=== PATIENT | female | born 1935 | race Caucasian/White ===

== ENCOUNTER 2022-10-05 16:24 | Emergency (ER) | payer MEDICARE, SELFPAY ==
[2022-10-05 16:29] VITALS: BP 162/84; O2SAT 95
[2022-10-05 16:31] VITALS: BP 162/84; PULSE 94; RESP 16; TEMP 36.7; O2SAT 100; BMI 18.9
--- NOTE | 2022-10-05 16:41 | XR_ITS ---
The [address] [address] Patient Name: SCOTTIE CHAVIRA MRN: [id number] date: 1935 Sex: F Assigned Patient Location: ER Current Patient Location: ED.MAIN Accession/Order Number: [id number] Exam Date: 10/05/2022 17:50 Report Date: 10/05/2022 18:55 At the request of: ELI WEINER Procedure: XR abdomen min 2V EXAM: XR abdomen min 2V HISTORY: constip COMPARISON: None. TECHNIQUE: Supine study on 2 films FINDINGS: There is prominent stool throughout the colon. No dilated small bowel loops are identified. GI kiah are noted in the right abdomen. IMPRESSION: Apparent constipation. Electronically authenticated by: James HAHN Date: 10/05/2022 18:55
[2022-10-05] MEDS: 0.9 % SODIUM CHLORIDE 1,000 ML 999 ML IV (16:55)
[2022-10-05 17:12] LABS: Basophils Absolute Auto 0.1 10^3/uL (0.0-0.1); Basophils Percent Auto 0.3 % (0.2-2.0); Hematocrit 36.6 % (36.0-48.0); Hemoglobin 12.4 g/dL (12.0-16.0); Immature Granulocytes Abs Auto 0.07 10^3/uL (0.00-0.03); Immature Granulocytes Pct Auto 0.5 % (0.0-0.5); Lymphocytes Absolute Auto 1.5 10^3/uL (1.2-3.8); Lymphocytes Percent Auto 9.6 % (20.5-60.0); Mean Corpuscular HGB Conc 33.9 g/dL (29.9-35.2); Mean Corpuscular Hemoglobin 30.5 pg (26.7-34.0); Mean Corpuscular Volume 90.1 fL (81.0-99.0); Mean Platelet Volume 9.4 fL (9.5-13.5); Monocytes Absolute Auto 1.1 10^3/uL (0.3-0.8); Monocytes Percent Auto 7.4 % (1.7-12.0); Neutrophils Absolute Auto 12.6 10^3/uL (1.4-6.5); Neutrophils Percent Auto 82.2 % (43.0-75.0); Platelet Count 229 10^3/uL (150-450); Red Blood Count 4.06 10^6/uL (4.20-5.40); Red Cell Distribution Width 12.7 % (11.0-15.0); White Blood Count 15.3 10^3/uL (4.0-11.0)
[2022-10-05 17:32] LABS: Bilirubin Urine NEGATIVE (NEGATIVE); Blood Urine MODERATE (NEGATIVE); Clarity Urine CLEAR (CLEAR); Color Urine LT. YELLOW (YELLOW); Glucose Urine UA NEGATIVE (NEGATIVE); Ketones Urine TRACE mg/dL (NEGATIVE); Leukocyte Esterase Urine NEGATIVE (NEGATIVE); Nitrite Urine NEGATIVE (NEGATIVE); Protein Urine NEGATIVE (NEG/TRACE); Urobilinogen Urine 0.2 EU/dL (0.2-1.0); pH Urine 6.5 (5.0-9.0)
[2022-10-05 17:33] LABS: Alanine Aminotransferase 17 U/L (14-59); Albumin Level 3.7 g/dL (3.4-5.0); Alkaline Phosphatase 39 U/L (46-116); Anion Gap 15.9; Aspartate Amino Transferase 17 U/L (15-37); BUN Creatinine Ratio 19.1; Bilirubin Total 0.6 mg/dL (0.2-1.0); Calcium 9.4 mg/dL (8.5-10.1); Carbon Dioxide 22.6 mmol/L (21.0-32.0); Chloride 102 mmol/L (98-107); Estimated GFR (African America >60 (>=60); Estimated GFR (Non-African Ame 60 (>=60); Globulin 3.8 g/dL; Glucose 129 mg/dL (74-106); Potassium 3.5 mmol/L (3.5-5.1); Sodium 137 mmol/L (136-145); Total Protein 7.5 g/dL (6.4-8.2)
[2022-10-05 17:41] LABS: Bacteria Urine NONE SEEN #/HPF (NONE SEEN); Cast Seen? NONE SEEN #/LPF (NONE SEEN); Crystals Seen? None Seen #/HPF (None Seen); Mucus Urine NONE SEEN (NONE SEEN); Squamous Epithelial Cell Urine FEW #/LPF (NONE/RARE); WBC Urine NONE SEEN #/HPF (NONE SEEN)
[2022-10-05 17:42] LABS: Urine Culture Indicated NO
[2022-10-05 17:58] VITALS: BP 150/81; O2SAT 98
[2022-10-05 18:00] VITALS: BP 145/73; O2SAT 98
--- NOTE | 2022-10-05 19:02 | ED.GENADUL1 ---
HPI - General Adult General Chief complaint: Weakness Stated complaint: CONSTIPATION Time Seen by Provider: 10/05/22 16:32 Source: patient Mode of arrival: walk-in Limitations: no limitations Limitations comment: [facility] History of Present Illness HPI narrative: patient is a 87-year-old female who is presenting to the Emergency Room with concern for constipation and rectal pain. Patient states that the rectal pain started this morning. Around 8 AM, patient went to the bathroom, urinated and had diarrhea. Patient's been having rectal pain and pressure any time she's been walking at home throughout the morning and afternoon. Patient was brought to the Emergency Room by her [id number] for concerns of rectal pain and constipation. Patient has no fever or chills. No chest pain or shortness of breath. Patient has no urinary frequency, urgency or burning. Patient does have a history of colon cancer, and rectal surgery many years ago. Patient never had a ostomy bag previously. Patient does not have her appendix. no other acute complaints. Related Data Home Medications Medication Instructions Recorded Confirmed alendronate 40 mg tablet 40 mg PO .weekly 10/05/22 10/05/22 cholecalciferol (vitamin D3) 50 50 mcg PO DAILY 10/05/22 10/05/22 mcg (2,000 unit) capsule (D3-2000) omega 7-bpz-hqq-fish oil 1,000 mg 1 cap PO DAILY 10/05/22 10/05/22 (120 mg-180 mg) capsule (Fish Oil) Previous Rx's Medication Instructions Recorded dicyclomine 10 mg capsule 10 mg PO TID PRN abdominal pain #7 10/05/22 caps ondansetron 4 mg disintegrating 4 mg PO Q8H 48 hours #6 tabs 10/05/22 tablet Allergies Allergy/AdvReac Type Severity Reaction Status Date / Time aspirin AdvReac Intermediate bleeding Verified 10/05/22 16:30 Review of Systems ROS Narrative All systems are negative except as noted/marked. All systems reviewed and otherwise negative. PFSH PFS Social History Smoking status: Never smoker Exam Narrative Exam Narrative: Nurses note and vital signs reviewed and patient is not hypoxic. General: The patient appears well and in no apparent distress. Patient is resting comfortably on cart. Patient is not toxic, lethargic, or listless Skin: Warm, dry, no pallor noted. There is no rash noted. No petechiae, purpura. Head: Normocephalic, atraumatic Eye: Normal conjunctiva, no drainage, EOMI. PERRL Ears, Nose, Mouth, and Throat: oral mucosa is moist. Nares patent. Mouth without vesicles. Cardiovascular: Regular Rate and Rhythm, no murmur, gallop, rub Respiratory: Patient is in no distress, no accessory muscle use, lungs are clear to auscultation, no wheezing, rales or rhonchi Back: non-tender, no CVA tenderness bilaterally to percussion. No CT LS midline pain GI: soft, no tenderness to palpation, no masses appreciated. No rebound, guarding, or rigidity noted. No flank pain bilateral, No distention rectal rectal exam: Carey RN was at bedside during the entire exam. Patient had no signs of perirectal or rectal abscess, no signs upon analysis. Patient had moderate firm stool in the rectal vault, small amount of stool was disimpacted by myself. Musculoskeletal: Patient has full range of motion of all of the extremities, no motor, sensory, or focal neurological deficits Neurological: A&O x3, normal speech Psychiatric: Cooperative Constitutional Vital Signs - 24 hr 10/05/22 16:31 10/05/22 16:29 10/05/22 17:58 Temperature 98.1 F Pulse Rate [Monitor] 94 H Respiratory Rate 16 Blood Pressure 162/84 H 150/81 H Blood Pressure [Right Arm] 162/84 H Pulse Oximetry 100 95 98 Oxygen Delivery Method Room Air 10/05/22 18:00 Temperature Pulse Rate [Monitor] Respiratory Rate Blood Pressure 145/73 H Blood Pressure [Right Arm] Pulse Oximetry 98 Oxygen Delivery Method Course Vital Signs Vital signs: Vital Signs Blood Pressure 162/84 H 10/05/22 16:29 Pulse Oximetry 95 10/05/22 16:29 Temperature 98.1 F 10/05/22 16:31 Pulse Rate 94 H 10/05/22 16:31 Respiratory Rate 16 10/05/22 16:31 Blood Pressure 145/73 H 10/05/22 18:00 Pulse Oximetry 98 10/05/22 18:00 Oxygen Delivery Method Room Air 10/05/22 16:31 Medical Decision Making MDM Narrative Medical decision making narrative: Patient x-ray shows large amount of stool in the rectal vault, no obstruction, air-fluid levels, please see the official x-ray report of her abdomen. Patient has slight elevation of white blood cells 15 with no obvious infectious source. Electrolytes are within normal limits. Patient was given 1 L of IV fluids for hydration. Patient will follow-up with PCP. . Patient had small disimpaction done by myself. Patient attempted to have a boweel movement at discharge and was not successful. Patient was given a soapsuds enema. Patient will follow-up with PCP. Patient will use MiraLAX and either mineral oil/mag citrate the next 2 days developed increasing fluids to help with bowel movements. Patient was sent home with prescription for Zofran and Bentyl to use as needed help her symptoms. Patient and [id number] at bedside understand instructions well, no questions at discharge. Lab Data Lab results reviewed: Yes I reviewed the patient's lab results Labs: Lab Results 10/05/22 Range/Units 16:50 WBC 15.3 H (4.0-11.0) 10^3/uL RBC 4.06 L (4.20-5.40) 10^6/uL Hgb 12.4 (12.0-16.0) g/dL Hct 36.6 (36.0-48.0) % MCV 90.1 (81.0-99.0) fL MCH 30.5 (26.7-34.0) pg MCHC 33.9 (29.9-35.2) g/dL RDW 12.7 (11.0-15.0) % Plt Count 229 (150-450) 10^3/uL MPV 9.4 L (9.5-13.5) fL Neut % (Auto) 82.2 H (43.0-75.0) % Lymph % (Auto) 9.6 L (20.5-60.0) % [place] % (Auto) 7.4 (1.7-12.0) % Eos % (Auto) 0.0 L (0.9-7.0) % Baso % (Auto) 0.3 (0.2-2.0) % Neut # (Auto) 12.6 H (1.4-6.5) 10^3/uL Lymph # (Auto) 1.5 (1.2-3.8) 10^3/uL [place] # (Auto) 1.1 H (0.3-0.8) 10^3/uL Eos # (Auto) 0.0 (0.0-0.7) 10^3/uL Baso # (Auto) 0.1 (0.0-0.1) 10^3/uL Abs Immat Gran (auto) 0.07 H (0.00-0.03) 10^3/uL Imm/Tot Granulo (auto) 0.5 (0.0-0.5) % Sodium 137 (136-145) mmol/L Potassium 3.5 (3.5-5.1) mmol/L Chloride 102 (98-107) mmol/L Carbon Dioxide 22.6 (21.0-32.0) mmol/L Anion Gap 15.9 BUN 17.0 (7.0-18.0) mg/dL Creatinine 0.89 (0.55-1.02) mg/dL Est GFR ( Amer) >60 (>=60) Est GFR (Non-Af Amer) 60 (>=60) BUN/Creatinine Ratio 19.1 Glucose 129 H (74-106) mg/dL Calcium 9.4 (8.5-10.1) mg/dL Total Bilirubin 0.6 (0.2-1.0) mg/dL AST 17 (15-37) U/L ALT 17 (14-59) U/L Alkaline Phosphatase 39 L (46-116) U/L Total Protein 7.5 (6.4-8.2) g/dL Albumin 3.7 (3.4-5.0) g/dL Globulin 3.8 g/dL Albumin/Globulin Ratio 1.0 Lipase 48.0 L (73.0-393.0) U/L Urine Color Lt. yellow (YELLOW) Urine Clarity Clear (CLEAR) Urine pH 6.5 (5.0-9.0) Ur Specific [place] 1.010 (1.005-1.025) Urine Protein Negative (NEG/TRACE) mg/dL Urine Glucose (UA) Negative (NEGATIVE) mg/dL Urine Ketones Trace A (NEGATIVE) mg/dL Urine Occult Blood Moderate A (NEGATIVE) Urine Nitrite Negative (NEGATIVE) Urine Bilirubin Negative (NEGATIVE) Urine Urobilinogen 0.2 (0.2-1.0) EU/dL Ur Leukocyte Esterase Negative (NEGATIVE) Urine RBC 5-10 A (0-2) #/HPF Urine WBC None seen (NONE SEEN) #/HPF Ur Squamous Epith Cells Few A (NONE/RARE) #/LPF Urine Crystals None seen (None Seen) #/HPF Urine Bacteria None seen (NONE SEEN) #/HPF Urine Casts None seen (NONE SEEN) #/LPF Urine Mucus None seen (NONE SEEN) Ur Culture Indicated? No Discharge Plan Discharge Chief Complaint: Weakness Clinical Impression: Dehydration, mild, Anal or rectal pain, Fecal impaction in rectum, Constipation Patient Disposition: Home, Self-Care Prescriptions / Home Meds: New dicyclomine 10 mg capsule 10 mg PO TID PRN (Reason: abdominal pain) Qty: 7 0RF ondansetron 4 mg tablet,disintegrating 4 mg PO Q8H 2 Days Qty: 6 0RF No Action alendronate 40 mg tablet 40 mg PO .weekly omega 7-ckj-sst-fish oil [Fish Oil] 1,000 mg (120 mg-180 mg) capsule 1 cap PO DAILY cholecalciferol (vitamin D3) [D3-2000] 50 mcg (2,000 unit) capsule 50 mcg PO DAILY Instructions: Constipation (ED), Rectal Pain (ED) Additional Instructions: Tomorrow, Saturday, use one heaping tablespoons of MiraLAX twice a day on Saturday and Saturday. Use one bottle of either magnesium citrate or mineral oil on Saturday and Saturday. Use fleets enemas if needed Saturday and Saturday. Increase fluids. Use nausea and belly cramping medicine if needed. Stand Alone Forms: Portal Instructions Referrals: JESSICA BERGMAN [Primary Care Provider] - 1 week
[2022-10-05] MEDS: ONDANSETRON PF 4 MG/2 ML VIAL IV (20:25)
== END 2022-10-05 20:26 | disposition home or self-care (01) ==
PROVIDERS: Emergency Provider Emergency Medicine; PCP Family Medicine
DX: K59.00 Constipation, unspecified (principal); E86.0 Dehydration; K62.89 Other specified diseases of anus and rectum; Z85.038 Personal history of other malignant neoplasm of large intestine; Z79.899 Other long term (current) drug therapy
CPT/HCPCS: 36415; 74019; 80053; 81001; 83690; 85025; 99285

== ENCOUNTER 2022-10-17 08:38 | Outpatient (OUT) | payer MEDICARE, SELFPAY ==
--- NOTE | 2022-10-17 08:49 | CT_ITS ---
[address] [address] Patient Name: SCOTTIE CHAVIRA MRN: [id number] date: 1935 Sex: F Assigned Patient Location: LAB Current Patient Location: LAB Accession/Order Number: [id number] Exam Date: 10/17/2022 10:21 Report Date: 10/17/2022 11:07 At the request of: ANGELA DURAN Procedure: CT abdomen pelvis wo/w con EXAMINATION: CT abdomen pelvis wo/w con HISTORY: History of colon cancer Z85.038, Lower abdominal pain R10.30 COMPARISON: CT abdomen pelvis 08/24/2016 TECHNIQUE: Axial, Coronal, and Sagittal images were obtained without and/or with IV contrast as indicated by examination type. Dose reduction techniques were achieved by using automated exposure control and/or adjustment of mA and/or kV according to patient size and/or use of iterative reconstruction technique. FINDINGS: LUNG BASES: No visible pulmonary or pleural disease. LIVER: No enlargement, atrophy, suspicious density, or significant focal lesion. BILIARY: No dilatation or calcification. PANCREAS: No lesion, fluid collection, or abnormal duct dilatation. SPLEEN: No enlargement or focal lesion. ADRENALS: No mass or enlargement. KIDNEYS: No mass, obstruction, or calcification. BOWEL/MESENTERY: Bowel sutures surrounding the cecum. No visible mass, obstruction, or bowel wall thickening. AORTA/VASCULAR: No aneurysm or dissection. RETROPERITONEUM: No mass or adenopathy. LYMPH NODES: No adenopathy. URINARY BLADDER: No visible focal wall thickening, lesion, or calculus. PELVIC ORGANS: No visible mass. Pelvic organs appropriate for patient age. ABDOMINAL WALL: No mass or hernia. BONES: No bony lesion or fracture. OTHER: Negative. IMPRESSION: 1.No evidence of recurrent or metastatic disease. Bowel sutures surrounding cecum. 2.No lymphadenopathy or suspicious findings. Electronically authenticated by: LISANDRO MCDOWELL Date: 10/17/2022 11:07
[2022-10-17 08:55] LABS: Estimated GFR (African America >60 (>=60); Estimated GFR (Non-African Ame 56 (>=60)
== END 2022-10-17 08:39 ==
LOC: LAB 08:38
PROVIDERS: PCP Family Medicine; Visit Provider Physician Assistant
DX: R10.30 Lower abdominal pain, unspecified (principal); Z85.038 Personal history of other malignant neoplasm of large intestine; Z90.49 Acquired absence of other specified parts of digestive tract; R19.5 Other fecal abnormalities
CPT/HCPCS: 36415; 74178; 82565; Q9967

== ENCOUNTER 2023-02-28 10:49 | Outpatient (OUT) | payer MEDICARE, SELFPAY ==
--- NOTE | 2023-02-28 10:53 | MM_ITS ---
Patient: SCOTTIE CHAVIRA Exam Date: 02/28/2023 : 1935 Gender:F Ordering : DR JESSICA BERGMAN M.D. Admission #: [id number] Family : Order #: [id number] CLICK HERE TO VIEW EXAM RADIOLOGY REPORT PROCEDURE: MM TOMOSYNTHESIS SCREENING BI COMPARISON: MG MAMM SCREEN 3D ALAYNA CAD, 02/23/2021. MG MAMM SCREEN 3D ALAYNA CAD, 02/26/2022. INDICATIONS: Screening Calculator Name NCI Breast Cancer Risk Assessment Tool 5 Year Breast Cancer Risk Not Applicable. Lifetime Breast Cancer Risk Not Applicable. Personal Breast Cancer No Personal Ovarian Cancer No Treatments Bowl resection Family Cancers Mother with breast cancer at age 87; Sister with breast cancer at age 80; Sister with breast cancer at age 78. LOCATION: The [facility] BREAST COMPOSITION: Heterogeneously dense,which may obscure small masses. FINDINGS: DIAGNOSTIC CATEGORY 2--BENIGN FINDING. NO CHANGE FROM COMPARISON. Scattered benign-appearing calcifications are present. Scattered benign-appearing lymph nodes are present. RIGHT BREAST: No significant suspicious finding. LEFT BREAST: No significant suspicious finding. RECOMMENDATIONS: ROUTINE MAMMOGRAM AND CLINICAL EVALUATION IN 12 MONTHS. PLEASE NOTE: A NORMAL MAMMOGRAM DOES NOT EXCLUDE THE POSSIBILITY OF BREAST CANCER. A CLINICALLY SUSPICIOUS PALPABLE LUMP SHOULD BE BIOPSIED. Dictated by: Braxton Valderrama MD on 03/01/2023 at 08:43 Approved by: Braxton Valderrama MD on 03/01/2023 at 08:46
== END 2023-02-28 10:50 | disposition home or self-care (01) ==
LOC: MAMMO 10:50
PROVIDERS: PCP Family Medicine; Visit Provider Family Medicine
DX: Z12.31 Encounter for screening mammogram for malignant neoplasm of breast (principal); Z80.3 Family history of malignant neoplasm of breast
CPT/HCPCS: 77063; 77067

== ENCOUNTER 2023-12-28 13:52 | Outpatient (OUT) | payer MEDICARE, SELFPAY ==
--- OUTSIDE RECORDS SUMMARY | 2023-12-27 11:27 | XMS_ITS | CCD ---
Author Organization [facility]iniSyhi Care Team Providers Care Teacher Preschool Name Role Phone Ashley Hopper Primary Care Physician UnavailMekhi Warren Unavailable Unavailable PACHECO, DR LOPEZ Admitting Unavailable PACHECO, DR LOPEZ Primary Care Unavailable PACHECO, DR LOPEZ Consulting Unavailable PACHECO, DR LOPEZ Attending Unavailable WEST, DR QUANG Desai Consulting Unavailable Pacheco BENSON, Buck Walker Primary Care Unavailab christiano Finch, Reina Altman Attending Unavai lable PACHECO, BUCK Raza Attending Unavailable PETITTIMARLENE Attending Unavailable PACHECO, BUCK M Attending Unavailable RUSHERLISANDRO Attending Unavailable PACHECO, RUGEN M Attending Unavailable BLACKSTONRICHARD Attending Unavailable PACHECO, RUGEN M Referring Unavailable KELBLERICHARD Bruno Attending Unavailable PACHECO, RUGEN M Referring Unavailable DOT GODOY Attending Unavailable PACHECO, RUGEN M Referring Unavailable PACHECO, RUGEN M Referring Unavailable KELBLEYRICHARD Attending Unavailable PACHECO, RUGEN M Referring Unavailable PACHECO, RUGEN M Referring Unavailable DOT GODOY Attending Unavailable Allergies Allergy Classification Reported Allergen(s) Allergy Type Date of Onset Reaction(s) Facility (2 sources) Aspirin; Translations: [aspirin] Drug Allergy [facility] (1 source) Aspirin Drug Allergy 04-15-2016 [facility] Medications Completed/Discontinued Medications Medication Drug Class(es) Dates Sig (Normalized) Sig (Original) alendronic acid 70 mg oral tablet (4 sources) Bisphosphonate Start: 10-11-2015 End: 10-06-2019 take 1 tablet by mouth every week in the morning Fosamax 70 mg oral tablet 10/11/2015 03/16/2016 take 1 tablet (70 mg) by oral route once weekly in the morning, at least 30 min before food, beverage, or medication. Take with 8 oz water. Remain upright at least 30 min after taking medication. Calcium & Vitamin D3 Liquid 500 mg-500IU (2 sources) Start: 04-26-2015 End: 09-30-2015 Calcium & Vitamin D3 Liquid 500 mg-500IU 04/26/2015 09/30/2015 take 1 tablespoon by mouth twice daily dosage change calcium carbonate 1500 mg / cholecalciferol 400 unt oral tablet (2 sources) Vitamin D take 1 tablet by mouth twice daily Calcium 600 + D(3) 600 mg(1,500mg) -400 unit oral tablet take 1 tablet by oral route 2 times a day cholecalciferol 1000 unt oral capsule (2 sources) Vitamin D Start: 09-30-2015 take 1 capsule by mouth twice daily Vitamin D3 1,000 unit oral capsule 09/30/2015 take 1 capsule by oral route 2 times a day I-Hortencia 1,000 unit-200 mg-60 unit-2 mg oral tablet (2 sources) End: 03-30-2015 take 1 tablet by mouth once daily I-Hortencia 1,000 unit-200 mg-60 unit-2 mg oral tablet 03/30/2015 take 1 tablet by oral route QD multivitamin Oral tablet (2 sources) take 1 tablet by mouth once daily multivitamin Oral tablet take 1 tablet by oral route daily simvastatin 40 mg oral tablet (2 sources) HMG-CoA Reductase Inhibitor Start: 03-16-2016 End: 01-12-2019 take 1 tablet by mouth once daily in the evening simvastatin 40 mg oral tablet 03/16/2016 01/12/2019 take 1 tablet (40 mg) by oral route once daily in the evening Problems Active Problems Problem Classification Problem Date Documented Da te Episodic/Chronic Anxiety disorders (2 sources) Anxiety state, unspecified Onset: 09-28-2014 Chronic Cancer of colon (8 sources) Adenocarcinoma of large intestine; Translations: [Malignant neoplasm of colon, unspecified site] Onset: 03-30-2015 Chronic Disorders of lipid metabolism (20 sources) Mixed hyperlipidemia; Translations: [Mixed hyperlipidemia] Onset: 03-31-2013 Chronic Menopausal disorders (1 source) Other primary ovarian failure; Translations: [OTHER PRIMARY OVARIAN FAILURE] Onset: 03-01-2022 Chronic Nutritional deficiencies (20 sources) Unspecified vitamin D deficiency; Translations: [Vitamin D deficiency] Onset: 03-31-2013 Chronic Osteoporosis (16 sources) Osteoporosis, unspecified; Translations: [Osteoporosis] Onset: 11-26-2013 Chronic Other and unspecified benign neoplasm (3 sources) Benign neoplasm of skin of lower limb, including hip Onset: 01-12-2019 Episodic Other bone disease and musculoskeletal deformities (4 sources) Disorder of bone and cartilage, unspecified Onset: 11-30-2015 Episodic Other bone disease and musculoskeletal deformities (1 source) Other specified disorders of bone density and structure, unspecified site; Translations: [OTH D/O BONE DEN STRUCT UNS SITE] Onset: 03-01-2022 Episodic Other nervous system disorders (3 sources) Disturbance of skin sensation Onset: 03-16-2016 Episodic Other screening for suspected conditions (not mental disorders or infectious disease) (4 sources) Encounter for screening mammogram for malignant neoplasm of breast; Translations: [ENC SCR MAMMO MALIG NEOPLASM BREAST] Onset: 02-26-2022 Episodic Other skin disorders (3 sources) Other seborrheic keratosis Onset: 01-12-2019 Episodic Other skin disorders (1 source) Sebaceous cyst Onset: 10-06-2019 Episodic Other skin disorders (1 source) Other specified diseases of sebaceous glands Onset: 10-06-2019 Episodic Residual codes; unclassified (1 source) Family history of malignant neoplasm of breast; Translations: [FAMILY HX MALIG NEOPLASM OF BREAST] Onset: 03-01-2022 Episodic Past or Other Problems Problem Classification Problem Date Documented Date Episodic/Chronic Cancer of colon (2 sources) Personal history of malignant neoplasm of large intestine Onset: 03-30-2014 Episodic Genitourinary symptoms and ill-defined conditions (6 sources) Hematuria, unspecified; Translations: [Blood in urine] Onset: 09-30-2015 Episodic Immunizations and screening for infectious disease (8 sources) Need for prophylactic vaccination and inoculation against influenza Onset: 02-12-2013 Episodic Other connective tissue disease (2 sources) Loss of height Onset: 11-30-2015 Episodic Other skin disorders (2 sources) Other dyschromia Onset: 01-12-2019 Episodic Other skin disorders (2 sources) Actinic keratosis Onset: 01-12-2019 Episodic Residual codes; unclassified (4 sources) Asymptomatic postmenopausal status (age-related) (natural) Onset: 11-26-2013 Episodic Spondylosis; intervertebral disc disorders; other back problems (2 sources) Backache, unspecified Onset: 11-26-2013 Episodic Results Test Name Value Interpretation Reference Range Facil ity CT HEAD WO IV CONTRASTon CT HEAD WO IV CONTRAST CT - CT HEAD WITHOUT CONTRAST Reason for exam: Generalized headaches Technical: Axial slices are obtained through the brain. Findings: There is no evidence of any intracranial mass, mass effect, edema, or midline shift. No hemorrhage is identified. There is a biconvex, CSF-density fluid collection along the left frontal convexity consistent with an arachnoid cyst measuring 4.0 x 4.3 x 1.7 cm. Visualized portions of the orbits and paranasal sinuses are unremarkable. No skull fractures or skull lesions are identified. Impression: Left frontal convexity arachnoid cyst, a finding of questionable significance. Otherwise normal exam. All CT scans at this institution are performed using dose optimization techniques as appropriate for the performed exam including the following: Automated exposure control Adjustment of the mA and/or kV according to patient size Use of iterative reconstruction technique Dictated on: 12/04/2023 4:35 PM This report has been electronically signed and approved by the interpreting Radiologist. Electronically Signed Kirill Álvarez M.D. 2023-12-04 16:38:43 Normal Not Available MG MAMM SCREEN 3D ALAYNA CADon 02-26-2022 MG MAMM SCREEN 3D ALAYNA CAD Patient: SCOTTIE CHAVIRA Exam Date: 02/26/2022 : 1935 Gender:F Ordering : DR BUCK BERGMAN M.D. Admission #: [id number] Family : Order #: [id number] CLICK HERE TO VIEW EXAM RADIOLOGY REPORT PROCEDURE: MAMMOGRAM SCREENING 3D BILATERAL CAD COMPARISON: MG MAMM SCREEN 3D ALAYNA CAD, 02/23/2021. MG MAMM SCREEN ALAYNA W CAD, 02/22/2020. INDICATIONS: Screening mammography Calculator Name NCI Breast Cancer Risk Assessment Tool 5 Year Breast Cancer Risk Not Applicable. Lifetime Breast Cancer Risk Not Applicable. Personal Breast Cancer No Personal Ovarian Cancer No Treatments Bowl resection Family Cancers Mother with breast cancer at age 87; Sister with breast cancer at age 80; Sister with breast cancer at age 78. LOCATION: [facility] BREAST COMPOSITION: Heterogeneously dense,which may obscure small masses. FINDINGS: DIAGNOSTIC CATEGORY 1--NEGATIVE. Scattered benign-appearing nodules are present. Scattered benign-appearing calcifications are present. RIGHT BREAST: No significant suspicious finding. LEFT BREAST: No significant suspicious finding. RECOMMENDATIONS: ROUTINE MAMMOGRAM AND CLINICAL EVALUATION IN 12 MONTHS. PLEASE NOTE: A NORMAL MAMMOGRAM DOES NOT EXCLUDE THE POSSIBILITY OF BREAST CANCER. A CLINICALLY SUSPICIOUS PALPABLE LUMP SHOULD BE BIOPSIED. Dictated by: Quang Judd MD on 02/26/2022 at 14:13 Approved by: Quang Judd MD on 02/26/2022 at 14:[address] [facility] XR DEXA BONE DENSITYon 02-26 XR DEXA BONE DENSITY EXAMINATION: XR DEXA BONE DENSITY, 02/26/2022 12:46 PM EDT HISTORY: Primary ovarian failure COMPARISON: 2017 TECHNIQUE: Dual-energy X-ray absorptiometry (DEXA) bone density study performed for the axial skeleton. FINDINGS: Bone mineral density lumbar spine L1-L4 measures 1.044 g/sq cm. T score -1.1. WHO classification: Osteopenia. Lowest bone mineral density left femoral neck measures 0.712 g/sq cm. T score -2.3. WHO classification: Osteopenia IMPRESSION: Osteopenia. Moderate fracture risk Electronically authenticated by: QUANG JUDD Date: 2022-02-26 13:[address] [facility] 03-16-2016 Cholesterol [Mass/Vol] 206.0 mg/dL 0-200 [facility] Cholesterol in HDL [Mass/Vol] 85.0 mg/dL 50-100 [facility] Cholesterol in LDL [Mass/Vol] 97.0 mg/dL 0-130 [place] [facility] Triglyceride [Mass/Vol] 121.0 mg/dL 30-150 [place] [facility] Hematologyon 03-16-2016 Hematocrit (Bld) [Volume fraction] 40.40 % 35.7-47.[address] Hemoglobin (Bld) [Mass/Vol] 13.40 g/dL 11.9-15.7 [place] [facility] MCH (RBC) [Entitic mass] 30.0 pg 23.2-33.3 [facility] MCV (RBC) [Entitic vol] 90.20 fL 82.0-98.4 [facility] [employer] [facility] Platelets (Bld) [#/Vol] 225.0 10*3/uL 150-400 [facility] [facility] RBC (Bld) [#/Vol] 4.480 10*6/uL 3.72-5.24 [facility] [employer] [facility] WBC (Bld) [#/Vol] 8.30 10*3/uL 3.9-10.3 [facility] [facility] Metabolic Panelon 03-16-2016 ALT [Catalytic activity/Vol] 11.0 U/L 0-50 [facility] [facility] Anion gap [Moles/Vol] 16 mmol/L 10-20 [facility] AST [Catalytic activity/Vol] 18.0 U/L 0-40 [facility] [facility] Calcium [Mass/Vol] 9.20 mg/dL 8.5-10.8 [facility] [facility] Chloride [Moles/Vol] 106 mmol/L 100-112 [facility] [facility] CO2 [Moles/Vol] 25 mmol/L 23-30 [facility] [facility] Creatinine [Mass/Vol] 0.90 mg/dL 0.5-1.5 [facility] GFR/1.73 sq M predicted among non-blacks MDRD (S/P/Bld) [Vol rate/Area] 60 mL/min/{1.73_m2} [facility] Glucose [Mass/Vol] 104.0 mg/dL 80-117 [facility] [facility] Potassium [Moles/Vol] 3.6 mmol/L 3.5-5.3 [place] [facility] Sodium [Moles/Vol] 143 mmol/L 135-148 [facility] Urea nitrogen [Mass/Vol] 12.0 mg/dL 7-25 [place] [facility] Urea nitrogen/Creatinin e [Mass ratio] 13 mg/mg 6-20 [place] [facility] Otheron 03-16-2016 Cholesterol in VLDL [Mass/Vol] 24.0 mg/dL 0-39 [place] [facility] Cholesterol.total/ Cholesterol in HDL [Mass ratio] 2 {ratio} [place] [facility] Erythrocyte distribution width (RBC) [Ratio] 12.50 % 11.5-15.5 [place] [facility] MCHC (RBC) [Mass/Vol] 33.20 g/dL 32.0-36.0 [place] [facility] Platelet mean volume (Bld) [Entitic vol] 7.70 fL 7.4-10.4 [place] [facility] Otheron 11-30-2015 8-3-16 osteopenia [facility] Cardiacon 09-29-2015 Cholesterol [Mass/Vol] 183.0 mg/dL 0-200 [place] [facility] Cholesterol in HDL [Mass/Vol] 74.0 mg/dL 50-100 [place] [facility] Cholesterol in LDL [Mass/Vol] 84.0 mg/dL 0-130 [place] [facility] Triglyceride [Mass/Vol] 126.0 mg/dL 30-150 [place] [facility] Metabolic Panelon 09-29-2015 ALT [Catalytic activity/Vol] 16.0 U/L 0-50 [place] [facility] Anion gap [Moles/Vol] 17 mmol/L 10-20 [place] [facility] AST [Catalytic activity/Vol] 21.0 U/L 0-40 [place] [facility] Calcium [Mass/Vol] 9.60 mg/dL 8.5-10.8 [facility] [employer] [facility] Chloride [Moles/Vol] 105 mmol/L 100-112 [place] [facility] CO2 [Moles/Vol] 27 mmol/L 23-30 [place] [employer] [facility] Creatinine [Mass/Vol] 0.90 mg/dL 0.5-1.5 [place] [employer] [facility] GFR/1.73 sq M predicted among non-blacks MDRD (S/P/Bld) [Vol rate/Area] 60 mL/min/{1.73_m2} [facility] [employer] [facility] Glucose [Mass/Vol] 100.0 mg/dL 80-[address] [facility] [employer] [facility] Potassium [Moles/Vol] 4.1 mmol/L 3.5-5.3 [place] [facility] Sodium [Moles/Vol] 145 mmol/L 135-148 [facility] [employer] [facility] Urea nitrogen [Mass/Vol] 13.0 mg/dL 7-25 [facility] Urea nitrogen/Creatinin e [Mass ratio] 14 mg/mg 6-20 [facility] Otheron 09-29-2015 Calcidiol [Mass/Vol] 54.0 ng/mL 30.0-100.0 [facility] Cholesterol in VLDL [Mass/Vol] 25.0 mg/dL 0-39 [facility] Cholesterol.total/ Cholesterol in HDL [Mass ratio] 2 {ratio} [facility] 03-28-2015 Cholesterol [Mass/Vol] 212.0 mg/dL 0-200 [facility] Cholesterol in HDL [Mass/Vol] 78.0 mg/dL 50-100 [facility] Cholesterol in LDL [Mass/Vol] 112.0 mg/dL 0-130 [facility] Triglyceride [Mass/Vol] 110.0 mg/dL 30-150 [facility] Metabolic Panelon 03-28-2015 Albumin [Mass/Vol] 4.40 g/dL 3.7-4.5 [facility] ALP [Catalytic activity/Vol] 44.0 U/L 31-155 [facility] ALT [Catalytic activity/Vol] 18.0 U/L 0-50 [facility] Anion gap [Moles/Vol] 15 mmol/L 10-20 [facility] AST [Catalytic activity/Vol] 22.0 U/L 0-40 [facility] Bilirubin [Mass/Vol] 0.50 mg/dL 0.0-1.0 [facility] Calcium [Mass/Vol] 9.70 mg/dL 8.5-10.8 [facility] Chloride [Moles/Vol] 107 mmol/L 100-112 [facility] CO2 [Moles/Vol] 30 mmol/L 23-30 [facility] [employer] [facility] Creatinine [Mass/Vol] 0.80 mg/dL 0.5-1.5 [facility] [employer] [facility] GFR/1.73 sq M predicted among non-blacks MDRD (S/P/Bld) [Vol rate/Area] 69 mL/min/{1.73_m2} [facility] [employer] [facility] Glucose [Mass/Vol] 86.0 mg/dL 80-117 [facility] [employer] [facility] Potassium [Moles/Vol] 4.2 mmol/L 3.5-5.3 [facility] [employer] Protein [Mass/Vol] 7.40 g/dL 6.3-7.9 [facility] [employer] [facility] Sodium [Moles/Vol] 148 mmol/L 135-148 [facility] [facility] Urea nitrogen [Mass/Vol] 19.0 mg/dL 7-25 [facility] Urea nitrogen/Creatinin e [Mass ratio] 24 mg/mg 6-20 [facility] Otheron 03-28-2015 Albumin/Globulin [Mass ratio] 1.5 {ratio} 1.0-2.4 [facility] Calcidiol [Mass/Vol] 50.9 ng/mL 30.0-100.0 [facility] Cholesterol in VLDL [Mass/Vol] 22.0 mg/dL 0-39 [facility] Cholesterol.total/ Cholesterol in HDL [Mass ratio] 3 {ratio} [facility] 09-28-2014 Cholesterol [Mass/Vol] 172.0 mg/dL 0-200 [facility] [employer] [facility] Cholesterol in HDL [Mass/Vol] 73.0 mg/dL 50-100 [facility] [employer] [facility] Cholesterol in LDL [Mass/Vol] 73.0 mg/dL 0-130 [facility] Triglyceride [Mass/Vol] 132.0 mg/dL 30-150 [facility] Metabolic Panelon 09-28-2014 ALT [Catalytic activity/Vol] 14.0 U/L 0-50 [facility] [employer] [facility] Anion gap [Moles/Vol] 14 mmol/L 10-20 [facility] AST [Catalytic activity/Vol] 17.0 U/L 0-40 [facility] [employer] [facility] Calcium [Mass/Vol] 9.40 mg/dL 8.5-10.8 [facility] Chloride [Moles/Vol] 103 mmol/L 100-112 [facility] [employer] [facility] CO2 [Moles/Vol] 29 mmol/L 23-30 [facility] [employer] [facility] Creatinine [Mass/Vol] 0.80 mg/dL 0.5-1.5 [facility] [employer] [facility] GFR/1.73 sq M predicted among non-blacks MDRD (S/P/Bld) [Vol rate/Area] 69 mL/min/{1.73_m2} [facility] Glucose [Mass/Vol] 101.0 mg/dL 80-117 [facility] [employer] [facility] Potassium [Moles/Vol] 3.9 mmol/L 3.5-5.3 [facility] [facility] Sodium [Moles/Vol] 142 mmol/L 135-148 [place] [facility] Urea nitrogen [Mass/Vol] 16.0 mg/dL 7-25 [facility] Urea nitrogen/Creatinin e [Mass ratio] 20 mg/mg 6-20 [facility] Otheron 09-28-2014 Calcidiol [Mass/Vol] 51.0 ng/mL 30.0-100.0 [facility] Cholesterol in VLDL [Mass/Vol] 26.0 mg/dL 0-39 [facility] Cholesterol.total/ Cholesterol in HDL [Mass ratio] 2 {ratio} [facility] Cardi[facility] 03-30-2014 Cholesterol [Mass/Vol] 203.0 mg/dL 0-200 [facility] Cholesterol in HDL [Mass/Vol] 78.0 mg/dL 50-100 [facility] Cholesterol in LDL [Mass/Vol] 98.0 mg/dL 0-130 [facility] Triglyceride [Mass/Vol] 136.0 mg/dL 30-150 [facility] Metabolic Panelon 03-30-2014 ALT [Catalytic activity/Vol] 20.0 U/L 0-50 [facility] Anion gap [Moles/Vol] 18 mmol/L 10-20 [facility] AST [Catalytic activity/Vol] 25.0 U/L 0-40 [facility] Calcium [Mass/Vol] 9.90 mg/dL 8.5-10.8 [facility] Chloride [Moles/Vol] 101 mmol/L 100-112 [facility] CO2 [Moles/Vol] 28 mmol/L 23-30 [place] [facility] Creatinine [Mass/Vol] 0.90 mg/dL 0.5-1.5 [place] [facility] GFR/1.73 sq M predicted among non-blacks MDRD (S/P/Bld) [Vol rate/Area] 60 mL/min/{1.73_m2} [facility] [employer] [facility] Glucose [Mass/Vol] 97.0 mg/dL 80-117 [facility] Potassium [Moles/Vol] 3.7 mmol/L 3.5-5.3 [place] [facility] Sodium [Moles/Vol] 143 mmol/L 135-148 [facility] Urea nitrogen [Mass/Vol] 18.0 mg/dL 7-25 [facility] Urea nitrogen/Creatinin e [Mass ratio] 20 mg/mg 6-20 [facility] Otheron 03-30-2014 Cholesterol in VLDL [Mass/Vol] 27.0 mg/dL 0-39 [facility] Cholesterol.total/ Cholesterol in HDL [Mass ratio] 3 {ratio} [facility] 09-29-2013 Cholesterol [Mass/Vol] 182.0 mg/dL 0-200 [facility] Cholesterol in HDL [Mass/Vol] 77.0 mg/dL 50-100 [facility] Cholesterol in LDL [Mass/Vol] 85.0 mg/dL 0-130 [facility] Triglyceride [Mass/Vol] 101.0 mg/dL 30-150 [facility] Metabolic Panelon 09-29-2013 ALT [Catalytic activity/Vol] 13.0 U/L 0-50 [facility] Anion gap [Moles/Vol] 18 mmol/L 10-20 [facility] AST [Catalytic activity/Vol] 18.0 U/L 0-40 [facility] Calcium [Mass/Vol] 9.70 mg/dL 8.5-10.8 [facility] [employer] [facility] Chloride [Moles/Vol] 105 mmol/L 100-112 [facility] CO2 [Moles/Vol] 23 mmol/L 23-30 [facility] Creatinine [Mass/Vol] 0.80 mg/dL 0.5-1.5 [facility] GFR/1.73 sq M predicted among non-blacks MDRD (S/P/Bld) [Vol rate/Area] 69 mL/min/{1.73_m2} [facility] [employer] [facility] Glucose [Mass/Vol] 89.0 mg/dL 80-117 [facility] [employer] [facility] Potassium [Moles/Vol] 3.7 mmol/L 3.5-5.3 [facility] Sodium [Moles/Vol] 142 mmol/L 135-148 [place] [facility] Urea nitrogen [Mass/Vol] 15.0 mg/dL 7-25 [facility] Urea nitrogen/Creatinin e [Mass ratio] 19 mg/mg 6-20 [facility] Otheron 09-29-2013 Calcidiol [Mass/Vol] 46.7 ng/mL 30.0-100.0 [facility] Cholesterol in VLDL [Mass/Vol] 20.0 mg/dL 0-39 [place] [facility] Cholesterol.total/ Cholesterol in HDL [Mass ratio] 2 {ratio} [place] [facility] 03-31-2013 Cholesterol [Mass/Vol] 210.0 mg/dL 0-200 [facility] Cholesterol in HDL [Mass/Vol] 74.0 mg/dL 50-100 [facility] Cholesterol in LDL [Mass/Vol] 102.0 mg/dL 0-130 [facility] Triglyceride [Mass/Vol] 170.0 mg/dL 30-150 [facility] Metabolic Panelon 03-31-2013 ALT [Catalytic activity/Vol] 23.0 U/L 0-50 [facility] Anion gap [Moles/Vol] 15 mmol/L 10-20 [place] [facility] AST [Catalytic activity/Vol] 25.0 U/L 0-40 [facility] Calcium [Mass/Vol] 9.60 mg/dL 8.5-10.8 [facility] [employer] [facility] Chloride [Moles/Vol] 99 mmol/L 100-112 [place] [facility] CO2 [Moles/Vol] 28 mmol/L 23-30 [place] [facility] Creatinine [Mass/Vol] 0.80 mg/dL 0.5-1.5 [place] [facility] GFR/1.73 sq M predicted among non-blacks MDRD (S/P/Bld) [Vol rate/Area] 69 mL/min/{1.73_m2} [facility] Glucose [Mass/Vol] 88.0 mg/dL 80-117 [facility] Potassium [Moles/Vol] 4.3 mmol/L 3.5-5.3 [facility] Sodium [Moles/Vol] 138 mmol/L 135-148 [facility] Urea nitrogen [Mass/Vol] 14.0 mg/dL 7-25 [facility] Urea nitrogen/Creatinin e [Mass ratio] 18 mg/mg 6-20 [facility] Otheron 03-31-2013 Calcidiol [Mass/Vol] 47.4 ng/mL 30.0-100.0 [facility] Cholesterol in VLDL [Mass/Vol] 34.0 mg/dL 0-39 [facility] Cholesterol.total/ Cholesterol in HDL [Mass ratio] 3 {ratio} [facility] Vital Signs Date Time Vital Sign Value Performing Clinician Jeronimo maloney 03-16-2016 13:36-0500 BMI (Body Mass Index) 21.97 kg/m2 Ashley [facility] 03-16-2016 13:36-0500 Body weight 57.15 kg Ashley [facility] 03-16-2016 13:36-0500 BP Diastolic 60 mm[Hg] Ashley [facility] 03-16-2016 13:36-0500 BP Systolic 114 mm[Hg] Ashley [facility] 03-16-2016 13:36-0500 BSA (Body Surface Area) 1.6 m2 [employer] 03-16-2016 13:36-0500 Height 161.29 cm [employer] [employer] 03-16-2016 13:36-0500 Pulse (Heart Rate) 68 /min [facility] 09-30-2015 10:59-0400 BMI (Body Mass Index) 22.67 kg/m2 [facility] 09-30-2015 10:59-0400 Body weight 58.97 kg [facility] 09-30-2015 10:59-0400 BP Diastolic 50 mm[Hg] [employer] 09-30-2015 10:59-0400 BP Systolic 120 mm[Hg] [facility] 09-30-2015 10:59-0400 BSA (Body Surface Area) 1.63 m2 [employer] 09-30-2015 10:59-0400 Height 161.29 cm [employer] 09-30-2015 10:59-0400 Pulse (Heart Rate) 76 /min [facility] 04-26-2015 12:09-0500 BMI (Body Mass Index) 22.06 kg/m2 [employer] 04-26-2015 12:09-0500 Body weight 57.38 kg [facility] 04-26-2015 12:09-0500 BP Diastolic 68 mm[Hg] [place] [facility] 04-26-2015 12:09-0500 BP Diastolic 64 mm[Hg] [facility] 04-26-2015 12:09-0500 BP Systolic 106 mm[Hg] [facility]-26[facility]2015 12:09-0500 BP Systolic 110 mm[Hg] [facility] 04-26-2015 12:09-0500 BSA (Body Surface Area) 1.6 m2 [facility] 04-26-2015 12:09-0500 Height 161.29 cm [facility] 04-26-2015 12:09-0500 Pulse (Heart Rate) 78 /min Ashley [facility] 03-30-2015 12:04-0500 BMI (Body Mass Index) 21.45 kg/m2 [facility] 03-30-2015 12:04-0500 Body weight 55.79 kg [facility] 03-30-2015 12:04-0500 BP Diastolic 64 mm[Hg] [facility] 03-30-2015 12:04-0500 BP Systolic 122 mm[Hg] [facility] 03-30-2015 12:04-0500 BSA (Body Surface Area) 1.58 m2 [facility] 03-30-2015 12:04-0500 Height 161.29 cm Ashley [employer] 03-30-2015 12:04-0500 Pulse (Heart Rate) 72 /min Ashley Troy [employer] 09-28-2014 12:05-0400 BMI (Body Mass Index) 20.92 kg/m2 Ashley [facility] 09-28-2014 12:05-0400 Body weight 54.43 kg Ashley Hopper [facility] 09-28-2014 12:05-0400 BP Diastolic 60 mm[Hg] Ashley Hopper [facility] 09-28-2014 12:05-0400 BP Systolic 118 mm[Hg] Ashley Hopper [employer] 09-28-2014 12:05-0400 BSA (Body Surface Area) 1.56 m2 Ashley Hopper [facility] 09-28-2014 12:050400 Height 161.29 cm Ashley Hopper [facility] 09-28-2014 12:05-0400 Pulse (Heart Rate) 76 /min Ashley Troy [employer] 03-30-2014 11:33-0500 BMI (Body Mass Index) 22.58 kg/m2 Ashley Hopper [facility] 03-30-2014 11:33-0500 Body weight 58.74 kg Ashley [facility] [facility] 03-30-2014 11:33-0500 BP Diastolic 64 mm[Hg] Ashley [employer] [facility] 03-30-2014 11:33-0500 BP Systolic 128 mm[Hg] [facility] 03-[facility]-2014 11:33-0500 BSA (Body Surface Area) 1.62 m2 Ashley [employer] 03-30-2014 11:33-0500 Height 161.29 cm Ashley [employer] 03-30-2014 11:33-0500 Pulse (Heart Rate) 72 /min Ashley [facility] MadisonMcclendonNe[facility] 09-29-2013 12:16-0400 BMI (Body Mass Index) 21.97 kg/m2 Ashley Ramamianc[employer] 09-29-2013 12:16-0400 Body weight 57.15 kg Ashely RamamiancData[employer] 09-29-2013 12:16-0400 BP Diastolic 74 mm[Hg] Ashley [employer] 09-29-2013 12:16-0400 BP Systolic 128 mm[Hg] Ashley [facility] [facility] 09-29-2013 12:16-0400 BSA (Body Surface Area) 1.6 m2 Ashlye RamamiancData[employer] 09-29-2013 12:16-0400 Height 161.29 cm [employer] 09-29-2013 12:16-0400 Pulse (Heart Rate) 60 /min Ashley Kimbiapk [facility] 03-31-2013 11:40-0500 BMI (Body Mass Index) 21.8 kg/m2 [employer] 03-31-2013 11:40-0500 Body weight 57.61 kg Ashley [employer] 03-31-2013 11:40-0500 BP Diastolic 78 mm[Hg] Ashley [employer] 03-31-2013 11:40-0500 BP Systolic 130 mm[Hg] [employer] 03-31-2013 11:40-0500 BSA (Body Surface Area) 1.61 m2 [employer] 03-31-2013 11:40-0500 Height 162.56 cm [employer] 03-31-2013 11:40-0500 Pulse (Heart Rate) 72 /min [employer] 09-30-2012 11:40-0400 BMI (Body Mass Index) 21.8 kg/m2 [employer] 09-30-2012 11:40-0400 Body weight 57.61 kg Ashley [employer] 09-30-2012 11:40-0400 BP Diastolic 60 mm[Hg] [employer] 09-30-2012 11:40-0400 BP Systolic 122 mm[Hg] [employer] 09-30-2012 11:40-0400 BSA (Body Surface Area) 1.61 m2 [employer] 09-30-2012 11:40-0400 Height 162.56 cm [employer] 09-30-2012 11:40-0400 Pulse (Heart Rate) 68 /min [employer] Encounters Encounter Date Encounter Type Care Provider Facility Start: 12-10-2023 End: 12-10-2023 ambulatory BUCK Raza PACHECO Not Available Start: 12-05-2023 End: 12-05-2023 ambulatory RICHARD CAREY Not Available Start: 12-04-2023 End: 12-04-2023 ambulatory RUGEN M PACHECO Not Available Start: 11-29-2023 End: 11-29-2023 ambulatory DOT GODOY Not Available Start: 11-27-2023 End: 11-27-2023 ambulatory RICHARD CAREY Not Available Start: 11-20-2023 End: 11-20-2023 ambulatory RICHARD BUTTERFIELD Not Available Start: 11-19-2023 End: 11-19-2023 ambulatory RUGEN M PACHECO Not Available Start: 11-18-2023 End: 11-18-2023 ambulatory LISANDRO Giraldo FRANCOIS Not Available Start: 11-04-2023 End: 11-04-2023 ambulatory RUGEN M PACHECO Not Available Start: 09-30-2023 End: 09-30-2023 ambulatory MARLENE VICENTE Not Available Start: 07-15-2023 End: 07-15-2023 ambulatory RUGEN M PACHECO Not Available Start: 05-24-2023 End: 05-25-2023 ambulatory Buck Bergman MD Facility[facility] Start: 02-26-2022 End: 02-27-[address] BUCK BERGMAN Facility:[facility] Start: 10-06-2019 Office outpatient vi sit 15 minutes Ashley Hopper Other [facility] Start: 01-12-2019 Office outpatient ne w 20 minutes Ashley Hopper Other [facility] Start: 03-16-2016 Medicare Lab Mekhi Champion Other [facility] Start: 03-16-2016 Office outpatient vi sit 25 minutes Mekhi Champion Other [facility] Start: 01-27-2016 Walk-In Mekhi Champion Other [facility] Start: 11-30-2015 Split Srvc Alicia Mejias Other [facility] Start: 09-30-2015 Office outpatient vi sit 25 minutes Mekhi Champion Other [facility] Start: 09-29-2015 Medicare Lab Mekhi Champion Other [facility] Start: 04-26-2015 Routine general medi abigail examination at a [facility] facility Ashley [facility] Start: 04-26-2015 Office Services Karley Solitario ams Other [facility] Start: 03-30-2015 Office outpatient vi sit 25 minutes Mekhi Champion Other [facility] Start: 03-28-2015 Medicare Lab Mekhi Champion Other [facility] Start: 02-15-2015 Walk-In Mekhi Champion Other [facility] Start: 09-28-2014 Medicare Lab Mekhi Champion Other [facility] Start: 09-28-2014 Office outpatient vi sit 25 minutes Mekhi Champion Other [facility] Start: 03-30-2014 Medicare Lab Mekhi Champion Other [facility] Start: 03-30-2014 Office Services Mekhi Champion Other [facility] Start: 02-23-2014 Walk-In Mekhi Champion Other [facility] Start: 11-26-2013 Split vc Julia Verde Other [facility] Start: 09-29-2013 Medicare Lab Mekhi Champion Other [facility] Start: 09-29-2013 Office Services Mekhi Champion Other [facility] Start: 03-31-2013 Medicare Lab Mekhi Champion Other [facility] Start: 03-31-2013 Office Services Mekhi Champion Other [facility] Start: 02-12-2013 Walk-In Mekhi Champion Other [facility] Start: 09-30-2012 Medicare Lab Mekhi Champion Other [facility] Start: 09-30-2012 Office Services Mekhi Champion Other [facility] Procedures Date Procedure Procedure Detail Performing Clinician Start: 10-06-2019 Doc meds verified w/pt or re Ashley Hopper Start: 01-12-2019 Doc meds verified w/pt or re Ashley Hopper Start: 03-31-2016 Basic metabolic pane l calcium total Ashley Hopper Start: 03-31-2016 Blood count complete automated Ashley Hopper Start: 03-31-2016 Lipid panel Ashley olguin Start: 03-31-2016 Transferase alanine amino alt sgpt Ashley Hopper Start: 03-31-2016 Transferase aspartat e amino ast sgot Ashley Hopper Start: 03-16-2016 Ndl emg 1 xtr w/wo r elated paraspinal areas Ashley Hopper Start: 03-16-2016 Basic metabolic pane l calcium ionized Ashley Hopper Start: 03-16-2016 Basic metabolic pane l calcium total Ashley Natividadzaid Start: 01-27-2016 Fluvirin vacc, 3 yrs & >, im Ashley Hopper Start: 11-30-2015 Dxa bone density rogelio dy 1/> sites axial skel Ashley Hopper Start: 11-30-2015 Dxa bone density rogelio dy 1/>sites appendiclr [facility] Ashley Hopper Start: 09-29-2015 25 hydroxy includes fractions if performed Ashley Hopper Start: 09-29-2015 Basic metabolic pane l calcium total Ashley Hopper Start: 09-29-2015 Lipid panel Ashley olguin Start: 09-29-2015 Transferase alanine amino alt sgpt Ashley Hopper Start: 09-29-2015 Transferase aspartat e amino ast sgot Ashley Hopper Start: 04-26-2015 Admin pneumococcal vaccine Ashley Hopper Start: 03-28-2015 25 hydroxy includes fractions if performed Ashley Hopper Start: 03-28-2015 Comprehensive metabolic panel Ashley Hopper Start: 03-28-2015 Lipid panel Ashley olguin Start: 02-15-2015 Fluvirin vacc, 3 yrs & >, im Ashley Hopper Start: 09-28-2014 25 hydroxy includes fractions if performed Ashley Rustpk Start: 09-28-2014 Basic metabolic pane l calcium total Ashley Rustpk Start: 09-28-2014 Doc meds verified w/pt or re Ashley Natividadtarahpk Start: 09-28-2014 Lipid panel Ashley olguin Start: 09-28-2014 TOBACCO NON-USER Ashley Rustpk Start: 09-28-2014 Transferase alanine amino alt sgpt Ashleyalisia Rustpk Start: 09-28-2014 Transferase aspartat e amino ast sgot Ashleyalisia Rustpk Start: 03-30-2014 Admin pneumococcal vaccine Ashley Natividadtarahpk Start: 03-30-2014 Basic metabolic pane l calcium total Ashley Rustpk Start: 03-30-2014 Doc meds verified w/pt or re Ashley Hopper Start: 03-30-2014 INFLUENZA IMMUNIZATI ON ADMINISTERED OR PREVIOUSLY RECEIVED Ashley Ruchi Start: 03-30-2014 Lipid panel Ashley olguin Start: 03-30-2014 TOBACCO NON-USER Ashley Rustpk Start: 03-30-2014 Transferase alanine amino alt sgpt Ashley Rustpk Start: 03-30-2014 Transferase aspartat e amino ast sgot Ashleyalisia Rustpk Start: 02-23-2014 Fluvirin vacc, 3 yrs & >, im Ashley Natividadtarahpk Start: 11-26-2013 Dual energy X-ray ph oton absorptiometry Ashley Rustpk Start: 11-26-2013 Dxa bone density rogelio dy 1/> sites axial skel Ashley Natividadtarahpk Start: 09-29-2013 25 hydroxy includes fractions if performed Ashley Natividadtarahpk Start: 09-29-2013 Basic metabolic pane l calcium total Ashley Hopper Start: 09-29-2013 Doc meds verified w/pt or re Ashley Hopper Start: 09-29-2013 Lipid panel Ashley olguin Start: 09-29-2013 TOBACCO NON-USER Ashleyalisia Rustpk Start: 09-29-2013 Transferase alanine amino alt sgpt Ashleyalisia Rustpk Start: 09-29-2013 Transferase aspartat e amino ast sgot Ashley Natividadtarahpk Start: 03-31-2013 25 hydroxy includes fractions if performed Ashley Hensontarahpk Start: 03-31-2013 Basic metabolic pane l calcium total Ashley Hopper Start: 03-31-2013 Lipid panel Ashley olguin Start: 03-31-2013 Transferase alanine amino alt sgpt Ashley Hopper Start: 03-31-2013 Transferase aspartat e amino ast sgot Ashley Hopper Start: 02-12-2013 Fluvirin vacc, 3 yrs & >, im Ashley Hopper Immunizations Immunization Date Immunization Notes Care Provider Fa cility 01-27-2016 influenza, seasonal, injectable Ashley [facility] 01-27-2016 Medicare Flu Admin f ee; Translations: [Administration of influenza virus vaccine] [employer] 04-26-2015 pneumococcal polysaccharide vaccine, 23 valent; Translations: [PNEUMOCOCCAL VACC 23 DEON IM] [employer] 02-15-2015 influenza, seasonal, injectable [employer] 02-15-2015 Medicare Flu Admin f ee; Translations: [Administration of influenza virus vaccine] [employer] 03-30-2014 pneumococcal conjuga te vaccine, 13 valent; Translations: [PNEUMOCOCCAL VACC 13 DEON IM] [employer] 02-23-2014 influenza virus vacc ine, unspecified formulation; Translations: [Influenza Administration Fee (Medicare)] [employer] 02-12-2013 influenza virus vacc ine, unspecified formulation; Translations: [Administration of influenza virus vaccine] [employer] 02-12-2013 influenza, seasonal, injectable [employer] Payers Date Payer Category Payer Medicare [id number] 2.1 [id number] 1959 Private Health Insurance [facility] [id number] 1935 Unknown [id number] 2.16.84 [id number] 1935 Unknown [id number] 2.16. [id number] 1935 Unknown [id number] 2.16.84 [id number] 1935 Unknown [id number] 2.16.84 0.1.675405.3.579.2.9 1935 Unknown [id number] 2.16.84 0.1.136263.3.579.2.9 1935 Unknown [id number] 2.16.84 0.1.603894.3.579.2.9 1935 Unknown [id number] 2.16.84 0.1.714476.3.579.2.1259 1935 Unknown [id number] 2.16.84 0.1.893253.3.579.2.9 1935 Unknown [id number] 2.16.84 0.1.766565.3.579.2.9 1935 Unknown [id number] 2.16.84 0.1.843000.3.579.2.9 1935 Unknown [id number] 2.16.84 0.1.967330.3.579.2.1259 1935 Unknown [id number] 2.16.84 0.1.072514.3.579.2.1258 1935 Unknown [id number] 2.16.84 [id number] Self-pay Social History Date Type Detail Facility Start: Never smoker [facility] Start: Alcohol [facility] Start: Caffeine [facility] Summary Purpose Family History No Family History Records FoundNo Family History Records FoundNo Family History Records Found Advance Directives No Advanced Directives Records FoundNo Advanced Directives Records FoundNo Advanced Directives Records Found Additional Source Comments INFORMATION SOURCE (unrecogn ized section and content) DATE CREATED AUTHOR 03/02/2022 [facility] DATE CREATED AUTHOR AUTHOR'S ORGANIZ ATION 05/25/2023 [facility] DATE CREATED AUTHOR AUTHOR'S ORGANIZ ATION 12/12/2023 [facility] FOR RECORDS PERTAINING TO PATIENTS WHO ARE OR HAVE BEEN ENROLLED IN A CHEMICAL DEPENDENCY/SUBSTANCEABUSE PROGRAM, SOME INFORMATION MAY BE OMITTED. This clinical summary was aggregated from multiple sources. Caution should be exercised in using it in the provision of clinical care. This summary normalizes information from multiple sources, and as a consequence, information in this document may materially change the coding, format and clinical context of patient data. In addition, data may be omitted in some cases. CLINICAL DECISIONS SHOULD BE BASED ON THE PRIMARY CLINICAL RECORDS. [facility] [employer] provides no warranty or guarantee of the accuracy or completeness of information in this document.
--- OUTSIDE RECORDS SUMMARY | 2023-12-28 13:56 | XMS_ITS | CCD ---
Author Organization [facility] Care Team Providers Care Tag Marker Name Role Phone Ashley Hopper Primary Care [...] (2 sources) Aspirin; Translations: [aspirin] Drug Allergy [facility] (1 source) Aspirin Drug Allergy 04-15-2016 [facility] Repository Medications Completed/Discontinued Medications Medication Drug Class(es) [...] : DR BUCK BERGMAN M.D. Admission #: [id number] Family : Order #: [id number] CLICK HERE TO VIEW EXAM RADIOLOGY REPORT [...] breast cancer at age 78. LOCATION: [facility] BREAST COMPOSITION: Heterogeneously dense,which may obscure small [...] Judd MD on 02/26/2022 at 14:15 Normal [facility] XR DEXA BONE DENSITYon 02-26 [...] by: QUANG JUDD Date: 2022-02-26 13:28 Normal [facility]acon 03-16-2016 Cholesterol [Mass/Vol] 206.0 mg/dL 0-200 [facility] Cholesterol in HDL [Mass/Vol] 85.0 mg/dL 50-100 [facility] Cholesterol in LDL [Mass/Vol] 97.0 mg/dL 0-130 [employer] Triglyceride [Mass/Vol] 121.0 mg/dL 30-150 [employer] Hematologyon 03-16-2016 Hematocrit (Bld) [Volume fraction] 40.40 % 35.7-47.1 [facility] [employer]HSENSORS Hemoglobin (Bld) [Mass/Vol] 13.40 g/dL 11.9-15.7 [employer] MCH (RBC) [Entitic mass] 30.0 pg 23.2-33.3 [facility] MCV (RBC) [Entitic vol] 90.20 fL 82.0-98.4 [facility] Platelets (Bld) [#/Vol] 225.0 10*3/uL 150-400 [facility] RBC (Bld) [#/Vol] 4.480 10*6/uL 3.72-5.24 [facility] WBC (Bld) [#/Vol] 8.30 10*3/uL 3.9-10.3 [facility] Metabolic Panelon 03-16-2016 ALT [Catalytic activity/Vol] 11.0 U/L 0-50 [facility] Anion gap [Moles/Vol] 16 mmol/L 10-20 [facility] AST [Catalytic activity/Vol] 18.0 U/L 0-40 [facility] Calcium [Mass/Vol] 9.20 mg/dL 8.5-10.8 [facility] Chloride [Moles/Vol] 106 mmol/L 100-112 [facility] CO2 [Moles/Vol] 25 mmol/L 23-30 [facility] Creatinine [Mass/Vol] 0.90 mg/dL 0.5-1.5 [facility] GFR/1.73 sq M predicted among non-blacks MDRD (S/P/Bld) [Vol rate/Area] 60 mL/min/{1.73_m2} [facility] [employer]HSENS[facility] Glucose [Mass/Vol] 104.0 mg/dL 80-117 [facility] Potassium [Moles/Vol] 3.6 mmol/L 3.5-5.3 [employer] Sodium [Moles/Vol] 143 mmol/L 135-148 [facility] [employer] Urea nitrogen [Mass/Vol] 12.0 mg/dL 7-25 [employer] Urea nitrogen/Creatinin e [Mass ratio] 13 mg/mg 6-20 [employer] Otheron 03-16-2016 Cholesterol in VLDL [Mass/Vol] 24.0 mg/dL 0-39 [employer] Cholesterol.total/ Cholesterol in HDL [Mass ratio] 2 {ratio} [employer] Erythrocyte distribution width (RBC) [Ratio] 12.50 % 11.5-15.5 [employer] MCHC (RBC) [Mass/Vol] 33.20 g/dL 32.0-36.0 [employer] Platelet mean volume (Bld) [Entitic vol] 7.70 fL 7.4-10.4 [employer] Otheron 11-30-2015 8-3-16 osteopenia [facility] [employer] Cardiacon 09-29-2015 Cholesterol [Mass/Vol] 183.0 mg/dL 0-200 [employer] Cholesterol in HDL [Mass/Vol] 74.0 mg/dL 50-100 [employer] Cholesterol in LDL [Mass/Vol] 84.0 mg/dL 0-130 [employer] Triglyceride [Mass/Vol] 126.0 mg/dL 30-150 [employer] Metabolic Panelon 09-29-2015 ALT [Catalytic activity/Vol] 16.0 U/L 0-50 [employer] Anion gap [Moles/Vol] 17 mmol/L 10-20 [employer] AST [Catalytic activity/Vol] 21.0 U/L 0-40 [employer] Calcium [Mass/Vol] 9.60 mg/dL 8.5-10.8 [facility] [employer] [facility] Chloride [Moles/Vol] 105 mmol/L 100-112 [employer] CO2 [Moles/Vol] 27 mmol/L 23-30 Jean LFS ([employer] [facility] Creatinine [Mass/Vol] 0.90 mg/dL 0.5-1.5 Jean [employer]FS ([employer] [facility] GFR/1.73 sq M predicted among non-blacks MDRD (S/P/Bld) [Vol rate/Area] 60 mL/min/{1.73_m2} [facility] Glucose [Mass/Vol] 100.0 mg/dL 80-117 [facility] [employer]FS ([employer] [facility] Potassium [Moles/Vol] 4.1 mmol/L 3.5-5.3 [employer] Sodium [Moles/Vol] 145 mmol/L 135-148 [facility] [employer] [facility] Urea nitrogen [Mass/Vol] 13.0 mg/dL 7-25 [facility] Urea nitrogen/Creatinin e [Mass ratio] 14 mg/mg 6-20 [facility] Otheron 09-29-2015 Calcidiol [Mass/Vol] 54.0 ng/mL 30.0-100.0 [facility] Cholesterol in VLDL [Mass/Vol] 25.0 mg/dL 0-39 [facility] Cholesterol.total/ Cholesterol in HDL [Mass ratio] 2 {ratio} [facility] 03-28-2015 Cholesterol [Mass/Vol] 212.0 mg/dL 0-200 [facility] Cholesterol in HDL [Mass/Vol] 78.0 mg/dL 50-100 [facility] Cholesterol in LDL [Mass/Vol] 112.0 mg/dL 0-130 [facility] Triglyceride [Mass/Vol] 110.0 mg/dL 30-150 [facility] Metabolic Panelon 03-28-2015 Albumin [Mass/Vol] 4.40 g/dL 3.7-4.5 [facility] [employer] ALP [Catalytic activity/Vol] 44.0 U/L 31-155 [facility] ALT [Catalytic activity/Vol] 18.0 U/L 0-50 [facility] Anion gap [Moles/Vol] 15 mmol/L 10-20 [facility] AST [Catalytic activity/Vol] 22.0 U/L 0-40 [facility] Bilirubin [Mass/Vol] 0.50 mg/dL 0.0-1.0 [facility] Calcium [Mass/Vol] 9.70 mg/dL 8.5-10.8 [facility] [employer] Chloride [Moles/Vol] 107 mmol/L 100-112 [facility] CO2 [Moles/Vol] 30 mmol/L 23-30 [facility] Creatinine [Mass/Vol] 0.80 mg/dL 0.5-1.5 [facility] GFR/1.73 sq M predicted among non-blacks MDRD (S/P/Bld) [Vol rate/Area] 69 mL/min/{1.73_m2} [facility] Glucose [Mass/Vol] 86.0 mg/dL 80-117 [facility] Potassium [Moles/Vol] 4.2 mmol/L 3.5-5.3 [facility] [employer] Protein [Mass/Vol] 7.40 g/dL 6.3-7.9 [facility] [employer] [facility] Sodium [Moles/Vol] 148 mmol/L 135-148 [facility] Urea nitrogen [Mass/Vol] 19.0 mg/dL 7-25 [facility] Urea nitrogen/Creatinin e [Mass ratio] 24 mg/mg 6-20 [facility] Otheron 03-28-2015 Albumin/Globulin [Mass ratio] 1.5 {ratio} 1.0-2.4 [facility] Calcidiol [Mass/Vol] 50.9 ng/mL 30.0-100.0 [facility] Cholesterol in VLDL [Mass/Vol] 22.0 mg/dL 0-39 [facility] Cholesterol.total/ Cholesterol in HDL [Mass ratio] 3 {ratio} [facility] 09-28-2014 Cholesterol [Mass/Vol] 172.0 mg/dL 0-200 [facility] Cholesterol in HDL [Mass/Vol] 73.0 mg/dL 50-100 [facility] [employer] [facility] Cholesterol in LDL [Mass/Vol] 73.0 mg/dL 0-130 [facility] Triglyceride [Mass/Vol] 132.0 mg/dL 30-150 [facility] Metabolic Panelon 09-28-2014 ALT [Catalytic activity/Vol] 14.0 U/L 0-50 [facility] Anion gap [Moles/Vol] 14 mmol/L 10-20 [facility] AST [Catalytic activity/Vol] 17.0 U/L 0-40 [facility] [employer] [facility] Calcium [Mass/Vol] 9.40 mg/dL 8.5-10.8 [facility] Chloride [Moles/Vol] 103 mmol/L 100-112 [facility] [employer] [facility] CO2 [Moles/Vol] 29 mmol/L 23-30 [facility] [employer] [facility] Creatinine [Mass/Vol] 0.80 mg/dL 0.5-1.5 [facility] [facility] GFR/1.73 sq M predicted among non-blacks MDRD (S/P/Bld) [Vol rate/Area] 69 mL/min/{1.73_m2} [facility] Glucose [Mass/Vol] 101.0 mg/dL 80-117 [facility] [employer] [facility] Potassium [Moles/Vol] 3.9 mmol/L 3.5-5.3 [facility] Sodium [Moles/Vol] 142 mmol/L 135-148 [place] [employer] Urea nitrogen [Mass/Vol] 16.0 mg/dL 7-25 [facility] Urea nitrogen/Creatinin e [Mass ratio] 20 mg/mg 6-20 [facility] Otheron 09-28-2014 Calcidiol [Mass/Vol] 51.0 ng/mL 30.0-100.0 [facility] Cholesterol in VLDL [Mass/Vol] 26.0 mg/dL 0-39 [facility] Cholesterol.total/ Cholesterol in HDL [Mass ratio] 2 {ratio} [facility] 03-30-2014 Cholesterol [Mass/Vol] 203.0 mg/dL 0-200 [facility] Cholesterol in HDL [Mass/Vol] 78.0 mg/dL 50-100 [facility] Cholesterol in LDL [Mass/Vol] 98.0 mg/dL 0-130 [facility] Triglyceride [Mass/Vol] 136.0 mg/dL 30-150 [facility] Metabolic Panelon 03-30-2014 ALT [Catalytic activity/Vol] 20.0 U/L 0-50 [facility] Anion gap [Moles/Vol] 18 mmol/L 10-20 [facility] AST [Catalytic activity/Vol] 25.0 U/L 0-40 [facility] Calcium [Mass/Vol] 9.90 mg/dL 8.5-10.8 [facility] [employer] Chloride [Moles/Vol] 101 mmol/L 100-112 [facility] CO2 [Moles/Vol] 28 mmol/L 23-30 [employer] Creatinine [Mass/Vol] 0.90 mg/dL 0.5-1.5 [employer] GFR/1.73 sq M predicted among non-blacks MDRD (S/P/Bld) [Vol rate/Area] 60 mL/min/{1.73_m2} [facility] Glucose [Mass/Vol] 97.0 mg/dL 80-117 [facility] [employer] Potassium [Moles/Vol] 3.7 mmol/L 3.5-5.3 [employer] Sodium [Moles/Vol] 143 mmol/L 135-148 [facility] [employer] Urea nitrogen [Mass/Vol] 18.0 mg/dL 7-25 [facility] Urea nitrogen/Creatinin e [Mass ratio] 20 mg/mg 6-20 [facility] Otheron 03-30-2014 Cholesterol in VLDL [Mass/Vol] 27.0 mg/dL 0-39 [facility] Cholesterol.total/ Cholesterol in HDL [Mass ratio] 3 {ratio} [facility] 09-29-2013 Cholesterol [Mass/Vol] 182.0 mg/dL 0-200 [facility] Cholesterol in HDL [Mass/Vol] 77.0 mg/dL 50-100 [facility] Cholesterol in LDL [Mass/Vol] 85.0 mg/dL 0-130 [facility] Triglyceride [Mass/Vol] 101.0 mg/dL 30-150 [facility] Metabolic Panelon 09-29-2013 ALT [Catalytic activity/Vol] 13.0 U/L 0-50 [facility] Anion gap [Moles/Vol] 18 mmol/L 10-20 [facility] AST [Catalytic activity/Vol] 18.0 U/L 0-40 [facility] Calcium [Mass/Vol] 9.70 mg/dL 8.5-10.8 [facility] [employer] [facility] Chloride [Moles/Vol] 105 mmol/L 100-112 [facility] CO2 [Moles/Vol] 23 mmol/L 23-30 [facility] Creatinine [Mass/Vol] 0.80 mg/dL 0.5-1.5 [facility] GFR/1.73 sq M predicted among non-blacks MDRD (S/P/Bld) [Vol rate/Area] 69 mL/min/{1.73_m2} [facility] Glucose [Mass/Vol] 89.0 mg/dL 80-117 [facility] [employer] [facility] Potassium [Moles/Vol] 3.7 mmol/L 3.5-5.3 [facility] Sodium [Moles/Vol] 142 mmol/L 135-148 [place] [facility] [employer] Urea nitrogen [Mass/Vol] 15.0 mg/dL 7-25 [facility] Urea nitrogen/Creatinin e [Mass ratio] 19 mg/mg 6-20 [facility] Otheron 09-29-2013 Calcidiol [Mass/Vol] 46.7 ng/mL 30.0-100.0 [facility] Cholesterol in VLDL [Mass/Vol] 20.0 mg/dL 0-39 [employer] Cholesterol.total/ Cholesterol in HDL [Mass ratio] 2 {ratio} [employer] Cardiacon 03-31-2013 Cholesterol [Mass/Vol] 210.0 mg/dL 0-200 [facility] Cholesterol in HDL [Mass/Vol] 74.0 mg/dL 50-100 [facility] Cholesterol in LDL [Mass/Vol] 102.0 mg/dL 0-130 [facility] Triglyceride [Mass/Vol] 170.0 mg/dL 30-150 [facility] Metabolic Panelon 03-31-2013 ALT [Catalytic activity/Vol] 23.0 U/L 0-50 [facility] Anion gap [Moles/Vol] 15 mmol/L 10-20 [employer] AST [Catalytic activity/Vol] 25.0 U/L 0-40 [facility] Calcium [Mass/Vol] 9.60 mg/dL 8.5-10.8 [facility] [employer] ([employer] [facility] Chloride [Moles/Vol] 99 mmol/L 100-112 [employer] CO2 [Moles/Vol] 28 mmol/L 23-30 [employer] Creatinine [Mass/Vol] 0.80 mg/dL 0.5-1.5 [employer] GFR/1.73 sq M predicted among non-blacks MDRD (S/P/Bld) [Vol rate/Area] 69 mL/min/{1.73_m2} [facility] [employer] Glucose [Mass/Vol] 88.0 mg/dL 80-117 [facility] [employer] Potassium [Moles/Vol] 4.3 mmol/L 3.5-5.3 [facility] Sodium [Moles/Vol] 138 mmol/L 135-148 [facility] [employer] Urea nitrogen [Mass/Vol] 14.0 mg/dL 7-25 [facility] Urea nitrogen/Creatinin e [Mass ratio] 18 mg/mg 6-20 [facility] Otheron 03-31-2013 Calcidiol [Mass/Vol] 47.4 ng/mL 30.0-100.0 [facility] Cholesterol in VLDL [Mass/Vol] 34.0 mg/dL 0-39 [facility] Cholesterol.total/ Cholesterol in HDL [Mass ratio] 3 {ratio} [facility] Vital Signs Date Time Vital Sign Value Performing Clinician Jeronimo maloney 03-16-2016 13:36-0500 BMI (Body Mass Index) 21.97 kg/m2 Ashley [employer] [facility] 03-16-2016 13:36-0500 Body weight 57.15 kg Ashley [employer] [facility] 03-16-2016 13:36-0500 BP Diastolic 60 mm[Hg] Ashley [employer] [facility] 03-16-2016 13:36-0500 BP Systolic 114 mm[Hg] Ashley [employer] [facility] 03-16-2016 13:36-0500 BSA (Body Surface Area) 1.6 m2 [facility] 03-16-2016 13:36-0500 Height 161.29 cm [employer] [employer] 03-16-2016 13:36-0500 Pulse (Heart Rate) 68 /min [facility] 09-30-2015 10:59-0400 BMI (Body Mass Index) 22.67 kg/m2 [facility] 09-30-2015 10:59-0400 Body weight 58.97 kg [facility] 09-30-2015 10:59-0400 BP Diastolic 50 mm[Hg] [facility] 09-30-2015 10:59-0400 BP Systolic 120 mm[Hg] [facility] 09-30-2015 10:59-0400 BSA (Body Surface Area) 1.63 m2 [employer] 09-30-2015 10:59-0400 Height 161.29 cm [facility] 09-30-2015 10:59-0400 Pulse (Heart Rate) 76 /min [employer] 04-26-2015 12:09-0500 BMI (Body Mass Index) 22.06 kg/m2 [facility] 04-26-2015 12:09-0500 Body weight 57.38 kg [facility] 04-26-2015 12:09-0500 BP Diastolic 68 mm[Hg] [facility] [employer] 04-26-2015 12:09-0500 BP Diastolic 64 mm[Hg] [facility] [place] [facility] 04-26-2015 12:09-0500 BP Systolic 106 mm[Hg] [facility] [employer] 04-26-2015 12:09-0500 BP Systolic 110 mm[Hg] [facility] [employer] 04-26-2015 12:09-0500 BSA (Body Surface Area) 1.6 m2 [facility] [employer] 04-26-2015 12:09-0500 Height 161.29 cm [facility] [place] [facility] 04-26-2015 12:09-0500 Pulse (Heart Rate) 78 /min Ashley [facility] 03-30-2015 12:04-0500 BMI (Body Mass Index) 21.45 kg/m2 [facility] [place] [facility] 03-30-2015 12:04-0500 Body weight 55.79 kg Ashley [facility] [place] [facility] 03-30-2015 12:04-0500 BP Diastolic 64 mm[Hg] [facility] [employer] 03-30-2015 12:04-0500 BP Systolic 122 mm[Hg] [facility] [place] [facility] 03-30-2015 12:04-0500 BSA (Body Surface Area) 1.58 m2 [facility] [employer] 03-30-2015 12:04-0500 Height 161.29 cm Ashley [facility] 03-30-2015 12:04-0500 Pulse (Heart Rate) 72 /min Ashley [employer] 09-28-2014 12:05-0400 BMI (Body Mass Index) 20.92 kg/m2 Ashley [facility] 09-28-2014 12:05-0400 Body weight 54.43 kg Ashley Hopper [facility] 09-28-2014 12:05-0400 BP Diastolic 60 mm[Hg] Ashley Hopper [facility] 09-28-2014 12:05-0400 BP Systolic 118 mm[Hg] Ashley Hopper [facility] 09-28-2014 12:05-0400 BSA (Body Surface Area) 1.56 m2 Ashley Hopper [facility] 09-28-2014 12:050400 Height 161.29 cm Ashley Hopper [facility] 09-28-2014 12:05-0400 Pulse (Heart Rate) 76 /min Ashley [employer] 03-30-2014 11:33-0500 BMI (Body Mass Index) 22.58 kg/m2 Ashley Hopper [facility] 03-30-2014 11:33-0500 Body weight 58.74 kg Ashley [facility] 03-30-2014 11:33-0500 BP Diastolic 64 mm[Hg] Ashley [facility] 03-30-2014 11:33-0500 BP Systolic 128 mm[Hg] Ashley [facility] 03-30-2014 11:33-0500 BSA (Body Surface Area) 1.62 m2 Ashley [employer] 03-30-2014 11:33-0500 Height 161.29 cm Ashley [employer] 03-30-2014 11:33-0500 Pulse (Heart Rate) 72 /min Ashley [facility] 09-29-2013 12:16-0400 BMI (Body Mass Index) 21.97 kg/m2 Ashley [employer] 09-29-2013 12:16-0400 Body weight 57.15 kg Ashley [facility] 09-29-2013 12:16-0400 BP Diastolic 74 mm[Hg] Ashley [employer] 09-29-2013 12:16-0400 BP Systolic 128 mm[Hg] Ashley [facility] 09-29-2013 12:16-0400 BSA (Body Surface Area) 1.6 m2 Ashley [facility] 09-29-2013 12:16-0400 Height 161.29 cm [employer] 09-29-2013 12:16-0400 Pulse (Heart Rate) 60 /min Ashley [employer] [facility] 03-31-2013 11:40-0500 BMI (Body Mass Index) 21.8 kg/m2 [facility] 03-31-2013 11:40-0500 Body weight 57.61 kg Ashley [employer] 03-31-2013 11:40-0500 BP Diastolic 78 mm[Hg] Ashley [employer] 03-31-2013 11:40-0500 BP Systolic 130 mm[Hg] [employer] 03-31-2013 11:40-0500 BSA (Body Surface Area) 1.61 m2 [facility] 03-31-2013 11:40-0500 Height 162.56 cm [facility] 03-31-2013 11:40-0500 Pulse (Heart Rate) 72 /min [employer] 09-30-2012 11:40-0400 BMI (Body Mass Index) 21.8 kg/m2 [facility] 09-30-2012 11:40-0400 Body weight 57.61 kg Ashley [employer] 09-30-2012 11:40-0400 BP Diastolic 60 mm[Hg] [facility] 09-30-2012 11:40-0400 BP Systolic 122 mm[Hg] [facility] 09-30-2012 11:40-0400 BSA (Body Surface Area) 1.61 m2 [facility] 09-30-2012 11:40-0400 Height 162.56 cm [facility] 09-30-2012 11:40-0400 Pulse (Heart Rate) 68 /min [employer] Encounters Encounter Date Encounter Type Care Provider [...] vi sit 15 minutes Ashley Hopper Other [facility] Start: 01-12-2019 Office outpatient ne w 20 minutes Ashley Hopper Other [facility] Start: 03-16-2016 Medicare Lab Mekhi Champion Other [facility] Start: 03-16-2016 Office outpatient vi sit 25 minutes Mekhi Champion Other [facility] Start: 01-27-2016 Walk-In Mekhi Champion Other [facility] Start: 11-30-2015 Split Srvc Alicia Mejias Other [facility] Start: 09-30-2015 Office outpatient vi sit 25 minutes Mekhi Champion Other [facility] Start: 09-29-2015 Medicare Lab Mekhi Champion Other [facility] Start: 04-26-2015 Routine general medi abigail examination at a [facility] facility Ashley [facility] Start: 04-26-2015 Office Services Karley Solitario ams [...] Start: 09-30-2012 Office Services Mekhi Champion Other [facility] Procedures Date Procedure Procedure Detail Performing [...] Dxa bone density rogelio dy 1/>sites appendiclr [facility] Ashley Hopper Start: 09-29-2015 25 hydroxy includes [...] Ashley [facility] Start: 09-28-2014 Lipid panel Ashley loguin Start: 09-28-2014 TOBACCO NON-USER Ashley [facility] Start: [...] vacc, 3 yrs & >, im Ashley Natividadtarahkp Start: 11-26-2013 Dual energy X-ray ph oton [...] Ashley Hopper Start: 03-31-2013 Lipid panel Ashley olugin Start: 03-31-2013 Transferase alanine amino alt sgpt Ashley Hopper Start: 03-31-2013 Transferase aspartat e amino ast sgot Ashley Hopper Start: 02-12-2013 Fluvirin vacc, 3 yrs & >, im Ashley Hopper Immunizations Immunization Date Immunization Notes Care Provider Fa cility 01-27-2016 influenza, seasonal, injectable Ashley [employer] 01-27-2016 Medicare Flu Admin f ee; Translations: [Administration of influenza virus vaccine] [employer] 04-26-2015 pneumococcal polysaccharide vaccine, 23 valent; Translations: [PNEUMOCOCCAL VACC 23 DEON IM] [facility] 02-15-2015 influenza, seasonal, injectable [facility] 02-15-2015 Medicare Flu Admin f ee; Translations: [Administration of influenza virus vaccine] [employer] 03-30-2014 pneumococcal conjuga te vaccine, 13 valent; Translations: [PNEUMOCOCCAL VACC 13 DEON IM] [facility] 02-23-2014 influenza virus vacc ine, unspecified formulation; Translations: [Influenza Administration Fee (Medicare)] [facility] 02-12-2013 influenza virus vacc ine, unspecified formulation; Translations: [Administration of influenza virus vaccine] [employer] 02-12-2013 influenza, seasonal, injectable [facility] Payers Date Payer Category Payer Medicare [id number] 2.1 [id number] 1959 Private Health Insurance [facility] [id number] 1935 Unknown [id number] 2.16.84 [id number] 1935 Unknown [id number] 2.16. [id number] 1935 Unknown [id number] 2.16.84 [id number] 1935 Unknown [id number] 2.16.84 [id number] 1935 Unknown [id number] 2.16.84 [id number] 1935 Unknown [id number] 2.16.84 0.1.172301.3.579.2.9 1935 Unknown [id number] 2.16.84 [id number] 1935 Unknown [id number] 2.16.84 0.1.438266.3.579.2.9 1935 Unknown [id number] 2.16.84 0.1.088286.3.579.2.9 1935 Unknown [id number] 2.16.84 0.1.865903.3.579.2.9 1935 Unknown [id number] 2.16.84 [id number] 1935 Unknown [id number] 2.16.84 [id number] 1935 Unknown [id number] 2.16.84 [id number] Self-pay Social History Date Type Detail Facility Start: Never smoker [facility] Start: Alcohol [facility] Start: Caffeine [facility] Summary Purpose Family History No Family History Records FoundNo Family History Records FoundNo Family History Records Found Advance Directives No Advanced Directives Records FoundNo Advanced Directives Records FoundNo Advanced Directives Records Found Additional Source Comments INFORMATION SOURCE (unrecogn ized section and content) DATE CREATED AUTHOR 03/02/2022 [facility] DATE CREATED AUTHOR AUTHOR'S ORGANIZ ATION 05/25/2023 [facility] DATE CREATED AUTHOR AUTHOR'S ORGANIZ ATION 12/12/2023 [facility] FOR RECORDS PERTAINING TO PATIENTS WHO ARE [...] BE BASED ON THE PRIMARY CLINICAL RECORDS. [employer] provides no warranty or guarantee of the accuracy or completeness of information in this document.
[2023-12-28 18:25] LABS: C. Difficile PCR NEGATIVE (NEGATIVE)
== END 2023-12-28 13:53 | disposition home or self-care (01) ==
PROVIDERS: PCP Family Medicine; Visit Provider Physician Assistant
DX: R19.7 Diarrhea, unspecified (principal)
CPT/HCPCS: 87493

== ENCOUNTER 2024-02-07 13:14 | Outpatient (OUT) | payer MEDICARE, SELFPAY ==
--- OUTSIDE RECORDS SUMMARY | 2024-02-04 12:46 | XMS_ITS | CCD ---
Author Organization [facility] Care Team Providers Care Emergency Room Physician Name Role Phone Ashley Hopper Primary Care Physician UnavailMekhi Warren Unavailable Unavailable PACHECO, DR LOPEZ Admitting Unavailable PACHECO, DR LOPEZ Primary Care Unavailable PACHECO, DR LOPEZ Consulting Unavailable PACHECO, DR LOPEZ Attending Unavailable DUTCH, DR QUANG Desai Consulting Unavailable Pacheco BENSON, Buck Walker Primary Care Unavailab Reina Collazo Attending Radha martelle BUCK BERGMAN Attending Unavailable MARLENE VICENTE Attending Unavailable PACHECOBUCK Attending Unavailable LISANDRO PARRISH Attending Unavailable PACHECOBUCK M Attending Unavailable RICHARD BUTTERFIELD Attending Unavailable PACHECO, RUGEN M Referring Unavailable VIVIBLERICHARD Bruno Attending Unavailable PACHECO, RUGEN M Referring Unavailable DOT GODOY Attending Unavailable PACHECO, RUGEN M Referring Unavailable PACHECO, RUGEN M Referring Unavailable KELBLEYRICHARD Attending Unavailable PACHECO, RUGEN M Referring Unavailable PACHECO, RUGEN M Referring Unavailable DOT GODOY Attending Unavailable JOSHUA MUSA Attending Unavailable ANGELA DURAN Attending Unavailable ALISHA LEONARDO Attending Unavailable JOSHUA MUSA Referring Unavailable PACHECO, RUGCHANTEL M Attending Unavailable Nomi Vazquez Attending Unavailable ANGELA DURAN Primary Care Unavailable Allergies Allergy Classification Reported Allergen(s) Allergy Type Date of Onset Reaction(s) Facility (3 sources) Aspirin; Translations: [aspirin] Drug Allergy [facility] Repository (1 source) Aspirin Drug Allergy 04-15-2016 [facility] Repository Medications Completed/Discontinued Medications Medication Drug Class(es) [...] Test Name Value Interpretation Reference Range Facil herlinda Provider Letteron 01-14-2024 Provider Letter Provider Letter January 14, 2024 SCOTTIE FAN [address] [place] [address] : 1935 Dear Scottie, We have been trying to reach you with no success. It is important that you return our call regarding your referral to Jolie Duran to see [facility]. Please call the office to schedule a consultation appointment upon receiving this letter. Also, at the time of your call, please provide us with your current information. Thank you for your prompt attention to this matter. Sincerely, [facility] [phone] Normal [facility] CT HEAD WO IV CONTRASTon CT HEAD [...] : DR BUCK BERGMAN M.D. Admission #: [id number] Family : Order #: [id number] CLICK HERE TO VIEW EXAM RADIOLOGY REPORT [...] breast cancer at age 78. LOCATION: [facility] BREAST COMPOSITION: Heterogeneously dense,which may obscure small [...] Judd MD on 02/26/2022 at 14:15 Normal [facility] XR DEXA BONE DENSITYon 02-26 XR DEXA [...] by: QUANG JUDD Date: 2022-02-26 13:28 Normal [facility]acon 03-16-2016 Cholesterol [Mass/Vol] 206.0 mg/dL 0-200 [facility] Cholesterol in HDL [Mass/Vol] 85.0 mg/dL 50-100 [facility] Cholesterol in LDL [Mass/Vol] 97.0 mg/dL 0-130 [facility] Triglyceride [Mass/Vol] 121.0 mg/dL 30-150 [facility] Hematologyon 03-16-2016 Hematocrit (Bld) [Volume fraction] 40.40 % 35.7-47.1 [facility] Hemoglobin (Bld) [Mass/Vol] 13.40 g/dL 11.9-15.7 [facility] MCH (RBC) [Entitic mass] 30.0 pg 23.2-33.3 [facility] MCV (RBC) [Entitic vol] 90.20 fL 82.0-98.4 [facility] Platelets (Bld) [#/Vol] 225.0 10*3/uL 150-400 [facility] RBC (Bld) [#/Vol] 4.480 10*6/uL 3.72-5.24 [facility] WBC (Bld) [#/Vol] 8.30 10*3/uL 3.9-10.3 [facility] Metabolic Panelon 03-16-2016 ALT [Catalytic activity/Vol] 11.0 U/L 0-50 [facility] Anion gap [Moles/Vol] 16 mmol/L 10-20 [facility] AST [Catalytic activity/Vol] 18.0 U/L 0-40 [facility] Calcium [Mass/Vol] 9.20 mg/dL 8.5-10.8 [facility] Chloride [Moles/Vol] 106 mmol/L 100-112 [facility] CO2 [Moles/Vol] 25 mmol/L 23-30 [facility] Creatinine [Mass/Vol] 0.90 mg/dL 0.5-1.5 [facility] GFR/1.73 sq M predicted among non-blacks MDRD (S/P/Bld) [Vol rate/Area] 60 mL/min/{1.73_m2} [facility] Glucose [Mass/Vol] 104.0 mg/dL 80-117 [facility] Potassium [Moles/Vol] 3.6 mmol/L 3.5-5.3 [facility] Sodium [Moles/Vol] 143 mmol/L 135-148 [facility] Urea nitrogen [Mass/Vol] 12.0 mg/dL 7-25 [facility] Urea nitrogen/Creatinin e [Mass ratio] 13 mg/mg 6-20 [facility] Otheron 03-16-2016 Cholesterol in VLDL [Mass/Vol] 24.0 mg/dL 0-39 [facility] Cholesterol.total/ Cholesterol in HDL [Mass ratio] 2 {ratio} [facility] Erythrocyte distribution width (RBC) [Ratio] 12.50 % 11.5-15.5 [facility] MCHC (RBC) [Mass/Vol] 33.20 g/dL 32.0-36.0 [facility] Platelet mean volume (Bld) [Entitic vol] 7.70 fL 7.4-10.4 [facility] Otheron 11-30-2015 8-3-16 [facility] [place] [facility] 09-29-2015 Cholesterol [Mass/Vol] 183.0 mg/dL 0-200 [facility] Cholesterol in HDL [Mass/Vol] 74.0 mg/dL 50-100 [facility] Cholesterol in LDL [Mass/Vol] 84.0 mg/dL 0-130 [facility] Triglyceride [Mass/Vol] 126.0 mg/dL 30-150 [facility] Metabolic Panelon 09-29-2015 ALT [Catalytic activity/Vol] 16.0 U/L 0-50 [facility] Anion gap [Moles/Vol] 17 mmol/L 10-20 [facility] AST [Catalytic activity/Vol] 21.0 U/L 0-40 [facility] Calcium [Mass/Vol] 9.60 mg/dL 8.5-10.8 [facility] Chloride [Moles/Vol] 105 mmol/L 100-112 [facility] CO2 [Moles/Vol] 27 mmol/L 23-30 [facility] Creatinine [Mass/Vol] 0.90 mg/dL 0.5-1.5 [facility] GFR/1.73 sq M predicted among non-blacks MDRD (S/P/Bld) [Vol rate/Area] 60 mL/min/{1.73_m2} [facility] Glucose [Mass/Vol] 100.0 mg/dL 80-117 [facility] Potassium [Moles/Vol] 4.1 mmol/L 3.5-5.3 [facility] Sodium [Moles/Vol] 145 mmol/L 135-148 [facility] Urea nitrogen [Mass/Vol] 13.0 mg/dL 7-25 [facility] Urea nitrogen/Creatinin e [Mass ratio] 14 mg/mg 6-20 [facility] Other[facility] 09-29-2015 Calcidiol [Mass/Vol] 54.0 ng/mL 30.0-100.0 [facility] Cholesterol in VLDL [Mass/Vol] 25.0 mg/dL 0-39 [facility] Cholesterol.total/ Cholesterol in HDL [Mass ratio] 2 {ratio} [facility] 03-28-2015 Cholesterol [Mass/Vol] 212.0 mg/dL 0-200 [facility] Cholesterol in HDL [Mass/Vol] 78.0 mg/dL 50-100 [facility] Cholesterol in LDL [Mass/Vol] 112.0 mg/dL 0-130 [facility] Triglyceride [Mass/Vol] 110.0 mg/dL 30-150 [facility] Metabolic Panelon 03-28-2015 Albumin [Mass/Vol] 4.40 g/dL 3.7-4.5 [facility] ALP [Catalytic activity/Vol] 44.0 U/L 31-155 [facility] ALT [Catalytic activity/Vol] 18.0 U/L 0-50 [facility] Anion gap [Moles/Vol] 15 mmol/L 10-20 [facility] AST [Catalytic activity/Vol] 22.0 U/L 0-40 [facility] Bilirubin [Mass/Vol] 0.50 mg/dL 0.0-1.0 [facility] Calcium [Mass/Vol] 9.70 mg/dL 8.5-10.8 [facility] Chloride [Moles/Vol] 107 mmol/L 100-112 [facility] CO2 [Moles/Vol] 30 mmol/L 23-30 [facility] Creatinine [Mass/Vol] 0.80 mg/dL 0.5-1.5 [facility] GFR/1.73 sq M predicted among non-blacks MDRD (S/P/Bld) [Vol rate/Area] 69 mL/min/{1.73_m2} [facility] Glucose [Mass/Vol] 86.0 mg/dL 80-117 [facility] Potassium [Moles/Vol] 4.2 mmol/L 3.5-5.3 [facility] Protein [Mass/Vol] 7.40 g/dL 6.3-7.9 [facility] Sodium [Moles/Vol] 148 mmol/L 135-148 [facility] Urea nitrogen [Mass/Vol] 19.0 mg/dL 7-25 [facility] Urea nitrogen/Creatinin e [Mass ratio] 24 mg/mg 6-20 [facility] Otheron 03-28-2015 Albumin/Globulin [Mass ratio] 1.5 {ratio} 1.0-2.4 [facility] Calcidiol [Mass/Vol] 50.9 ng/mL 30.0-100.0 [facility] Cholesterol in VLDL [Mass/Vol] 22.0 mg/dL 0-39 [facility] Cholesterol.total/ Cholesterol in HDL [Mass ratio] 3 {ratio} [facility] 09-28-2014 Cholesterol [Mass/Vol] 172.0 mg/dL 0-200 [facility] Cholesterol in HDL [Mass/Vol] 73.0 mg/dL 50-100 [facility] Cholesterol in LDL [Mass/Vol] 73.0 mg/dL 0-130 [facility] Triglyceride [Mass/Vol] 132.0 mg/dL 30-150 [facility] Metabolic Panelon 09-28-2014 ALT [Catalytic activity/Vol] 14.0 U/L 0-50 [facility] Anion gap [Moles/Vol] 14 mmol/L 10-20 [facility] AST [Catalytic activity/Vol] 17.0 U/L 0-40 [facility] Calcium [Mass/Vol] 9.40 mg/dL 8.5-10.8 [facility] Chloride [Moles/Vol] 103 mmol/L 100-112 [facility] CO2 [Moles/Vol] 29 mmol/L 23-30 [facility] Creatinine [Mass/Vol] 0.80 mg/dL 0.5-1.5 [facility] GFR/1.73 sq M predicted among non-blacks MDRD (S/P/Bld) [Vol rate/Area] 69 mL/min/{1.73_m2} [facility] Glucose [Mass/Vol] 101.0 mg/dL 80-117 [facility] Potassium [Moles/Vol] 3.9 mmol/L 3.5-5.3 [facility] Sodium [Moles/Vol] 142 mmol/L 135-148 [facility] Urea nitrogen [Mass/Vol] 16.0 mg/dL 7-25 [facility] Urea nitrogen/Creatinin e [Mass ratio] 20 mg/mg 6-20 [facility] Otheron 09-28-2014 Calcidiol [Mass/Vol] 51.0 ng/mL 30.0-100.0 [facility] Cholesterol in VLDL [Mass/Vol] 26.0 mg/dL 0-39 [facility] Cholesterol.total/ Cholesterol in HDL [Mass ratio] 2 {ratio} [facility] 03-30-2014 Cholesterol [Mass/Vol] 203.0 mg/dL 0-200 [facility] Cholesterol in HDL [Mass/Vol] 78.0 mg/dL 50-100 [facility] Cholesterol in LDL [Mass/Vol] 98.0 mg/dL 0-130 [facility] Triglyceride [Mass/Vol] 136.0 mg/dL 30-150 [facility] Metabolic Panelon 03-30-2014 ALT [Catalytic activity/Vol] 20.0 U/L 0-50 [facility] Anion gap [Moles/Vol] 18 mmol/L 10-20 [facility] AST [Catalytic activity/Vol] 25.0 U/L 0-40 [facility] Calcium [Mass/Vol] 9.90 mg/dL 8.5-10.8 [facility] Chloride [Moles/Vol] 101 mmol/L 100-112 [facility] CO2 [Moles/Vol] 28 mmol/L 23-30 [facility] Creatinine [Mass/Vol] 0.90 mg/dL 0.5-1.5 [facility] GFR/1.73 sq M predicted among non-blacks MDRD (S/P/Bld) [Vol rate/Area] 60 mL/min/{1.73_m2} [facility] Glucose [Mass/Vol] 97.0 mg/dL 80-117 [facility] Potassium [Moles/Vol] 3.7 mmol/L 3.5-5.3 [facility] Sodium [Moles/Vol] 143 mmol/L 135-148 [facility] Urea nitrogen [Mass/Vol] 18.0 mg/dL 7-25 [facility] Urea nitrogen/Creatinin e [Mass ratio] 20 mg/mg 6-20 [facility] Otheron 03-30-2014 Cholesterol in VLDL [Mass/Vol] 27.0 mg/dL 0-39 [facility] Cholesterol.total/ Cholesterol in HDL [Mass ratio] 3 {ratio} [facility] 09-29-2013 Cholesterol [Mass/Vol] 182.0 mg/dL 0-200 [facility] Cholesterol in HDL [Mass/Vol] 77.0 mg/dL 50-100 [facility] Cholesterol in LDL [Mass/Vol] 85.0 mg/dL 0-130 [facility] Triglyceride [Mass/Vol] 101.0 mg/dL 30-150 [facility] Metabolic Panelon 09-29-2013 ALT [Catalytic activity/Vol] 13.0 U/L 0-50 [facility] Anion gap [Moles/Vol] 18 mmol/L 10-20 [facility] AST [Catalytic activity/Vol] 18.0 U/L 0-40 [facility] Calcium [Mass/Vol] 9.70 mg/dL 8.5-10.8 [facility] Chloride [Moles/Vol] 105 mmol/L 100-112 [facility] CO2 [Moles/Vol] 23 mmol/L 23-30 [facility] Creatinine [Mass/Vol] 0.80 mg/dL 0.5-1.5 [facility] GFR/1.73 sq M predicted among non-blacks MDRD (S/P/Bld) [Vol rate/Area] 69 mL/min/{1.73_m2} [facility] Glucose [Mass/Vol] 89.0 mg/dL 80-117 [facility] Potassium [Moles/Vol] 3.7 mmol/L 3.5-5.3 [facility] Sodium [Moles/Vol] 142 mmol/L 135-148 [facility] Urea nitrogen [Mass/Vol] 15.0 mg/dL 7-25 [facility] Urea nitrogen/Creatinin e [Mass ratio] 19 mg/mg 6-20 [facility] Otheron 09-29-2013 Calcidiol [Mass/Vol] 46.7 ng/mL 30.0-100.0 [facility] Cholesterol in VLDL [Mass/Vol] 20.0 mg/dL 0-39 [facility] Cholesterol.total/ Cholesterol in HDL [Mass ratio] 2 {ratio} [facility] 03-31-2013 Cholesterol [Mass/Vol] 210.0 mg/dL 0-200 [facility] Cholesterol in HDL [Mass/Vol] 74.0 mg/dL 50-100 [facility] Cholesterol in LDL [Mass/Vol] 102.0 mg/dL 0-130 [facility] Triglyceride [Mass/Vol] 170.0 mg/dL 30-150 [facility] Metabolic Panelon 03-31-2013 ALT [Catalytic activity/Vol] 23.0 U/L 0-50 [facility] Anion gap [Moles/Vol] 15 mmol/L 10-20 [facility] AST [Catalytic activity/Vol] 25.0 U/L 0-40 [facility] Calcium [Mass/Vol] 9.60 mg/dL 8.5-10.8 [facility] Chloride [Moles/Vol] 99 mmol/L 100-112 [facility] CO2 [Moles/Vol] 28 mmol/L 23-30 [facility] Creatinine [Mass/Vol] 0.80 mg/dL 0.5-1.5 [facility] GFR/1.73 sq M predicted among non-blacks MDRD (S/P/Bld) [Vol rate/Area] 69 mL/min/{1.73_m2} [facility] Glucose [Mass/Vol] 88.0 mg/dL 80-117 [facility] Potassium [Moles/Vol] 4.3 mmol/L 3.5-5.3 [facility] Sodium [Moles/Vol] 138 mmol/L 135-148 [facility] Urea nitrogen [Mass/Vol] 14.0 mg/dL 7-25 [facility] Urea nitrogen/Creatinin e [Mass ratio] 18 mg/mg 6-20 [facility] Otheron 03-31-2013 Calcidiol [Mass/Vol] 47.4 ng/mL 30.0-100.0 [facility] Cholesterol in VLDL [Mass/Vol] 34.0 mg/dL 0-39 [facility] Cholesterol.total/ Cholesterol in HDL [Mass ratio] 3 {ratio} [facility] Vital Signs Date Time Vital Sign Value Performing Clinician Jeronimo maloney 03-16-2016 13:36-0500 BMI (Body Mass Index) 21.97 kg/m2 Ashley Orbeus 03-16-2016 13:36-0500 Body weight 57.15 kg Ashley Orbeus 03-16-2016 13:36-0500 BP Diastolic 60 mm[Hg] Ashley Orbeus 03-16-2016 13:36-0500 BP Systolic 114 mm[Hg] Ashley Orbeus 03-16-2016 13:36-0500 BSA (Body Surface Area) 1.6 m2 Ashley Orbeus 03-16-2016 13:36-0500 Height 161.29 cm Ashley Orbeus 03-16-2016 13:36-0500 Pulse (Heart Rate) 68 /min Ashley [facility] 09-30-2015 10:59-0400 BMI (Body Mass Index) 22.67 kg/m2 Ashley Orbeus 09-30-2015 10:59-0400 Body weight 58.97 kg Ashley Orbeus 09-30-2015 10:59-0400 BP Diastolic 50 mm[Hg] Ashley Orbeus 09-30-2015 10:59-0400 BP Systolic 120 mm[Hg] Ashley Orbeus 09-30-2015 10:59-0400 BSA (Body Surface Area) 1.63 m2 Ashley Orbeus 09-30-2015 10:59-0400 Height 161.29 cm Ashley Orbeus 09-30-2015 10:59-0400 Pulse (Heart Rate) 76 /min Ashley [facility] [facility] 04-26-2015 12:09-0500 BMI (Body Mass Index) 22.06 kg/m2 Ashley Orbeus 04-26-2015 12:09-0500 Body weight 57.38 kg Ashley Orbeus 04-26-2015 12:09-0500 BP Diastolic 68 mm[Hg] Ashley Orbeus 04-26-2015 12:09-0500 BP Diastolic 64 mm[Hg] Ashley Orbeus 04-26-2015 12:09-0500 BP Systolic 106 mm[Hg] Ashley Orbeus 04-26-2015 12:09-0500 BP Systolic 110 mm[Hg] Ashley Orbeus 04-26-2015 12:09-0500 BSA (Body Surface Area) 1.6 m2 [facility] 04-26-2015 12:09-0500 Height 161.29 cm [facility]SocialSh[facility] 04-26-2015 12:09-0500 Pulse (Heart Rate) 78 /min Ashley [employer] 03-30-2015 12:04-0500 BMI (Body Mass Index) 21.45 kg/m2 [facility] 03-30-2015 12:04-0500 Body [facility] 55.79 [facility] 03-30-2015 12:04-0500 BP Diastolic 64 mm[Hg] [facility] 03-30-2015 12:04-0500 BP Systolic 122 mm[Hg] [facility] 03-30-2015 12:04-0500 BSA (Body Surface Area) 1.58 m2 Ashley [facility] 03-30-2015 12:040500 Height 161.29 cm Ashley [facility] 03-30-2015 12:04-0500 Pulse (Heart Rate) 72 /min [facility] 09-28-2014 12:05-0400 BMI (Body Mass Index) 20.92 kg/m2 [facility] 09-28-2014 12:05-0400 Body weight 54.43 kg [address] [facility] 09-28-2014 12:05-0400 BP Diastolic 60 mm[Hg] [facility] 09-28-2014 12:05-0400 BP Systolic 118 mm[Hg] Ashley [facility] 09-28-2014 12:05-0400 BSA (Body Surface Area) 1.56 m2 [address] [facility] 09-28-2014 12:05-0400 Height 161.29 cm Ashley Orbeus 09-28-2014 12:05-0400 Pulse (Heart Rate) 76 /min Ashley [facility] [employer] 03-30-2014 11:33-0500 BMI (Body Mass Index) 22.58 kg/m2 Ashley Orbeus 03-30-2014 11:33-0500 Body weight 58.74 kg Ashley [employer] 03-30-2014 11:33-0500 BP Diastolic 64 mm[Hg] Ashley Orbeus 03-30-2014 11:33-0500 BP Systolic 128 mm[Hg] Ashley Orbeus 03-30-2014 11:33-0500 BSA (Body Surface Area) 1.62 m2 Ashley Orbeus 03-30-2014 11:33-0500 Height 161.29 cm Ashley Orbeus 03-30-2014 11:33-0500 Pulse (Heart Rate) 72 /min Ashley [facility] 09-29-2013 12:16-0400 BMI (Body Mass Index) 21.97 kg/m2 Ashley Orbeus 09-29-2013 12:16-0400 Body weight 57.15 kg Ashley Orbeus 09-29-2013 12:16-0400 BP Diastolic 74 mm[Hg] [facility] 09-29-2013 12:16-0400 BP Systolic 128 mm[Hg] Ashley Orbeus 09-29-2013 12:16-0400 BSA (Body Surface Area) 1.6 m2 [facility] 09-29-2013 12:16-0400 Height 161.29 cm [employer] 09-29-2013 12:16-0400 Pulse (Heart Rate) 60 /min Ashley [employer] 03-31-2013 11:40-0500 BMI (Body Mass Index) 21.8 kg/m2 [employer] 03-31-2013 11:40-0500 Body weight 57.61 kg [employer] 03-31-2013 11:40-0500 BP Diastolic 78 mm[Hg] [employer] 03-31-2013 11:40-0500 BP Systolic 130 mm[Hg] [facility] 03-31-2013 11:40-0500 BSA (Body Surface Area) 1.61 m2 [employer] 03-31-2013 11:40-0500 Height 162.56 cm [employer] 03-31-2013 11:40-0500 Pulse (Heart Rate) 72 /min AshleyJoota 09-30-2012 11:40-0400 BMI (Body Mass Index) 21.8 kg/m2 [employer] 09-30-2012 11:40-0400 Body weight 57.61 kg [employer] 09-30-2012 11:40-0400 BP Diastolic 60 mm[Hg] Ashley Orbeus 09-30-2012 11:40-0400 BP Systolic 122 mm[Hg] Ashley Orbeus 09-30-2012 11:40-0400 BSA (Body Surface Area) 1.61 m2 [facility] 09-30-2012 11:40-0400 Height 162.56 cm [facility]Sh[employer] 09-30-2012 11:40-0400 Pulse (Heart Rate) 68 /min Ashley [facility] Encounters Encounter Date Encounter Type Care Provider Facility Start: 02-12-2024 ambulatory Nomi Decker lity:[facility] Start: 01-27-2024 End: 01-27-2024 ambulatory RUGEN M PACHECO Not Available Start: 01-22-2024 End: 01-22-2024 ambulatory RUGEN PACHECO Not Available Start: 01-20-2024 End: 01-20-2024 ambulatory JOSHUA DIMPLE Not Available Start: 01-13-2024 End: 01-13-2024 ambulatory ALISHA LEONARDO Not Available Start: 01-09-2024 ambulatory Nomi Vazquez Facilit y:[facility] Start: 01-09-2024 End: 01-09-2024 ambulatory ANGELA M HEMMER Not Available Start: 12-26-2023 End: 12-26-2023 ambulatory JOSHUA DIMPLE Not Available Start: 12-10-2023 End: 12-10-2023 ambulatory RUGEN M PACHECO Not Available Start: 12-05-2023 End: 12-05-2023 [...] Available Start: 11-18-2023 End: 11-18-2023 ambulatory LISANDRO PARRISH Not Available Start: 11-04-2023 End: 11-04-2023 ambulatory RUGEN M PACHECO Not Available Start: 09-30-2023 End: 09-30-2023 ambulatory MARLENE VICENTE Not Available Start: 07-15-2023 End: 07-15-2023 ambulatory RUGEN M PACHECO Not Available Start: 05-24-2023 End: 05-25-2023 ambulatory Buck Bergman MD Facility:[facility] Start: 02-26-2022 End: 02-27-[address] BUCK BERGMAN Facility:[facility] Start: 10-06-2019 Office outpatient vi sit 15 minutes Ashley Hopper Other [facility] Office Start: 01-12-2019 Office outpatient ne w 20 minutes Ashley Hopper Other [facility] Office Start: 03-16-2016 Medicare Lab Mekhi Champion Other [facility] Start: 03-16-2016 Office outpatient vi sit 25 minutes Mekhi Champion Other [facility] Office Start: 01-27-2016 Walk-In Mekhi Champion Other [facility] Office Start: 11-30-2015 Split Srvc Alicia Mejias Other [facility] Office Start: 09-30-2015 Office outpatient vi sit 25 minutes Mekhi Champion Other [facility] Office Start: 09-29-2015 Medicare Lab Mekhi Champion Other [facility] Start: 04-26-2015 Routine general medi abigail examination at a [facility] care [facility] Ashley Hopper [facility] Start: 04-26-2015 Office Services Karley Solitario [...] Champion Other [facility] Office Start: 11-26-2013 Split Srvc Julia Verde Other [facility] Office Start: 09-29-2013 Medicare Lab Mekhi Champion Other [facility] Start: 09-29-2013 Office Services Mekhi Champion Other [facility] Office Start: 03-31-2013 Medicare Lab Mekhi Champion Other [facility] Start: 03-31-2013 Office Services Mekhi Rogers Champion Other [facility] Office Start: 02-12-2013 Walk-In Mekhi Champion Other [facility] Office Start: 09-30-2012 Medicare Lab Mekhi Champion Other [facility] Start: 09-30-2012 Office Services Mekhi Sue Champion Other [facility] Office Procedures Date Procedure Procedure Detail Performing Clinician Start: 10-06-2019 Doc meds verified w/pt or re Ashley Hopper Start: 01-12-2019 Doc meds verified w/pt or re Ashley Hopper Start: 03-31-2016 Basic metabolic pane l calcium total Ashley Hopper Start: 03-31-2016 Blood count complete automated Ashley Rustpk Start: 03-31-2016 Lipid panel Ashley olguin Start: 03-31-2016 Transferase alanine amino alt sgpt Ashley Rustpk Start: 03-31-2016 Transferase aspartat e amino ast sgot Ashley Rustpk Start: 03-16-2016 Ndl emg 1 xtr w/wo r elated paraspinal areas Ashley Rustpk Start: 03-16-2016 Basic metabolic pane l calcium ionized Ashley Hopper Start: 03-16-2016 Basic metabolic pane l calcium total Ashley [facility] Start: 01-27-2016 Fluvirin vacc, 3 yrs & >, im Ashley Natividadtarahpk Start: 11-30-2015 Dxa bone density rogelio dy 1/> sites axial skel Ashley Natividadtarahpk Start: 11-30-2015 Dxa bone density rogelio dy 1/>sites appendiclr skel Ashley Natividadtarahpk Start: 09-29-2015 25 hydroxy includes fractions if performed Ashley Natividadtarahpk Start: 09-29-2015 Basic metabolic pane l calcium total Ashley Rustpk Start: 09-29-2015 Lipid panel Ashley olguin Start: 09-29-2015 Transferase alanine amino alt sgpt Ashley Rustpk Start: 09-29-2015 Transferase aspartat e amino ast sgot Ashley Rustpk Start: 04-26-2015 Admin pneumococcal vaccine Ashley Natividadtarahpk Start: 03-28-2015 25 hydroxy includes fractions if performed Ashley Hopper Start: 03-28-2015 Comprehensive metabolic panel Ashley Hopper Start: 03-28-2015 Lipid panel Ashley olguin Start: 02-15-2015 Fluvirin vacc, 3 yrs & >, im Ashley Hensontarahpk Start: 09-28-2014 25 hydroxy includes fractions if performed Ashley Hopper Start: 09-28-2014 Basic metabolic pane l calcium total Ashley Natividadtarahpk Start: 09-28-2014 Doc meds verified w/pt or re Ashley Hopper Start: 09-28-2014 Lipid panel Ashley olguin Start: 09-28-2014 TOBACCO NON-USER Ashley Hensontarahpk Start: 09-28-2014 Transferase alanine amino alt sgpt Ashley Rustpk Start: 09-28-2014 Transferase aspartat e amino ast sgot Ashley Rustpk Start: 03-30-2014 Admin pneumococcal vaccine Ashley Natividadtarahpk Start: 03-30-2014 Basic metabolic pane l calcium total Ashley Hopper Start: 03-30-2014 Doc meds verified w/pt or re Ashley Hopper Start: 03-30-2014 INFLUENZA IMMUNIZATI ON ADMINISTERED OR PREVIOUSLY RECEIVED Ashley Hopper Start: 03-30-2014 Lipid panel Ashley olguin Start: 03-30-2014 TOBACCO NON-USER Ashley Rustpk Start: 03-30-2014 Transferase alanine amino alt sgpt Ahsleyalisia Rustpk Start: 03-30-2014 Transferase aspartat e amino ast sgot Ashley Natividadtarahpk Start: 02-23-2014 Fluvirin vacc, 3 yrs & >, im Ashley Hopper Start: 11-26-2013 Dual energy X-ray ph oton absorptiometry Ashley Ruchi Start: 11-26-2013 Dxa bone density rogelio dy 1/> sites axial skel Ashley Natividadtarahpk Start: 09-29-2013 25 hydroxy includes fractions if performed Ashley Hopper Start: 09-29-2013 Basic metabolic pane l calcium total Ashleyalisia Rustpk Start: 09-29-2013 Doc meds verified w/pt or re Ashley Hopper Start: 09-29-2013 Lipid panel Ashley olguin Start: 09-29-2013 TOBACCO NON-USER Ashley Rustpk Start: 09-29-2013 Transferase alanine amino alt sgpt Ashleyalisia Rustpk Start: 09-29-2013 Transferase aspartat e amino ast sgot Ashleyalisia Rustpk Start: 03-31-2013 25 hydroxy includes fractions if performed Ashley Hopper Start: 03-31-2013 Basic metabolic pane l calcium total Ashley Natividadtarahpk Start: 03-31-2013 Lipid panel Ashley olguin Start: 03-31-2013 Transferase alanine amino alt sgpt Ashleyalisia Rustpk Start: 03-31-2013 Transferase aspartat e amino ast sgot Ashley Nativdiadtarahpk Start: 02-12-2013 Fluvirin vacc, 3 yrs & >, im Ashley Hopper Immunizations Immunization Date Immunization Notes Care Provider Fa ciliporfirio 01-27-2016 influenza, seasonal, injectable Ashley Orbeus 01-27-2016 Medicare Flu Admin f ee; Translations: [Administration of influenza virus vaccine] [employer] 04-26-2015 pneumococcal polysaccharide vaccine, 23 valent; Translations: [PNEUMOCOCCAL VACC 23 DEON IM] [employer] 02-15-2015 influenza, seasonal, injectable [employer] 02-15-2015 Medicare Flu Admin f ee; Translations: [Administration of influenza virus vaccine] [facility] 03-30-2014 pneumococcal conjuga te vaccine, 13 valent; Translations: [PNEUMOCOCCAL VACC 13 DEON IM] [employer] 02-23-2014 influenza virus vacc ine, unspecified formulation; Translations: [Influenza Administration Fee (Medicare)] [employer] 02-12-2013 influenza virus vacc ine, unspecified formulation; Translations: [Administration of influenza virus vaccine] [facility] 02-12-2013 influenza, seasonal, injectable [employer] Payers Date Payer Category Payer Medicare [id number] 2.1 [id number] 1959 Private Health Insurance [facility] [id number] 1935 Unknown [id number] 2.16.84 0.1.119272.3.579.2.593 1935 Unknown [id number] 2.16. 840.1.990780.3.579.2.196 1935 Unknown [id number] 2.16.84 0.1.222450.3.579.2.1258 1935 Unknown [id number] 2.16.84 0.1.667491.3.579.2.1258 1935 Unknown [id number] 2.16.84 0.1.588039.3.579.2.1258 1935 Unknown [id number] 2.16.84 0.1.530800.3.579.2.1258 1935 Unknown [id number] 2.16.84 0.1.894097.3.579.2.1258 1935 Unknown [id number] 2.16.84 0.1.892359.3.579.2.1258 1935 Unknown [id number] 2.16.84 0.1.252370.3.579.2.1258 1935 Unknown [id number] 2.16.84 0.1.786944.3.579.2.1258 1935 Unknown [id number] 2.16.84 0.1.051992.3.579.2.1258 1935 Unknown [id number] 2.16.84 0.1.310102.3.579.2.1258 1935 Unknown [id number] 2.16.84 0.1.957091.3.579.2.1258 1935 Unknown [id number] 2.16.84 0.1.616534.3.579.2.1258 1935 Unknown [id number] 2.16.84 0.1.446275.3.579.2.1258 1935 Unknown [id number] 2.16.84 0.1.211647.3.579.2.1258 1935 Unknown [id number] 2.16.84 0.1.782677.3.579.2.1258 1935 Unknown [id number] 2.16.84 0.1.171213.3.579.2.1259 1935 Unknown [id number] 2.16.84 0.1.187319.3.579.2.1259 1935 Unknown [id number] 2.16.8 40.1.661001.3.579.2.727 Self-pay Social History Date Type Detail Facility Start: Never smoker [facility] Start: Alcohol [facility] [employer] Start: Caffeine [facility] Summary Purpose Family History No Family History Records FoundNo Family History Records FoundNo Family History Records FoundNo Family History Records Found Advance Directives No Advanced Directives Records FoundNo Advanced Directives Records FoundNo Advanced Directives Records FoundNo Advanced Directives Records Found Additional Source Comments INFORMATION SOURCE (unrecogn ized section and content) DATE CREATED AUTHOR 03/02/2022 [facility] DATE CREATED AUTHOR AUTHOR'S ORGANIZ ATION 05/25/2023 [facility] DATE CREATED AUTHOR AUTHOR'S ORGANIZ ATION 01/28/2024 [facility] DATE CREATED AUTHOR AUTHOR'S ORGANIZ ATION 01/29/2024 [facility] FOR RECORDS PERTAINING TO PATIENTS WHO ARE [...] BE BASED ON THE PRIMARY CLINICAL RECORDS. [employer] provides no warranty or guarantee of the accuracy or completeness of information in this document.
--- OUTSIDE RECORDS SUMMARY | 2024-02-04 15:11 | XMS_ITS | CCD ---
Author Organization [facility] Care Team Providers Care Outbound Sales Specialist Name Role Phone Ashley Hopper Primary Care [...] (3 sources) Aspirin; Translations: [aspirin] Drug Allergy [facility] Repository (1 source) Aspirin Drug Allergy 04-15-2016 [facility] Medications Completed/Discontinued Medications Medication Drug Class(es) [...] January 14, 2024 SCOTTIE FAN [address] [place] [address] : 1935 Dear Scottie, We have been [...] your prompt attention to this matter. Sincerely, [facility] [phone] Normal [facility] CT HEAD WO IV CONTRASTon CT [...] : DR BUCK BERGMAN M.D. Admission #: [id number] Family : Order #: [id number] CLICK HERE TO VIEW EXAM RADIOLOGY REPORT [...] breast cancer at age 78. LOCATION: [facility] BREAST COMPOSITION: Heterogeneously dense,which may obscure small [...] Judd MD on 02/26/2022 at 14:15 Normal [facility] XR DEXA BONE DENSITYon 02-26 XR DEXA [...] by: QUANG JUDD Date: 2022-02-26 13:28 Normal [facility] 03-16-2016 Cholesterol [Mass/Vol] 206.0 mg/dL 0-200 [email or web address] Cholesterol in HDL [Mass/Vol] 85.0 mg/dL 50-100 [facility] [employer] [facility] Cholesterol in LDL [Mass/Vol] 97.0 mg/dL 0-130 [facility] Triglyceride [Mass/Vol] 121.0 mg/dL 30-150 [facility] Hematologyon 03-16-2016 Hematocrit (Bld) [Volume fraction] 40.40 % 35.7-47.1 [facility] Hemoglobin (Bld) [Mass/Vol] 13.40 g/dL 11.9-15.7 [facility] MCH (RBC) [Entitic mass] 30.0 pg 23.2-33.3 [facility] MCV (RBC) [Entitic vol] 90.20 fL 82.0-98.4 [facility] Platelets (Bld) [#/Vol] 225.0 10*3/uL 150-400 [facility] [employer] [facility] RBC (Bld) [#/Vol] 4.480 10*6/uL 3.72-5.24 [facility] [employer] [facility] WBC (Bld) [#/Vol] 8.30 10*3/uL 3.9-10.3 [facility] [employer] [facility] Metabolic Panelon 03-16-2016 ALT [Catalytic activity/Vol] 11.0 U/L 0-50 [facility] [employer] [facility] Anion gap [Moles/Vol] 16 mmol/L 10-20 [facility] [employer] [facility] AST [Catalytic activity/Vol] 18.0 U/L 0-40 [facility] [employer] [facility] Calcium [Mass/Vol] 9.20 mg/dL 8.5-10.8 [facility] [employer] [facility] Chloride [Moles/Vol] 106 mmol/L 100-112 [facility] [employer] [facility] CO2 [Moles/Vol] 25 mmol/L 23-30 [facility] [employer] [facility] Creatinine [Mass/Vol] 0.90 mg/dL 0.5-1.5 [facility] [employer] [facility] GFR/1.73 sq M predicted among non-blacks MDRD (S/P/Bld) [Vol rate/Area] 60 mL/min/{1.73_m2} [facility] [employer] [facility] Glucose [Mass/Vol] 104.0 mg/dL 80-117 [facility] [employer] [facility] Potassium [Moles/Vol] 3.6 mmol/L 3.5-5.3 [facility] [employer] [facility] Sodium [Moles/Vol] 143 mmol/L 135-148 [facility] [employer] [facility] Urea nitrogen [Mass/Vol] 12.0 mg/dL 7-25 [facility] [employer] [facility] Urea nitrogen/Creatinin e [Mass ratio] 13 mg/mg 6-20 [facility] [employer] [facility] Otheron 03-16-2016 Cholesterol in VLDL [Mass/Vol] 24.0 mg/dL 0-39 [facility] [employer] [facility] Cholesterol.total/ Cholesterol in HDL [Mass ratio] 2 {ratio} [facility] [employer] [facility] Erythrocyte distribution width (RBC) [Ratio] 12.50 % 11.5-15.5 [employer] [facility] MCHC (RBC) [Mass/Vol] 33.20 g/dL 32.0-36.0 [employer] [employer] [facility] Platelet mean volume (Bld) [Entitic vol] 7.70 fL 7.4-10.4 [facility] Otheron 11-30-2015 8-3-16 [facility] [place] [employer] Cardiacon 09-29-2015 Cholesterol [Mass/Vol] 183.0 mg/dL 0-200 [facility] [employer] Cholesterol in HDL [Mass/Vol] 74.0 mg/dL 50-100 [facility] Cholesterol in LDL [Mass/Vol] 84.0 mg/dL 0-130 [facility] [employer] Triglyceride [Mass/Vol] 126.0 mg/dL 30-150 [facility] [employer] Metabolic Panelon 09-29-2015 ALT [Catalytic activity/Vol] 16.0 U/L 0-50 [facility] [employer] Anion gap [Moles/Vol] 17 mmol/L 10-20 [facility] AST [Catalytic activity/Vol] 21.0 U/L 0-40 [facility] [employer] Calcium [Mass/Vol] 9.60 mg/dL 8.5-10.8 [facility] [employer] Chloride [Moles/Vol] 105 mmol/L 100-112 [facility] CO2 [Moles/Vol] 27 mmol/L 23-30 [facility] Creatinine [Mass/Vol] 0.90 mg/dL 0.5-1.5 [facility] GFR/1.73 sq M predicted among non-blacks MDRD (S/P/Bld) [Vol rate/Area] 60 mL/min/{1.73_m2} [facility] [employer] Glucose [Mass/Vol] 100.0 mg/dL 80-117 [facility] [employer] Potassium [Moles/Vol] 4.1 mmol/L 3.5-5.3 [facility] Sodium [Moles/Vol] 145 mmol/L 135-148 [facility] [employer] Urea nitrogen [Mass/Vol] 13.0 mg/dL 7-25 [employer] Urea nitrogen/Creatinin e [Mass ratio] 14 mg/mg 6-20 [facility] Otheron 09-29-2015 Calcidiol [Mass/Vol] 54.0 ng/mL 30.0-100.0 [employer] Cholesterol in VLDL [Mass/Vol] 25.0 mg/dL 0-39 [employer] Cholesterol.total/ Cholesterol in HDL [Mass ratio] 2 {ratio} [employer] 03-28-2015 Cholesterol [Mass/Vol] 212.0 mg/dL 0-200 [employer] Cholesterol in HDL [Mass/Vol] 78.0 mg/dL 50-100 [facility] Cholesterol in LDL [Mass/Vol] 112.0 mg/dL 0-130 [facility] Triglyceride [Mass/Vol] 110.0 mg/dL 30-150 [facility] Metabolic Panelon 03-28-2015 Albumin [Mass/Vol] 4.40 g/dL 3.7-4.5 [facility] ALP [Catalytic activity/Vol] 44.0 U/L 31-155 [facility] ALT [Catalytic activity/Vol] 18.0 U/L 0-50 [facility] [employer] [facility] Anion gap [Moles/Vol] 15 mmol/L 10-20 [facility] [employer] [facility] AST [Catalytic activity/Vol] 22.0 U/L 0-40 [facility] [employer] [facility] Bilirubin [Mass/Vol] 0.50 mg/dL 0.0-1.0 [facility] [employer] [facility] Calcium [Mass/Vol] 9.70 mg/dL 8.5-10.8 [facility] [employer] [facility] Chloride [Moles/Vol] 107 mmol/L 100-112 [facility] [employer] [facility] CO2 [Moles/Vol] 30 mmol/L 23-30 [facility] [employer] [facility] Creatinine [Mass/Vol] 0.80 mg/dL 0.5-1.5 [facility] [employer] [facility] GFR/1.73 sq M predicted among non-blacks MDRD (S/P/Bld) [Vol rate/Area] 69 mL/min/{1.73_m2} [facility] Glucose [Mass/Vol] 86.0 mg/dL 80-117 [facility] [employer] [facility] Potassium [Moles/Vol] 4.2 mmol/L 3.5-5.3 [facility] [employer] [facility] Protein [Mass/Vol] 7.40 g/dL 6.3-7.9 [facility] [employer] [facility] Sodium [Moles/Vol] 148 mmol/L 135-148 [facility] [employer] [facility] Urea nitrogen [Mass/Vol] 19.0 mg/dL 7-25 [facility] [employer] [facility] Urea nitrogen/Creatinin e [Mass ratio] 24 mg/mg 6-20 [facility] Otheron 03-28-2015 Albumin/Globulin [Mass ratio] 1.5 {ratio} 1.0-2.4 [facility] Calcidiol [Mass/Vol] 50.9 ng/mL 30.0-100.0 [facility] Cholesterol in VLDL [Mass/Vol] 22.0 mg/dL 0-39 [facility] Cholesterol.total/ Cholesterol in HDL [Mass ratio] 3 {ratio} [facility] Cardiacon 09-28-2014 Cholesterol [Mass/Vol] 172.0 mg/dL 0-200 [facility] Cholesterol in HDL [Mass/Vol] 73.0 mg/dL 50-100 [facility] Cholesterol in LDL [Mass/Vol] 73.0 mg/dL 0-130 [facility] Triglyceride [Mass/Vol] 132.0 mg/dL 30-150 [facility] Metabolic Panelon 09-28-2014 ALT [Catalytic activity/Vol] 14.0 U/L 0-50 [facility] Anion gap [Moles/Vol] 14 mmol/L 10-20 [facility] AST [Catalytic activity/Vol] 17.0 U/L 0-40 [facility] Calcium [Mass/Vol] 9.40 mg/dL 8.5-10.8 [facility] Chloride [Moles/Vol] 103 mmol/L 100-112 [facility] CO2 [Moles/Vol] 29 mmol/L 23-30 [facility] Creatinine [Mass/Vol] 0.80 mg/dL 0.5-1.5 [facility] [employer] GFR/1.73 sq M predicted among non-blacks MDRD (S/P/Bld) [Vol rate/Area] 69 mL/min/{1.73_m2} [facility] [employer] [facility] Glucose [Mass/Vol] 101.0 mg/dL 80-117 [facility] [employer] Potassium [Moles/Vol] 3.9 mmol/L 3.5-5.3 [facility] [employer] Sodium [Moles/Vol] 142 mmol/L 135-148 [facility] [employer] Urea nitrogen [Mass/Vol] 16.0 mg/dL 7-25 [facility] Urea nitrogen/Creatinin e [Mass ratio] 20 mg/mg 6-20 [facility] Otheron 09-28-2014 Calcidiol [Mass/Vol] 51.0 ng/mL 30.0-100.0 [facility] Cholesterol in VLDL [Mass/Vol] 26.0 mg/dL 0-39 [facility] Cholesterol.total/ Cholesterol in HDL [Mass ratio] 2 {ratio} [facility] [employer] [facility] 03-30-2014 Cholesterol [Mass/Vol] 203.0 mg/dL 0-200 [facility] Cholesterol in HDL [Mass/Vol] 78.0 mg/dL 50-100 [facility] Cholesterol in LDL [Mass/Vol] 98.0 mg/dL 0-130 [facility] Triglyceride [Mass/Vol] 136.0 mg/dL 30-150 [facility] Metabolic Panelon 03-30-2014 ALT [Catalytic activity/Vol] 20.0 U/L 0-50 [facility] Anion gap [Moles/Vol] 18 mmol/L 10-20 [facility] AST [Catalytic activity/Vol] 25.0 U/L 0-40 [facility] Calcium [Mass/Vol] 9.90 mg/dL 8.5-10.8 [facility] Chloride [Moles/Vol] 101 mmol/L 100-112 [facility] CO2 [Moles/Vol] 28 mmol/L 23-30 [facility] Creatinine [Mass/Vol] 0.90 mg/dL 0.5-1.5 [facility] GFR/1.73 sq M predicted among non-blacks MDRD (S/P/Bld) [Vol rate/Area] 60 mL/min/{1.73_m2} [facility] [employer] [facility] Glucose [Mass/Vol] 97.0 mg/dL 80-117 [facility] Potassium [Moles/Vol] 3.7 mmol/L 3.5-5.3 [facility] Sodium [Moles/Vol] 143 mmol/L 135-148 [facility] Urea nitrogen [Mass/Vol] 18.0 mg/dL 7-25 [facility] Urea nitrogen/Creatinin e [Mass ratio] 20 mg/mg 6-20 [facility] Otheron 03-30-2014 Cholesterol in VLDL [Mass/Vol] 27.0 mg/dL 0-39 [facility] Cholesterol.total/ Cholesterol in HDL [Mass ratio] 3 {ratio} [facility] 09-29-2013 Cholesterol [Mass/Vol] 182.0 mg/dL 0-200 [facility] Cholesterol in HDL [Mass/Vol] 77.0 mg/dL 50-100 [facility] Cholesterol in LDL [Mass/Vol] 85.0 mg/dL 0-130 [facility] Triglyceride [Mass/Vol] 101.0 mg/dL 30-150 [facility] Metabolic Panelon 09-29-2013 ALT [Catalytic activity/Vol] 13.0 U/L 0-50 [facility] Anion gap [Moles/Vol] 18 mmol/L 10-20 [facility] AST [Catalytic activity/Vol] 18.0 U/L 0-40 [facility] Calcium [Mass/Vol] 9.70 mg/dL 8.5-10.8 [facility] Chloride [Moles/Vol] 105 mmol/L 100-112 [facility] CO2 [Moles/Vol] 23 mmol/L 23-30 [facility] Creatinine [Mass/Vol] 0.80 mg/dL 0.5-1.5 [facility] GFR/1.73 sq M predicted among non-blacks MDRD (S/P/Bld) [Vol rate/Area] 69 mL/min/{1.73_m2} [facility] [employer] [facility] Glucose [Mass/Vol] 89.0 mg/dL 80-117 [facility] [employer] [facility] Potassium [Moles/Vol] 3.7 mmol/L 3.5-5.3 [facility] [employer] Sodium [Moles/Vol] 142 mmol/L 135-148 [facility] [employer] Urea nitrogen [Mass/Vol] 15.0 mg/dL 7-25 [facility] Urea nitrogen/Creatinin e [Mass ratio] 19 mg/mg 6-20 [facility] Otheron 09-29-2013 Calcidiol [Mass/Vol] 46.7 ng/mL 30.0-100.0 [facility] Cholesterol in VLDL [Mass/Vol] 20.0 mg/dL 0-39 [facility] Cholesterol.total/ Cholesterol in HDL [Mass ratio] 2 {ratio} [facility] 03-31-2013 Cholesterol [Mass/Vol] 210.0 mg/dL 0-200 [facility] Cholesterol in HDL [Mass/Vol] 74.0 mg/dL 50-100 [facility] Cholesterol in LDL [Mass/Vol] 102.0 mg/dL 0-130 [facility] Triglyceride [Mass/Vol] 170.0 mg/dL 30-150 [facility] Metabolic Panelon 03-31-2013 ALT [Catalytic activity/Vol] 23.0 U/L 0-50 [facility] Anion gap [Moles/Vol] 15 mmol/L 10-20 [facility] [employer] [facility] AST [Catalytic activity/Vol] 25.0 U/L 0-40 [facility] [employer] Calcium [Mass/Vol] 9.60 mg/dL 8.5-10.8 [facility] [employer] [facility] Chloride [Moles/Vol] 99 mmol/L 100-112 [facility] [employer] [facility] CO2 [Moles/Vol] 28 mmol/L 23-30 [facility] [employer] Creatinine [Mass/Vol] 0.80 mg/dL 0.5-1.5 [facility] [employer] [facility] GFR/1.73 sq M predicted among non-blacks MDRD (S/P/Bld) [Vol rate/Area] 69 mL/min/{1.73_m2} [facility] [employer] [facility] Glucose [Mass/Vol] 88.0 mg/dL 80-117 [facility] [employer] Potassium [Moles/Vol] 4.3 mmol/L 3.5-5.3 [facility] [employer] [facility] Sodium [Moles/Vol] 138 mmol/L 135-148 [facility] [employer] [facility] Urea nitrogen [Mass/Vol] 14.0 mg/dL 7-25 [facility] [employer] [facility] Urea nitrogen/Creatinin e [Mass ratio] 18 mg/mg 6-20 [facility] Otheron 03-31-2013 Calcidiol [Mass/Vol] 47.4 ng/mL 30.0-100.0 [facility] [employer] [facility] Cholesterol in VLDL [Mass/Vol] 34.0 mg/dL 0-39 [facility] Cholesterol.total/ Cholesterol in HDL [Mass ratio] 3 {ratio} [facility] Vital Signs Date Time Vital Sign Value Performing Clinician Jeronimo maloney 03-16-2016 13:36-0500 BMI (Body Mass Index) 21.97 kg/m2 Ashley PISTIS Consult 03-16-2016 13:36-0500 Body weight 57.15 kg Ashley PISTIS Consult 03-16-2016 13:36-0500 BP Diastolic 60 mm[Hg] Ashley PISTIS Consult 03-16-2016 13:36-0500 BP Systolic 114 mm[Hg] Ashley PISTIS Consult 03-16-2016 13:36-0500 BSA (Body Surface Area) 1.6 m2 Ashley PISTIS Consult 03-16-2016 13:36-0500 Height 161.29 cm Ashley PISTIS Consult 03-16-2016 13:36-0500 Pulse (Heart Rate) 68 /min Ashley [facility] [employer] 09-30-2015 10:59-0400 BMI (Body Mass Index) 22.67 kg/m2 Ashley PISTIS Consult 09-30-2015 10:59-0400 Body weight 58.97 kg Ashley PISTIS Consult 09-30-2015 10:59-0400 BP Diastolic 50 mm[Hg] Ashley PISTIS Consult 09-30-2015 10:59-0400 BP Systolic 120 mm[Hg] Ashley PISTIS Consult 09-30-2015 10:59-0400 BSA (Body Surface Area) 1.63 m2 Ashley PISTIS Consult 09-30-2015 10:59-0400 Height 161.29 cm Ashley PISTIS Consult 09-30-2015 10:59-0400 Pulse (Heart Rate) 76 /min Ashley [employer] 04-26-2015 12:09-0500 BMI (Body Mass Index) 22.06 kg/m2 Ashley PISTIS Consult 04-26-2015 12:09-0500 Body weight 57.38 kg Ashley PISTIS Consult 04-26-2015 12:09-0500 BP Diastolic 68 mm[Hg] Ashley PISTIS Consult 04-26-2015 12:09-0500 BP Diastolic 64 mm[Hg] Ashley PISTIS Consult 04-26-2015 12:09-0500 BP Systolic 106 mm[Hg] Ashley PISTIS Consult 04-26-2015 12:09-0500 BP Systolic 110 mm[Hg] Ashley PISTIS Consult 04-26-2015 12:09-0500 BSA (Body Surface Area) 1.6 m2 [facility] 04-26-2015 12:09-0500 Height 161.29 cm [facility]Reth[employer] 04-26-2015 12:09-0500 Pulse (Heart Rate) 78 /min Ashley [employer] 03-30-2015 12:04-0500 BMI (Body Mass Index) 21.45 kg/m2 [facility] 03-30-2015 12:04-0500 Body weight 55.79 kg [facility] [employer] 03-30-2015 12:04-0500 BP Diastolic 64 mm[Hg] [facility] [employer] 03-30-2015 12:04-0500 BP Systolic 122 mm[Hg] [facility] 03-30-2015 12:04-0500 BSA (Body Surface Area) 1.58 m2 [facility] [employer] 03-30-2015 12:040500 Height 161.29 cm Ashley [facility] [employer] 03-30-2015 12:04-0500 Pulse (Heart Rate) 72 /min [facility] [employer] 09-28-2014 12:05-0400 BMI (Body Mass Index) 20.92 kg/m2 [facility] [employer] 09-28-2014 12:05-0400 Body weight 54.43 kg [facility] [employer] 09-28-2014 12:05-0400 BP Diastolic 60 mm[Hg] [facility] 09-28-2014 12:05-0400 BP Systolic 118 mm[Hg] Ashley [facility] [employer] 09-28-2014 12:05-0400 BSA (Body Surface Area) 1.56 m2 [facility] [employer] 09-28-2014 12:05-0400 Height 161.29 cm Ashley PISTIS Consult 09-28-2014 12:05-0400 Pulse (Heart Rate) 76 /min Ashley [employer] 03-30-2014 11:33-0500 BMI (Body Mass Index) 22.58 kg/m2 Ashley PISTIS Consult 03-30-2014 11:33-0500 Body weight 58.74 kg Ashley HensonGeneral [employer] 03-30-2014 11:33-0500 BP Diastolic 64 mm[Hg] Ashley PISTIS Consult 03-30-2014 11:33-0500 BP Systolic 128 mm[Hg] Ashley PISTIS Consult 03-30-2014 11:33-0500 BSA (Body Surface Area) 1.62 m2 Ashley PISTIS Consult 03-30-2014 11:33-0500 Height 161.29 cm Ashley PISTIS Consult 03-30-2014 11:33-0500 Pulse (Heart Rate) 72 /min Ashley [employer] 09-29-2013 12:16-0400 BMI (Body Mass Index) 21.97 kg/m2 Ashley PISTIS Consult 09-29-2013 12:16-0400 Body weight 57.15 kg Ashley PISTIS Consult 09-29-2013 12:16-0400 BP Diastolic 74 mm[Hg] [facility]RethinkDB 09-29-2013 12:16-0400 BP Systolic 128 mm[Hg] Ashley PISTIS Consult 09-29-2013 12:16-0400 BSA (Body Surface Area) 1.6 m2 [facility]R[employer] 09-29-2013 12:16-0400 Height 161.29 cm [employer] 09-29-2013 12:16-0400 Pulse (Heart Rate) 60 /min Ashley [employer] 03-31-2013 11:40-0500 BMI (Body Mass Index) 21.8 kg/m2 [employer] 03-31-2013 11:40-0500 Body weight 57.61 kg [employer] 03-31-2013 11:40-0500 BP Diastolic 78 mm[Hg] [employer] 03-31-2013 11:40-0500 BP Systolic 130 mm[Hg] [facility] 03-31-2013 11:40-0500 BSA (Body Surface Area) 1.61 m2 [employer] 03-31-2013 11:40-0500 Height 162.56 cm [employer] 03-31-2013 11:40-0500 Pulse (Heart Rate) 72 /min [facility] [employer] 09-30-2012 11:40-0400 BMI (Body Mass Index) 21.8 kg/m2 [employer] 09-30-2012 11:40-0400 Body weight 57.61 kg [employer] 09-30-2012 11:40-0400 BP Diastolic 60 mm[Hg] Ashley PISTIS Consult 09-30-2012 11:40-0400 BP Systolic 122 mm[Hg] Ashley PISTIS Consult 09-30-2012 11:40-0400 BSA (Body Surface Area) 1.61 m2 [employer] 09-30-2012 11:40-0400 Height 162.56 cm [facility] 09-30-2012 11:40-0400 Pulse (Heart Rate) 68 /min Ashley [facility] [employer] Encounters Encounter Date Encounter Type Care [...] vi sit 15 minutes Ashley Hopper Other [facility] Office Start: 01-12-2019 Office outpatient ne w 20 minutes Ashley Hopper Other [facility] Office Start: 03-16-2016 Medicare Lab Mekhi Champion Other [facility] Start: 03-16-2016 Office outpatient vi sit 25 minutes Mekhi Champion Other [facility] Office Start: 01-27-2016 Walk-In Mekhi Champion Other [facility] Office Start: 11-30-2015 Split Srvc Alicia Mejias Other [facility] Office Start: 09-30-2015 Office outpatient vi sit 25 minutes Mekhi Champion Other [facility] Office Start: 09-29-2015 Medicare Lab Mekhi Champion Other [facility] Start: 04-26-2015 Routine general medi abigail examination at a [facility] care [facility] Ashley Hopper [facility] Start: 04-26-2015 Office Services Karley Solitario ams [...] Start: 03-30-2014 Transferase alanine amino alt sgpt Ashleyalisia Rustpk Start: 03-30-2014 Transferase aspartat e amino [...] e amino ast sgot Ashley Natividadtarahpk Start: 02-12-2013 Fluvirin vacc, 3 yrs & >, im Ashley Hopper Immunizations Immunization Date Immunization Notes Care Provider Fa ciliporfirio 01-27-2016 influenza, seasonal, injectable Ashley PISTIS Consult 01-27-2016 Medicare Flu Admin f ee; Translations: [Administration of influenza virus vaccine] [employer] 04-26-2015 pneumococcal polysaccharide vaccine, 23 valent; Translations: [PNEUMOCOCCAL VACC 23 DEON IM] [facility]RethinkDB 02-15-2015 influenza, seasonal, injectable [facility]RethinkDB 02-15-2015 Medicare Flu Admin f ee; Translations: [Administration of influenza virus vaccine] [employer] 03-30-2014 pneumococcal conjuga te vaccine, 13 valent; Translations: [PNEUMOCOCCAL VACC 13 DEON IM] [employer] 02-23-2014 influenza virus vacc ine, unspecified formulation; Translations: [Influenza Administration Fee (Medicare)] [employer] 02-12-2013 influenza virus vacc ine, unspecified formulation; Translations: [Administration of influenza virus vaccine] [employer] 02-12-2013 influenza, seasonal, injectable [employer] Payers Date Payer Category Payer Medicare [id number] 2.1 [id number] 1959 Private Health Insurance [facility] [id number] 1935 Unknown [id number] 2.16.84 0.1.532562.3.579.2.593 1935 Unknown [id number] 2.16. [id number] 1935 Unknown [id number] 2.16.84 0.1.628998.3.579.2.1258 1935 Unknown [id number] 2.16.84 0.1.176137.3.579.2.1258 1935 Unknown [id number] 2.16.84 0.1.322329.3.579.2.1258 1935 Unknown [id number] 2.16.84 0.1.996772.3.579.2.1258 1935 Unknown [id number] 2.16.84 0.1.698407.3.579.2.1258 1935 Unknown [id number] 2.16.84 0.1.905175.3.579.2.1258 1935 Unknown [id number] 2.16.84 0.1.282749.3.579.2.1258 1935 Unknown [id number] 2.16.84 0.1.662267.3.579.2.1258 1935 Unknown [id number] 2.16.84 0.1.869875.3.579.2.1258 1935 Unknown [id number] 2.16.84 0.1.499789.3.579.2.1258 1935 Unknown [id number] 2.16.84 0.1.742456.3.579.2.1258 1935 Unknown [id number] 2.16.84 0.1.367902.3.579.2.1258 1935 Unknown [id number] 2.16.84 0.1.092868.3.579.2.1258 1935 Unknown [id number] 2.16.84 0.1.792890.3.579.2.1258 1935 Unknown [id number] 2.16.84 0.1.320711.3.579.2.1258 1935 Unknown [id number] 2.16.84 0.1.399201.3.579.2.1259 1935 Unknown [id number] 2.16.84 0.1.005641.3.579.2.1259 1935 Unknown [id number] 2.16.8 40.1.564348.3.579.2.727 Self-pay Social History Date Type Detail Facility Start: Never smoker [facility] [employer] [facility] Start: Alcohol [facility] [employer] [facility] [employer] Start: Caffeine [facility] Summary Purpose Family History No Family History Records FoundNo Family History Records FoundNo Family History Records FoundNo Family History Records Found Advance Directives No Advanced Directives Records FoundNo Advanced Directives Records FoundNo Advanced Directives Records FoundNo Advanced Directives Records Found Additional Source Comments INFORMATION SOURCE (unrecogn ized section and content) DATE CREATED AUTHOR 03/02/[address] [facility] DATE CREATED AUTHOR AUTHOR'S ORGANIZ ATION 05/25/2023 [facility] DATE CREATED AUTHOR AUTHOR'S ORGANIZ ATION 01/28/2024 [facility] DATE CREATED AUTHOR AUTHOR'S ORGANIZ ATION 01/29/[address] [facility] FOR RECORDS PERTAINING TO PATIENTS WHO ARE [...] BE BASED ON THE PRIMARY CLINICAL RECORDS. [employer] provides no warranty or guarantee of the accuracy or completeness of information in this document.
--- NOTE | 2024-02-07 13:16 | XR_ITS ---
[address] [address] Patient Name: SCOTTIE CHAVIRA MRN: [id number] date: 1935 Sex: F Assigned Patient Location: [facility] Current Patient Location: Accession/Order Number: [id number] Exam Date: 02/07/2024 13:28 Report Date: 02/09/2024 05:52 At the request of: JESSICA BERGMAN Procedure: XR DEXA axial skeleton EXAMINATION: XR DEXA axial skeleton HISTORY: Estrogen Density COMPARISON: DEXA bone densitometry 02/26/2022 TECHNIQUE: Dual-energy X-ray absorptiometry (DXA) was performed. FINDINGS: SPINE ANALYSIS: Average bone mineral density is 0.995 g/cm2. T-score (standard deviation relative to young adult mean): -1.5 . -4.7% change since prior study. HIP ANALYSIS: Lowest bone mineral density is within the left femoral neck, 0.702 g/cm2. T-score (standard deviation relative to young adult mean): -2.4 +0.6% change since prior study. . XR/XR DEXA axial skeleton IMPRESSION: World Health Organization Classification: Osteopenia - Moderate Fracture Risk FRAX: Cannot calculate. Pharmacologic treatment recommendations * No uniform recommendation applies to all patients. Management plans must be individualized. * Consider initiating pharmacologic treatment in postmenopausal women and men >= 50 years of age who have the following: Primary fracture prevention: * T-score <= - 2.5 at the femoral neck, total hip, lumbar spine, 33% radius (some uncertainty with existing data) by DXA. * Low bone mass (osteopenia: T-score between - 1.0 and - 2.5) at the femoral neck or total hip by DXA with a 10-year hip fracture risk >= 3% or a 10-year major osteoporosis-related fracture risk >= 20% (i.e., clinical vertebral, hip, forearm, or proximal humerus) based on the [place]-adapted FRAXregistered model. Secondary fracture prevention: * Fracture of the hip or vertebra regardless of BMD [4, 5]. * Fracture of proximal humerus, pelvis, or distal forearm in persons with low bone mass (osteopenia: T-score between - 1.0 and - 2.5). The decision to treat should be individualized in persons with a fracture of the proximal humerus, pelvis, or distal forearm who do not have osteopenia or low BMD [12, 13]. Thalia MS, Heather SL, Olga KL, Alcira EM, Alondra KG, AJ, Jenna ES. The clinician's guide to prevention and treatment of osteoporosis. Osteoporos Int. 2021;33(10):2439-4533. doi: 10.1007/w06721-210-87899-d. Epub 2021Aug 24. Erratum in: Osteoporos Int. 2021Nov 23;: PMID: [id number]; PMCID: [id number]. Electronically authenticated by: LISANDRO MCDOWELL Date: 02/09/2024 05:52
--- OUTSIDE RECORDS SUMMARY | 2024-02-07 13:17 | XMS_ITS | CCD ---
Author Organization [facility] Care Team Providers Care Senior It Auditor Name Role Phone Ashley Hopper Primary Care Physician UnavailMekhi Warren Unavailable Unavailable PACHECO, DR LOPEZ Admitting Unavailable PACHECO, DR LOPEZ Primary Care Unavailable PACHECO, DR LOPEZ Consulting Unavailable PACHECO, DR LOPEZ Attending Unavailable DUTCH, DR UQANG Desai Consulting Unavailable Pacheco BENSON, Buck Walker Primary Care UnavailReina Doe Attending Radha martelle BUCK BERGMAN Attending Unavailable [...] Attending Unavailable ALISHA LEONARDO Attending Unavailable JOSHUA MUAS Referring Unavailable PACHECO, RUGCHANTEL M Attending Unavailable Nomi Vazquez Attending Unavailable ANGELA DURAN Primary Care Unavailable Allergies Allergy Classification Reported Allergen(s) Allergy Type Date of Onset Reaction(s) Facility (3 sources) Aspirin; Translations: [aspirin] Drug Allergy [facility] Repository (1 source) Aspirin Drug Allergy 04-15-2016 [facility] Repository Medications Completed/Discontinued Medications Medication Drug Class(es) [...] January 14, 2024 SCOTTIE FAN [address] [place] [address] : 1935 Dear Scottie, We have been [...] your prompt attention to this matter. Sincerely, [facility] [phone] [facility] [address] HEAD WO IV CONTRASTon CT HEAD [...] : DR BUCK BERGMAN M.D. Admission #: [id number] Family : Order #: [id number] CLICK HERE TO VIEW EXAM RADIOLOGY REPORT [...] breast cancer at age 78. LOCATION: [facility] BREAST COMPOSITION: Heterogeneously dense,which may obscure small [...] Judd MD on 02/26/2022 at 14:15 Normal [facility] XR DEXA BONE DENSITYon 02-26 XR DEXA [...] by: QUANG JUDD Date: 2022-02-26 13:28 Normal [facility] 03-16-2016 Cholesterol [Mass/Vol] 206.0 mg/dL 0-200 [facility] Cholesterol in HDL [Mass/Vol] 85.0 mg/dL 50-100 [facility] [employer] [facility] Cholesterol in LDL [Mass/Vol] 97.0 mg/dL 0-130 [facility] Triglyceride [Mass/Vol] 121.0 mg/dL 30-150 [facility] Hematologyon 03-16-2016 Hematocrit (Bld) [Volume fraction] 40.40 % 35.7-47.1 [facility] Hemoglobin (Bld) [Mass/Vol] 13.40 g/dL 11.9-15.7 [facility] MCH (RBC) [Entitic mass] 30.0 pg 23.2-33.3 [facility] MCV (RBC) [Entitic vol] 90.20 fL 82.0-98.4 [facility] Platelets (Bld) [#/Vol] 225.0 10*3/uL 150-400 [facility] [employer] [facility] RBC (Bld) [#/Vol] 4.480 10*6/uL 3.72-5.24 [facility] [employer] [facility] WBC (Bld) [#/Vol] 8.30 10*3/uL 3.9-10.3 [facility] [employer] [facility] Metabolic Panelon 03-16-2016 ALT [Catalytic activity/Vol] 11.0 U/L 0-50 [facility] [employer] [facility] Anion gap [Moles/Vol] 16 mmol/L 10-20 [facility] [employer] [facility] AST [Catalytic activity/Vol] 18.0 U/L 0-40 [facility] [employer] [facility] Calcium [Mass/Vol] 9.20 mg/dL 8.5-10.8 [facility] [employer] [facility] Chloride [Moles/Vol] 106 mmol/L 100-112 [facility] [employer] [facility] CO2 [Moles/Vol] 25 mmol/L 23-30 [facility] [employer] [facility] Creatinine [Mass/Vol] 0.90 mg/dL 0.5-1.5 [facility] [employer] [facility] GFR/1.73 sq M predicted among non-blacks MDRD (S/P/Bld) [Vol rate/Area] 60 mL/min/{1.73_m2} [facility] [employer] [facility] Glucose [Mass/Vol] 104.0 mg/dL 80-117 [facility] [employer] [facility] Potassium [Moles/Vol] 3.6 mmol/L 3.5-5.3 [facility] [employer] [facility] Sodium [Moles/Vol] 143 mmol/L 135-148 [facility] [employer] [facility] Urea nitrogen [Mass/Vol] 12.0 mg/dL 7-25 [facility] [employer] [facility] Urea nitrogen/Creatinin e [Mass ratio] 13 mg/mg 6-20 [facility] [employer] [facility] Otheron 03-16-2016 Cholesterol in VLDL [Mass/Vol] 24.0 mg/dL 0-39 [facility] [employer] [facility] Cholesterol.total/ Cholesterol in HDL [Mass ratio] 2 {ratio} [place] [employer] [facility] Erythrocyte distribution width (RBC) [Ratio] 12.50 % 11.5-15.5 [place] [employer] [facility] MCHC (RBC) [Mass/Vol] 33.20 g/dL 32.0-36.0 [place] [employer] [facility] Platelet mean volume (Bld) [Entitic vol] 7.70 fL 7.4-10.4 [place] [employer] Otheron 11-30-2015 8-3-[address] [facility] [address] [place] [facility] 09-29-2015 Cholesterol [Mass/Vol] 183.0 mg/dL 0-200 [facility] [employer] Cholesterol in HDL [Mass/Vol] 74.0 mg/dL 50-100 [place] [employer] Cholesterol in LDL [Mass/Vol] 84.0 mg/dL 0-130 [facility] [employer] Triglyceride [Mass/Vol] 126.0 mg/dL 30-150 [facility] [employer] Metabolic Panelon 09-29-2015 ALT [Catalytic activity/Vol] 16.0 U/L 0-50 [facility] [employer] Anion gap [Moles/Vol] 17 mmol/L 10-20 [place] [employer] AST [Catalytic activity/Vol] 21.0 U/L 0-40 [facility] [employer] Calcium [Mass/Vol] 9.60 mg/dL 8.5-10.8 [facility] [employer] Chloride [Moles/Vol] 105 mmol/L 100-112 [place] [employer] CO2 [Moles/Vol] 27 mmol/L 23-30 [place] [employer] Creatinine [Mass/Vol] 0.90 mg/dL 0.5-1.5 [place] [employer] GFR/1.73 sq M predicted among non-blacks MDRD (S/P/Bld) [Vol rate/Area] 60 mL/min/{1.73_m2} [facility] [employer] Glucose [Mass/Vol] 100.0 mg/dL 80-117 [facility] [employer] Potassium [Moles/Vol] 4.1 mmol/L 3.5-5.3 [facility] Sodium [Moles/Vol] 145 mmol/L 135-148 [facility] [employer] Urea nitrogen [Mass/Vol] 13.0 mg/dL 7-25 [employer] Urea nitrogen/Creatinin e [Mass ratio] 14 mg/mg 6-20 [facility] Other[facility] 09-29-2015 Calcidiol [Mass/Vol] 54.0 ng/mL 30.0-100.0 [employer] Cholesterol in VLDL [Mass/Vol] 25.0 mg/dL 0-39 [employer] Cholesterol.total/ Cholesterol in HDL [Mass ratio] 2 {ratio} [facility] 03-28-2015 Cholesterol [Mass/Vol] 212.0 mg/dL 0-200 [facility] Cholesterol in HDL [Mass/Vol] 78.0 mg/dL 50-100 [facility] Cholesterol in LDL [Mass/Vol] 112.0 mg/dL 0-130 [facility] Triglyceride [Mass/Vol] 110.0 mg/dL 30-150 [facility] Metabolic Panelon 03-28-2015 Albumin [Mass/Vol] 4.40 g/dL 3.7-4.5 [facility] [employer] ALP [Catalytic activity/Vol] 44.0 U/L 31-155 [facility] ALT [Catalytic activity/Vol] 18.0 U/L 0-50 [facility] [employer] [facility] Anion gap [Moles/Vol] 15 mmol/L 10-20 [facility] [employer] [facility] AST [Catalytic activity/Vol] 22.0 U/L 0-40 [facility] [employer] [facility] Bilirubin [Mass/Vol] 0.50 mg/dL 0.0-1.0 [facility] [employer] [facility] Calcium [Mass/Vol] 9.70 mg/dL 8.5-10.8 [facility] [employer] [facility] Chloride [Moles/Vol] 107 mmol/L 100-112 [facility] [employer] [facility] CO2 [Moles/Vol] 30 mmol/L 23-30 [facility] [employer] [facility] Creatinine [Mass/Vol] 0.80 mg/dL 0.5-1.5 [facility] [employer] [facility] GFR/1.73 sq M predicted among non-blacks MDRD (S/P/Bld) [Vol rate/Area] 69 mL/min/{1.73_m2} [facility] Glucose [Mass/Vol] 86.0 mg/dL 80-117 [facility] [employer] [facility] Potassium [Moles/Vol] 4.2 mmol/L 3.5-5.3 [facility] [employer] [facility] Protein [Mass/Vol] 7.40 g/dL 6.3-7.9 [facility] [employer] [facility] Sodium [Moles/Vol] 148 mmol/L 135-148 [facility] [employer] [facility] Urea nitrogen [Mass/Vol] 19.0 mg/dL 7-25 [facility] [employer] [facility] Urea nitrogen/Creatinin e [Mass ratio] 24 mg/mg 6-20 [facility] Otheron 03-28-2015 Albumin/Globulin [Mass ratio] 1.5 {ratio} 1.0-2.4 [facility] Calcidiol [Mass/Vol] 50.9 ng/mL 30.0-100.0 [facility] Cholesterol in VLDL [Mass/Vol] 22.0 mg/dL 0-39 [facility] Cholesterol.total/ Cholesterol in HDL [Mass ratio] 3 {ratio} [facility] 09-28-2014 Cholesterol [Mass/Vol] 172.0 mg/dL 0-200 [facility] Cholesterol in HDL [Mass/Vol] 73.0 mg/dL 50-100 [facility] Cholesterol in LDL [Mass/Vol] 73.0 mg/dL 0-130 [facility] Triglyceride [Mass/Vol] 132.0 mg/dL 30-150 [facility] Metabolic Panelon 09-28-2014 ALT [Catalytic activity/Vol] 14.0 U/L 0-50 [facility] Anion gap [Moles/Vol] 14 mmol/L 10-20 [facility] AST [Catalytic activity/Vol] 17.0 U/L 0-40 [facility] Calcium [Mass/Vol] 9.40 mg/dL 8.5-10.8 [facility] [employer] Chloride [Moles/Vol] 103 mmol/L 100-112 [employer] CO2 [Moles/Vol] 29 mmol/L 23-30 [place] [employer] Creatinine [Mass/Vol] 0.80 mg/dL 0.5-1.5 [facility] [employer] GFR/1.73 sq M predicted among non-blacks MDRD (S/P/Bld) [Vol rate/Area] 69 mL/min/{1.73_m2} [facility] [employer] [facility] Glucose [Mass/Vol] 101.0 mg/dL 80-117 [facility] [employer] Potassium [Moles/Vol] 3.9 mmol/L 3.5-5.3 [facility] [employer] Sodium [Moles/Vol] 142 mmol/L 135-148 [facility] [employer] [facility] Urea nitrogen [Mass/Vol] 16.0 mg/dL 7-25 [place] [employer] Urea nitrogen/Creatinin e [Mass ratio] 20 mg/mg 6-20 [place] [employer] Otheron 09-28-2014 Calcidiol [Mass/Vol] 51.0 ng/mL 30.0-100.0 [place] [employer] Cholesterol in VLDL [Mass/Vol] 26.0 mg/dL 0-39 [place] [employer] Cholesterol.total/ Cholesterol in HDL [Mass ratio] 2 {ratio} [place] [employer] [facility] 03-30-2014 Cholesterol [Mass/Vol] 203.0 mg/dL 0-200 [facility] Cholesterol in HDL [Mass/Vol] 78.0 mg/dL 50-100 [facility] Cholesterol in LDL [Mass/Vol] 98.0 mg/dL 0-130 [facility] Triglyceride [Mass/Vol] 136.0 mg/dL 30-150 [facility] Metabolic Panelon 03-30-2014 ALT [Catalytic activity/Vol] 20.0 U/L 0-50 [place] [employer] Anion gap [Moles/Vol] 18 mmol/L 10-20 [facility] AST [Catalytic activity/Vol] 25.0 U/L 0-40 [facility] Calcium [Mass/Vol] 9.90 mg/dL 8.5-10.8 [facility] [employer] [facility] Chloride [Moles/Vol] 101 mmol/L 100-112 [facility] CO2 [Moles/Vol] 28 mmol/L 23-30 [facility] Creatinine [Mass/Vol] 0.90 mg/dL 0.5-1.5 [employer] [facility] GFR/1.73 sq M predicted among non-blacks MDRD (S/P/Bld) [Vol rate/Area] 60 mL/min/{1.73_m2} [facility] [employer] [facility] Glucose [Mass/Vol] 97.0 mg/dL 80-117 [facility] [employer] [facility] Potassium [Moles/Vol] 3.7 mmol/L 3.5-5.3 [facility] Sodium [Moles/Vol] 143 mmol/L 135-148 [facility] [employer] [facility] Urea nitrogen [Mass/Vol] 18.0 mg/dL 7-25 [facility] Urea nitrogen/Creatinin e [Mass ratio] 20 mg/mg 6-20 [facility] Otheron 03-30-2014 Cholesterol in VLDL [Mass/Vol] 27.0 mg/dL 0-39 [facility] Cholesterol.total/ Cholesterol in HDL [Mass ratio] 3 {ratio} [facility] 09-29-2013 Cholesterol [Mass/Vol] 182.0 mg/dL 0-200 [facility] Cholesterol in HDL [Mass/Vol] 77.0 mg/dL 50-100 [facility] Cholesterol in LDL [Mass/Vol] 85.0 mg/dL 0-130 [facility] Triglyceride [Mass/Vol] 101.0 mg/dL 30-150 [facility] Metabolic Panelon 09-29-2013 ALT [Catalytic activity/Vol] 13.0 U/L 0-50 [facility] Anion gap [Moles/Vol] 18 mmol/L 10-20 [employer] AST [Catalytic activity/Vol] 18.0 U/L 0-40 [facility] Calcium [Mass/Vol] 9.70 mg/dL 8.5-10.8 [facility] [employer] Chloride [Moles/Vol] 105 mmol/L 100-112 [facility] CO2 [Moles/Vol] 23 mmol/L 23-30 [facility] Creatinine [Mass/Vol] 0.80 mg/dL 0.5-1.5 [facility] GFR/1.73 sq M predicted among non-blacks MDRD (S/P/Bld) [Vol rate/Area] 69 mL/min/{1.73_m2} [facility] [employer] [facility] Glucose [Mass/Vol] 89.0 mg/dL 80-117 [facility] [employer] [facility] Potassium [Moles/Vol] 3.7 mmol/L 3.5-5.3 [facility] [employer] Sodium [Moles/Vol] 142 mmol/L 135-148 [facility] [employer] [facility] Urea nitrogen [Mass/Vol] 15.0 mg/dL 7-25 [place] [employer] Urea nitrogen/Creatinin e [Mass ratio] 19 mg/mg 6-20 [place] [employer] Otheron 09-29-2013 Calcidiol [Mass/Vol] 46.7 ng/mL 30.0-100.0 [employer] Cholesterol in VLDL [Mass/Vol] 20.0 mg/dL 0-39 [facility] Cholesterol.total/ Cholesterol in HDL [Mass ratio] 2 {ratio} [facility] 03-31-2013 Cholesterol [Mass/Vol] 210.0 mg/dL 0-200 [employer] Cholesterol in HDL [Mass/Vol] 74.0 mg/dL 50-100 [facility] Cholesterol in LDL [Mass/Vol] 102.0 mg/dL 0-130 [facility] Triglyceride [Mass/Vol] 170.0 mg/dL 30-150 [facility] Metabolic Panelon 03-31-2013 ALT [Catalytic activity/Vol] 23.0 U/L 0-50 [facility] Anion gap [Moles/Vol] 15 mmol/L 10-20 [facility] [employer] [facility] AST [Catalytic activity/Vol] 25.0 U/L 0-40 [facility] [employer] [facility] Calcium [Mass/Vol] 9.60 mg/dL 8.5-10.8 [facility] [employer] [facility] Chloride [Moles/Vol] 99 mmol/L 100-112 [facility] [employer] [facility] CO2 [Moles/Vol] 28 mmol/L 23-30 [facility] [employer] [facility] Creatinine [Mass/Vol] 0.80 mg/dL 0.5-1.5 [facility] [employer] [facility] GFR/1.73 sq M predicted among non-blacks MDRD (S/P/Bld) [Vol rate/Area] 69 mL/min/{1.73_m2} [facility] [employer] [facility] Glucose [Mass/Vol] 88.0 mg/dL 80-117 [facility] [employer] [facility] Potassium [Moles/Vol] 4.3 mmol/L 3.5-5.3 [facility] [employer] [facility] Sodium [Moles/Vol] 138 mmol/L 135-148 [facility] [employer] [facility] Urea nitrogen [Mass/Vol] 14.0 mg/dL 7-25 [place] [employer] [facility] Urea nitrogen/Creatinin e [Mass ratio] 18 mg/mg 6-20 [employer] [facility] Otheron 03-31-2013 Calcidiol [Mass/Vol] 47.4 ng/mL 30.0-100.0 [place] [employer] [facility] Cholesterol in VLDL [Mass/Vol] 34.0 mg/dL 0-39 [employer] [facility] Cholesterol.total/ Cholesterol in HDL [Mass ratio] 3 {ratio} [facility] Vital Signs Date Time Vital Sign Value Performing Clinician Jeronimo maloney 03-16-2016 13:36-0500 BMI (Body Mass Index) 21.97 kg/m2 Ashley [facility] 03-16-2016 13:36-0500 Body weight 57.15 kg Ashley [facility] 03-16-2016 13:36-0500 BP Diastolic 60 mm[Hg] Ashley [facility] 03-16-2016 13:36-0500 BP Systolic 114 mm[Hg] Ashley [facility] 03-16-2016 13:36-0500 BSA (Body Surface Area) 1.6 m2 Ashley [facility] 03-16-2016 13:36-0500 Height 161.29 cm Ashley [facility] 03-16-2016 13:36-0500 Pulse (Heart Rate) 68 /min Ashley [facility] [facility] [employer] 09-30-2015 10:59-0400 BMI (Body Mass Index) 22.67 kg/m2 Ashley [facility] 09-30-2015 10:59-0400 Body weight 58.97 kg Ashley [facility] 09-30-2015 10:59-0400 BP Diastolic 50 mm[Hg] Ashley [facility] 09-30-2015 10:59-0400 BP Systolic 120 mm[Hg] Ashley [facility] 09-30-2015 10:59-0400 BSA (Body Surface Area) 1.63 m2 Ashley [facility] 09-30-2015 10:59-0400 Height 161.29 cm Ashley [facility] 09-30-2015 10:59-0400 Pulse (Heart Rate) 76 /min Ashley [employer] [facility] 04-26-2015 12:09-0500 BMI (Body Mass Index) 22.06 kg/m2 Ashley [facility] 04-26-2015 12:09-0500 Body weight 57.38 kg Ashley [facility] 04-26-2015 12:09-0500 BP Diastolic 68 mm[Hg] Ashley [facility] 04-26-2015 12:09-0500 BP Diastolic 64 mm[Hg] Ashley [facility] 04-26-2015 12:09-0500 BP Systolic 106 mm[Hg] Ashley [facility] 04-26-2015 12:09-0500 BP Systolic 110 mm[Hg] Ashley [facility] 04-26-2015 12:09-0500 BSA (Body Surface Area) 1.6 m2 [facility] 04-26-2015 12:09-0500 Height 161.29 cm [facility] 04-26-2015 12:09-0500 Pulse (Heart Rate) 78 /min Ashley [employer] 03-30-2015 12:04-0500 BMI (Body Mass Index) 21.45 kg/m2 [facility] [employer] 03-30-2015 12:04-0500 Body weight 55.79 kg [facility] [employer] 03-30-2015 12:04-0500 BP Diastolic 64 mm[Hg] [facility] 03-30-2015 12:04-0500 BP Systolic 122 mm[Hg] [facility] [employer] 03-30-2015 12:04-0500 BSA (Body Surface Area) 1.58 m2 [facility] 03-30-2015 12:040500 Height 161.29 cm Ashley [facility] [employer] 03-30-2015 12:04-0500 Pulse (Heart Rate) 72 /min [facility] [employer] 09-28-2014 12:05-0400 BMI (Body Mass Index) 20.92 kg/m2 [facility] 09-28-2014 12:05-0400 Body weight 54.43 kg [facility] 09-28-2014 12:05-0400 BP Diastolic 60 mm[Hg] [facility] [employer] 09-28-2014 12:05-0400 BP Systolic 118 mm[Hg] Ashley [facility] [employer] 09-28-2014 12:05-0400 BSA (Body Surface Area) 1.56 m2 Ashley [facility] 09-28-2014 12:05-0400 Height 161.29 cm Ashley [facility] 09-28-2014 12:05-0400 Pulse (Heart Rate) 76 /min Ashley [employer] 03-30-2014 11:33-0500 BMI (Body Mass Index) 22.58 kg/m2 Ashley [facility] 03-30-2014 11:33-0500 Body weight 58.74 kg Aslhey HensonRidejoy 03-30-2014 11:33-0500 BP Diastolic 64 mm[Hg] Ashley [facility] 03-30-2014 11:33-0500 BP Systolic 128 mm[Hg] Ashley [facility] 03-30-2014 11:33-0500 BSA (Body Surface Area) 1.62 m2 Ashley [facility] 03-30-2014 11:33-0500 Height 161.29 cm Ashley [facility] 03-30-2014 11:33-0500 Pulse (Heart Rate) 72 /min Ashley [facility] 09-29-2013 12:16-0400 BMI (Body Mass Index) 21.97 kg/m2 Ashley [facility] 09-29-2013 12:16-0400 Body weight 57.15 kg Ashley [facility] 09-29-2013 12:16-0400 BP Diastolic 74 mm[Hg] [facility] 09-29-2013 12:16-0400 BP Systolic 128 mm[Hg] Ashley [facility] 09-29-2013 12:16-0400 BSA (Body Surface Area) 1.6 m2 [facility] 09-29-2013 12:16-0400 Height 161.29 cm [employer] 09-29-2013 12:16-0400 Pulse (Heart Rate) 60 /min Ashley [employer] 03-31-2013 11:40-0500 BMI (Body Mass Index) 21.8 kg/m2 [employer] 03-31-2013 11:40-0500 Body weight 57.61 kg [employer] 03-31-2013 11:40-0500 BP Diastolic 78 mm[Hg] [employer] 03-31-2013 11:40-0500 BP Systolic 130 mm[Hg] [facility] 03-31-2013 11:40-0500 BSA (Body Surface Area) 1.61 m2 [employer] 03-31-2013 11:40-0500 Height 162.56 cm [employer] 03-31-2013 11:40-0500 Pulse (Heart Rate) 72 /min [employer]ault 09-30-2012 11:40-0400 BMI (Body Mass Index) 21.8 kg/m2 [employer] 09-30-2012 11:40-0400 Body weight 57.61 kg [employer] 09-30-2012 11:40-0400 BP Diastolic 60 mm[Hg] Ashley [facility] 09-30-2012 11:40-0400 BP Systolic 122 mm[Hg] Ashley [facility] 09-30-2012 11:40-0400 BSA (Body Surface Area) 1.61 m2 [employer] 09-30-2012 11:40-0400 Height 162.56 cm [facility] 09-30-2012 11:40-0400 Pulse (Heart Rate) 68 /min Ashley [facility] [facility] [employer] Encounters Encounter Date Encounter Type Care Provider [...] vi sit 15 minutes Ashley Hopper Other [facility] Office Start: 01-12-2019 Office outpatient ne w 20 minutes Ashley Hopper Other [facility] Office Start: 03-16-2016 Medicare Lab Mekhi Champion Other [facility] Start: 03-16-2016 Office outpatient vi sit 25 minutes Mekhi Champion Other [facility] Office Start: 01-27-2016 Walk-In Mekhi Champion Other [facility] Office Start: 11-30-2015 Split Srvc Alicia Mejias Other [facility] Office Start: 09-30-2015 Office outpatient vi sit 25 minutes Mekhi Champion Other [facility] Office Start: 09-29-2015 Medicare Lab Mekhi Champion Other [facility] Start: 04-26-2015 Routine general medi abigail examination at [facility] Ashley Hopper [facility] Start: 04-26-2015 Office Services Karley Solitario [...] 09-29-2013 Transferase alanine amino alt sgpt Ashleyalisia Rustkp Start: 09-29-2013 Transferase aspartat e amino ast [...] Fa ciliporfirio 01-27-2016 influenza, seasonal, injectable Ashley [facility] 01-27-2016 Medicare Flu Admin f ee; Translations: [Administration of influenza virus vaccine] AshleyADTELLIGENCE 04-26-2015 pneumococcal polysaccharide vaccine, 23 valent; Translations: [PNEUMOCOCCAL VACC 23 DEON IM] [facility]ESTmob 02-15-2015 influenza, seasonal, injectable Ashley[facility]mob 02-15-2015 Medicare Flu Admin f ee; Translations: [Administration of influenza virus vaccine] [employer] 03-30-2014 pneumococcal conjuga te vaccine, 13 valent; Translations: [PNEUMOCOCCAL VACC 13 DEON IM] [employer] 02-23-2014 influenza virus vacc ine, unspecified formulation; Translations: [Influenza Administration Fee (Medicare)] [employer] 02-12-2013 influenza virus vacc ine, unspecified formulation; Translations: [Administration of influenza virus vaccine] [employer] 02-12-2013 influenza, seasonal, injectable [employer] Payers Date Payer Category Payer Medicare [id number] 2.1 [id number] 1959 Private Health Insurance [facility] [id number] 1935 Unknown [id number] 2.16.84 [id number] 1935 Unknown [id number] 1935 Unknown [id number] 2.16.84 [id number] 1935 Unknown [id number] 2.16.84 [id number] 1935 Unknown [id number] 2.16.84 [id number] 1935 Unknown [id number] 2.16.84 [id number] 1935 Unknown [id number] 2.16.84 0.1.349687.3.579.2.1258 1935 Unknown [id number] 2.16.84 0.1.370377.3.579.2.1258 1935 Unknown [id number] 2.16.84 0.1.076381.3.579.2.1258 1935 Unknown [id number] 2.16.84 0.1.175948.3.579.2.1258 1935 Unknown [id number] 2.16.84 0.1.324573.3.579.2.1258 1935 Unknown [id number] 2.16.84 0.1.983595.3.579.2.1258 1935 Unknown [id number] 2.16.84 0.1.992054.3.579.2.1258 1935 Unknown [id number] 2.16.84 0.1.316652.3.579.2.1258 1935 Unknown [id number] 2.16.84 0.1.325495.3.579.2.1258 1935 Unknown [id number] 2.16.84 0.1.532481.3.579.2.1258 1935 Unknown [id number] 2.16.84 0.1.713554.3.579.2.1258 1935 Unknown [id number] 2.16.84 0.1.331668.3.579.2.1259 1935 Unknown [id number] 2.16.84 0.1.748295.3.579.2.1259 1935 Unknown [id number] 2.16.8 40.1.317529.3.579.2.727 Self-pay Social History Date Type Detail Facility Start: Never smoker [facility] [employer] [facility] Start: Alcohol [facility] [employer] [facility] [employer] Start: Caffeine [facility] Summary Purpose Family History No Family History Records FoundNo Family History Records FoundNo Family History Records FoundNo Family History Records Found Advance Directives No Advanced Directives Records FoundNo Advanced Directives Records FoundNo Advanced Directives Records FoundNo Advanced Directives Records Found Additional Source Comments INFORMATION SOURCE (unrecogn ized section and content) DATE CREATED AUTHOR 03/02/2022 [facility] DATE CREATED AUTHOR AUTHOR'S ORGANIZ ATION 05/25/2023 [facility] DATE CREATED AUTHOR AUTHOR'S ORGANIZ ATION 01/28/2024 [facility] DATE CREATED AUTHOR AUTHOR'S ORGANIZ ATION 01/29/2024 [...] BE BASED ON THE PRIMARY CLINICAL RECORDS. [facility]. provides no warranty or guarantee of the accuracy or completeness of information in this document.
== END 2024-02-07 13:15 | disposition home or self-care (01) ==
LOC: RAD 13:14
PROVIDERS: PCP Family Medicine; Visit Provider Family Medicine
DX: E28.39 Other primary ovarian failure (principal); M85.80 Other specified disorders of bone density and structure, unspecified site
CPT/HCPCS: 77080

== ENCOUNTER 2024-03-02 13:01 | Outpatient (OUT) | payer MEDICARE, SELFPAY ==
--- NOTE | 2024-03-02 13:03 | MM_ITS ---
Patient Name: SCOTTIE CHAVIRA MR#: [id number] : 1935 Exam Date: 03/02/2024 Ordering Doctor: DR JESSICA BERGMAN M.D. RADIOLOGY REPORT PROCEDURE: MM TOMOSYNTHESIS SCREENING BI COMPARISON: MM TOMOSYNTHESIS SCREENING BI, 02/28/2023. MG MAMM SCREEN 3D ALAYNA CAD, 02/26/2022. INDICATIONS: Screening Calculator Name NCI Breast Cancer Risk Assessment Tool 5 Year Breast Cancer Risk Not Applicable. Lifetime Breast Cancer Risk Not Applicable. Personal Breast Cancer No Personal Ovarian Cancer No Treatments Bowl resection Family Cancers Mother with breast cancer at age 87; Sister with breast cancer at age 80; Sister with breast cancer at age 78. LOCATION: [facility] BREAST COMPOSITION: The breasts are heterogeneously dense,which may obscure small masses. FINDINGS: DIAGNOSTIC CATEGORY 2--BENIGN FINDING. NO CHANGE FROM COMPARISON. Scattered benign-appearing calcifications are present. Scattered benign-appearing lymph nodes are present. RIGHT BREAST: No significant suspicious finding. LEFT BREAST: No significant suspicious finding. RECOMMENDATIONS: ROUTINE MAMMOGRAM AND CLINICAL EVALUATION IN 12 MONTHS. PLEASE NOTE: A NORMAL MAMMOGRAM DOES NOT EXCLUDE THE POSSIBILITY OF BREAST CANCER. A CLINICALLY SUSPICIOUS PALPABLE LUMP SHOULD BE BIOPSIED. Dictated by: Braxton Valderrama MD on 03/02/2024 at 14:35 Approved by: Braxton Valderrama MD on 03/02/2024 at 14:36
== END 2024-03-02 13:02 | disposition home or self-care (01) ==
LOC: MAMMO 13:01
PROVIDERS: PCP Family Medicine; Visit Provider Family Medicine
DX: Z12.31 Encounter for screening mammogram for malignant neoplasm of breast (principal); Z80.3 Family history of malignant neoplasm of breast
CPT/HCPCS: 77063; 77067

== ENCOUNTER 2025-03-03 13:10 | Outpatient (OUT) | payer MEDICARE, SELFPAY ==
--- OUTSIDE RECORDS SUMMARY | 2025-03-03 13:14 | XMS_ITS | Encounter Summary ---
Author Organization [facility] Address [address] [place] [address] Care Team Providers Care Ladler Name Role Phone Buck Bergman MD Unavailable Buck Bergman MD Primary Care Provider [phone] Encounter Details DateTypeDepartmentCare Team (Latest Contact Info)Cfdixhdfjwr05/04/2024Clinisync Result Encounter [facility] External Department Unsolicited Buck Bergman MD [address] [place] [address] Social History Tobacco UseTypesPacks/DayYears UsedDateSmoking Tobacco: NeverSmokeless Tobacco: NeverAlcohol UseStandard Drinks/WeekCommentsYes1 (1 standard drink = 0.6 oz pure alcohol)caffeine 3-4 cups/dayAUDIT-CAnswerDate RecordedQ1: How often do you have a drink containing alcohol?Monthly or less10/12/2022Q2: How many drinks containing alcohol do you have on a typical day when you are drinking?1 or 2 10/12/2022Q3: How often do you have six or more drinks on one occasion?Never 3PHQ-2AnswerDate RecordedPatient Health Questionnaire-2 Score0 01/04/2025CommentsUnknownSex and Gender InformationValueDate RecordedSex Assigned at BirthNot on fileLegal QmoKtzyjl79/15/2023 7:37 PM EDTGender Identity Not on fileSexual OrientationNot on filedocumented as of this encounter Functional Status * Over the past 2 weeks, how often have you been bothered by any of the following problems?QuestionAnswerDate of AssessmentAuthorLittle interest or pleasure in doing thingsNot at all01/04/2025 1:23 PM Fay Wynn MA Feeling down, depressed, or hopelessNot at all01/04/2025 1:23 PM Fay Wynn MAPatient Health Questionnaire-2 Hbksf803 1:23 PM Fay Wynn MA documented as of this encounter Plan of Treatment DateTypeDepartmentCare Team (Latest Contact Info)Xvhiwvcbbvt67/03/2026 1:00 PM EDTOffice Visit [facility] [address] [place] [address] Georgia Blas MD [address] [place] [address] documented as of this encounter Procedures Procedure NamePriorityDate/TimeAssociated DiagnosisCommentsMM TOMOSYNTHESIS SCREENING BI03/02/2024 2:36 PM EST documented in this encounter Results * MM TOMOSYNTHESIS SCREENING BI (03/02/2024 2:36 PM EST)Anatomical Region LateralityModalityOtherSpecimen (Source)Anatomical Location / Laterality Collection Method / VolumeCollection TimeReceived Time03/02/2024 2:36 PM EST Narrative 03/02/2024 2:37 PM EST [facility] ?[address] ? [place] [address] ? Mammography Report ? Signed ? Patient: BERENICE CHAVIRA ?MR#: [id number] ?? : 1935 ?Acct:[id number] ?? Age/Sex: 88 / F ?ADM Date: 11//24 ?? Loc: MAMMO ? Attending Dr: BUCK PACHECO ? Ordering Physician: BUCK BERGMAN ? Results: ? Date of Service: //24 ?Follow Up: ? Procedure(s): MM tomosynthesis screening BI ?? Accession Number(s): [id number] ? cc: PACHECO,BUCK ? Patient Name: ? BERENICE BAILEYRIKKI ? MR#: [id number] ? : 1935 ? Exam Date: 03/02/2024 ?? Ordering Doctor: DR BUCK BERGMAN M.D. ? RADIOLOGY REPORT ? PROCEDURE: ? MM TOMOSYNTHESIS SCREENING BI ? COMPARISON: ? MM TOMOSYNTHESIS SCREENING BI, 02/28/2023. ??MG MAMM SCREEN 3D ?? ALAYNA CAD, 02/26/2022. ? INDICATIONS: ? Screening ? Calculator Name ? NCI Breast Cancer Risk Assessment Tool ?? 5 Year Breast Cancer Risk ? Not Applicable. ?? Lifetime Breast Cancer Risk ? Not Applicable. ?? Personal Breast Cancer ?No ?? Personal Ovarian Cancer ? No ?? Treatments ? Bowl resection ?? Family Cancers ? Mother with breast cancer at age 87; Sister with breast ?? cancer at age 80; Sister with breast cancer at age 78. ? LOCATION: ? [facility] ? BREAST COMPOSITION: ? The breasts are heterogeneously dense,which may ?? obscure small masses. ? FINDINGS: ? DIAGNOSTIC CATEGORY 2--BENIGN FINDING. NO CHANGE FROM COMPARISON. ??Scattered ?? benign-appearing calcifications are present. ??Scattered benign-appearing lymph ?? nodes are present. ? RIGHT BREAST: ??No significant suspicious finding. ? LEFT BREAST: ??No significant suspicious finding. ? RECOMMENDATIONS: ? ROUTINE MAMMOGRAM AND CLINICAL EVALUATION IN 12 MONTHS. ? PLEASE NOTE: ??A NORMAL MAMMOGRAM DOES NOT EXCLUDE THE POSSIBILITY OF BREAST ?? CANCER. ??A CLINICALLY SUSPICIOUS PALPABLE LUMP SHOULD BE BIOPSIED. ? Dictated by: Braxton Valderrama MD on 03/02/2024 at 14:35 ? Approved by: Braxton Valderrama MD on 03/02/2024 at 14:36 ? Dictated By: ?Braxton Valderrama M.D. ? Signed By: ?11/04/24 1437 ? DD/ 1436 ? TD/TT: ? Rn Renal: Procedure Note Radiology, Radiologist, MD - 03/02/2024 [place] [address] Mammography Report Signed Patient: BERENICE CHAVIRAMR#: [id number] : 1935cct:[id number] Age/Sex: 88 / FADM Date: 03/02/24 Loc: MAMMO Attending Dr: BUCK BERGMAN Ordering Physician: Bernie BERGMANults: Date of Service: 03/02/24Follow Up: Procedure(s): MM tomosynthesis screening BI Accession Number(s): [id number] cc: BUCK BERGMAN Patient Name: BERENICE CHAVIRA MR#: [id number] : 1935 Exam Date: 03/02/2024 Ordering Doctor: DR BUCK BERGMAN M.D. RADIOLOGY REPORT PROCEDURE: MM TOMOSYNTHESIS SCREENING BI COMPARISON: MM TOMOSYNTHESIS SCREENING BI, 02/28/2023. MG MAMM [id number] ALAYNA CAD, 02/26/2022. INDICATIONS: Screening Calculator Name NCI Breast Cancer Risk Assessment Tool 5 Year Breast Cancer Risk Not Applicable. Lifetime Breast Cancer Risk Not Applicable. Personal Breast Cancer No Personal Ovarian Cancer No Treatments Bowl resection Family Cancers Mother with breast cancer at age 87; Sister with breast cancer at age 80; Sister with breast cancer at age 78. LOCATION: [facility] BREAST COMPOSITION: The breasts are heterogeneously dense,which may obscure small masses. FINDINGS: DIAGNOSTIC CATEGORY 2--BENIGN FINDING. NO CHANGE FROM COMPARISON.Scattered benign-appearing calcifications are present. Scattered benign-appearinglymph nodes are present. RIGHT BREAST: No significant suspicious finding. LEFT BREAST: No significant suspicious finding. RECOMMENDATIONS: ROUTINE MAMMOGRAM AND CLINICAL EVALUATION IN 12 MONTHS. PLEASE NOTE: A NORMAL MAMMOGRAM DOES NOT EXCLUDE THE POSSIBILITY OFBREAST CANCER. A CLINICALLY SUSPICIOUS PALPABLE LUMP SHOULD BE BIOPSIED. Dictated by: Braxton Valderrama MD on 03/02/2024 at 14:35 Approved by: Braxton Valderrama MD on 03/02/2024 at 14:36 Dictated By: Braxton Valderrama M.D. Signed By:03/02/24 1437 DD/ 35 TD/TT: Rn Renal: Authorizing ProviderResult TypeResult StatusBuck Bergman MDCLINISYNC IMAGING Final Result documented in this encounter Visit Diagnoses Not on filedocumented in this encounter Care Teams Team MemberRelationshipSpecialtyStart DateEnd Date Buck Bergman MD [address] [facility] [address] [place] [address] PCP - [facility]09/20/22 Buck Bergman MD [address] [facility] [address] [place] [address] PCP - GeneralFamily Medicine11/26/22documented as of this encounter
--- OUTSIDE RECORDS SUMMARY | 2025-03-03 13:14 | XMS_ITS | Encounter Summary ---
Author Organization [facility] Address [address] [place] [address] Care Team Providers Care Office Mover Name Role Phone Buck Bergman MD Unavailable Buck Bergman MD Primary Care Provider [phone] Encounter Details DateTypeDepartmentCare Team (Latest Contact Info)Afohtqnypce06/13/2024Clinisync Result Encounter [facility] External Department Unsolicited Buck Bergman MD [address] [place] [address] Social History Tobacco UseTypesPacks/DayYears UsedDateSmoking [...] InformationValueDate RecordedSex Assigned at BirthNot on fileLegal UonLohvpm22/15/2023 7:37 PM EDTGender Identity Not on fileSexual OrientationNot on filedocumented as of this encounter Functional Status * Over the past 2 weeks, how often have you been bothered by any of the following problems?QuestionAnswerDate of AssessmentAuthorLittle interest or pleasure in doing thingsNot at all01/04/2025 1:23 PM Fay Wynn MA Feeling down, depressed, or hopelessNot at all01/04/2025 1:23 PM Fay Wynn MAPatient Health Questionnaire-2 Jpyqy716 1:23 PM Fay Wynn MA documented as of this encounter Plan of Treatment DateTypeDepartmentCare Team (Latest Contact Info)Untefqcazea90/03/2026 1:00 PM EDTOffice Visit [facility] [address] [place] [address] Georgia Blas MD [address] [place] [address] documented as of this encounter Procedures Procedure NamePriorityDate/TimeAssociated DiagnosisCommentsXR DEXA AXIAL CZASWTUT77/13/2024 5:52 AM EDT documented in this encounter Results * XR DEXA AXIAL SKELETON (02/09/2024 5:52 AM EDT)Anatomical RegionLaterality ModalityOtherSpecimen (Source)Anatomical Location / LateralityCollection Method / VolumeCollection TimeReceived Time02/09/2024 5:52 AM EDT Narrative 02/09/2024 5:55 AM EDT [facility] ?[address] ? [place] [address] ?XRay Report ? Signed ? Patient: SCOTTIE CHAVIRA ?MR#: [id number] ?? : 1935 ?Acct:[id number] ?? Age/Sex: 88 / F ?ADM Date: 02/07/24 ?? Loc: RAD ? Attending Dr: BUCK BERGMAN ? Ordering Physician: BUCK BERGMAN ?? Date of Service: 02/07/24 ?? Procedure(s): XR DEXA axial skeleton ?? Accession Number(s): [id number] ? cc: BUCK BERGMAN ? [facility] ? [address] ? [place] [address] ? Patient Name: ?? SCOTTIE ??FAN ? MRN: [facility]:[id number] ? date: 1935 ?Sex: F ?? Assigned Patient Location: RAD ?? Current Patient Location: ? Accession/Order Number: [id number] ?? Exam Date: 02/07/2024 ??13:28 ?Report Date: 02/09/2024 ??05:52 ? At the request of: ?? BUCK ??PACHECO ? Procedure: ??XR DEXA axial skeleton ? EXAMINATION: XR DEXA axial skeleton ? HISTORY: Estrogen Density ? COMPARISON: DEXA bone densitometry 02/26/2022 ? TECHNIQUE: Dual-energy X-ray absorptiometry (DXA) was performed. ? FINDINGS: ?? SPINE ANALYSIS: ?? Average bone mineral density is 0.995 g/cm2. ?? T-score (standard deviation relative to young adult mean): -1.5 . ?? -4.7% change since prior study. ? HIP ANALYSIS: ?? Lowest bone mineral density is within the left femoral neck, 0.702 g/cm2. ?? T-score (standard deviation relative to young adult mean): -2.4 ?? +0.6% change since prior study. . ? XR/XR DEXA axial skeleton ?? IMPRESSION: ? World Health Organization Classification: Osteopenia - Moderate Fracture Risk ?? FRAX: Cannot calculate. ? Pharmacologic treatment recommendations ?? * No uniform recommendation applies to all patients. Management plans must be ?? individualized. ?? * Consider initiating pharmacologic treatment in postmenopausal women and men ?? >= 50 years of age who have the following: Primary fracture prevention: ?? * T-score <= - 2.5 at the femoral neck, total hip, lumbar spine, 33% radius (some uncertainty with existing data) by DXA. ?? * Low bone mass (osteopenia: T-score between - 1.0 and - 2.5) at the femoral ?? neck or total hip by DXA with a 10-year hip fracture risk >= 3% or a 10-year major osteoporosis-related fracture risk >= 20% (i.e., clinical vertebral, hip, ?? forearm, or proximal humerus) based on the [place]-adapted FRAXregistered model. ?? Secondary fracture prevention: ?? * Fracture of the hip or vertebra regardless of BMD [4, 5]. ?? * Fracture of proximal humerus, pelvis, or distal forearm in persons with low ?? bone mass (osteopenia: T-score between - 1.0 and - 2.5). The decision to treat ? should be individualized in persons with a fracture of the proximal humerus, ?? pelvis, or distal forearm who do not have osteopenia or low BMD [12, 13]. ?? Thalia MS, Heather SL, Olga KL, Alcira EM, Alondra KG, AJ, Jenna ?? ES. ?? The clinician's guide to prevention and treatment of osteoporosis. Osteoporos ?? Int. 2021;33(10):0842-8689. doi: 10.1007/w60534-461-67037-k. Epub 2021 ? 28. Erratum in: Osteoporos Int. 2021Nov 23;: PMID: 17160442; PMCID: ?? [id number]. ? Electronically authenticated by: DAVID ??JULY ?? Date: 02/09/2024 ??05:52 ? Dictated By: ?David Saunders M.D. ? Signed By: ?02/09/24 0555 ? DD/ 0552 ? TD/TT: ? Certified Nursing Assistant Instructor: Procedure Note Radiology, Radiologist, MD - 02/09/[address] [address] XRay Report Signed Patient: SCOTTIE CHAVIRAMR#: [id number] : 1935cct:[id number] Age/Sex: 88 / FADM Date: 02/07/24 Loc: RAD Attending Dr: BUCK BERGMAN Ordering Physician: BUCK BERGMAN Date of Service: 02/07/24 Procedure(s): XR DEXA axial skeleton Accession Number(s): [id number] cc: BUCK BERGMAN The [address] [address] Patient Name: SCOTTIE CHAVIRA MRN: [facility]:[id number] date: 1935 Sex: F Assigned Patient Location: RAD Current Patient Location: Accession/Order Number: [id number] Exam Date: 02/07/2024 13:28 Report Date: 02/09/2024 05:52 At the request of: BUCK BERGMAN Procedure: XR DEXA axial skeleton EXAMINATION: XR DEXA axial skeleton HISTORY: Estrogen Density COMPARISON: DEXA bone densitometry 02/26/2022 TECHNIQUE: Dual-energy X-ray absorptiometry (DXA) was performed. FINDINGS: SPINE ANALYSIS: Average bone mineral density is 0.995 g/cm2. T-score (standard deviation relative to young adult mean): -1.5 . -4.7% change since prior study. HIP ANALYSIS: Lowest bone mineral density is within the left femoral neck, 0.702 g/cm2. T-score (standard deviation relative to young adult mean): -2.4 +0.6% change since prior study. . XR/XR DEXA axial skeleton IMPRESSION: World Health Organization Classification: Osteopenia - Moderate FractureRisk FRAX: Cannot calculate. Pharmacologic treatment recommendations * No uniform recommendation applies to all patients. Management plans mustbe individualized. * Consider initiating pharmacologic treatment in postmenopausal women andmen >= 50 years of age who have the following: Primary fracture prevention: * T-score <= - 2.5 at the femoral neck, total hip, lumbar spine, 33%radius (some uncertainty with existing data) by DXA. * Low bone mass (osteopenia: T-score between - 1.0 and - 2.5) at thefemoral neck or total hip by DXA with a 10-year hip fracture risk >= 3% or [id number] major osteoporosis-related fracture risk >= 20% (i.e., clinical vertebral, hip, forearm, or proximal humerus) based on the US-adapted FRAXregisteredmodel. Secondary fracture prevention: * Fracture of the hip or vertebra regardless of BMD [4, 5]. * Fracture of proximal humerus, pelvis, or distal forearm in persons withlow bone mass (osteopenia: T-score between - 1.0 and - 2.5). The decision totreat should be individualized in persons with a fracture of the proximalhumerus, pelvis, or distal forearm who do not have osteopenia or low BMD [12, 13]. Thalia MS, Heather SL, Olga KL, Alcira EM, Alondra KG, AJ,Jenna ES. The clinician's guide to prevention and treatment of osteoporosis.Osteoporos Int. 2021;33(10):9870-5219. doi: 10.1007/p86254-214-00310-x. Ep. Erratum in: Osteoporos Int. 2021Nov 23;: PMID: 28167036; PMCID: [id number]. Electronically authenticated by: DAVID SAUNDERS Date: 02/09/2024 05:52 Dictated By: David Saunders M.D. Signed By:02/09/2455 DD/ 1 TD/TT: Certified Nursing Assistant Instructor: Authorizing ProviderResult TypeResult StatusBuck Bergman MDCLINISYNC IMAGING Final Result documented in this encounter Visit Diagnoses Not on filedocumented in this encounter Care Teams Team MemberRelationshipSpecialtyStart DateEnd Date Buck Bergamn MD [address] [facility] [address] [place] [address] PCP - [facility] [place]09/20/22 Buck Bergman MD [address] [facility] [address] [place] [address] PCP - GeneralFamily Medicine11/26/22documented as of this encounter
--- OUTSIDE RECORDS SUMMARY | 2025-03-03 13:14 | XMS_ITS | Clinical Summary ---
Author Organization [facility] Address [address] [place] [address] Care Team Providers Care Freight Brakeman Name Role Phone Buck Acevedo MD Unavailable Buck Acevedo MD Primary Care Provider [phone] Allergies Active AllergyReactionsCriticalityNoted NuncQghtakciPnrsypu74/17/2018 Other Reaction(s): hematuria Medications MedicationSigDispense QuantityRefillsLast FilledStart DateEnd DateStatus cyanocobalamin (Vitamin B-12) 1000 MCG tablet Take 1,000 mcg by mouth DailyActive Calcium Carb-Cholecalciferol (CALCIUM 500 + D3 PO) Take by mouthActive folic acid (Folvite) 800 MCG tablet Take by mouth DailyActive Clobetasol Propionate 0.05 % shampoo Indications:Other seborrheic dermatitisOnce a week lather on scalp, leave on 5 minutes before rinsing/30 day 118 mL 1106//[id number]/6Active alendronate (Fosamax) 70 MG tablet Indications:Osteoporosis, unspecified osteoporosis type, unspecified pathological fracture presenceTake 1 tablet by mouth every 7 (SEVEN) days Take in the morning with a full glass OF water, on an empty stomach, and do not take anything else by mouth or lie down for the next 30 MINUTES 12 tablet 5Active Active Problems ProblemNoted DateDiagnosed DateAsymptomatic varicose veins of both lower lywktosursr14/08/2025 Assessment & Plan (01/04/2025 1:44 PM EDT): Consider Vein Sclerosing Left hip pain07/28/2024 Assessment & Plan (07/28/2024 1:56 PM EDT): On exam, looks like muscle Right leg pain07/28/2024 Assessment & Plan (07/28/2024 1:57 PM EDT): Restless Leg Syndrome Drink enough Electrolytes Could use Magnesium Headache, common ywsjyzgo17/25/2025Microscopic komhvpocc80/25/2025Nocturia 07/21/2024Redundant colon07/21/2024Urinary umebvzuls81/25/2025Weight loss 07/21/2024Routine general medical examination at [facility] care tpcjuhmd67/30/2024 Assessment & Plan (01/04/2025 1:40 PM EDT): Colonoscopy every 10 years or Cologuard every 3 years ages 50-75 Flu Vaccine yearly Pneumovax and Prevnar Mammo yearly for women and PSA yearly for men Labs/Screening yearly to rule out Diabetes, Chronic Kidney disease and liver disease Hepatitis Screen forat risk populations Shingles vaccine after65 if indicated Tetanus Vaccine every 10 years Lipids yearly under the age of 75 If Smoking history: one time CT scan of chest and Ultrasound of Aorta to screen for Anuerysm Assessment & Plan (01/27/2024 2:14 PM EDT): Colonoscopy every 10 years or Cologuard every 3 years ages 50-75 Flu Vaccine yearly Pneumovax and Prevnar Mammo yearly for women and PSA yearly for men Labs/Screening yearly to rule out Diabetes, Chronic Kidney disease and liver disease Hepatitis Screen forat risk populations Shingles vaccine after65 if indicated Tetanus Vaccine every 10 years Lipids yearly under the age of 75 If Smoking history: one time CT scan of chest and Ultrasound of Aorta to screen for Anuerysm Dermatochalasis of both lower vclvuwe9301/27/2024Intracranial arachnoid cyst 12/05/2023New daily persistent vfyhfuwt53/23/2024cute strain of neck muscle 11/04/2023 Assessment & Plan (11/19/2023 2:33 PM EDT): PT for Electrical Stim/Heat Massage Add Tylenol to Tramadol Assessment & Plan (11/04/2023 1:46 PM EDT): I discussed with patient that while on prednisone, do not take any NSAIDs like Ibuprofen, Naprosyn,Alleve or motrin. Watch for any side effects like abdominal pain and nausea. Take the prednisone with food or milk. Prednisone may increase appetite. While on prednisone, watch for any sugar elevations. Tension kbfzvikd03/08/2024 Assessment & Plan (11/04/2023 1:50 PM EDT): Maybe do massage therapist Other mpolmdy9807/15/20237108Ebwclme16/18/2024Memory loss07/15/2023 Assessment & Plan (11/04/2023 1:52 PM EDT): Do word games and also playing games Add B12 and Folic Acid and Multivitamin with Iron Consider CT scan Assessment & Plan (07/15/2023 2:21 PM EDT): Add B12 and Folic Acid and Multivitamin with Iron H/O malignant neoplasm of colon10/12/2022 Assessment & Plan (11/27/2022 1:30 PM EDT): States it was a stage 2. Had CT scan in September 2022 and there was no recurrence and no lymph nodes. History of partial uqghrfpug65/16/2023rthritis of hand10/11/2022rthritis of knee, right10/11/2022ilateral wnnvzjif98/15/2352Sjdompmfwecb02/15/2023 Assessment & Plan (07/28/2024 1:58 PM EDT): Does take Miralax and is effective Assessment & Plan (01/27/2024 2:23 PM EDT): Stool softener Assessment & Plan (11/27/2022 1:29 PM EDT): Add Senokot S Ok to do Trulance Pencil shaped. Difficulty isnbbqu7510/11/2022Estrogen dfsrfyjcit34/15/2023Hypercholesteremia 10/11/2022Multiple falls10/11/2022Notalgia tdkiwvqhyzlk63/15/2023nterolisthesis 10/11/20228813Azbskvhcmpip35/15/2023 Assessment & Plan (01/04/2025 1:41 PM EDT): This is a chronic medical condition that is stable since last assessment. No changes in treatment are suggested at this time. Continue Current meds. Assessment & Plan (01/14/2023 2:33 PM EDT): Vitamin D Calcium Piriformis syndrome of left side10/11/2022rimary ttrlukyl41/15/2023rimary osteoarthritis, right hand10/11/2022Seasonal affective gmehirlb78/15/2023 Sensorineural hearing loss (SNHL), ipknuhnfb18/15/2023Simple hepatic cyst 10/11/2022Venous insufficiency (chronic) (peripheral)10/11/2022Vitamin D yjszozlhve56/15/2023Vocal cord /15/2023 Encounters DateTypeDepartmentCare YrqaFmkvqehyago48/09/2025bstract [facility] [address] [facility] [address] [place] [address] Buck Acevedo MD 01/04/2025 1:30 PM EDTOffice Visit [facility] [address] [place] [address] Buck Acevedo MD Routine general medical examination at health care facility (Primary Dx); Age-related osteoporosis without current pathological fracture ; Asymptomatic varicose veins of both lower ifoapdbhzmf28/08/2025amboo flowsheet [facility] [address] [place] [address] Buck Acevedo MD 01/04/20257235Ciphnu94/07/2025bstract [facility] [address] [place] [address] Buck Acevedo MD from Last 3 Months Immunizations ImmunizationAdministration DatesNext DueInfluenza, High Dose Seasonal, Preservative Free02/14/2024,01/31/2022,01/22/2020,02/17/2019,02/05/2018, 02/22/2017Influenza, High-dose Seasonal, Quadrivalent, Preservative Free 01/25/2023,01/31/2022,02/15/2021Influenza, seasonal, fxdvebdnma53/30/2016 Pneumococcal Conjugate PCV 13106/21/2013Pneumococcal Polysaccharide PPSV23 04/26/2015 Family History Medical HistoryRelationNameCommentsBrain AneurysmDaughterHeart diseaseFather CancerMotherDiabetesMotherHeart diseaseMotherNo Known EawxgoxiGpixzv1Si Known AokpfzigSkn6BqagleeqGfi HxRelationNameStatusCommentsDaughterAliveFatherDeceased MotherDeceasedSister2 sistersSonAlive Social History Tobacco UseTypesPacks/DayYears UsedDateSmoking Tobacco: NeverSmokeless Tobacco: Never Tobacco Cessation:Counseling Given: Not Answered Alcohol UseStandard Drinks/WeekCommentsYes1 (1 standard drink = 0.6 oz pure alcohol)caffeine 3-4 cups/dayAUDIT-CAnswerDate RecordedQ1: How often do you have a drink containing alcohol?Monthly or less10/12/2022Q2: How many drinks containing alcohol do you have on a typical day when you are drinking?1 or 2 10/12/2022Q3: How often do you have six or more drinks on one occasion?Never 10/12/2022HQ-2AnswerDate RecordedPatient Health Questionnaire-2 Score0 01/04/2025CommentsUnknownSex and Gender InformationValueDate RecordedSex Assigned at BirthNot on fileLegal KqbVtjase92/15/2023 7:37 PM EDTGender Identity Not on fileSexual OrientationNot on file Last Filed Vital Signs Vital SignReadingTime TakenCommentsBlood Iadvvbem469/7209 1:33 PM EDT Stplq771301/04/2025 1:33 PM EDTTemperature--Respiratory Bxjs252101/09/2024 11:35 AM EDTOxygen Kttnpmjgyk66%01/04/2025 1:33 PM EDTInhaled Oxygen Concentration-- Snntam19.8 kg (112 lb)01/04/2025 1:33 PM WEQIuzqsf153.6 cm (5' 4 )01/04/2025 1:33 PM EDTBody Mass Index19.22001/04/2025 1:33 PM EDT Plan of Treatment DateTypeDepartmentCare Team (Latest Contact Info)Kuwvwtdzqzd80/03/2026 1:00 PM EDTOffice Visit [facility] [address] [place] [phone] Georgia Blas MD [address] [place] [address] Health MaintenanceDue DateLast DoneCommentsCOVID-19 Vaccine ( season) , 06/15/2020, 05/24/2020Influenza Vaccine (#1)2024 02/14/2024, 01/25/2023, 01/31/2022, Additional history existsPneumococcal Vaccine: 65+ MjovnYnwuokiru36/29/2015, 04/20/2014 Insurance Care Teams Team MemberRelationshipSpecialtyStart DateEnd Date Buck Acevedo MD [address] [address] PCP - [facility]09/20/22 Buck Acevedo MD [address] [address] [facility] - [facility]
--- OUTSIDE RECORDS SUMMARY | 2025-03-03 13:15 | XMS_ITS | CCD ---
Author Organization [facility] Care Team Providers Care Economic Consultant Name Role Phone Ashley Hopper Primary Care Physician UnavailMekhi Warren Unavailable Unavailable PACHECO, DR LOPEZ Admitting Unavailable PACHECO, DR LOPEZ Primary Care Unavailable PACHECO, DR LOPEZ Consulting Unavailable PACHECO, DR LOPEZ Attending Unavailable LANSING, DR QUANG Desai Consulting Unavailable Jessica Bergman MD Primary Care Unavailab Reina Collazo Attending CARY Núñez Primary Care Physician JESSICA BERGMAN Primary Care Physician Jessica Bergman MD Unavailable Jessica Bergman MD Primary Care Provider Alejandro Holman Attending Unavailable Alejandro Holman Admitting Unavailable Nomi Vazquez AShana Admitting Unavailable George Mohamad AShana Referring Unavailable Nomi Vazquez AShana Attending Unavailable Nomi Vazquez AShana Attending Unavailable George Mohamad AShana Admitting Unavailable Nomi Vazquez AShana Referring Unavailable MD Alejandro Holman Admitting Unavailable MD Alejandro Holman Attending Unavailable CARY DURAN Primary Care Unavailable Nomi Vazquez Attending Unavailable CARY DURAN Primary Care Unavailable Nomi Vazquez AShana Attending Unavailable JESSICA BERGMNA Attending Unavailable MARLENE BLAS Attending Unavailable CARY DURAN Attending Unavailable CARLO CORONA Attending Unavailable LISANDRO VILLEDA Attending Unavailable JESSICA BERGMAN Attending Unavailable JOSHUA LOVELL Referring Unavailable JESSICA BERGMAN Attending Unavailable GEETA GONZALEZ Attending Unavailable JULIA BARAHONA Attending Unavailable MARLENE BLAS Attending Unavailable Allergies Allergy ClassificationReported Allergen(s)Allergy TypeDate of OnsetReaction(s) Facility (9 sources)Aspirin; Translations: [aspirin]Drug AllergyBlood in urine (finding) [facility] (1 source)AspirinDrug Nwnysns40-92-2412[facility] (20 sources)Aluminum aspirinDrug Cvjqfzl78-07-4682[facility] Medications Current Medications MedicationDrug Class(es)DatesSig (Normalized)Sig (Original)alendronic acid 70 mg oral tablet (20 sources)BisphosphonateStart: 20-27-0231aghx 1 tablet by mouth in the morning alendronate (Fosamax) 70 MG tablet Indications: Osteoporosis, unspecified osteoporosis type, unspecified pathological fracture presence Take 1 tablet by mouth every 7 (SEVEN) days Take in the morningwith a full glass OF water, on an empty stomach, and do not take anything else by mouth or lie downfor the next 30 MINUTES 12 tablet 3 10/02/2024 ActiveStart: 46-73-6428jfvl 1 tablet by mouth in the morningalendronate (Fosamax) 70 MG tablet Indications: Osteoporosis, unspecified osteoporosis type, unspecified pathological fracture presence (CMS/[facility]) Take 1 tablet (70 mg) by mouth every 7 (seven) days Take in the morning with a full glass of water, on an empty stomach, and do not take anything else bymouth or lie down for the next 30 min. 12 tablet 3 11/06/2023 ActiveStart: 10-11-2015 End: 93-18-4310Ykynajd 70 mg oral tablet mg tab(s), Oral, Refills(s) 0 Start Date: 03/17/19 Status: Orderedbaclofen 5 mg oral tablet (6 sources)gamma-Aminobutyric Acid-ergic AgonistStart: 11-06-2023 End: 70-11-8272xtog 1 tablet by mouth in the morning, then take 1 tablet by mouth in the evening, then take 1 tablet by mouth at bedtimebaclofen (Lioresal) 5 MG tablet Indications: Acute strain of neck muscle, initial encounter Take 1 t ablet (5 mg) by mouth in the morning and 1 tablet (5 mg) in the evening and 1 tablet (5 mg) before bedtime. 90 tablet 11/06/2023 01/09/2024 Discontinued (Other)Calcium Carb-Cholecalciferol (CALCIUM 500 + D3 PO) (20 sources)Calcium Carb-Cholecalciferol (CALCIUM 500 + D3 PO) Take by mouth ActiveCalcium Citrate / Vitamin D (5 sources)Start: 57-43-9232tusvkxc-vitamin D Refill(s) 0, Prophylaxis Start Date: 03/17/19 Status: OrderedStart: 53-21-5192tdsevjh-vitamin D Refill(s) 0 Start Date: 03/17/19 Status: Orderedclobetasol propionate 0.5 mg/ml medicated shampoo (8 sources)CorticosteroidStart: 09-29-2024 End: 08-73-4135Rlyvaqshby Propionate 0.05 % shampoo Indications: Other seborrheic dermatitis Once a week lather onscalp, leave on 5 minutes before rinsing/30 day 118 mL 11 09/29/2024 09/29/2025 ActiveFolic Acid (20 sources)Start: 50-30-1776plyzu acid Daily, Refills(s) 0, Prophylaxis Start Date: 02/12/24 Status: OrderedStart: 66-45-1025auhhh acid Daily, Refills(s) 0 Start Date: 02/12/24 Status: Orderedfolic acid (Folvite) 800 MCG tablet Take by mouth Daily ActiveMiralax (1 source)Osmotic LaxativeStart: 56-07-9343xxyj 1 g by mouth once dailyMiraLax gm, Oral, Daily, Refill(s) 0 Start Date: 03/18/24 Status: Orderedvitamin B12 (20 sources)Vitamin R74Jhhzq: 77-74-6504Ywbpcds B12 Refills(s) 0, Prophylaxis Start Date: 02/12/24 Status: OrderedStart: 11-61-3662Iavgvfl B12 Refills(s) 0 Start Date: 02/12/24 Status: Orderedtake 1 tablet by mouth once daily cyanocobalamin (Vitamin B-12) 1000 MCG tablet Take 1,000 mcg by mouth Daily Active Completed/Discontinued Medications MedicationDrug Class(es)DatesSig (Normalized)Sig (Original)Calcium & Vitamin D3 Liquid 500 mg-500IU (2 sources)Start: 04-26-2015 End: 45-47-8651Qelwokp & Vitamin D3 Liquid 500 mg-500IU 04/26/2015 09/30/2015 take 1 tablespoon by mouth twice daily dosage changecalcium carbonate 1500 mg / cholecalciferol 400 unt oral tablet (2 sources)Vitamin Dtake 1 tablet by mouth twice dailyCalcium 600 + D(3) 600 mg(1,500mg) -400 unit oral tablet take 1 tablet by oral route 2 times a day cholecalciferol 1000 unt oral capsule (2 sources)Vitamin DStart: 96-00-5826jmpk 1 capsule by mouth twice dailyVitamin D3 1,000 unit oral capsule 09/30/2015 take 1 capsule by oral route 2 times a day ciclopirox 10 mg/ml medicated shampoo (7 sources)Start: 04-06-2024 End: 78-84-9477Clxjboobwo 1 % shampoo Indications: Other seborrheic dermatitis Lather on wet hair, leave on 5 min,rinse 2-3 x week, 30 day supply 120 mL 11 04/06/2024 09/29/2024 Discontinued (Cost of medication)docusate sodium 250 mg oral capsule (10 sources)Start: 01-09-2024 End: 58-97-3319aidvubky sodium (Colace) 250 MG capsule Indications: Chronic idiopathic constipation Take 1 capsule(250 mg) by mouth as needed at bedtime for constipation 30 capsule 2 01/09/2024 01/27/2024 Discontinued (Other)donepezil hydrochloride 10 mg oral tablet (14 sources)Start: 03-16-2024 End: 70-87-1330hwyrrvfvt (Aricept) 10 MG tablet Indications: MCI (mild cognitive impairment) with memory loss Takeone at bedtime AFTER the 30 days of the 5 mg 30 tablet 3 03/16/2024 07/28/2024 Discontinued (Other)Start: 03-16-2024 End: 39-73-8872ceogrqoyr (Aricept) 5 MG tablet Indications: MCI (mild cognitive impairment) with memory loss Take 5 mg for 30 days at bedtime 30 tablet 03/16/2024 07/28/2024 Discontinued (Other)ferrous sulfate 325 mg oral tablet (4 sources) End: 19-91-5982iokt 1 tablet by mouth at mealtimeferrous sulfate 325 (65 Fe) MG tablet Take 325 mg by mouth in the morning. Take with meals. 02/25/2024 Discontinued (Therapy completed)I-Hortencia 1,000 unit-200 mg-60 unit-2 mg oral tablet (2 sources) End: 82-82-1887vwig 1 tablet by mouth once dailyI-Hortencia 1,000 unit-200 mg-60 unit-2 mg oral tablet 03/30/2015 take 1 tablet by oral route QDmultivitamin Oral tablet (2 sources)take 1 tablet by mouth once dailymultivitamin Oral tablet take 1 tablet by oral route dailypolyethylene glycol 3350 140467 mg / potassium chloride 1480 mg / sodium bicarbonate 5720 mg / sodium chloride 59405 mg powder for oral solution (2 sources)Osmotic LaxativeStart: 94-41-0103jbdq 1 dose by mouth onceNuLYTELY Ross oral powder for reconstitution See Instructions, 1 EA, Refill(s) 0, Per physician instructions, prior to colonoscopy., [employer] #72, 157, cm, 02/12/24 14:13:00 EDT, Height/Length Dosing, 51, kg, 02/12/24 14:13:00 EDT, Weight Dosing Start Date: 02/13/24 Status: Orderedsimvastatin 40 mg oral tablet (2 sources)HMG-CoA Reductase InhibitorStart: 03-16-2016 End: 93-10-0934oauy 1 tablet by mouth once daily in the eveningsimvastatin 40 mg oral tablet 03/16/2016 01/12/2019 take 1 tablet (40 mg) by oral route once daily in the evening Problems Active Problems Problem ClassificationProblemDateDocumented DateEpisodic/ChronicAnxiety disorders (2 sources)Anxiety state, unspecifiedOnset: 89-35-5324KrjdxvqIxbkcb of colon (8 sources)Adenocarcinoma of large intestine; Translations: [Malignant neoplasm of colon, unspecified site]Onset: 33-43-9675PiathtzMlhtvrwxfio and hemorrhagic disorders (2 sources)Senile purpura; Translations: [Other nonthrombocytopenic purpura] 33-43-6249HmvbmsedSdpnobplf congenital anomalies (15 sources)Congenital anomaly of intestinal tract; Translations: [Other specified congenital malformations of intestine]Onset: 66-08-2230Yqantye Disorders of lipid metabolism (20 sources)Mixed hyperlipidemia; Translations: [Mixed hyperlipidemia]Onset: 534415-30-8880JvtmgdpSluhdhsd; including migraine (20 sources)Migraine without aura; Translations: [Tension-type headache]Onset: 236060-70-1940OmkwsaeWrfdcillyr disorders (20 sources)Other primary ovarian failure; Translations: [Decreased estrogen level]Onset: 062851-55-1099GrmxqwuFxtwihsxbzjml mental health disorders (20 sources)Primary insomnia; Translations: [Primary insomnia]Onset: 10-11-2022 59-26-9019MdbedmdNika disorders (20 sources)Seasonal affective disorder; Translations: [Other recurrent depressive disorders]Onset: 094526-23-2160NgastmrNnhunoimrhc deficiencies (20 sources)Unspecified vitamin D deficiency; Translations: [Vitamin D deficiency]Onset: 095385-05-3752LrysrbvRmlqfxihmbudyh (20 sources)Arthritis; Translations: [Primary osteoarthritis, unspecified hand] Onset: 019930-81-8681RlfuwdsAfzaatbzhnti (20 sources)Osteoporosis, unspecified; Translations: [Osteoporosis]Onset: 036189-11-2149MtpeueuMvfpu and unspecified benign neoplasm (3 sources)Benign neoplasm of skin of lower limb, including hipOnset: 01-12-2019 EpisodicOther and unspecified benign neoplasm (2 sources)Melanocytic nevus of trunk; Translations: [Melanocytic nevi of trunk] 85-48-8945TwcbugiwJzcoy bone disease and musculoskeletal deformities (4 sources)Disorder of bone and cartilage, unspecifiedOnset: 99-59-5300Ltrwnvcm Other bone disease and musculoskeletal deformities (1 source)Other specified disorders of bone density and structure, unspecified site; Translations: [OTH D/O BONE DEN STRUCT UNS SITE]Onset: 98-18-2817Lykgaumz Other connective tissue disease (2 sources)Cramp in lower limb; Translations: [Sleep related leg cramps] 61-57-5880VrsosrjPfizi connective tissue disease (2 sources)Swelling of right lower limb; Translations: [Other specified soft tissue disorders]47-29-8384AzjkzojnTmfsv connective tissue disease (2 sources)Swelling of left lower limb; Translations: [Other specified soft tissue disorders]94-62-9181HithmgabJubsu ear and sense organ disorders (20 sources)Sensorineural hearing loss, bilateral; Translations: [Sensorineural hearing loss, bilateral]Onset: 512989-65-9513ZwzfgcuZdryz ear and sense organ disorders (2 sources)Pain of ear structure; Translations: [Otalgia, bilateral]02-25-2024 EpisodicOther ear and sense organ disorders (2 sources)Impacted cerumen of bilateral ears; Translations: [Impacted cerumen, bilateral]34-89-6716IotwhshvTzqtb gastrointestinal disorders (4 sources)Chronic idiopathic constipation; Translations: [Chronic idiopathic constipation]91-76-7218VrnabtcNfmtp gastrointestinal disorders (2 sources)Other constipation; Translations: [Other constipation]Onset: 94-64-8177VrkdaebdMsrcr gastrointestinal disorders (2 sources)Altered bowel function; Translations: [Change in bowel habit]Onset: 28-31-8710VhxruvyeMkfya gastrointestinal disorders (5 sources)Chronic smkwqhuefncg05-88-6506OdupzesfFvich gastrointestinal disorders (2 sources)Constipation alternates with diarrhea; Translations: [Other specified symptoms and signs involving the digestive system and abdomen]01-09-2024 EpisodicOther gastrointestinal disorders (2 sources)Slow transit constipation; Translations: [Slow transit constipation] 53-90-3203KcsmxyimTkbln hereditary and degenerative nervous system conditions (6 sources)Mild cognitive impairment, so stated; Translations: [Mild cognitive impairment, so stated]32-85-7689OrgkyecQgtod inflammatory condition of skin (4 sources)Seborrheic dermatitis; Translations: [Other seborrheic dermatitis] 34-35-0695UrzsqrpjAstgs liver diseases (20 sources)Liver cyst; Translations: [Other specified diseases of liver]Onset: 602957-92-2406JtvujzzSpimr nervous system disorders (20 sources)Difficulty walking; Translations: [Difficulty in walking, not elsewhere classified]Onset: 248302-80-4900GibicqiYcbyw nervous system disorders (20 sources)Left-sided piriformis syndrome; Translations: [Lesion of sciatic nerve, left lower limb]Onset: 168356-17-3698MpfirqdLnejo nervous system disorders (20 sources)Cerebral arachnoid cyst; Translations: [Cerebral cysts]Onset: 807614-56-6231NqohrijBoumg nervous system disorders (8 sources)Arachnoid cyst; Translations: [Cerebral cysts]59-93-3192OkpbkkzTazrn nervous system disorders (3 sources)Disturbance of skin sensationOnset: 65-12-1691BumiengaOnyox nutritional; endocrine; and metabolic disorders (2 sources)Abnormal weight loss; Translations: [Abnormal weight loss]Onset: 49-22-1780BarjmddrCrcmx nutritional; endocrine; and metabolic disorders (5 sources)Weight yfxx65-63-6482NfdwggvxBxjbq screening for suspected conditions (not mental disorders or infectious disease) (6 sources)Encounter for screening mammogram for malignant neoplasm of breast; Translations: [Patient encounter status]Onset: 87-64-0286YmkdvtauTwxdz skin disorders (3 sources)Other seborrheic keratosisOnset: 67-84-6135IxxjrtnsRboyz skin disorders (1 source)Sebaceous cystOnset: 81-64-5432QspivbxdBmepr skin disorders (1 source)Other specified diseases of sebaceous glandsOnset: 82-77-9916Rbfvutqs Other skin disorders (2 sources)Lentiginosis; Translations: [Other melanin hyperpigmentation] 53-46-4726CwxdofdaItbki skin disorders (2 sources)Seborrheic keratosis; Translations: [Other seborrheic keratosis] 65-83-1970OtaiolkaQgkki skin disorders (2 sources)Inflamed seborrheic keratosis; Translations: [Inflamed seborrheic keratosis]14-89-0871JlscjwsjUtbvr upper respiratory disease (20 sources)Vocal cord paralysis; Translations: [Paralysis of vocal cords and larynx, unspecified]Onset: 416257-90-2939PqqjsilQobzikax codes; unclassified (1 source)Family history of malignant neoplasm of breast; Translations: [FAMILY HX MALIG NEOPLASM OF BREAST]Onset: 37-80-8950OwnmgugqRklayjhy codes; unclassified (2 sources)Inadequate sleep hygiene; Translations: [Inadequate sleep hygiene] 24-33-6052FcjdbbkyPjssbnymzvk; intervertebral disc disorders; other back problems (6 sources)Backache, unspecified; Translations: [Neck pain]Onset: 11-26-2013 31-82-8039IcldpgruAfyqnvxx veins of lower extremity (6 sources)Varicose veins of lower extremity; Translations: [Asymptomatic varicose veins of bilateral lower extremities]Onset: 998055-72-8209 Episodic Past or Other Problems Problem ClassificationProblemDateDocumented DateEpisodic/ChronicCancer of colon (20 sources)Personal history of malignant neoplasm of large intestine; Translations: [History of malignant neoplasm of colon]Onset: 26-65-8304Carzjslk Genitourinary symptoms and ill-defined conditions (20 sources)Hematuria, unspecified; Translations: [Blood in urine]Onset: 855555-66-7405ZesxxxnfSkxqcqazphdjl and screening for infectious disease (8 sources)Need for prophylactic vaccination and inoculation against influenza Onset: 10-89-7657KcouqzvvQztscxl and fatigue (20 sources)Fatigue; Translations: [Other fatigue]Onset: 953862-11-0504 EpisodicOther acquired deformities (20 sources)Spondylolisthesis; Translations: [Spondylolisthesis, site unspecified]Onset: 052121-57-5278GxpfdrugFyhoy connective tissue disease (2 sources)Loss of heightOnset: 19-29-7525EpvllvsqBudqm connective tissue disease (20 sources)Recurrent falls ; Translations: [Repeated falls]Onset: 10-11-2022 84-53-8783JhadxiilBcjen connective tissue disease (20 sources)Muscle pain; Translations: [Myalgia, unspecified site]Onset: 807063-12-7851PxvgtbweEpdzt connective tissue disease (15 sources)Pain in right lower limb; Translations: [Pain in right leg]Onset: 384405-42-6232JcrtprndVegla diseases of veins and lymphatics (20 sources)Peripheral venous insufficiency; Translations: [Venous insufficiency (chronic) (peripheral)]Onset: 525221-64-3891QwrgemocJylrp ear and sense organ disorders (20 sources)Bilateral tinnitus; Translations: [Tinnitus, bilateral]Onset: 414591-20-3153GpxtdipsLyveh eye disorders (20 sources)Dermatochalasis of right lower eyelid; Translations: [Dermatochalasis]Onset: 135701-59-1898YcrrdcewJlnek gastrointestinal disorders (20 sources)Constipation; Translations: [Constipation, unspecified]Onset: 639844-74-2176SlsducsaFjztl nervous system disorders (20 sources)Notalgia paresthetica; Translations: [Paresthesia of skin]Onset: 899510-96-1286HkbdvyldDpydr non-traumatic joint disorders (15 sources)Hip pain; Translations: [Pain in left hip]Onset: 07-28-2024 23-20-2510RucblktqDjtjr nutritional; endocrine; and metabolic disorders (13 sources)Weight decreased; Translations: [Abnormal weight loss]Onset: 983341-79-9597YdxtquyyTttyx skin disorders (2 sources)Other dyschromiaOnset: 66-63-9374JhttozykMjlsa skin disorders (2 sources)Actinic keratosisOnset: 30-30-9456AjuttxddUsyutmzq codes; unclassified (4 sources)Asymptomatic postmenopausal status (age-related) (natural)Onset: 28-51-4342GacnvqqzYpscwoib codes; unclassified (20 sources)History of partial resection of colon; Translations: [Acquired absence of other specified parts of digestive tract]Onset: EpisodicResidual codes; unclassified (20 sources)Amnesia; Translations: [Other amnesia]Onset: 994071-33-3880 EpisodicSprains and strains (20 sources)Strain of neck muscle; Translations: [Strain of muscle, fascia and tendon at neck level, initial encounter]Onset: 779305-02-1484Ofvdhzpr Unclassified (5 sources)Cataract uxoqhmw40-53-5018 Results Test NameValueInterpretationReference RangeFacilityNo Panel Informationon 47-03-3223ARYS HealthcareAmbulatory Visit Summaryon 18-84-6074Wvwhujqugb Visit SummaryAmbulatory Visit Summary BERENICE CHAVIRA :1935 Visit Date:03/18/2024 Ambulatory Visit Instructions Your Diagnosis Change in bowel habits Weight loss Chronic constipation History of colon cancer Redundant colon Your Care Team Attending Physician - George BENSON, Nomi Jose Primary Care Physician - JESSICA BERGMAN MD This Is Your Medications List Contact prescribing physician if questions or concerns alendronate (Fosamax 70 mg oral tablet) calcium-vitamin D cyanocobalamin (Vitamin B12) folic acid polyethylene glycol 3350 (MiraLax) Procedures Performed Esophagogastroduodenoscopy (03/05/2024), Cystoscopy (10/01/2016), Appendectomy, Colonoscopy, Tubal ligation. Discharge Vitals Heart Rate (Peripheral) 72 Respiratory Rate 12 Blood Pressure 145/70 Height 62 in Height 157 cm Weight 110.231 lb Weight 50 kg BMI 20.28 Medications What How Much When Instructions Unchanged alendronate (Fosamax 70 mg oral tablet) Contact prescribing physician if questions or concerns Unchanged calcium-vitamin D Contact prescribing physician if questions or concerns Unchanged cyanocobalamin (Vitamin B12) Contact prescribing physician if questions or concerns Unchanged folic acid Every day Contact prescribing physician if questions or concerns Unchanged polyethylene glycol 3350 (MiraLax) Every day Contact prescribing physician if questions or concerns Allergies aspirin (Hematuria) Problems Ongoing - Any problem that you are currently receiving treatment for. Arthritis Chronic constipation Headache, common migraine History of colon cancer Hyperlipidemia Microscopic hematuria Nocturia Redundant colon Urinary frequency Weight loss Historical - Any problem that you are no longer receiving treatment for. Appendectomy Cataract surgery Colonoscopy Hernia repair Tubal ligation Patient Survey You may receive a survey via text or e-mail asking about your office visit. Please share your experience with us by completing your survey. We appreciate your feedback and thank you for choosing us for your care. [facility]/Clinic Noteon [id number] Office/Clinic NoteGastroenterology Office/Clinic Note Chief Complaint Follow up to EGD and colonoscopy HPI Staff This is a 88 year old female who presents today for a follow up to EGD. -Unable to proceed with colonoscopy as the patient was having constipation and brown stools the morning of the procedure. Patient states she continues to have constipation. She is having 1 hard BM every 2-3 days. She is taking MiraLax occasionally, has relief with it. She denies black stools and blood in stools. SHe is down about 2 lbs since last visit. Last office visit w/ Dr Vazquez History of Present Illness Patient is having issues with constipation Started 1 year ago Patient required multiple hospitalizations but has not been taking laxatives No history of colonoscopy since she get her cancer treatment Lost 15 to 20 pounds in the last year Assessment/Plan 1. Change in bowel habits (R19.4: Change in bowel habit) 2. History of colon cancer (Z85.038: Personal history of other malignant neoplasm of large intestine) 3. Weight loss (R63.4: Abnormal weight loss) 4. Chronic constipation (K59.09: Other constipation) Schedule EGD and colonoscopy to evaluate history of colon cancer and weight loss Patient will benefit from laxatives but will defer until we get the procedures Schedule CT scan of the abdomen pelvis given history of colon cancer and ongoing constipation and weight loss Will check CEA levels Further recommendations to be made after reviewing the results of the above test EGD w/ Dr Vazquez 03/05/24 Findings 1. Normal esophagus. Z-line at 37 cm. Nonobstructing Schatzki's ring. Hiatal hernia measuring 3 cm.Reflux esophagitis 2. Erythema in the antrum, mild patchy. Otherwise normal stomach. Biopsies of the stomach were taken to rule out H. pylori. 3. 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 Polypoid lesion in the second portion of duodenum. Biopsies obtained Impression and Plan Schatzki's ring Reflux esophagitis Hiatal hernia Gastropathy Duodenal diverticulum Polypoid lesion of the second portion of duodenum status post bx Final Diagnosis (Verified) A: DUODENAL POLYPOID LESION, BIOPSY: ??? SMALL INTESTINAL MUCOSA WITH NO ACTIVE INFLAMMATION, GRANULOMA, ATROPHY OR DYSPLASIA. B: DUODENUM, BIOPSY: ??? DUODENAL MUCOSA WITHIN NORMAL LIMITS. C: STOMACH, BIOPSY: ??? GASTRIC ANTRAL MUCOSA WITH MILD CHRONIC INACTIVE GASTRITIS. ??? NO INTESTINAL METAPLASIA. ??? NO H. PYLORI MICROORGANISMS IDENTIFIED WITH IMMUNOSTAIN. CT abd/pelv w/ contrast 02/27/24 IMPRESSION: REDUNDANT SIGMOID COLON. NO CT EVIDENCE OF OBSTRUCTION. APPENDECTOMY. CT OF THE ABDOMEN AND PELVIS WITH INTRAVENOUS CONTRAST MEDIUM. History of Present Illness I have reviewed HPI staff note, most recent labs and imaging, I agree with the above documentation with the following additions/exceptions : Patient is doing well as long as she takes the MiraLAX She started MiraLAX since she was reading the instruction not to use it too long She started to have issues with constipation again No new complaints Review of Systems PHQ Score Initial Depression Screen Score: 0 SCORE All systems reviewed, negative except as mentioned above Physical Exam Vitals & Measurements HR: 72(Peripheral) RR: 12 BP: 145/70 HT: 62 in HT: 157 cm WT: 50 kg WT: 110.231 lb BMI: 20.28 General: alert, no acute distress HEENT: atraumatic normocephalic Cardiovascular: regular rate and rhythm, normal peripheral perfusion Respiratory: Lungs CTA, respirations non labored Extremities: no deformity, no trauma Abdomen: Benign, soft, nontender nondistended Assessment/Plan 1. Change in bowel habits (R19.4: Change in bowel habit) 2. Weight loss (R63.4: Abnormal weight loss) 3. Chronic constipation (K59.09: Other constipation) 4. History of colon cancer (Z85.038: Personal history of other malignant neoplasm of large intestine) 5. 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) Advised to use squatty potty and massage the colon Advised to eat prunes and kiwi fruit Advised to use miralax and titrate to have 1-2 BM daily No need to repeat colonoscopy for now Follow-up No qualifying data available Problem List/Past Medical History Ongoing Arthritis Chronic constipation Headache, common migraine History of colon cancer Hyperlipidemia Microscopic hematuria Nocturia Redundant colon Urinary frequency Weight loss Historical Appendectomy Cataract surgery Colonoscopy Hernia repair Tubal ligation Procedure/Surgical History Esophagogastroduodenoscopy (03/05/2024), Cystoscopy (10/01/2016), Appendectomy, Colonoscopy, Tubal ligation. Medications calcium-vitamin D folic acid, Daily Fosamax 70 mg oral tablet, Oral MiraLax, Oral, Daily Vitamin B12 Allergies aspirin (Hematuria) Social History Alcohol Wine, 3-5 times per week, 03/17/2019 Tobacco Never (less than 100 in lifetime) Tobacco Use: (more content not included)... [facility] on above:Result Comment: Electronically Signed By: George BENSON, Nomi Jose\.br\Date and Time Signed: 03/18/2413:53 EST Surgical Pathology Reporton [id number] Pathology ReportProm[facility] [address] [place] [address]- Surgical Pathology Report Collected Date/Time: 03/05/2024 12:34 EST Pathologist: Ajay BENSON PhD, Barrett Salcedo Received Date/Time: 03/05/2024 14:09 EST George BENSON, Nomi Vazquez MD, Nomi Watson Surgical Pathology Report - 03/11/2024 14:24 EST - Auth (Verified) Final Diagnosis A: DUODENAL POLYPOID LESION, BIOPSY: - SMALL INTESTINAL MUCOSA WITH NO ACTIVE INFLAMMATION, GRANULOMA, ATROPHY OR DYSPLASIA. B: DUODENUM, BIOPSY: - DUODENAL MUCOSA WITHIN NORMAL LIMITS. C: STOMACH, BIOPSY: - GASTRIC ANTRAL MUCOSA WITH MILD CHRONIC INACTIVE GASTRITIS. - NO INTESTINAL METAPLASIA. - NO H. PYLORI MICROORGANISMS IDENTIFIED WITH IMMUNOSTAIN. (Electronic Signature) Barrett Moss MD PhD 03/11/2024 14:24 Clinical Information Weight loss Pre-Op Diagnosis: Weight loss Procedure: EGD Post-Op Diagnosis: 1.Schatzki's ring 2.Reflux esophagitis 3.Hiatal hernia 4.Gastropathy 5.Duodenal diverticulum 6.Polypoid lesion of the second portion of duodenum status post bx Specimen(s) Received A.Biopsy of duodenal polypoid lesion B.Duodenal biopsy C.Gastric biopsy Gross Description A: Received in formalin labeled with patient name, number, and biopsy of duodenal polypoid lesion is a single fragment of pettit/pink tissue measuring 0.5 x 0.3 x 0.2 cm. Specimen is entirely submitted in one cassette. B: Received in formalin labeled with patient name, identifier, and duodenal biopsy are four fragments of pettit/pink tissue ranging from less than 0.1 cm up to 0.3 cm in greatest dimension. Specimen is entirely submitted in one cassette. C: Received in formalin labeled with patient name, number, and gastric biopsy are three fragments of pettit/pink tissue ranging from 0.1 cm up to 1 cm long. Specimen is entirely submitted in one cassette. (DC) DC:MCA Microscopic Description Microscopic examination performed unless gross only specified. The use of one or more reagents in the above tests is regulated as an analyte specific reagent (ASR). The test or tests are ordered following initial H&E microscopic examination. The Surgical Pathology Report Collected Date/Time: 03/05/2024 12:34 EST Pathologist: Ajay BENSON PhD, Barrett Salcedo Received Date/Time: 03/05/2024 14:09 EST George BENSON, Nomi Giraldo. Nomi Vazquez MD Microscopic Description performance characteristics were determined by the Laboratory [facility]. They have not been cleared or approved by the US Food and Drug Administration. The FDA has determined that such clearance or approval is not necessary. These tests are used for clinical purposes. They should not be regarded as investigational or for research. Appropriate positive and negative controls are performed and are acceptable. [facility]imaComment on above:Performed By: #### [id number] #### [facility] [address], [place] [address]Wshl OR Intraoperative Recordon [id number] OR Intraoperative RecordMain OR Intraoperative Record IntraOp Document Type FT Summary Primary Physician: Nomi Vazquez MD Finalized Date/Time: 03/06/24 12:39:23 Pt. Name: BERENICE CHAVIRA /Sex: 1935 Female Med Rec #: [id number] Physician: Nomi Vazquez MD Financial #: [id number] Pt. Type: O Room/Bed: / Admit/Disch: 03/05/24 10:42:36 - 03/05/24 23:59:59 Institution: Case Times FT Entry 1 Patient Times In Room 03/05/24 12:25:00 Out Room 03/05/24 12:39:00 Procedure Times Start 03/05/24 12:31:00 Stop 03/05/24 12:36:00 Anesthesia Times Start 03/05/24 12:25:00 Stop 03/05/24 12:39:00 Last Modified By: Julia Steiner RN 03/05/24 12:39:31 General Comments: 03/06/24 Chart opened for charge review per Miri Gamino RN. [place] Case Attendance FT Entry 1 Entry 2 Entry 3 Case Attendee Jatin ALICIA, Fred Maosn [employer] MILLER, Georgia Raza Role Performed Vet Assistant - Primary Scrub - Primary Scrub - Primary Time In 03/05/24 12:25:00 03/05/24 12:25:00 03/05/24 12:25:00 Time Out 03/05/24 12:39:00 03/05/24 12:39:00 03/05/24 12:39:00 Procedure EGD(.) EGD(.) EGD(.) Comments Last Modified By: Jatin ALICIA, Julia Steiner RN, Julia Garcia RN 03/05/24 12:39:33 03/05/24 12:39:33 03/05/24 12:39:33 Entry 4 Entry 5 Case Attendee George BENSON, Kirill oRck Role Performed Surgeon - Primary Anesthesiologist Short Story Writer Time In 03/05/24 12:25:00 03/05/24 12:25:00 Time Out 03/05/24 12:39:00 03/05/24 12:39:00 Procedure EGD(.) EGD(.) Comments Dr. Rivera supervising Last Modified By: Jatin ALICIA, Julia Steiner RN, Julia 03/05/24 12:39:33 03/05/24 12:39:33 Perioperative Protocols FT Pre-Care Text: Implements protective measures prior to operative or invasive procedure, confirms identity before the operative or invasive procedure, verifies operative procedure, surgical site, and laterality Entry 1 Procedure(s) EGD(.) Patient Identity Birthday, ID Band Verified (select at Check, Patient least 2): Participation Consents / H and P Anesthesia Consent, Operative Site N/A Verified H&P, Surgery/Procedure Marking Verified Consent Surgical Site No Laterality Verified n/a Verified Procedure Verified Yes Correct Patient Yes Position Verified Availability Equipment, Medication Prep Dry n/a Verified (If Applicable) PreOp Antibiotic No Time Out Julia Steiner RN, Given Participants Fred Holt Mouchli MD, James Gtz John C. Time Out Complete 03/05/24 12:27:00 Outcomes Met? Yes Last Modified By: Julia Steiner RN 03/05/24 12:28:54 Post-Care Text: The patient is free from signs and symptoms of injury caused by extraneous objects Allergy Information FT Pre-Care Text: Verifies allergies Entry 1 Allergies Reviewed? Yes Allergies Reviewed Self/Patient With Outcomes Met? Yes Last Modified By: Julia Steiner RN 03/05/24 12:29:02 Post-Care Text: The patient received appropriate medication(s) safely administered during the perioperative period Surgical Procedures FT Entry 1 Procedure Description Procedure EGD Modifiers . Surgeon Description EGD with duodenal, gastric biopsies and biopsy of duodenal polypoid lesion Primary Procedure Yes Primary Surgeon George BENSON, Nomi Jose Start 03/05/24 12:31:00 Stop 03/05/24 12:36:00 Anesthesia Type General Surgical Service Gastroenterology Wound Class 2 - Clean-Contaminated Last Modified By: Julia Steiner RN 03/05/24 12:39:45 General Case Data FT Pre-Care Text: Classifies surgical wound, implements aseptic technique, initiates traffic control Entry 1 Case Information OR ENDO 1 FT Case Level Level 2 Wound Class 2 - Clean-Contaminated Specialty Gastroenterology ASA Class 2 Preop Diagnosis WEIGHT LOSS Postop Same As Preop No Postop Diagnosis Hiatal hernia, duodenal Outcomes Met? Yes polypoid lesion, Schatzki ring, reflux esophagitis, gastropathy Last Modified By: Julia Steiner RN 03/05/24 12:39:22 Post-Care Text: The patient is free from signs and symptoms of infection Skin Assessment (Pre Procedure) FT Pre-Care Text: Implements protective measures to prevent skin/ tissue injury due to thermal or mechanical sources Evaluates for signs and symptoms of physical injury to skin and tissue Entry 1 Skin Integrity Intact, [place] [facility], Warm, & Skin Abnormality No Dry Outcomes Met? Yes Last Modified By: Julia Steiner RN 03/05/24 12:29:23 Post-Care Text: The patient is free from signs and symptoms of injury caused by extraneous objects Patient Positioning FT Pre-Care Text: Identifies physical alterations that require additional precautions for procedure-specific positioning, verifies presence of prosthetics or corrective devices, positions the patient, evaluates the patient for signs and symptoms of injury as a result of positioning Entry 1 Procedure EGD(.) Body Position Lateral, right side up Feet Uncrossed? (more content not included)...[facility] Discharge Instructionson [id number] InstructionsDischarge Instructions BERENICE CHAVIRA :1935 Visit Date:03/05/2024 Inpatient Discharge Instructions Your Care Team Admitting Physician - Nomi Vazquez MD Referring Physician - Nomi Vazquez MD Reason for Your Visit WEIGHT LOSS Your Diagnosis Diverticulum of duodenum Gastropathy Hernia, hiatal Schatzki's ring Tests Performed Pathology Tissue Exam -- Results Pending -- Please visit your patient portal for your results or contact your primary care physician. This Is Your Medications List alendronate (Fosamax 70 mg oral tablet) calcium-vitamin D cyanocobalamin (Vitamin B12) folic acid Procedure History Cystoscopy (10/01/2016), Appendectomy, Colonoscopy, Tubal ligation. Discharge Vitals Temperature (Temporal Artery) 36.7 ???C Heart Rate (Monitored) 83 Respiratory Rate 13 Blood Pressure 77/32 Height 157 cm Weight 51 kg What to do next Instructions From Your Doctor Event Name Event Result Discharge Instructions Discharge Instructions Previously Scheduled Follow-Up Appointments Saturday 1:15 PM EST With: Nomi Vazquez MD Where: [facility] [address] [address]- New Follow Up Appointments after Discharge Follow Up with Nomi Vazquez When: Comments: Call for any problems. Where: [address], [address] [place] [phone] Business (1) Medications What How Much When Instructions Next Dose Unchanged alendronate (Fosamax 70 mg oral tablet) Unchanged calcium-vitamin D Unchanged cyanocobalamin (Vitamin B12) Unchanged folic acid Every day Test Results No qualifying data available. Allergies aspirin (Hematuria) Problems Ongoing - Any problem that you are currently receiving treatment for. Arthritis Chronic constipation Headache, common migraine History of colon cancer Hyperlipidemia Microscopic hematuria Nocturia Urinary frequency Weight loss Historical - Any problem that you are no longer receiving treatment for. Appendectomy Cataract surgery Colonoscopy Hernia repair Tubal ligation Education Materials Esophagitis Esophagitis is inflammation of the esophagus. The esophagus is the tube that carries food from the mouth to the stomach. Esophagitis can cause soreness or pain in the esophagus. This condition can make it difficult and painful to swallow. What are the causes? Most causes of esophagitis are not serious. Common causes of this condition include: ??? Gastroesophageal reflux disease (GERD). This is when stomach contents move back up into the esophagus (reflux). ??? Repeated vomiting. ??? An allergic reaction, especially caused by food allergies (eosinophilic esophagitis). ??? Injury to the esophagus by swallowing large pills with or without water, or swallowing certain types of medicines. ??? Swallowing harmful chemicals, such as household cleaning products. ??? Drinking a lot of alcohol. ??? An infection of the esophagus. This most often occurs in people who have a weakened immune system. ??? Radiation or chemotherapy treatment for cancer. ??? Certain diseases such as sarcoidosis, Crohn's disease, and scleroderma. What are the signs or symptoms? Symptoms of this condition include: ??? Difficult or painful swallowing. ??? Pain with swallowing acidic liquids, such as citrus juices. You may also have pain when you burp. ??? Chest pain and difficulty breathing. ??? Nausea and vomiting. ??? Pain in the abdomen. ??? Weight loss. ??? Ulcers in the mouth and white patches in the mouth (candidiasis). ??? Fever. ??? Coughing up blood or vomiting blood. ??? Stool that is black, tarry, or bright red. How is this diagnosed? This condition may be diagnosed based on your medical history and a physical exam. You may also have other tests, including: ??? A test to examine your esophagus and stomach with a small flexible tube with a camera (endoscopy). ??? A test that measures the acidity level in your esophagus. ??? A test that measures how much pressure is on your esophagus. ??? A barium swallow or modified barium swallow to show the shape, size, and functioning of your esophagus. ??? Allergy tests. How is this treated? Treatment for this condition depends on the cause of your esophagitis. In some cases, steroids or other medicines may be given to help relieve your symptoms or to treat the underlying cause of your condition. You may have to make some lifestyle changes, such as: ??? Avoiding alcohol. ??? Quitting any products that contain nicotine or tobacco. These products include cigarettes, chewing tobacco, and vaping devices, such as e-cigarettes. If you need help quitting, ask your health care provider. ??? Changing your diet. ??? E (more content not included)...[facility]imaComment on above:Result Comment: Electronically Signed By: Freedom ALICIA, Queenie\.yaw\Date and Time Signed: 03/05/24 13:03 ESTDischarge InstructionsDischarge Instructions BERENICE CHAVIRA :1935 Visit Date:03/05/2024 Inpatient Discharge Instructions Your Care Team Admitting Physician - Nomi Vazquez MD Referring Physician - Nomi Vazquez MD Reason for Your Visit WEIGHT LOSS Your Diagnosis Diverticulum of duodenum Gastropathy Hernia, hiatal Schatzki's ring Tests Performed Pathology Tissue Exam -- Results Pending -- Please visit your patient portal for your results or contact your primary care physician. This Is Your Medications List alendronate (Fosamax 70 mg oral tablet) calcium-vitamin D cyanocobalamin (Vitamin B12) folic acid Procedure History Cystoscopy (10/01/2016), Appendectomy, Colonoscopy, Tubal ligation. Discharge Vitals Temperature (Temporal Artery) 36.7 ???C Heart Rate (Monitored) 83 Respiratory Rate 13 Blood Pressure 77/32 Height 157 cm Weight 51 kg What to do next Instructions From Your Doctor Event Name Event Result Discharge Instructions Discharge Instructions Previously Scheduled Follow-Up Appointments Saturday 1:15 PM EST With: Nomi Vazquez MD Where: [facility] [address] [place] [id number]- New Follow Up Appointments after Discharge Follow Up with Nomi Vazquez When: Comments: Call for any problems. Where: [address], [address] [place] [phone] Business (1) Medications What How Much When Instructions Next Dose Unchanged alendronate (Fosamax 70 mg oral tablet) Unchanged calcium-vitamin D Unchanged cyanocobalamin (Vitamin B12) Unchanged folic acid Every day Test Results No qualifying data available. Allergies aspirin (Hematuria) Problems Ongoing - Any problem that you are currently receiving treatment for. Arthritis Chronic constipation Headache, common migraine History of colon cancer Hyperlipidemia Microscopic hematuria Nocturia Urinary frequency Weight loss Historical - Any problem that you are no longer receiving treatment for. Appendectomy Cataract surgery Colonoscopy Hernia repair Tubal ligation Education Materials Esophagitis Esophagitis is inflammation of the esophagus. The esophagus is the tube that carries food from the mouth to the stomach. Esophagitis can cause soreness or pain in the esophagus. This condition can make it difficult and painful to swallow. What are the causes? Most causes of esophagitis are not serious. Common causes of this condition include: ??? Gastroesophageal reflux disease (GERD). This is when stomach contents move back up into the esophagus (reflux). ??? Repeated vomiting. ??? An allergic reaction, especially caused by food allergies (eosinophilic esophagitis). ??? Injury to the esophagus by swallowing large pills with or without water, or swallowing certain types of medicines. ??? Swallowing harmful chemicals, such as household cleaning products. ??? Drinking a lot of alcohol. ??? An infection of the esophagus. This most often occurs in people who have a weakened immune system. ??? Radiation or chemotherapy treatment for cancer. ??? Certain diseases such as sarcoidosis, Crohn's disease, and scleroderma. What are the signs or symptoms? Symptoms of this condition include: ??? Difficult or painful swallowing. ??? Pain with swallowing acidic liquids, such as citrus juices. You may also have pain when you burp. ??? Chest pain and difficulty breathing. ??? Nausea and vomiting. ??? Pain in the abdomen. ??? Weight loss. ??? Ulcers in the mouth and white patches in the mouth (candidiasis). ??? Fever. ??? Coughing up blood or vomiting blood. ??? Stool that is black, tarry, or bright red. How is this diagnosed? This condition may be diagnosed based on your medical history and a physical exam. You may also have other tests, including: ??? A test to examine your esophagus and stomach with a small flexible tube with a camera (endoscopy). ??? A test that measures the acidity level in your esophagus. ??? A test that measures how much pressure is on your esophagus. ??? A barium swallow or modified barium swallow to show the shape, size, and functioning of your esophagus. ??? Allergy tests. How is this treated? Treatment for this condition depends on the cause of your esophagitis. In some cases, steroids or other medicines may be given to help relieve your symptoms or to treat the underlying cause of your condition. You may have to make some lifestyle changes, such as: ??? Avoiding alcohol. ??? Quitting any products that contain nicotine or tobacco. These products include cigarettes, chewing tobacco, and vaping devices, such as e-cigarettes. If you need help quitting, ask your health care provider. ??? Changing your diet. ??? E (more content not included)...[facility]ima[facility] on above:Result Comment: Electronically Signed By: Fredeom ALICIA, Queenie\.br\Date and Time Signed: 03/05/24 13:01 ESTDischarge InstructionsDischarge Instructions BERENICE CHAVIRA :1935 Visit Date:03/05/2024 Inpatient Discharge Instructions Your Care Team Admitting Physician - Nomi Vazquez MD. Referring Physician - Nomi Vazquez MD Reason for Your Visit WEIGHT LOSS Your Diagnosis Diverticulum of duodenum Gastropathy Hernia, hiatal Schatzki's ring Tests Performed Pathology Tissue Exam -- Results Pending -- Please visit your patient portal for your results or contact your primary care physician. This Is Your Medications List alendronate (Fosamax 70 mg oral tablet) calcium-vitamin D cyanocobalamin (Vitamin B12) folic acid Procedure History Cystoscopy (10/01/2016), Appendectomy, Colonoscopy, Tubal ligation. Discharge Vitals Temperature (Temporal Artery) 36.7 ???C Heart Rate (Monitored) 83 Respiratory Rate 13 Blood Pressure 77/32 Height 157 cm Weight 51 kg What to do next Instructions From Your Doctor No qualifying data available. Previously Scheduled Follow-Up Appointments Saturday 1:15 PM EST With: Nomi Vazquez MD Where: [facility] [address] [phone]- New Follow Up Appointments after Discharge Follow Up with Nomi Vazquez When: Comments: Call for any problems. Where: [address], [address] [place] [address] [phone] Business (1) Medications What How Much When Instructions Next Dose Unchanged alendronate (Fosamax 70 mg oral tablet) Unchanged calcium-vitamin D Unchanged cyanocobalamin (Vitamin B12) Unchanged folic acid Every day Test Results No qualifying data available. Allergies aspirin (Hematuria) Problems Ongoing - Any problem that you are currently receiving treatment for. Arthritis Chronic constipation Headache, common migraine History of colon cancer Hyperlipidemia Microscopic hematuria Nocturia Urinary frequency Weight loss Historical - Any problem that you are no longer receiving treatment for. Appendectomy Cataract surgery Colonoscopy Hernia repair Tubal ligation Education Materials Esophagitis Esophagitis is inflammation of the esophagus. The esophagus is the tube that carries food from the mouth to the stomach. Esophagitis can cause soreness or pain in the esophagus. This condition can make it difficult and painful to swallow. What are the causes? Most causes of esophagitis are not serious. Common causes of this condition include: ??? Gastroesophageal reflux disease (GERD). This is when stomach contents move back up into the esophagus (reflux). ??? Repeated vomiting. ??? An allergic reaction, especially caused by food allergies (eosinophilic esophagitis). ??? Injury to the esophagus by swallowing large pills with or without water, or swallowing certain types of medicines. ??? Swallowing harmful chemicals, such as household cleaning products. ??? Drinking a lot of alcohol. ??? An infection of the esophagus. This most often occurs in people who have a weakened immune system. ??? Radiation or chemotherapy treatment for cancer. ??? Certain diseases such as sarcoidosis, Crohn's disease, and scleroderma. What are the signs or symptoms? Symptoms of this condition include: ??? Difficult or painful swallowing. ??? Pain with swallowing acidic liquids, such as citrus juices. You may also have pain when you burp. ??? Chest pain and difficulty breathing. ??? Nausea and vomiting. ??? Pain in the abdomen. ??? Weight loss. ??? Ulcers in the mouth and white patches in the mouth (candidiasis). ??? Fever. ??? Coughing up blood or vomiting blood. ??? Stool that is black, tarry, or bright red. How is this diagnosed? This condition may be diagnosed based on your medical history and a physical exam. You may also have other tests, including: ??? A test to examine your esophagus and stomach with a small flexible tube with a camera (endoscopy). ??? A test that measures the acidity level in your esophagus. ??? A test that measures how much pressure is on your esophagus. ??? A barium swallow or modified barium swallow to show the shape, size, and functioning of your esophagus. ??? Allergy tests. How is this treated? Treatment for this condition depends on the cause of your esophagitis. In some cases, steroids or other medicines may be given to help relieve your symptoms or to treat the underlying cause of your condition. You may have to make some lifestyle changes, such as: ??? Avoiding alcohol. ??? Quitting any products that contain nicotine or tobacco. These products include cigarettes, chewing tobacco, and vaping devices, such as e-cigarettes. If you need help quitting, ask your health care provider. ??? Changing your diet. ??? Exercising. ??? Changing your sleep habits an (more content not included)...[facility]imaComment on above:Result Comment: Electronically Signed By: Freedom ALICIA, Queenie\.br\Date and Time Signed: 03/05/24 12:48 ESTH&P Updateon 03-05-2024 H&P UpdateH&P Update Patient: BERENICE CHAVIRA Age: 88 years Sex: Female : 1935 Associated Diagnoses: None Author: George BENSON, Nomi Jose Preoperative Information Chief compliant/Indication for procedure: Weight loss Chief Complaint as above Review of Systems All systems reviewed, negative except as mentioned above Physical Examination Vital Signs (last 24 hrs) Last Charted Temp Temporal L 36 DegC (MAR 05 10:50) Heart Rate Monitored 93 bpm (MAR 05 10:50) SBP 135 mmHg (MAR 05 10:50) DBP 62 mmHg (MAR 05 10:50) Weight 51 kg (MAR 05 10:51) General: in Nad Abdomen: Soft, NTND Impression and Plan Diagnosis: Weight loss -[facility]GDNCinc[facility]Main OR PACU II Recordon [id number] OR PACU II RecordMain OR PACU II Record PACU Phase II Document Type FT Summary Primary Physician: Nomi Vazquez MD Finalized Date/Time: 03/05/24 13:23:39 Pt. Name: BERENICE CHAVIRA Jeremías/Sex: 1935 Female Med Rec #: [id number] Physician: Nomi Vazquez MD Financial #: [id number] Pt. Type: O Room/Bed: / Admit/Disch: 03/05/24 10:42:36 - Institution: Case Times PACU II FT Pre-Care Text: Identifies barriers to communication and implements measures to provide psychological support and determines knowledge level Develops individualized plan of care, and ensures continuity of care Maintains patient's dignity and privacy, and maintains patient confidentiality Identifies and reports philosophical, cultural, and spiritual beliefs and values Identifies individual values and wishes concerning care administers prescribed antibiotic therapy and immunizing agents as ordered, Evaluates postoperative tissue perfusion Implements thermoregulation measures, and monitors body temperature Evaluates postoperative respiratory statusEvaluates postoperative cardiac status Evaluates postoperative neurological status Assesses pain control, collaborated in initiating patient-controlled analgesia and implements alternative methods of pain control Verifies allergies, administers prescribed medications and solutions, evaluates response to medications Entry 1 In PACU II 03/05/24 12:40:00 Discharge from PACU 03/05/24 13:10:00 II Outcomes Met? Yes Last Modified By: Queenie Loja RN 03/05/24 13:23:34 Post-Care Text: The patient demonstrates knowledge of the expected response to the operative or invasive procedure The patient's care is consistent with the individualized perioperative plan of care The patient's rightto privacy is maintained The patient's value system, lifestyle, ethnicity, and culture are considered, respected, and incorporated into the perioperative plan of care The patient participates in decisions affecting his or her perioperative plan of care. The patient is free from signs and symptoms of infection The patient has wound/tissue perfusion consistent with or improved from baseline levels established preoperatively The patient is at or returning to normothermia at the conclusion of the immediate postoperative period The patient's respiratory function is consistent with or improved from baseline levels established preoperativelyThe patient's cardiovascular status is consistent with or improved from baseline levels established preoperatively The patient's neurological status is consistent with or improved from baseline levels established preoperatively The patient demonstrates and/or reports adequate pain control throughout the perioperative period The patient received appropriate medication(s), safely administered during the perioperativeperiod Finalized By: Queenie Loja RN Document Signatures Signed By: Queenie Loja RN 03/05/24 13:23[facility] [place] Preoperative Recordon [id number] OR Preoperative RecordMain OR Preoperative Record Holding Area Document Type FT Summary Primary Physician: Nomi Vazquez MD Finalized Date/Time: 03/05/24 10:54:08 Pt. Name: FAN BERENICE Veronica/Sex: 1935 Female Med Rec #: [id number] Physician: Nomi Vazquez MD Financial #: [id number] Pt. Type: O Room/Bed: / Admit/Disch: 03/05/24 10:42:36 - Institution: Case Times Holding FT Pre-Care Text: Verifies consent for planned procedure, identifies individual values and wishes concerning care, includes family members in perioperative teaching Secures patient's records' belongings, and valuables, maintains patient's dignity and privacy, and maintains patient confidentiality Entry 1 In Holding 03/05/24 10:48:00 Outcomes Met? Yes Last Modified By: July Bowie RN 03/05/24 10:52:42 Post-Care Text: The patient participates in decisions affecting his or her perioperative plan of care The patient'sright to privacy is maintained Surgery Checklist FT Entry 1 Patient Birthday, ID Band Procedure History and Physical, Identification: Check, Patient Verification: Surgical Consent, With Participation Patient NPO after Midnight: No Date/Time: 03/05/24 09:00:00 Results Reviewed n/a Personal Items: Glasses, Jewelry Comments: Personal Items Glassess, wedding band Limitations: Vision, hard of hearing Comment: Complaints of Pain: No Pain Comment: Denies Operative Site n/a Availability Equipment Marking: Verified: Does Patient Smoke No Patient states Yes Comment - Adult Ashely- daughter postop adult Supervision supervision available Case Cancelled in No Holding Area see comments below for reason Last Modified By: July Bowie RN 03/05/24 10:54:02 Finalized By: July Bowie RN Document Signatures Signed By: July Bowie RN 03/05/24 10:54[facility] Operative Reporton [id number] ReportOperative Report Patient: BERENICE CHAVIRA Age: 88 years Sex: Female : 1935 Associated Diagnoses: None Author: Nomi Vazquez MD Pre-Procedure Procedure Date 03/05/2024 12:37:00 . Procedure Type: Esophagogastroduodenoscopy with biopsy. Procedure provider Performed by Nomi Vazquez MD. Current history and physical Documented on chart. Informed Consent After discussing the rationale, risks and benefits, and alternatives to this procedure, the patient provided signed consent for the procedure. Pre-procedure diagnosis: Weight loss. Medications (Selected) Inpatient Medications Ordered Lactated Ringers IV Bhavna 1000 mL 1,000 mL: 1,000 mL, IV, 100 mL/hr, Routine, Start date 03/05/24 11:19:00 EST, 10 hour(s), Total volume (mL): 1,000, 51 kg, 1.49, m2 Sodium Chloride 0.9% IV Bhavna 1000 mL 1,000 mL: 1,000 mL, IV, 20 mL/hr, Routine, Start date 03/05/24 7:03:00 EST, 50 hour(s), Total volume (mL): 1,000, 51 kg, 1.49, m2 Documented Medications Documented Fosamax 70 mg oral tablet: mg tab(s), Oral, Refills(s) 0 Vitamin B12: Refills(s) 0, Prophylaxis calcium-vitamin D: Refill(s) 0, Prophylaxis folic acid: Daily, Refills(s) 0, Prophylaxis Anticoagulant/antiplatelet None. ASA Classification: Class III. . Monitoring: See anesthesia record. . Procedure The procedure was performed in the hospital. See anesthesia record for sedation given during procedure. The patient was positioned starting in the left lateral decubitus position and with safety measures. Endoscope type used was an adult- size, introduced orally, advanced to the 2nd portion of the duodenum. No difficulty was encountered during the procedure. Views were excellent. The patient tolerated the procedure well. Findings 1. Normal esophagus. Z-line at 37 cm. Nonobstructing Schatzki's ring. Hiatal hernia measuring 3 cm.Reflux esophagitis 2. Erythema in the antrum, mild patchy. Otherwise normal stomach. Biopsies of the stomach were taken to rule out H. pylori. 3. 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 Polypoid lesion in the second portion of duodenum. Biopsies obtained Images Procedure images: Rec1_hd_video_2023__T1_[id number].jpg Rec1_hd_video_2023__T12_42_46_[id number].jpg Rec1_hd_video_2023__T12_42_50_495.jpg Rec1_hd_video_2023__T12_43_24_[id number].jpg Rec1_hd_video_2023__T12_46_17_[id number].jpg Rec1_hd_video_2023__T12_47_09_[id number].jpg Rec1_hd_video__T12_47_25_376.jpg . Post-Procedure Complications: none. Estimated blood loss: minimal. Specimens: sent to pathology. Devices/ implants: none left in place. Impression and Plan Schatzki's ring Reflux esophagitis Hiatal hernia Gastropathy Duodenal diverticulum Polypoid lesion of the second portion of duodenum status post bx Recommendations: -Resume previous diet -Resume home medications -Await pathology results, follow in GI clinic in 1-2 after dischargeS[facility]Comment on above:Result Comment: Electronically Signed By: George BENSON, Nomi Hooper.br\Date and Time Signed: 03/05/2412:40 ESTOther Comment: Missing Attachment - attachment storage system not supported [id number] Can be viewed in source system Missing Attachment - attachment storage system not supported [id number] Can be viewed in source systemMissing Attachment - attachment storage system not supported [id number] Can be viewed in source systemMissing Attachment - attachment storage system not supported [id number] Can be viewed in source systemMissing Attachment - attachment storage system not supported [id number] Can be viewed in source systemMissing Attachment - attachment storage system not supported [id number] Can be viewed in source systemMissing Attachment - attachment storage system not supported [id number] Can be viewed in source systemMM TOMOSYNTHESIS SCREENING BIon [id number] [address] Mammography Report Signed Patient: BERENICE CHAVIRA MR#: [id number] : 1935 Acct:[id number] Age/Sex: 88 / F ADM Date: 03/02/24 Loc: MAMMO Attending Dr: JESSICA BERGMAN Ordering Physician: JESSICA BERGMAN Results: Date of Service: 03/02/24 Follow Up: Procedure(s): MM tomosynthesis screening BI Accession Number(s): [id number] cc: JESSICA BERGMAN Patient Name: BERENICE CHAVIRA MR#: [id number] : 1935 Exam Date: 03/02/2024 Ordering Doctor: DR JESSICA BERGMAN M.D. RADIOLOGY REPORT PROCEDURE: MM TOMOSYNTHESIS SCREENING BI COMPARISON: MM TOMOSYNTHESIS SCREENING BI, 02/28/2023. MG MAMM SCREEN 3D ALAYNA CAD, 02/26/2022. INDICATIONS: Screening Calculator Name NCI Breast Cancer Risk Assessment Tool 5 Year Breast Cancer Risk Not Applicable. Lifetime Breast Cancer Risk Not Applicable. Personal Breast Cancer No Personal Ovarian Cancer No Treatments Bowl resection Family Cancers Mother with breast cancer at age 87; Sister with breast cancer at age 80; Sister with breast cancer at age 78. LOCATION: [facility] BREAST COMPOSITION: The breasts are heterogeneously dense,which may obscure small masses. FINDINGS: DIAGNOSTIC CATEGORY 2--BENIGN FINDING. NO CHANGE FROM COMPARISON. Scattered benign-appearing calcifications are present. Scattered benign-appearing lymph nodes are present. RIGHT BREAST: No significant suspicious finding. LEFT BREAST: No significant suspicious finding. RECOMMENDATIONS: ROUTINE MAMMOGRAM AND CLINICAL EVALUATION IN 12 MONTHS. PLEASE NOTE: A NORMAL MAMMOGRAM DOES NOT EXCLUDE THE POSSIBILITY OF BREAST CANCER. A CLINICALLY SUSPICIOUS PALPABLE LUMP SHOULD BE BIOPSIED. Dictated by: Quang Valderrama MD on 03/02/2024 at 14:35 Approved by: Quang Valderrama MD on 03/02/2024 at 14:36 Dictated By: Quang Valderrama M.D. Signed By: 03/02/24 1437 DD/ 35 TD/TT: Experience Designer:TBHRadiology, Radiologist, - 03/02/2024 [place] [address] Mammography Report Signed Patient: BERENICE CHAVIRA MR#: [id number] : 1935 Acct:[id number] Age/Sex: 88 / F ADM Date: 03/02/24 Loc: MAMMO Attending Dr: JESSICA BERGMAN Ordering Physician: JESSICA BERGMAN Results: Date of Service: 03/02/24 Follow Up: Procedure(s): MM tomosynthesis screening BI Accession Number(s): [id number] cc: JESSICA BERGMAN Patient Name: BERENICE CHAVIRA MR#: [id number] : 1935 Exam Date: 03/02/2024 Ordering Doctor: DR JESSICA BERGMAN M.D. RADIOLOGY REPORT PROCEDURE: MM TOMOSYNTHESIS SCREENING BI COMPARISON: MM TOMOSYNTHESIS SCREENING BI, 02/28/2023. MG MAMM SCREEN 3D ALAYNA CAD, 02/26/2022. INDICATIONS: Screening Calculator Name NCI Breast Cancer Risk Assessment Tool 5 Year Breast Cancer Risk Not Applicable. Lifetime Breast Cancer Risk Not Applicable. Personal Breast Cancer No Personal Ovarian Cancer No Treatments Bowl resection Family Cancers Mother with breast cancer at age 87; Sister with breast cancer at age 80; Sister with breast cancer at age 78. LOCATION: [facility] BREAST COMPOSITION: The breasts are heterogeneously dense,which may obscure small masses. FINDINGS: DIAGNOSTIC CATEGORY 2--BENIGN FINDING. NO CHANGE FROM COMPARISON. Scattered benign-appearing calcifications are present. Scattered benign-appearing lymph nodes are present. RIGHT BREAST: No significant suspicious finding. LEFT BREAST: No significant suspicious finding. RECOMMENDATIONS: ROUTINE MAMMOGRAM AND CLINICAL EVALUATION IN 12 MONTHS. PLEASE NOTE: A NORMAL MAMMOGRAM DOES NOT EXCLUDE THE POSSIBILITY OF BREAST CANCER. A CLINICALLY SUSPICIOUS PALPABLE LUMP SHOULD BE BIOPSIED. Dictated by: Quang Valderrama MD on 03/02/2024 at 14:35 Approved by: Quang Valderrama MD on 03/02/2024 at 14:36 Dictated By: Quang Valderrama M.D. Signed By: 03/02/24 1437 DD/ 35 TD/TT: Experience Designer: [facility]Rad[facility] Study observation (narrative)[facility] TOMOSYNTHESIS SCREENING BIOrdered By: Radiologist Radiology on [id number] [employer] Work Phone: ct Abdomen/Pelvis w/ Contraston [id number] Abdomen/Pelvis w/ ContrastExam Date/Time: 02/27/2024 13:07 EDT Reason for Exam: R63.4;Other (please specify) Report IMPRESSION: REDUNDANT SIGMOID COLON. NO CT EVIDENCE OF OBSTRUCTION. APPENDECTOMY. CT OF THE ABDOMEN AND PELVIS WITH INTRAVENOUS CONTRAST MEDIUM. History: R63.4. Constipation. Colon cancer. Technical Factors: CT imaging of the abdomen and pelvis were obtained and formatted as 5 mm contiguous axial images from the domes of the diaphragm to the symphysis pubis. Sagittal and coronal reconstructions were also obtained. Oral contrast medium: Barium sulfate, 900 mL. Intravenous contrast medium: Isovue-300, 100 mL. Comparison: None Findings: Lower chest: Cardiac size normal. No pericardial effusion. No coronary artery calcification. Dependent subsegmental atelectatic change lung bases. Liver: Normal in size, shape, and attenuation. Bile Ducts: Normal in caliber. Gallbladder: No stones or wall thickening. Pancreas: Normal without masses, cysts, ductal dilatation or calcification. Spleen: Normal in size without masses or calcifications. No splenules. Kidneys: Normal in size and enhancement. No hydronephrosis, masses, or stones. Simple bilateral cortical renal cysts. Adrenals: Normal. Small bowel: Normal in caliber. Appendix: Surgically absent. Colon: Normal in caliber. Redundant sigmoid colon. Report Peritoneum: No ascites, free air, or fluid collections. Vessels: Aorta normal in course and caliber. Portal vein, splenic vein, superior mesenteric vein are patent. Lymph nodes: Retroperitoneal: No enlarged retroperitoneal lymph nodes. Mesenteric: No enlarged mesenteric lymph nodes. Pelvic: No enlarged pelvic lymph nodes. Ureters: Normal in course and caliber. No calcifications. Bladder: No wall thickening. Reproductive organs: No pelvic masses. Abdominal Wall: No hernia identified. No diastasis of rectus musculature. No edema or masses. Bones: No bone lesions. 2.3 mm anterolisthesis L2 on L3. Anterior osteophytes lower thoracic and lumbar spine. Posterior disc space narrowing lumbar spine. No post operative changes. All CT scans at this facility use dose modulation, iterative reconstruction, and/or weight based dosing when appropriate to reduce radiation dose to as low as reasonably achievable. Ordering Provider: Nomi Vazquez FINAL REPORT Dictated: 02/28/2024 2:51 pm Conor Espinoza MD Signed (Electronic Signature): 02/28/2024 2:51 pm Signed by: Conor Espinoza MD Transcribed by: PADMINI Technologist: MANOLO Technical Comments GFR (mL/min/1/73m2) 54 Contrast: Isovue 300 Contrast amount in ml's: 100 Oral contrast amount in ml's: 900NormalOhio State Health SystemCHEMISTRY Ordered By: SYSTEM SYSTEM on 17-16-5964Ukohddszgu [Mass/Vol]1.0 mg/dLNormal0.5 - 1.3 mg/dLRemisol LveuySQX62 mL/min/1.73 m2Low>=59mL/min/1.73 f9Hbhzyjw Chem Creatinineon 96-44-5386Atnzgpxizj [Mass/Vol]1.0 mg/dLNormal0.5-1.3Fisher [facility] CenterComment on above:Performed By: #### [id number] #### [facility] [address] [place], [place] [address]eMULtc [id number] mL/min/1.73 m2Low>=59Ohio State Health SystemComment on above:Performed By: #### [id number] ####[facility] [address] [place], [place] [address]Cbjbgwycvo Visit Summaryon [id number] Visit SummaryAmbulatory Visit Summary BERENICE CHAVIRA :1935 Visit Date:02/12/2024 Ambulatory Visit Instructions Your Diagnosis Change in bowel habits History of colon cancer Weight loss Chronic constipation Your Care Team Attending Physician - George BENSON, Nomi Jose Primary Care Physician - CARY RAIN This Is Your Medications List Contact prescribing physician if questions or concerns alendronate (Fosamax 70 mg oral tablet) calcium-vitamin D cyanocobalamin (Vitamin B12) folic acid Procedures Performed Cystoscopy (10/01/2016), Appendectomy, Colonoscopy, Tubal ligation. Discharge Vitals Heart Rate (Peripheral) 112 Respiratory Rate 16 Blood Pressure 142/71 Height 157 cm Height 62 in Weight 51 kg Weight 112.2 lb BMI 20.69 What to do next You Need to Complete the Following CEA, Blood, Routine collect, 02/12/24, Order for future visit, Lab Collect, Weight loss Change inbowel habits History of colon cancer, Not Required, Print Label By Order Location CT Abdomen/Pelvis w/ Contrast, 02/12/24, Routine, Order for future visit, Transport Mode: Ambulatory, Reason: Other (please specify), No, No, Weight loss, pp_set_radiology_subspecialty, Not Required,[facility] Medications What How Much When Instructions Unchanged alendronate (Fosamax 70 mg oral tablet) Contact prescribing physician if questions or concerns Unchanged calcium-vitamin D Contact prescribing physician if questions or concerns Unchanged cyanocobalamin (Vitamin B12) Contact prescribing physician if questions or concerns Unchanged folic acid Every day Contact prescribing physician if questions or concerns Allergies aspirin (Hematuria) Problems Ongoing - Any problem that you are currently receiving treatment for. Arthritis Chronic constipation Headache, common migraine History of colon cancer Hyperlipidemia Microscopic hematuria Nocturia Urinary frequency Weight loss Historical - Any problem that you are no longer receiving treatment for. Appendectomy Cataract surgery Colonoscopy Hernia repair Tubal ligation Patient Survey You may receive a survey via text or e-mail asking about your office visit. Please share your experience with us by completing your survey. We appreciate your feedback and thank you for choosing us for your care. [facility] Office/Clinic Noteon [id number] Office/Clinic NoteGastroenterology Office/Clinic Note Chief Complaint ref by chantelle for change in bowel habits, weight loss, abd pain HPI Staff This is a 88 year old female who presents today for a referral by Chantelle for complaints of change in bowel habits and a history of colon cancer. weight loss constipation abdominal pain Denies Blood Thinners. Denies GLP-1 Agonists. Denies any family history of colon cancer/polyps or IBD. Denies Dysphagia, abdominal pain, constipation, diarrhea or bloody stools. previous EGD- long time ago. Denies any recent imaging or labs Colon cancer- diagnosed 11/30/18 TNM staging: T3, N0, M0 Location: [facility] Didn't receive chemotherapy Last Colonoscopy 10/2012 History of Present Illness I have reviewed HPI staff note, most recent labs and imaging, I agree with the above documentation with the following additions/exceptions : Patient is having issues with constipation Started 1 year ago Patient required multiple hospitalizations but has not been taking laxatives No history of colonoscopy since she get her cancer treatment Lost 15 to 20 pounds in the last year Review of Systems PHQ Score Initial Depression Screen Score: 0 SCORE All systems reviewed, negative except as mentioned above Physical Exam Vitals & Measurements HR: 112(Peripheral) RR: 16 BP: 142/71 HT: 62 in HT: 157 cm WT: 51 kg WT: 112.2 lb BMI: 20.69 General: alert, no acute distress HEENT: atraumatic normocephalic Cardiovascular: regular rate and rhythm, normal peripheral perfusion Respiratory: Lungs CTA, respirations non labored Extremities: no deformity, no trauma Abdomen: Benign, soft, nontender nondistended Assessment/Plan 1. Change in bowel habits (R19.4: Change in bowel habit) 2. History of colon cancer (Z85.038: Personal history of other malignant neoplasm of large intestine) 3. Weight loss (R63.4: Abnormal weight loss) 4. Chronic constipation (K59.09: Other constipation) Schedule EGD and colonoscopy to evaluate history of colon cancer and weight loss Patient will benefit from laxatives but will defer until we get the procedures Schedule CT scan of the abdomen pelvis given history of colon cancer and ongoing constipation and weight loss Will check CEA levels Further recommendations to be made after reviewing the results of the above test Follow-up No qualifying data available Problem List/Past Medical History Ongoing Arthritis Chronic constipation Headache, common migraine History of colon cancer Hyperlipidemia Microscopic hematuria Nocturia Urinary frequency Weight loss Historical Appendectomy Cataract surgery Colonoscopy Hernia repair Tubal ligation Procedure/Surgical History Cystoscopy (10/01/2016), Appendectomy, Colonoscopy, Tubal ligation. Medications calcium-vitamin D folic acid, Daily Fosamax 70 mg oral tablet, Oral Vitamin B12 Allergies aspirin (Hematuria) Social History Alcohol Wine, 3-5 times per week, 03/17/2019 Tobacco Never (less than 100 in lifetime) Tobacco Use:., 02/12/2024 Never (less than 100 in lifetime) Tobacco Use:. Never Smokeless Tobacco Use:., 03/17/2019 Family History Breast cancer: Mother. Diabetes mellitus type 2: Mother. Heart disease: Father. Hypertension: Father. Immunizations Vaccine Date Status Comments influenza virus vaccine, inactivated 01/25/2023 Recorded influenza virus vaccine, inactivated 01/31/2022 Recorded influenza virus vaccine, inactivated 02/15/2021 Recorded SARS-CoV-2 (COVID-19) mRNA BNT-162b2 vax 01/27/2021 Recorded SARS-CoV-2 (COVID-19) mRNA BNT-162b2 vax 06/15/2020 Recorded 2024-02-12: TPV80 SARS-CoV-2 (COVID-19) mRNA BNT-162b2 vax 05/24/2020 Recorded 2024-02-12: TPV80 influenza virus vaccine, inactivated 01/22/2020 Recorded influenza virus vaccine, inactivated 02/17/2019 Recorded influenza virus vaccine, inactivated 02/05/2018 Recorded influenza virus vaccine, inactivated 02/22/2017 Recorded influenza virus vaccine, inactivated 01/27/2016 Recorded pneumococcal 23-valent vaccine 04/26/2015 Recorded pneumococcal 13-valent vaccine 04/20/2014 RecordedS[facility] LimaComment on above:Result Comment: Electronically Signed By: George BENSON, Nomi Hooper.br\Date and Time Signed: 02/11/2414:36 EDTXR DEXA AXIAL SKELETONon 70-59-1562[place]ob[place] [address] XRay Report Signed Patient: BERENICE CHAVIRA MR#: [id number] : 1935 Acct:[id number] Age/Sex: 88 / F ADM Date: 02/07/24 Loc: RAD Attending Dr: JESSICA BERGMAN Ordering Physician: JESSICA BERGMAN Date of Service: 02/07/24 Procedure(s): XR DEXA axial skeleton Accession Number(s): [id number] cc: JESSICA BERGMAN [place] [id number] Patient Name: BERENICE CHAVIRA MRN: [id number] date: 1935 Sex: F Assigned Patient [facility]: [facility] Current Patient Location: Accession/Order Number: [id number] Exam Date: 02/07/2024 13:28 Report Date: 02/09/2024 05:52 At the request of: JESSICA BERGMAN Procedure: XR DEXA axial skeleton EXAMINATION: [...] Organization Classification: Osteopenia - Moderate Fracture Risk FRAX: Cannot calculate. Pharmacologic treatment recommendations * No uniform recommendation applies to all patients. Management plans must be individualized. * Consider initiating pharmacologic treatment in postmenopausal women and men >= 50 years of age who have the following: Primary fracture prevention: * T-score <= - 2.5 at the femoral neck, total hip, lumbar spine, 33% radius (some uncertainty with existing data) by DXA. * Low bone mass (osteopenia: T-score between - 1.0 and - 2.5) at the femoral neck or total hip by DXA with a 10-year hip fracture risk >= 3% or a 10-year major osteoporosis-related fracture risk >= 20% (i.e., clinical vertebral, hip, forearm, or proximal humerus) based on the US-adapted FRAXregistered model. Secondary fracture prevention: * Fracture of the hip or vertebra regardless of BMD [4, 5]. * Fracture of proximal humerus, pelvis, or distal forearm in persons with low bone mass (osteopenia: T-score between - 1.0 and - 2.5). The decision to treat should be individualized in persons with a fracture of the proximal humerus, pelvis, or distal forearm who do not have osteopenia or low BMD [12, 13]. Thalia MS, Heather SL, Olga KL, Alcira EM, Alondra KG, AJ, Jenna ES. The clinician's guide to prevention and treatment of osteoporosis. Osteoporos Int. 2021;3310):1774-0431. doi: 10.1007/k92165-916-46196-u. Epub 2021Aug 24. Erratum in: Osteoporos Int. 2021Nov 23;: PMID: 72453328; PMCID: [id number]. Electronically authenticated by: LISANDRO MCDOWELL Date: 02/09/2024 05:52 Dictated By: Lisandro Mcdowell M.D. Signed By: 02/09/2455 DD/ TD/TT: Experience Designer:TBHRadiology, Radiologist, MD - 02/09/[address] [address] XRay Report Signed Patient: BERENICE CHAVIRA MR#: [id number] : 1935 Acct:[id number] Age/Sex: 88 / F ADM Date: 02/07/24 Loc: RAD Attending Dr: JESSICA BERGMAN Ordering Physician: JESSICA BERGMAN Date of Service: 02/07/24 Procedure(s): XR DEXA axial skeleton Accession Number(s): [id number] cc: JESSICA BERGMAN The [address] [address] Patient Name: BERENICE CHAVIRA MRN: [id number] date: 1935 Sex: F Assigned Patient Location: [facility] Current Patient Location: Accession/Order Number: [id number] Exam Date: 02/07/2024 13:28 Report Date: 02/09/2024 05:52 At the request of: JESSICA BERGMAN Procedure: XR DEXA axial skeleton EXAMINATION: [...] Organization Classification: Osteopenia - Moderate Fracture Risk FRAX: Cannot calculate. Pharmacologic treatment recommendations * No uniform recommendation applies to all patients. Management plans must be individualized. * Consider initiating pharmacologic treatment in postmenopausal women and men >= 50 years of age who have the following: Primary fracture prevention: * T-score <= - 2.5 at the femoral neck, total hip, lumbar spine, 33% radius (some uncertainty with existing data) by DXA. * Low bone mass (osteopenia: T-score between - 1.0 and - 2.5) at the femoral neck or total hip by DXA with a 10-year hip fracture risk >= 3% or a 10-year major osteoporosis-related fracture risk >= 20% (i.e., clinical vertebral, hip, forearm, or proximal humerus) based on the US-adapted FRAXregistered model. Secondary fracture prevention: * Fracture of the hip or vertebra regardless of BMD [4, 5]. * Fracture of proximal humerus, pelvis, or distal forearm in persons with low bone mass (osteopenia: T-score between - 1.0 and - 2.5). The decision to treat should be individualized in persons with a fracture of the proximal humerus, pelvis, or distal forearm who do not have osteopenia or low BMD [12, 13]. Thalia MS, Heather SL, Olga KL, Alcira EM, Alondra KG, AJ, Jenna ES. The clinician's guide to prevention and treatment of osteoporosis. Osteoporos Int. 2021;33(10):9913-8517. doi: 10.1007/s43122-698-92688-s. Epub 2021Aug 24. Erratum in: Osteoporos Int. 2021Nov 23;: PMID: 86407238; PMCID: [id number]. Electronically authenticated by: LISANDRO MCDOWELL Date: 02/09/2024 05:52 Dictated By: Lisandro Mcdowell M.D. Signed By: 02/09/24554 DD/ 1 TD/TT: Experience Designer: MADHU HealthcareRadiology Study observation (narrative)[facility] HealthcareXR DEXA AXIAL SKELETONOrdered By: Radiologist Radiology on [phone] [employer] Work Phone: Provider Letteron [phone] LetterProvider Letter January 14, 2024 BERENICE CHAVIRA [address] [place] [address] : 1935 Dear [place], We have been trying to reach you [...] your prompt attention to this matter. Sincerely, Waylon [facility] [phone] Memorial Hospital. DIFFICILE PCRon 12-28-2023. DIFFICILE PCRNegativeNEGATIVENOMS HealthcareCLINISYNCNNORTHEASTERN HEALTH SYSTEM [facility] HealthcareMG MAMM SCREEN 3D ALAYNA CADon 04-05-3935TG MAMM SCREEN 3D ALAYNA CADPatient: BERENICE CHAVIRA Exam Date: 02/26/2022 : 1935 Gender:F Ordering : DR JESSICA BERGMAN M.D. Admission #: [id number] Family : Order #: [id number] CLICK HERE TO VIEW EXAM RADIOLOGY REPORT [...] breast cancer at age 78. LOCATION: [facility] BREAST COMPOSITION: Heterogeneously dense,which may obscure small [...] LUMP SHOULD BE BIOPSIED. Dictated by: Quang Valderrama MD on 02/26/2022 at 14:13 Approved by: Quang Valderrama MD on 02/26/2022 at 14:15NSelect Medical [facility], BeachwoodXR DEXA BONE DENSITYon 73-76-6729VZ DEXA BONE DENSITYEXAMINATION: XR DEXA BONE DENSITY, 02/26/2022 12:46 PM [...] Moderate fracture risk Electronically authenticated by: QUANG VALDERRAMA Date: 2022-02-26 13:28[facility] HospitalCardiacon 80-41-4899Qyyubybqbad [Mass/Vol]206.0 mg/dL0-200 [place] [facility] Cholesterol in HDL [Mass/Vol]85.0 mg/dZ73-559HhotnvjdvDipity Cholesterol in LDL [Mass/Vol]97.0 mg/dL0-130D[facility]ity Triglyceride [Mass/Vol]121.0 mg/bP42-951CjtveozbkDipity Hematologyon 64-83-8754Cslytrmqxk (Bld) [Volume fraction]40.40 %35.7-47.1Bevergreenhealth medical centerMXP4 Hemoglobin (Bld) [Mass/Vol]13.40 g/dL11.9-15.7B[facility] MCH (RBC) [Entitic mass]30.0 pg23.2-33.3Bevergreenhealth medical centerMXP4 MCV (RBC) [Entitic vol]90.20 fL82.0-98.4B[facility] Platelets (Bld) [#/Vol]225.0 10*3/cB622-627DfdbbeqooWear [facility] RBC (Bld) [#/Vol]4.480 10*6/uL3.72-5.24[place] AuburnTunesat WBC (Bld) [#/Vol]8.30 10*3/uL3.9-10.3Bevergreenhealth medical centerMXP4 Metabolic Panelon 11-51-5166TOX [Catalytic activity/Vol]11.0 U/L0-50[place] AuburnWear [facility] Anion gap [Moles/Vol]16 mmol/Y03-81TefhpmyejWear [facility] AST [Catalytic activity/Vol]18.0 U/L0-40[place] AuburnTunesat Calcium [Mass/Vol]9.20 mg/dL8.5-10.8Bascension st. michael hospitaltu.nr Chloride [Moles/Vol]106 mmol/O474-921TufvnlbcxTunesat CO2 [Moles/Vol]25 mmol/T92-93SylfyhxkkTunesat Creatinine [Mass/Vol]0.90 mg/dL0.5-1.5B[facility] [employer] [facility] GFR/1.73 sq M predicted among non-blacks MDRD (S/P/Bld) [Vol rate/Area]60 mL/min/{1.73_m2}[place] [facility] Glucose [Mass/Vol]104.0 mg/zC56-175Pqplrlzkd [employer] [facility] Potassium [Moles/Vol]3.6 mmol/L3.5-5.3B[facility] [employer] [facility] Sodium [Moles/Vol]143 mmol/O936-752Xkpedczgd [facility] [employer] [facility] Urea nitrogen [Mass/Vol]12.0 mg/dL7-25[place] AuburnWear [facility] Urea nitrogen/Creatinine [Mass ratio]13 mg/mg6-20 McclendonHugo & Debra Natural [facility] Otheron 28-36-3374Gtlburynkhp in VLDL [Mass/Vol]24.0 mg/dL0-39[place] AuburnWear [facility] Cholesterol.total/Cholesterol in HDL [Mass ratio]2 {ratio}McclendonHugo & Debra Natural [facility] Erythrocyte distribution width (RBC) [Ratio]12.50 % 11.5-15.5B[facility] [employer] [facility] MCHC (RBC) [Mass/Vol]33.20 g/dL32.0-36.0[place] AuburnTunesat Platelet mean volume (Bld) [Entitic vol]7.70 fL7.4-10.4 McclendonHugo & Debra Natural [facility] Otheron 52-88-89381-3-16 osteopeniaNew AuburnTunesat Cardiacon 63-08-4082Cnzoafzxohv [Mass/Vol]183.0 mg/dL 0-200[place] AuburnWear [facility] Cholesterol in HDL [Mass/Vol]74.0 mg/wR99-656Gooylcytb [employer] [facility] Cholesterol in LDL [Mass/Vol]84.0 mg/dL0-130[place] [employer] [facility] Triglyceride [Mass/Vol]126.0 mg/xF51-729Wvvqyvagu [employer] [facility] Metabolic Panelon 48-95-6180UXY [Catalytic activity/Vol]16.0 U/L0-50[place] [employer] [facility] Anion gap [Moles/Vol]17 mmol/T80-55Nboujficg [facility] AST [Catalytic activity/Vol]21.0 U/L0-40[place] [employer] [facility] Calcium [Mass/Vol]9.60 mg/dL8.5-10.8Bevergreenhealth medical centerEdCast Inc. [facility] Chloride [Moles/Vol]105 mmol/W035-482Elgxjwqfm [facility] [employer] [facility] CO2 [Moles/Vol]27 mmol/X35-87PxsevigxhWear [facility] Creatinine [Mass/Vol]0.90 mg/dL0.5-1.5Bevergreenhealth medical centerEdCast Inc. [facility] GFR/1.73 sq M predicted among non-blacks MDRD (S/P/Bld) [Vol rate/Area]60 mL/min/{1.73_m2}[place] [employer] [facility] Glucose [Mass/Vol]100.0 mg/aK00-130UfudotaqvWear [facility] Potassium [Moles/Vol]4.1 mmol/L3.5-5.3BlanchaEdCast Inc. [facility] Sodium [Moles/Vol]145 mmol/W798-589Cqivvvlfr [facility] Urea nitrogen [Mass/Vol]13.0 mg/dL7-25[facility] Urea nitrogen/Creatinine [Mass ratio]14 mg/mg6-20 [facility] Otheron 53-46-3181Xiaxyyurk [Mass/Vol]54.0 ng/mL 30.0-100.0[facility] Cholesterol in VLDL [Mass/Vol]25.0 mg/dL0-39[facility] Cholesterol.total/Cholesterol in HDL [Mass ratio]2 {ratio}[facility] Cardiacon 71-19-3073Rybcyecesev [Mass/Vol]212.0 mg/dL 0-200[facility] [employer] [facility] Cholesterol in HDL [Mass/Vol]78.0 mg/uE36-567Ipmtlmlka [facility] Cholesterol in LDL [Mass/Vol]112.0 mg/dL0-130[facility] Triglyceride [Mass/Vol]110.0 mg/qD58-225Dgnydpxqg [place] [employer] [facility] Metabolic Panelon 13-29-4926Klvtgkw [Mass/Vol]4.40 g/dL 3.7-4.5BSelect [facility] [employer] [facility] ALP [Catalytic activity/Vol]44.0 U/M74-697Fgombaitc [place] [employer] [facility] ALT [Catalytic activity/Vol]18.0 U/L0-50[place] [employer] [facility] Anion gap [Moles/Vol]15 mmol/F35-86VwcamgoxlHighland District Hospital [facility] AST [Catalytic activity/Vol]22.0 U/L0-40[facility] Bilirubin [Mass/Vol]0.50 mg/dL0.0-1.0[facility] Calcium [Mass/Vol]9.70 mg/dL8.5-10.8B[facility] Chloride [Moles/Vol]107 mmol/X064-347Jmcxlcjgx [facility] CO2 [Moles/Vol]30 mmol/M03-52HbkipsjfwHighland District Hospital [facility] Creatinine [Mass/Vol]0.80 mg/dL0.5-1.5B[facility] [employer] [facility] GFR/1.73 sq M predicted among non-blacks MDRD (S/P/Bld) [Vol rate/Area]69 mL/min/{1.73_m2}[place] [employer] [facility] Glucose [Mass/Vol]86.0 mg/mI41-416Accdjekds [facility] Potassium [Moles/Vol]4.2 mmol/L3.5-5.3B[facility] [employer] [facility] Protein [Mass/Vol]7.40 g/dL6.3-7.9B[facility] [employer] [facility] Sodium [Moles/Vol]148 mmol/Z193-869Ukpioaehy [facility] Urea nitrogen [Mass/Vol]19.0 mg/dL7-25[place] [facility] Urea nitrogen/Creatinine [Mass ratio]24 mg/mg6-20 McclendonHugo & Debra Natural [facility] Otheron 34-52-2886Tspyzdq/Globulin [Mass ratio]1.5 {ratio}1.0-2.4BSelect [facility] [employer] [facility] Calcidiol [Mass/Vol]50.9 ng/mL30.0-100.0[facility] [employer] [facility] Cholesterol in VLDL [Mass/Vol]22.0 mg/dL0-39[facility] [employer] [facility] Cholesterol.total/Cholesterol in HDL [Mass ratio]3 {ratio}[facility] [employer] [facility] Cardiacon 38-18-5726Jqshzwqngyd [Mass/Vol]172.0 mg/dL 0-200[facility] [employer] [facility] Cholesterol in HDL [Mass/Vol]73.0 mg/zW87-798Txkzankzg [place] [employer] [facility] Cholesterol in LDL [Mass/Vol]73.0 mg/dL0-130[facility] [employer] [facility] Triglyceride [Mass/Vol]132.0 mg/eE93-098Zftdqgjrr [place] [employer] [facility] Metabolic Panelon 65-38-6574FZP [Catalytic activity/Vol]14.0 U/L0-50[facility] [employer] [facility] Anion gap [Moles/Vol]14 mmol/T50-00KjyrezjdpHighland District Hospital [employer] [facility] AST [Catalytic activity/Vol]17.0 U/L0-40[facility] [employer] [facility] Calcium [Mass/Vol]9.40 mg/dL8.5-10.8BSelect [facility] [employer] [facility] Chloride [Moles/Vol]103 mmol/O058-544Dvwriskzv [place] [employer] [facility] CO2 [Moles/Vol]29 mmol/I30-56Ivnvkqqtj [facility] Creatinine [Mass/Vol]0.80 mg/dL0.5-1.5B[facility] [employer] [facility] GFR/1.73 sq M predicted among non-blacks MDRD (S/P/Bld) [Vol rate/Area]69 mL/min/{1.73_m2}[place] [employer] [facility] Glucose [Mass/Vol]101.0 mg/tS43-096Oontunqgk [facility] Potassium [Moles/Vol]3.9 mmol/L3.5-5.3B[facility] [employer] [facility] Sodium [Moles/Vol]142 mmol/A704-798Josmhnciz [facility] Urea nitrogen [Mass/Vol]16.0 mg/dL7-25[place] [employer] [facility] Urea nitrogen/Creatinine [Mass ratio]20 mg/mg6-20 McclendonHugo & Debra Natural [facility] Otheron 51-72-3067Nxwwznixb [Mass/Vol]51.0 ng/mL 30.0-100.0[place] [facility] [employer] [facility] Cholesterol in VLDL [Mass/Vol]26.0 mg/dL0-39[place] [facility] Cholesterol.total/Cholesterol in HDL [Mass ratio]2 {ratio}McclendonHugo & Debra Natural [facility] Cardiacon 28-59-4418Wiyrkeekovb [Mass/Vol]203.0 mg/dL 0-200[place]Tunesat Cholesterol in HDL [Mass/Vol]78.0 mg/vO53-117HdtooelhwTunesat Cholesterol in LDL [Mass/Vol]98.0 mg/dL0-130[place]at Triglyceride [Mass/Vol]136.0 mg/gI60-929Ffmghaghy [facility] Metabolic Panelon 66-72-8998ULX [Catalytic activity/Vol]20.0 U/L0-50[facility] Anion gap [Moles/Vol]18 mmol/B96-12IvjuqzsboMemorial Health System [facility] AST [Catalytic activity/Vol]25.0 U/L0-40[facility] Calcium [Mass/Vol]9.90 mg/dL8.5-10.8B[facility] Chloride [Moles/Vol]101 mmol/Z095-542YvypuqcviMemorial Health System [facility] CO2 [Moles/Vol]28 mmol/K46-77DciqpchqwHighland District Hospital [facility] Creatinine [Mass/Vol]0.90 mg/dL0.5-1.5B[facility] GFR/1.73 sq M predicted among non-blacks MDRD (S/P/Bld) [Vol rate/Area]60 mL/min/{1.73_m2}[facility] Glucose [Mass/Vol]97.0 mg/fT62-026Wsyywvfnp [facility] Potassium [Moles/Vol]3.7 mmol/L3.5-5.3B[facility] Sodium [Moles/Vol]143 mmol/N664-725Ahyzcocot [place] [employer] [facility] Urea nitrogen [Mass/Vol]18.0 mg/dL7-25[facility] [employer] [facility] Urea nitrogen/Creatinine [Mass ratio]20 mg/mg6-20 [place] [employer] [facility] Otheron 80-69-3698Zeazqjfgooq in VLDL [Mass/Vol]27.0 mg/dL0-39[place] [facility] Cholesterol.total/Cholesterol in HDL [Mass ratio]3 {ratio}[facility] [employer] [facility] Cardiacon 19-87-6327Fffdfspvqwd [Mass/Vol]182.0 mg/dL 0-200[facility] [employer] [facility] Cholesterol in HDL [Mass/Vol]77.0 mg/cA50-381Lagqgdwvn [facility] Cholesterol in LDL [Mass/Vol]85.0 mg/dL0-130[place] [facility] Triglyceride [Mass/Vol]101.0 mg/vJ25-916Sueygodov [facility] Metabolic Panelon 75-27-0782KZK [Catalytic activity/Vol]13.0 U/L0-50[place] [facility] Anion gap [Moles/Vol]18 mmol/Q78-10Zgcwxzljj [facility] AST [Catalytic activity/Vol]18.0 U/L0-40[place] [facility] Calcium [Mass/Vol]9.70 mg/dL8.5-10.8B[facility] Chloride [Moles/Vol]105 mmol/D209-856PtymhvpeiTunesat CO2 [Moles/Vol]23 mmol/P80-15AmheskpxwTunesat Creatinine [Mass/Vol]0.80 mg/dL0.5-1.5B[facility] GFR/1.73 sq M predicted among non-blacks MDRD (S/P/Bld) [Vol rate/Area]69 mL/min/{1.73_m2}[facility] [employer] [facility] Glucose [Mass/Vol]89.0 mg/lY06-601Wryptneso [place] [employer] [facility] Potassium [Moles/Vol]3.7 mmol/L3.5-5.3B[facility] Sodium [Moles/Vol]142 mmol/A958-124Jgmmmzpva [place] [employer] [facility] Urea nitrogen [Mass/Vol]15.0 mg/dL7-25[facility] [employer] [facility] Urea nitrogen/Creatinine [Mass ratio]19 mg/mg6-20 [facility] [employer] [facility] Otheron 06-97-6975Iupsmbqrh [Mass/Vol]46.7 ng/mL 30.0-100.0[facility] [employer] [facility] Cholesterol in VLDL [Mass/Vol]20.0 mg/dL0-39[facility] [employer] [facility] Cholesterol.total/Cholesterol in HDL [Mass ratio]2 {ratio}[facility] [employer] [facility] Cardiacon 56-06-6887Qifkwpwnpxs [Mass/Vol]210.0 mg/dL 0-200[facility] [employer] [facility] Cholesterol in HDL [Mass/Vol]74.0 mg/nV00-174Jlfqobjsm [place] [employer] [facility] Cholesterol in LDL [Mass/Vol]102.0 mg/dL0-130[facility] [employer] [facility] Triglyceride [Mass/Vol]170.0 mg/xW28-469Anoxudlec [place] [employer] [facility] Metabolic Panelon 84-12-2647ZFC [Catalytic activity/Vol]23.0 U/L0-50[place] [employer] [facility] Anion gap [Moles/Vol]15 mmol/T72-02QaiqowxxiHighland District Hospital [employer] [facility] AST [Catalytic activity/Vol]25.0 U/L0-40[facility] [employer] [facility] Calcium [Mass/Vol]9.60 mg/dL8.5-10.8B[facility] Chloride [Moles/Vol]99 mmol/T048-149Umwsflkfu [place] [employer] [facility] CO2 [Moles/Vol]28 mmol/K01-10Zuhspspxh [facility] Creatinine [Mass/Vol]0.80 mg/dL0.5-1.5B[facility] GFR/1.73 sq M predicted among non-blacks MDRD (S/P/Bld) [Vol rate/Area]69 mL/min/{1.73_m2}[place] [facility] Glucose [Mass/Vol]88.0 mg/oY70-302Stypfphlg [facility] Potassium [Moles/Vol]4.3 mmol/L3.5-5.3B[facility] Sodium [Moles/Vol]138 mmol/D250-304Mwglbknnw [facility] Urea nitrogen [Mass/Vol]14.0 mg/dL7-25[place] [facility] Urea nitrogen/Creatinine [Mass ratio]18 mg/mg6-20 [facility]onHugo & De[facility] Otheron 54-62-0605Atmpdbzes [Mass/Vol]47.4 ng/mL 30.0-100.0[place] [facility] Cholesterol in VLDL [Mass/Vol]34.0 mg/dL0-39[place] [employer] Cholesterol.total/Cholesterol in HDL [Mass ratio]3 {ratio}[facility] [employer] Vital Signs Date TimeVital SignValuePerforming VruydykteAhaxwbin70-62-3899 13:33-0400Body sigazr283.6 Froylan Bergman MD Work Phone: [facility] SpringsSkkivkxger52-38-2733 13:33-0400Body mass index (BMI) [Ratio]19.22 kg/g5OonxwJessica Bergman MD Work Phone: [facility] for ChildrenIpnzqdfeol88-15-4667 13:33-0400Body .8 kg Jessica Bergman MD Work Phone: [facility]OShr[facility] for ChildrenDtdfuiqnwk24-96-5643 13:33-0400Diastolic blood qxmnqygj70 mm[Hg]Jessica Bergman MD Work Phone: [facility] SpringsTxzhkkuyge65-95-1597 13:33-0400Heart rate73 /min Jessica Bergman MD Work Phone: [facility] SpringsYavhlifeur23-86-3230 13:33-5304MgV4% (BldA) [Mass fraction]98 %Jessica Bergman MD Work Phone: [facility] SpringsYzyshugzcr18-26-4762 13:33-0400Systolic blood sysqmddn105 mm[Hg]Jessica Bergman MD Work Phone: [facility] SpringsKcbavojiby49-29-3523 13:54-0400Body jgxjya220.6 cmSteven Rusher DPM Work Phone: [facility] SpringsKxqhacasar16-30-2466 13:54-0400Body mass index (BMI) [Ratio]19.57 kg/t4Qepogx Rusher DPM Work Phone: [facility] SpringsMuwjdoqadd25-90-4189 13:54-0400Body aybweq26.71 kgSteven Rusher DPM Work Phone: [facility] SpringsKjwltdujqv97-70-4689 13:46-0400Body tqrotc162.6 Froylan Bergman MD Work Phone: [phone] [place], [place] [address]Fbowsyjogs15-73-0471 13:46-0400Body mass index (BMI) [Ratio]19.57 kg/k1GfeqfJessica Bergman MD Work Phone: [phone] [place], [place] [address]Hyjnaqhjqg30-12-5049 13:46-0400Body krnpuh74.71 kgJessica Bergman MD Work Phone: [facility] SpringsVcscrdfovb95-61-5149 13:46-0400Diastolic blood auyhlcid99 mm[Hg]Jessica Bergman MD Work Phone: 1([phone])[facility]-[address] [place], [place] [address]Xcmwnrlzet86-13-0828 13:46-0400Heart rate70 /min Jessica Bergman MD Work Phone: [phone])[facility]-[address] [place], [place] [address]Xlevwzmkst85-49-5356 13:46-7993LeZ6% (BldA) [Mass fraction]100 %Jessica Bergman MD Work Phone: [phone])[facility]-[address] [place], [place] [address]Ffdcdvzxht45-96-7789 13:46-0400Systolic blood isgbcytn894 mm[Hg]Jessica Bergman MD Work Phone: [phone])[facility]-[address] [place], [place] [address]Bnomgbwirf78-62-0071 13:27-0500Diastolic blood ysrwbkpu78 mm[Hg]Nomi Vazquez [phone]-FisreSelect Medical Specialty [facility] [place]11-20-2024 13:27-0500Mean blood mm[Hg]Nomi Vazquez [phone]-DwdxaSelect Medical Specialty [facility] [place]11-20-2024 13:27-0500Systolic blood nuyelufp864 mm[Hg]Nomi Vazquez [phone]-ArojtAdam Ville [address]-20-2024 13:21-0500Blood Pressure LocationMomyesha Vazquez [phone]-TihzlAdam Ville [address]-20-2024 13:21-0500Diastolic blood tdxgqwyi26 mm[Hg]Nomi Vazquez [phone]-NvcvqAdam [place]ille [address]-20-2024 13:21-0500Heart rate72 /minNomi Vazquez [phone]-XhwtiSelect Medical Specialty [facility] [place]11-20-2024 13:21-0500Respiratory rate12 /minNomi Vazquez [phone]-YdrlnSelect Medical [facility]ty [facility] [place]11-20-2024 13:21-0500Systolic blood mqehcdfo045 mm[Hg]Nomi Vazquez 145-3700Cleilg-WbiymSelect [facility] [place]11-18-2024 15:52-0500Body ozlods773.6 cmAngeduar Barksdaler CARDIAC/VASCULAR SONOGRAPHER Work Phone: [place] [phone] 15:52-0500Body mass index (BMI) [Ratio]18.95 kg/d7KfpfyeJulia Oakleymor CARDIAC/VASCULAR SONOGRAPHER Work Phone: [place] [phone] 15:52-0500Body .07 kgAngedanuta Oakleymor CARDIAC/VASCULAR SONOGRAPHER Work Phone: [place] [phone] 15:52-0500Diastolic blood zdudoacl75 mm[Hg]Julia Barksdaler CARDIAC/VASCULAR SONOGRAPHER Work Phone: [place] [phone] 15:52-0500Heart rate80 /min Julia Barksdaler CARDIAC/VASCULAR SONOGRAPHER Work Phone: [place] [phone] 15:52-3155PnJ7% (BldA) [Mass fraction]97 %Julia Oakleymor CARDIAC/VASCULAR SONOGRAPHER Work Phone: [place] [phone] 15:52-0500Systolic blood wevbevbb551 mm[Hg]Julia Oakleymor CARDIAC/VASCULAR SONOGRAPHER Work Phone: [place] [phone] 13:05-0500Blood Pressure LocationMomyesha Vazquez [facility]11-07-2024 13:05-0500 Diastolic blood mnohcjwy74 mm[Hg]Nomi Vazquez [facility]11-07-2024 13:05-0500Heart rate79 /minMohamad Mouchli [address] [place], [place] 6464011-07-2024 13:05-0500Mean blood wleaqxaj67 mm[Hg]Mohamad Mouchli [address] [place], [place] 6464011-07-2024 13:05-0500 Respiratory rate17 /minMohamad Mouchli [address]11-07-2024 13:05-0970EvP1% (BldA) [Mass fraction]99 %Mohamad Mouchli [address] [place], [place] 5025211-07-2024 13:05-0500 Systolic blood qmednfsl278 mm[Hg]Mohamad Mouchli [address]11-07-2024 12:55-0500Blood Pressure LocationMohamad Mouchli [address]11-07-2024 12:55-0500 Diastolic blood nglyvbrc92 mm[Hg]Mohamad Mouchli [address] [place], [place] 6464011-07-2024 12:55-0500Heart rate86 /minMohamad Mouchli [address] [place], [place] 6464[address]-07-2024 12:55-0500Mean blood wudnzivj85 mm[Hg]Mohamad Mouchli [address] [place], [place] 6464[address]-07-2024 12:55-0500 Respiratory rate26 /minMohamad Mouchli [address] [place], [place] 5025211-07-2024 12:55-1057LhO9% (BldA) [Mass fraction]98 %Mohamad Mouchli [address]11-07-2024 12:55-0500 Systolic blood cqkehttu341 mm[Hg]Mohamad Mouchli [facility]11-07-2024 12:50-0500Blood Pressure LocationMohamad Mouchli [address] [place], [place] 6464011-07-2024 12:50-0500 Diastolic blood mm[Hg]Mohamad Mouchli [address] [place], [place] 6464[address]-07-2024 12:50-0500Heart rate81 /minMohamad Mouchli [address] [place], [place] 6464[address]-07-2024 12:50-0500Mean blood mm[Hg]Mohamad Mouchli [address]11-07-2024 12:50-0500 Respiratory rate14 /minMohamad Mouchli [address] [place], [place] 6464011-07-2024 12:50-5140BmA7% (BldA) [Mass fraction]97 %Mohamad Mouchli [address] [place], [place] 6464011-07-2024 12:50-0500 Systolic blood kpfcifri81 mm[Hg]Mohamad Mouchli [address] [place], [place] 6464011-07-2024 12:40-0500Body euocrseocre99.06 [degF]Mohamad Mouchli [address] [place], [place] 6464011-07-2024 12:35-0500 Respiratory rate16 /minMohamad Mouchli [address] [place], [place] 6464011-07-2024 12:30-0500 Respiratory rate16 /minMohamad Mouchli [address] [place], [place] 5025211-07-2024 12:25-0500 Respiratory rate16 /minMohamad Mouchli [address] [place], [place] 6464011-07-2024 10:50-0500Body pqvqipnousl60.8 [degF]Nomi Vazquez [facility]10-29-2024 14:30-0400Body dzmyeh813.6 cmGeeta Gonzalez MD Work Phone: [facility] SpringsRxvcgejwco82-50-1695 14:30-0400Body mass index (BMI) [Ratio]18.88 kg/b9DzolrgGeeta Gonzalez MD Work Phone: [facility] SpringsTwigmxtmqr52-68-9944 14:30-0400Body fulzvh07.9 kg Geeta Gonzalez MD Work Phone: [facility] SpringsDrcydmgoqa64-25-6865 14:30-0400Diastolic blood pdrduzam53 mm[Hg]Geeta Gonzalez MD Work Phone: [facility] SpringsQqcjfgviga65-46-7790 14:30-0400Systolic blood btqzevly287 mm[Hg]Geeta Gonzalez MD Work Phone: [facility] SpringsDhqwfcqbip66-88-2658 14:08-0400Blood Pressure LocationNomi Vazquez [phone]-IpgljSelect [facility] [place]10-16-2024 14:08-0400Diastolic blood zoidzupa00 mm[Hg]Nomi Vazquez [phone]-DceslSelect Medical Specialty Hospital [facility] [place]10-16-2024 14:08-0400Heart hmqj355 /minMohamad George [phone]-JmegvSelect Medical Specialty Hospital [facility] [place]10-16-2024 14:08-0400Respiratory rate16 /minMohamad George 701-6425Udmnmw-YjxinSelect Medical Specialty Hospital [facility] [place]10-16-2024 14:08-0400Systolic blood hcwuyylr782 mm[Hg]Nomi Vazquez [phone]-AnutgSelect Medical Specialty Hospital - [facility] [place]09-30-2024 13:58-0400Body yufhap161.6 Froylan Bergman MD Work Phone: [phone] [place], [place] [address]Nurfusbfot49-55-9583 13:58-0400Body mass index (BMI) [Ratio]19.22 kg/o1KebwbJessica Bergman MD Work Phone: 1(808)[facility]-[address] [place], [place] [address]Junixornmh45-85-8942 13:58-0400Body qkrayx57.8 kg Jessica Bergman MD Work Phone: 1(187)[facility]-[address] [place], [place] [address]Wigjycetvy86-74-9604 13:58-0400Diastolic blood uwbnintd19 mm[Hg]Jessica Bergman MD Work Phone: 1(105)[facility] [place] [address]-30-2024 13:58-0400Heart rate75 /min Jessica Bergman MD Work Phone: 1(296)[facility]-[address] [place], [place] [address]Plzbrnobcv54-34-6873 13:58-6334ScR9% (BldA) [Mass fraction]98 %Jessica Bergman MD Work Phone: 1(401)[facility]-[address] [place], [place] [address]Zqkdsfjgow67-85-1828 13:58-0400Systolic blood bjdcmziu870 mm[Hg]Jessica Bergman MD Work Phone: 1([phone])[address] [place] [address]-12-2024 11:35-0400Body ayhkql838.6 cmKaren Hemmer PA Work Phone: 1(246)[facility] [place], [place] [address]Rcutklrits92-73-4558 11:35-0400Body mass index (BMI) [Ratio]18.78 kg/m6Bcjva Hemmer PA Work Phone: 1([phone])[facility]-[address] [place], [place] [address]Lfbqvkjsup17-43-2736 11:35-0400Body kvelft47.62 kgAlexisen Hemmer PA Work Phone: 1([phone])[address] [place] [address]-12-2024 11:35-0400Diastolic blood vxosoqjy05 mm[Hg]Cary Hemmer PA Work Phone: 1([phone])[facility]-[address] [place], [place] [address]Oisojgcxpb05-12-2153 11:35-0400Heart rate93 /min Cary Hemmer PA Work Phone: 1(273)[facility]-[address] [place], [place] [address]Gartixsdww55-02-4429 11:35-0400Respiratory rate16 /minAlexisen Hemmer PA Work Phone: 1(050)[facility]-[address] [place], [place] [address]Mixgkppvad40-48-6746 11:35-7161OpS7% (BldA) [Mass fraction]94 %Cary DOMINGUEZ Work Phone: [facility] SpringsTmljzbohsp29-20-6606 11:35-0400Systolic blood ganoyuvc271 mm[Hg]Cary DOMINGUEZ Work Phone: NOShriners [facility]als for ChildrenTkzrgfcnhh97-10-7505 12:10-0400Body tkmric112.6 cmNicole Nas DO Work Phone: [facility] SpringsRrhdhaszyt79-91-1752 12:10-0400Body mass index (BMI) [Ratio]19.4 kg/j5Zdmodp Nas DO Work Phone: [facility] SpringsOcoywewkrn64-13-6801 12:10-040Body blunxf79.26 kgNicole Nas DO Work Phone: noShriners [facility] for ChildrenHlscedgxtb32-72-4545 12:10-0400Diastolic blood yvdwlbxk15 mm[Hg]Joshua Nas DO Work Phone: [facility] SpringsHsvrgczlch81-70-0740 12:10-0400Heart rate87 /min Joshua Nas DO Work Phone: noShriners [facility]als for ChildrenDvxyrcbdzr65-34-3409 12:10-0400Systolic blood gfybclbw326 mm[Hg]Joshua Nas DO Work Phone: [facility] SpringsYchsvjktyi68-94-7067 13:36-0500BMI (Body Mass Index)21.97 kg/a8PsszlChengdu Santai Electronics Industrylincoln hospitalTunesat 11-18-2016 13:36-0500Body zbjekn21.15 kgJust. elizabeths medical center SynappioGardner [facility]ium Agari 11-18-2016 13:36-0500BP Httgptgdj80 mm[Hg]Ashley SynappioInspire Energylincoln hospitalTunesat 11-18-2016 13:36-0500BP Migfmzze078 mm[Hg]PruffiInspire Energylincoln hospitalTunesat 11-18-2016 13:36-0500BSA (Body Surface Area)1.6 q0Vbqkk Fresh ! 81-585615-93690240-53-6958 13:36-4310Pzmjoa725.29 cmAshley IntelliChemncModlar 35-595478-15041448-72-0551 13:36-0500Pulse (Heart Rate)68 /SebastienInvoy TechnologiesInspire Energylincoln hospitalTunesat Work Phone: [phone] 10:59-0400BMI (Body Mass Index)22.67 kg/m2 PruffiInspire Energylincoln hospitalTunesat 37-890291-20009029-75-6657 10:59-0400Body yjkhmx01.97 kgJazzyRealeyes 3D McclendonModlar 91-938698-10578566-84-5814 10:59-0400BP Wkphhvjnm42 mm[Hg]PruffiInspire Energylincoln hospitalTunesat 71-416061-60635827-86-4100 10:59-0400BP Qhvhngrk743 mm[Hg]PruffiInspire Energylincoln hospitalTunesat 21-992439-79597758-32-9623 10:59-0400BSA (Body Surface Area)1.63 m2 PruffiInspire Energylincoln hospitalTunesat Work Phone: [phone] 10:59-9352Hhhsyw884.29 ElioRealeyes 3D McclendonModlar 63-617579-24910084-81-8837 10:59-0400Pulse (Heart Rate)76 /Energy Pioneer SolutionsJazzyRealeyes 3DDipity 95-049482-79944068-83-1168 12:09-0500BMI (Body Mass Index)22.06 kg/m2 PruffiDipity 73-616767-82582016-44-8107 12:090500Body fkozva62.38 kgGregoriaXenome 12-29-2015 12:09-0500BP Nzgopcmdp86 mm[Hg][facility] Work Phone: [phone] 12:09-0500BP Elisfhuyl26 mm[Hg]Ashley SynappioCorona [facility] [employer] [facility] Work Phone: [phone] 12:09-0500BP Jllkufjj847 mm[Hg]Ashley SynappioCorona [facility] Center Agari Work Phone: [phone] 12:090500BP Ttiwptdr091 mm[Hg]Ashley SynappioCor[facility] Medical [facility] [employer] [facility] Work Phone: [phone] 12:0500BSA (Body Surface Area)1.6 t4Wqoym SynappioCorona [facility] [employer]ari Work Phone: [phone] 12:5567Vqvoja997.29 cmGregoriaRealeyes 3D [employer]endonMod[employer] Work Phone: [phone] 12:090500Pulse (Heart Rate)78 /minAshley GoodGuideSt. John of God HospitalTunesat Work Phone: [phone] 12:-0500BMI (Body Mass Index)21.45 kg/m2 AshleyCrunchyrollAspirus [facility] Hospital Agari Work Phone: [phone] 12:-0500Body .79 kgAshley GoodGuideThomas [facility] Hospital Agari Work Phone: [phone] 12:04-0500BP Eqzkyknas86 mm[Hg]Ashley SynappioInspira Medical Center ElmerTunesat 96-274996-80265025-09-0967 12:-0500BP Vglakrfz533 mm[Hg]PruffiInspira Medical Center ElmerTunesat 63-131166-11761962-14-5915 12:0500BSA (Body Surface Area)1.58 m2 PruffiInspire Energylincoln hospitalTunesat 56-980312-67187025-69-4623 12:3273Doigac444.29 cmInspira Medical Center [place] CybEye 12-02-2015 12:04-0500Pulse (Heart Rate)72 /Cedric Fresh ! 86-036623-94946494-23-0084 12:05-0400BMI (Body Mass Index)20.92 kg/m2 Ashley SynappioDipity 27-315641-37638902-74-2176 12:05-0400Body elkbgw99.43 John [employer] 91-348070-45178001-31-4385 12:05-0400BP Fwpkpkljb87 mm[Hg][employer] 50-325233-98604316-84-1262 12:050400BP Ftjyruef286 mm[Hg][employer] 92-431678-94978147-03-4055 12:050400BSA (Body Surface Area)1.56 m2 PruffiDipity 69-165890-83876530-41-9970 12:050834Wxukhm550.29 cmAshley [employer]bEye 89-488944-57775726-13-6867 12:05-0400Pulse (Heart Rate)76 /Cedric SynappioDipity 12-02-2014 11:33-0500BMI (Body Mass Index)22.58 kg/m2 PruffiDipity 12-02-2014 11:33-0500Body cyymke58.74 John [employer] 12-02-2014 11:33-0500BP Ipiciuqsa07 mm[Hg][employer] 12-02-2014 11:33-0500BP Ethpwwzs439 mm[Hg][employer] 12-02-2014 11:33-0500BSA (Body Surface Area)1.62 m2 Ashley SynappioInspire Energylincoln hospitalTunesat 98-620247-86900005-00-8101 11:33-2470Fnhopv585.29 cmGregoriaInvoy Technologies McclendonModlar 14-159211-54593410-89-2933 11:33-0500Pulse (Heart Rate)72 /minJazzyRealeyes 3DDipity 90-544604-83123711-16-6779 12:16-0400BMI (Body Mass Index)21.97 kg/m2 PruffiInspire Energylincoln hospitalTunesat 80-157603-14248764-23-4367 12:16-0400Body .15 kgGregoriaInvoy Technologies McclendonModlar 81-395924-54448469-79-1765 12:16-0400BP Ohthiamey28 mm[Hg]PruffiInspire Energylincoln hospitalTunesat 68-761918-39326079-25-1065 12:16-0400BP Vqfzuflf272 mm[Hg]PruffiInspire Energylincoln hospitalTunesat 49-181619-41787292-92-8062 12:16-0400BSA (Body Surface Area)1.6 a4Mohkl SynappioDipity 64-094163-91186650-02-4641 12:168631Nesmyy795.29 cmJazzyRealeyes 3D [employer]clendonModlar 69-044606-26650096-57-6819 12:16-0400Pulse (Heart Rate)60 /minGregoriaInvoy TechnologiesDipity 52-260259-14912482-69-8910 11:40-0500BMI (Body Mass Index)21.8 kg/m2 PruffiInspire Energylincoln hospitalTunesat 42-404316-74755189-39-4375 11:40-0500Body zdsutk05.61 kgJazzyRealeyes 3D [employer]clendonMod[employer] 11-719841-84004038-41-5564 11:40-0500BP Hwmwtssol85 mm[Hg]PruffiInspire Energylincoln hospitalTunesat 42-938825-20698065-13-1736 11:40-0500BP Vpkofcix721 mm[Hg]PruffiInspire Energyhighlands-cash[facility] hospital Agari 46-530415-82423307-03-9171 11:40-0500BSA (Body Surface Area)1.61 m2 PruffiInspire Energylincoln hospitalTunesat 05-824834-35103417-65-0736 11:40-0220Qkdwng807.56 RezaInvoy TechnologiesCare One at Raritan Bay Medical CenterMcclendonModlar 75-780930-08802505-28-2403 11:40-0500Pulse (Heart Rate)72 /minThe Guild Househancock regional hospitalInspire Energylincoln hospitalTunesat 85-518212-88729230-63-6161 11:40-0400BMI (Body Mass Index)21.8 kg/m2 PruffiInspira Medical Center ElmerTunesat Work Phone: [phone] 11:40-0400Body .61 kgGregoriast. elizabeths medical center GoodGuideKettering Health Greene MemorialModlar Work Phone: [phone] 11:40-0400BP Casxtjriz58 mm[Hg]PruffiInspire Energylincoln hospitalTunesat 84-675855-60337951-81-8029 11:40-0400BP Wheythio029 mm[Hg]The Guild HouseSt. John of God HospitalTunesat 38-749250-01385824-56-4918 11:40-0400BSA (Body Surface Area)1.61 m2 PruffiInspira Medical Center ElmerTunesat 48-336257-25504926-16-3155 11:40-2101Cdjgih094.56 RezaInvoy Technologies McclendonModlar 63-805521-10852519-24-2494 11:40-0400Pulse (Heart Rate)68 /minGregoriaInvoy TechnologiesInspire Energylincoln hospitalTunesat Encounters Encounter DateEncounter TypeCare ProviderFacilityStart: 01-04-2025 End: 08-16-2626Mmlwew Darren Bergman MD Work Phone: noms Mickey Kaur MedinceStart: 01-04-2025 End: 49-21-5731Lwlmaq Darren Bergman MD Work Phone: noms Mickey Kaur MedinceStart: 01-04-2025 End: 86-99-4432Qiues of hemosiderin, Reuben Bergman MD Work Phone: [facility] Work Phone: Start: 01-04-2025 End: 32-98-7384Vznbfkv encounter procedureJessica Bergman MD Work Phone: noms Mickey Kaur MedinceComment on above:Routine general medical examination at health care facility (Primary Dx); Age-related osteoporosis without current pathological fracture ; Asymptomatic varicose veins of both lower extremitiesStart: 01-04-2025 End: 54-22-9537jonjrvrxwkNOUTT M ALDANot AvailableStart: 10-13-2024 End: 72-33-4386Gwnhic flowsheetSteven A Rusher DPM Work Phone: noms PODIATRYStart: 10-13-2024 End: 65-19-2035Bczyej flowsheetSteven A Rusher DPM Work Phone: noms PODIATRYStart: 10-13-2024 End: 38-07-8299Pxqlws outpatient visit 15 minutesSteven A Rusher DPM Work Phone: noms PODIATRYComment on above:Venous insufficiency (chronic) (peripheral) (Primary Dx); Swelling of right lower extremity; Swelling of left lower extremity; Nocturnal leg crampsStart: 10-13-2024 End: 13-54-9137vqbuaspvbrCDEZUG A RUSHERNot AvailableStart: 09-29-2024 End: 48-31-4342Dozmdh Ana María Blas MD Work Phone: noms SWS DERMStart: 09-29-2024 End: 60-04-1174Uuoryf flowsheetEmfiordaliza Blas MD Work Phone: noms SWS DERMStart: 09-29-2024 End: 74-58-4290Upyvwj outpatient visit 25 minutesEmily Enzo Blsa MD Work Phone: noms SWS DERMComment on above:Other seborrheic dermatitis (Primary Dx); Lentigines; Melanocytic nevus of trunk; Solar purpura (CMS/HCC); Seborrheic keratosis; Seborrheic keratosis, inflamedStart: 09-29-2024 End: 33-18-7307yzcrbkierzMCSCP A PETITTINot AvailableStart: 07-28-2024 End: 94-64-7251kzedpofpgyEPPAS M ALDANot AvailableStart: 07-28-2024 End: 23-65-0707Mvbsvi outpatient visit 25 minutesJessica Bergman MD Work Phone: noms CI FMComment on above:Left hip pain (Primary Dx); Right leg pain; Slow transit constipationStart: 04-06-2024 End: 58-90-9946Wsziwv outpatient visit 25 minutesEmily Enzo Blas MD Work Phone: noms SWS DERMComment on above:Other seborrheic dermatitis (Primary Dx)Start: 04-06-2024 End: 08-18-9643hpwxxnbstoZSUWP A PETITTINot AvailableStart: 04-06-2024 End: 57-83-6141Gxdnkz flowsheetMarlene Blas MD Work Phone: noms SWS DERMStart: 04-06-2024 End: 99-62-0927Btifqu flowsheetMarlene Blas MD Work Phone: noms SWS DERMStart: 03-18-2024 End: 13-10-3894ctitjqhiskCEQFQ HEMMERFacility:[facility] DHStart: 03-18-2024 End: 55-75-3307Ttkbgic encounter procedureNomi Vazquez [phone]-DflcvWooster [facility] Start: 03-16-2024 End: 00-83-0006Aqrdvl outpatient visit 25 minutesAngedanuta Barahona CARDIAC/VASCULAR SONOGRAPHER Work Phone: noms [facility] ROUTEComment on above: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); Subarachnoid cyst; Neck pain; Poor sleep hygieneStart: 03-16-2024 End: 61-33-4036nzkmvlyppkIOFAGH SHANTELLMORNot AvailableStart: 03-16-2024 End: 42-64-4871Cwwiyn flowsheetAngedanuta Barksdaler CARDIAC/VASCULAR SONOGRAPHER Work Phone: noms [facility] ROUTEStart: 03-16-2024 End: 59-77-4980Vxajyh flowsheetAngedanuta Oakleymor CARDIAC/VASCULAR SONOGRAPHER Work Phone: noms [facility] ROUTEStart: 03-05-2024 End: 48-33-3386neuemnaxtaIbwzvji A. MouchliFacility:FTMCStart: 03-05-2024 End: 36-87-8469Ngetchd encounter procedureNomi Vazquez [facility] Start: 03-02-2024 End: 35-73-5270Jxdakkrax Result EncounterJessica Bergman MD Work Phone: noms External Department UnsolicitedStart: 03-02-2024 End: 22-09-0778Ukqtxouaa Result EncounterJessica Bergman MD Work Phone: noms External Department UnsolicitedStart: 02-27-2024 End: 01-72-1228mmeshhpwxeTuamwmq A. MouchliFacility:FTMCStart: 02-27-2024 End: 36-94-2815Wvzxndv encounter procedureNomi Vazquez [facility] Start: 02-25-2024 End: 23-60-7123Jhjpsm outpatient visit 15 minutesHiantoine Gonzalez MD Work Phone: NOMS CI ENTComment on above:Acute otalgia, bilateral (Primary Dx); Bilateral impacted cerumenStart: 02-25-2024 End: 73-21-7852ugyyfvwednBQTSQN H TIMMISNot AvailableStart: 02-24-2024 End: 24-51-7667odsyvapxagAxpqg J [facility] CenterboFacility:FTMCStart: 02-24-2024 End: 75-67-3119Dziureo encounter procedureSteve Liss [facility] Start: 02-12-2024 End: 98-13-9257phxizhirfiXJCAC HEMMERFacility:[facility] DHStart: 02-12-2024 End: 02-35-9615Koqxjbu encounter Reena Vazquez [phone]-BrmgrWooster Community Hospital [facility] Start: 02-09-2024 End: 04-34-1853Muetbkffv Result EncounterJessica Bergman MD Work Phone: NOMS External Department UnsolicitedStart: 02-09-2024 End: 58-25-5595Czzcihvdx Result EncounterJessica Bergman MD Work Phone: NOSV External Department UnsolicitedStart: 01-27-2024 End: 77-89-3640Xbdzi of hemosiderin, quantJessica Bergman MD Work Phone: NOMS HealthcareStart: 01-27-2024 End: 75-12-9489Zvfnky flowsDanelle Bergman MD Work Phone: NOMS CI FMStart: 01-27-2024 End: 99-38-5476Mwstun Darren Bergman MD Work Phone: NOMS CI FMStart: 01-27-2024 End: 66-25-1193Ozpdwlh encounter procedureJessica Bergman MD Work Phone: NOTI HealthcareComment on above:Routine general medical examination at health care facility (Primary Dx); Estrogen deficiency; Screening for lipid disorders; Medicare annual wellness visit, subsequent; Dermatochalasis of both lower eyelids; Chronic idiopathic constipationStart: 01-27-2024 End: 19-88-0606tbsjyrzuvzMFQHB M ALDANot AvailableStart: 01-22-2024 End: 84-83-2884Bbpeqdo encounter procedureCarlo Corona PhD Work Phone: noMS NEUROLOGYComment on above:Memory loss (Primary Dx); Subarachnoid cyst; Chronic insomniaStart: 01-22-2024 End: 93-64-1556zzucperhwuOTSVR ALDANot AvailableStart: 01-20-2024 End: 82-77-8729gimtlzkqcrREFMCQ DANNERNot AvailableStart: 01-13-2024 End: 17-62-8598Vzcbmt Kofi Corona PhD Work Phone: NOVF NEUROLOGYStart: 01-13-2024 End: 07-48-5669Gmpddb Kofi Corona PhD Work Phone: NOIR NEUROLOGYStart: 01-13-2024 End: 52-86-8382Hbyyoel encounter procedureCarlo Corona PhD Work Phone: NOMS NEUROLOGYComment on above: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); Memory loss; Subarachnoid cyst; Chronic insomniaStart: 01-13-2024 End: 73-82-1366iimybfepnsOMPXDZRM DENBESTENNot AvailableStart: 01-09-2024 ambulatoryPA Alejandro AlatorreoFacility:[facility] DHStart: 01-09-2024 End: 94-21-8330Itelqi Janet DOMINGUEZ Work Phone: NOMS CI FMStart: 01-09-2024 End: 67-83-6588Pvkvgk Janet DOMINGUEZ Work Phone: NOMS CI FMStart: 01-09-2024 End: 33-52-3408Hgjuss outpatient visit 15 minutesCary Duran PA Work Phone: NORO CI FMComment on above:Alternating constipation and diarrhea (Primary Dx); Chronic idiopathic constipationStart: 01-09-2024 End: 50-49-3140aiqphvaeopNXQCF M HEMMERNot AvailableStart: 12-28-2023 End: 27-86-7116Mbjezebny Result EncounterCary Espinozateo PA Work Phone: NOFZ External Department UnsolicitedStart: 12-28-2023 End: 53-97-2475Mdwfnxmkw Result EncounterCary Espinozamer PA Work Phone: noms External Department UnsolicitedStart: 12-26-2023 End: 87-65-6496Tdkjgi outpatient new 45 minutesNicole Nas DO Work Phone: noms [place] STATE ROUTEComment on above:Memory loss; MCI (mild cognitive impairment) with memory loss; Subarachnoid cyst; Neck pain; Tension headacheStart: 05-24-2023 End: 20-70-9304ojdqwwlpiqFxxptMarlo Bergman MDFacility:ENT SpecStart: 02-26-2022 End: 40-62-5356pxivnreivqDW RUGEN ALDAFacility:W1Fqfqv: 12-62-7475Awgwpo outpatient visit 15 minutesAshley Hensonloemer Other [facility] OfficeStart: 18-86-9047Jtkulc outpatient new 20 minutesGregorialixochilt Hensonloemer Other [facility] OfficeStart: 11-18-2016Medicare LabMekhi Champion Other bvma481-3413UAWK-WtdIhvqx: 24-13-2156Czsouj outpatient visit 25 minutesMekhi R Champion Other [facility] OfficeStart: 51-74-0532Byjk-InMekhi Champion Other [facility] OfficeStart: 76-14-0798Gdekqsheila Mejias Other [facility] OfficeStart: 66-25-6041Hyrkff outpatient visit 25 minutesMark R Champion Other [facility] OfficeStart: 06-02-2016Medicare LabMark R Champion Other [phone]-YhyDlatu: 11-56-0195Nbvlsxj general medical [facility] Start: 29-88-2527Beyzrv ServicesLucaslily Graham Pritchett Other [facility] OfficeStart: 00-66-3696Xgnbau outpatient visit 25 minutesMark R Champion Other [facility] OfficeStart: 11-30-2015Medicare LabMark R Champion Other [id number]-VfjGitlh: 75-14-8833Qgrn-InMekhi R Champion Other [facility] OfficeStart: 06-02-2015Medicare LabMark R Champion Other [phone]-CupIeaoz: 48-05-2098Mnlpug outpatient visit 25 minutesMark R Champion Other [facility] OfficeStart: 12-02-2014Medicare LabMark R Champion Other [phone]-NgdFscwv: 94-55-8480Oftjyw ServicesMark R Champion Other [facility] OfficeStart: 97-19-2612Dndq-InMekhi R Champion Other [facility] OfficeStart: 93-00-3204Tviursheila Verde Other [facility] OfficeStart: 06-03-2014Medicare LabMark R Champion Other [phone]-LwfGbykb: 04-98-7993Tbeamk ServicesMark R Champion Other [facility] OfficeStart: 12-03-2013Medicare LabMark R Champion Other [phone]-JotIhlsi: 80-47-4043Mwjpiz ServicesMark R Champion Other [facility] OfficeStart: 98-41-5055Ifjk-InMark R Champion Other [facility] OfficeStart: 06-04-2013Medicare LabMekhi Champion Other [phone]-IsuVoejl: 33-20-5250Wqnkvd ServicesMekhi Champion Other [facility] Office Procedures DateProcedureProcedure DetailPerforming ClinicianStart: 58-82-2942NKREZQXEDWH SKIN LESIONEmily Enzo Blas MD Work Phone: Start: 13-58-2847DdoqvtsrumcbmzmcreuwrtkruoNmmbieq Mouchli Start: 64-96-3331OZ TOMOSYNTHESIS SCREENING Betty Bergman MD Work Phone: Start: 95-41-3091IS DEXA AXIAL SKELETONJessica Bergman MD Work Phone: Start: 12-28-2023. DIFFICILE Lynda DOMINGUEZ Work Phone: Start: 48-22-7711Zvb meds verified w/pt or reJulie SchloemerStart: 21-99-4389Cmo meds verified w/pt or reJulie SchloemerStart: 85-74-8605FjuutxuosoFiywsdt Mouchli Start: 42-35-4003Enclb metabolic panel calcium total Ashley SchloemerStart: 07-39-3737Kkyrc count complete automatedJulie Schloemer Start: 08-55-0563Fwtmy panelJulie SchloemerStart: 09-96-3260Vmzrnekgavo alanine amino alt sgptJulie SchloemerStart: 74-94-5959Pzlknjubuwl aspartate amino ast sgotJulie SchloemerStart: 29-18-8911Lgj emg 1 xtr w/wo related paraspinal areas Ashley SchloemerStart: 67-44-4251Bivfp metabolic panel calcium ionizedJulie SchloemerStart: 95-95-2787Neskm metabolic panel calcium totalJulie Schloemer Start: 70-91-2757Luieruio vacc, 3 yrs & >, imJulie SchloemerStart: 74-86-0730Kow bone density study 1/> sites axial skelJulie SchloemerStart: 75-40-4058Rgd bone density study 1/>sites appendiclr skelJulie SchloemerStart: hydroxy includes fractions if performedJulie SchloemerStart: 27-43-1284Atrtj metabolic panel calcium totalJulie SchloemerStart: 46-12-8420Ngdsf panelJulie SchloemerStart: 28-16-3441Nbctugluyqs alanine amino alt sgptJulie Schloemer Start: 85-86-6183Vnsdduvcgdm aspartate amino ast sgotJulie SchloemerStart: 68-36-1197Wwgri pneumococcal vaccineJulie SchloemerStart: hydroxy includes fractions if performedJulie SchloemerStart: 35-38-1667Mptmfqnbfttwz metabolic panelJulie SchloemerStart: 54-37-0359Lrowo panelJulie SchloemerStart: 09-08-4773Mgomjhxk vacc, 3 yrs & >, imJulie SchloemerStart: hydroxy includes fractions if performedJulie SchloemerStart: 62-68-7238Nvtjd metabolic panel calcium totalJulie SchloemerStart: 96-11-2160Nlr meds verified w/pt or re Ashley [facility] HospitalloemerStart: 28-31-0012Fhpcv panelJulie SchloemerStart: 09-28-2014 TOBACCO NON-USERJulie SchloemerStart: 51-37-7601Goopgxiynoh alanine amino alt sgptJulie SchloemerStart: 87-90-8766Srlshtavznt aspartate amino ast sgotJulie SchloemerStart: 02-36-4501Ppmqn pneumococcal vaccineJulie SchloemerStart: 37-29-8766Wwnmb metabolic panel calcium totalJulie SchloemerStart: 82-46-1069Eak meds verified w/pt or reJulie SchloemerStart: 14-86-4511VLAWITQDL IMMUNIZATION ADMINISTERED OR PREVIOUSLY RECEIVEDJulie SchloemerStart: 01-66-9241Joiga panel Ashley SchloemerStart: 34-37-5993AHBNZRZ NON-USERJulie SchloemerStart: 03-30-2014 Transferase alanine amino alt sgptJulie SchloemerStart: 12-76-2964Vpkhtizafrs aspartate amino ast sgotJulie SchloemerStart: 07-62-9660Hmvyzvim vacc, 3 yrs & >, imJulie SchloemerStart: 46-81-4875Kyqw energy X-ray photon absorptiometry Ashley SchloemerStart: 66-30-1158Xss bone density study 1/> sites axial skelJulie SchloemerStart: hydroxy includes fractions if performedJulie SchloemerStart: 95-65-1292Kifdf metabolic panel calcium totalJulie Beaumont Hospitalloemer Start: 01-77-7669Rap meds verified w/pt or reJulie SchloemerStart: 09-29-2013 Lipid panelJulie SchloemerStart: 91-98-5929TICBXEA NON-USERJulie SchloemerStart: 86-78-7561Cjjpirihhqc alanine amino alt sgptJulie SchloemerStart: 09-29-2013 Transferase aspartate amino ast sgotJulie SchloemerStart: 39-17-278457 hydroxy includes fractions if performedJulie SchloemerStart: 30-04-8355Zpiwm metabolic panel calcium totalJulie Beaumont HospitalloemerStart: 57-83-9214Wrbum panelJulie Beaumont Hospitalloemer Start: 73-60-9865Wpswjrrlkev alanine amino alt sgptJulie SchloemerStart: 43-79-2955Nhyokpyaoza aspartate amino ast sgotJulie Beaumont HospitalloemerStart: 02-12-2013 Fluvirin vacc, 3 yrs & >, imJulie SchloemerAppendectomyAppendectomyMohamad Physicians Formula ColonoscopyColonoscopyMoTriton Systems, Inc Hernia repairHernia repairMoTriton Systems, Inc Ligation of fallopian tubeTubal ligationMoThefuture.fmad Physicians Formula Plan of Treatment DateCare ActivityDetailAuthorStart: 09-29-2025 End: 79-89-4531Yulgvoi encounter procedureNOMS SWS DERMStart: 09-30-2025Medicare Annual Wellness (AWV)Medicare Annual Wellness (AWV)[facility] HealthcareStart: 01-04-2025 End: 85-61-3714Sabhmwm encounter procedureNOMS CI FMComment on above:Arrived Start: 97-30-2915Aarrroruh vaccinationInfluenza Vaccine (#1)[facility] Start: 12-03-2024 End: 49-67-3524Srhsusb encounter fvrvfycom51/07/2025 2:20 PM EDT Office Visit [facility] [place] [address] [place] [address] Julia Barahona NP [address] [place], [place] [facility]A BELLEVUEStart: 10-13-2024 End: 32-68-9618Wwqcdrk encounter procedureNOMS FH PODIATRYComment on above: ArrivedStart: 09-29-2024 End: 22-89-7588Xcozrmq encounter procedureNOMS SWS DERMComment on above:Arrived Start: 07-20-2024 End: 52-48-0338Chgaakx encounter erjgzduyk42/24/2025 2:00 PM EDT Office Visit [facility] [address] [place] [address] Jessica Bergman MD [address] [place] [address] [facility] CI FMStart: 07-06-2024 End: 87-42-2455Rulzlbr encounter ncmieuoxi29/10/2025 2:40 PM EDT Office Visit [facility] [place] [address] [place] [address] Julia Barahona NP [address] [place], [place] [facility] [place] ROUTEStart: 04-06-2024 End: 88-26-7953Qwyxnzj encounter procedureNOMS SWS DERMComment on above:Arrived Start: 03-16-2024 End: 92-88-0196Xncwvgb encounter procedureNOCLEVELAND CLINIC UNION [facility] ROUTEComment on above:ArrivedStart: 01-27-2024 End: 65-75-2340RGP Skeletal system Views for bone densityDEXA bone density Imaging Routine Estrogen deficiency Expected: 01/27/2024, Expires: 01/26/2025 [facility] Work Phone: Comment on above:Expected: 01/27/2024, Expires: 01/26/2025Start: 01-27-2024 End: 16-68-8108Vwjao 1996 panel - Serum or PlasmaLipid panel Lab Routine Screening for lipid disorders Expected: 01/27/2024 (Approximate), Expires: 0 01/26/2025NOMS HealthcareComment on above:Expected: 01/27/2024 (Approximate), Expires: 01/26/2025Start: 01-27-2024 End: 93-82-2774Wqutnnk encounter procedureNOMS CI FMComment on above:Arrived Start: 01-22-2024 End: 37-37-3995Avlshqy encounter loriyfbad84/25/2024 11:30 AM EDT Office Visit [facility] [address] [facility] [address] [place] [phone] ST NEUROLOGYStart: 01-20-2024 End: 66-21-4636Afznflmipecy / ancillary services laccrjmhjs32/23/2024 1:00 PM EDT Ancillary Procedure [facility] [address] [place] [address] FRGBCLEVELAND CLINIC UNION [facility]OS[facility] ROUTEStart: 09-18-2024Medicare Annual Wellness (AWV)Medicare Annual Wellness (AWV)[facility] HealthcareStart: 01-13-2024 End: 78-45-4122Zmaiygl encounter procedureNONM ST NEUROLOGYComment on above: ArrivedStart: 01-09-2024 End: 16-44-0201Lkxngci encounter nyotvvigo51/12/2024 11:30 AM EDT Office Visit [facility] [address] [place] [address] Cary Duran PA [address] [place] [address] [facility] FMComment on above:ArrivedStart: 93-29-7034Hvdqpulox vaccinationInfluenza Vaccine (#1)[facility] HealthcareStart: 12-26-2023 End: 06-50-2231Klkzrfwfh (Vitamin B12) [Mass/volume] in Serum or PlasmaVitamin B12 Lab Routine Memory loss MCI (mild cognitive impairment) with memory loss Expected: 12/26/2023 (Approximate), Expires: 12/25/2024[facility] Work Phone: comment on above:Expected: 12/26/2023 (Approximate), Expires: 12/25/2024Start: 12-26-2023 End: 56-13-1185QQG awake or drowsyEEG awake or drowsy Neurology Routine Memory loss MCI (mild cognitive impairment) with memory loss Expected: 12/26/2023 (Approximate), Expires: 12/25/2024NONM HealthcareComment on above:Expected: 12/26/2023 (Approximate), Expires: 12/25/2024Start: 12-26-2023 End: 51-69-3360Bjfwfj [Mass/volume] in Serum or PlasmaFolate Lab Routine Memory loss MCI (mild cognitive impairment) with memory loss Expected: 12/26/2023 (Approximate), Expires: 12/25/2024NONM HealthcareComment on above:Expected: 12/26/2023 (Approximate), Expires: 12/25/2024Start: 12-26-2023 End: 28-97-7436Wwmwmsjitcp [Units/volume] in Serum or PlasmaTSH Lab Routine Memory loss MCI (mild cognitive impairment) with memory loss Expected: 12/26/2023 (Approximate), Expires: 12/25/2024NONM HealthcareComment on above: Expected: 12/26/2023 (Approximate), Expires: 12/25/2024 Immunizations Immunization DateImmunizationNotesCare ZiutgmggIwbknchj05-78-4613xxihqwvac virus vaccine, unspecified formulationNomi Vazquez [phone]-Rqyuc[address] [place], [place] [address]0-18-2024 influenza, high dose seasonal, preservative-freeJessica Bergman MD Work Phone: [facility] SpringsQqsoziploc97-34-9148wlasftcnz virus vaccine, unspecified formulationNicole Nas DO Work Phone: [phone]-HswdaSelect [facility] [place]09-29-2023 Influenza, High-dose Seasonal, Quadrivalent, Preservative FreeNicholidania Corona PhD Work Phone: [facility] SpringsZwsyiyawmf30-02-4357ftsmsctio virus vaccine, unspecified formulationMohamad Mouchli [phone]-FguguSelect Medical [facility]ty [facility] [place]10-05-2022 influenza, high dose seasonal, preservative-freeNicholas Chloe PhD Work Phone: [facility] SpringsEvndaaegny80-23-3293Peteabvng, High-dose Seasonal, Quadrivalent, Preservative FreeNicole Nas DO Work Phone: [facility] SpringsPvdwyvinnp00-73-5096jclegriyy virus vaccine, unspecified formulationMohamad Mouchli [phone]-CmewnSelect Medical [facility] [place]10-20-2021 Influenza, High-dose Seasonal, Quadrivalent, Preservative FreeNicole Nas DO Work Phone: [facility] SpringsXozhaztkdy02-42-7924CTSW-LxA-1 (COVID-19) mRNA BNT-162b2 vaxMohamad Mouchli [phone]-ZxzaiSelect Medical Specialty [facility] [place]02-17-2021 SARS-CoV-2 (COVID-19) mRNA BNT-162b2 vaxMohamad Mouchli [phone]-OudqvWooster Community Hospital Digestive [facility] LimaComment on above:Result Comment: 2024-02-12: [id number]-EpJ-1 (COVID-19) mRNA BNT- 162b2 vaxMohamad Mouchli [phone]-AsmrdWooster Community Hospital Digestive HealthComment on above:Result Comment: 2024-02-12: CYB1970-63-8397ewpxtxgpo virus vaccine, unspecified formulationMohamad Mouchli [phone]-BgfqySelect Medical [facility]ty [facility] [place]09-25-2020 influenza, high dose seasonal, preservative-freeNicole Nas DO Work Phone: [facility] SpringsJhnmqizgth18-84-0825mququnspu virus vaccine, unspecified formulationMohamad Mouchli [phone]-ClkaqSelect [facility] [place]10-22-2019 influenza, high dose seasonal, preservative-freeNicole Nas DO Work Phone: [facility] SpringsSkbmyrtjlk41-62-3875beszmajcu virus vaccine, unspecified formulationMohamad Mouchli [phone]-FwchrSelect Medical [facility]ty [facility] [place]10-10-2018 influenza, high dose seasonal, preservative-freeNicole Nas DO Work Phone: [facility] SpringsAqmprelsnt53-55-2767nsinchbyi virus vaccine, unspecified formulationMohamad Mouchli [phone]-QrenxSelect Medical [facility] [place]10-27-2017 influenza, high dose seasonal, preservative-freeNicole Nas DO Work Phone: [facility] SpringsDqzccknpfj56-12-0969gjhiagsyk virus vaccine, unspecified formulationMohamad Mouchli [phone]-SmzuoSelect [facility] [place]09-30-2016 influenza, seasonal, injectableJulie [facility] SystemTunesat [id number] Flu Admin fee; Translations: [Administration of influenza virus vaccine][facility] CenterInspire Energylincoln hospitalTunesat [id number] polysaccharide vaccine, 23 valent; Translations: [PNEUMOCOCCAL VACC 23 DEON IM][facility]10-20-2015influenza, seasonal, injectableJulie [facility] SystemTunesat 10038010-20-2015Medicare Flu Admin fee; Translations: [Administration of influenza virus vaccine]Ashley GoodGuideSt. John of God HospitalWear [facility] 1209731-78-0555jqtwxfmucvkt conjugate vaccine, 13 valent Joshua Lovell DO Work Phone: [phone]-WngtuSelect Medical Specialty Hospital [facility] [place]12-02-2014 pneumococcal conjugate vaccine, 13 valent; Translations: [PNEUMOCOCCAL VACC 13 DEON IM]AshleyCrunchyrollSt. John of God HospitalWear [facility] 10-615936-39-5604kkbxcqqex virus vaccine, unspecified formulation; Translations: [Influenza Administration Fee (Medicare)]Ashley GoodGuideAsp[facility] [phone] virus vaccine, unspecified formulation; Translations: [Administration of influenza virus vaccine]AshleyCrunchyrollSt. John of God HospitalWear [facility] 10-523326-67-7179vereaaovb, seasonal, injectableJulie [facility] [employer] [facility] Payers DatePayer CategoryPayerPolicy [id number] Health Insurance [id number] 2001Medicare [id number] [id number] 2.840.1.392911.3.68158-83-6531Jcshpkh Health [id number] 2.0.1.38220[id number] 2.840.1.551174.3.579.2.593 [id number] 2.840.1.665976.3.579.2.15931-08-9540Omtzvzg [id number] 2.16840.1.663556.3.57[id number] 2.16840.1.860596.3.57[id number] 2.16840.1.879224.3.57[id number] 2.16840.1.373923.3.57[id number] 2.840.1.168259.3.57[id number] 2..1.288044.3.57[id number] 2.840.1.074141.3.57[id number] 2.840.1.545728.3.57[id number] 2.840.1.748094.3.57[id number] 2..1.609363.3.57[id number] 2.840.1.503330.3.57[id number] 2.840.1.112412.3.57[id number] 2.840.1.483127.3.57[id number] 2.840.1.807656.3.57[id number] 2.840.1.393354.3.57[id number] 2.16.840.1.802125.3.57[id number] 2.16.840.1.576320.3.579.2.1259Self-pay Social History DateTypeDetailFacilityStart: 09-27-2022 End: 53-49-2844Ytgdz smokerWooster Community Hospital Digestive HealthStart: 56-51-7245QsrriazUjrvfpwhaMemorial Health System [facility] Start: 94-45-1313NeiuqpleLfupoqggxRegional Medical Center igadget.asia Start: 10-12-2022 End: 35-80-0871Vzl Assigned At BirthFemalUniversity Hospitals TriPoint Medical Centertart: 02-31-0559Ediifqs use and exposureSmokeless tobacco non-userNOMS Healthcare Start: 01-27-2024 End: 60-17-8821Ycdpaavep beverage intakeCurrent drinker of alcohol (finding)[facility] HealthcareStart: 02-25-2024 End: 36-59-5976Pfmjakazy beverage intakeNOMS HealthcareHow often to you have a drink containing alcohol?Monthly or lessNOMS HealthcareHow many standard drinks containing alcohol do you have on a typical day?1 or 2NOMS HealthcareHow often do you have 6 or more drinks on 1 occasion?NeverNOMS HealthcareStart: 09-27-2022 Alcohol Commentcaffeine 3-4 cups/dayNOMS HealthcareStart: 95-41-2270Jeb assigned at birthNot on fileNONM HealthcareStart: 10-55-9214Sqegsxc smoking statusNever [facility] Health Functional Status SgoeAnclozbuncKdemucFriiatxx45-64-2232Ujpcfhq Health Questionnaire 2 item (PHQ- 2) [Reported][facility] SpringsZeatnbviva87-84-7286Iutsfgj Health Questionnaire 2 item (PHQ- 2) [Reported][facility] SpringsViobxrloqf93-55-3882Xhralqqbbo StatusN/AFProMedica Memorial Hospital Digestive Ignouj79-24-1367Ggfbpfrerz StatusN/AFisher - [facility] CenterAhoueh51-65-8376Wngrjyadsr StatusN/AFisher-[facility] Digestive Health Clinical Notes 12-26-2023 to 01-04-2025 Note Date & QwxsPrggRpyhdkzg61-24-7510 History of Present illness Narrative* Jessica Bergman MD - 01/04/2025 1:44 PM EDTAssociated Problem(s): Asymptomatic varicose veins of both lower extremities Consider Vein Sclerosing * Jessica Bergman MD - 01/04/2025 1:41 PM EDTAssociated Problem(s): Osteoporosis This is a chronic medical condition that is stable since last assessment. No changes in treatment are suggested at this time. Continue Current meds. * Jessica Bergman MD - 01/04/2025 1:40 PM EDTAssociated Problem(s): Routine general medical examination at health care facility Colonoscopy every 10 years or Cologuard every [...] Ultrasound of Aorta to screen for Anuerysm * Jessica Bergman MD - 01/04/2025 1:30 PM EDT Images from the original note were not included. Subjective : Chief Complaint: Berenice Chavira is an 89 y.o. female here for an annual wellness visit. Varicose Veins addressed I have reviewed and reconciled the history and medication list with the patient today. Current Outpatient Medications Medication Sig Dispense Refill alendronate (Fosamax) 70 MG tablet Take 1 tablet by mouth every 7 (SEVEN) days Take in the morning with a full glass OF water, on an empty stomach, and do not take anything else by mouth or lie down for the next 30 MINUTES 12 tablet 3 Calcium Carb-Cholecalciferol (CALCIUM 500 + D3 PO) Take by mouth Clobetasol Propionate 0.05 % shampoo Once a week lather on scalp, leave on 5 minutes before rinsing/30 day 118 mL 11 cyanocobalamin (Vitamin B-12) 1000 MCG tablet Take 1,000 mcg by mouth Daily folic acid (Folvite) 800 MCG tablet Take by mouth Daily No current facility-administered medications for this visit. Review of Systems Constitutional: Negative for chills, fatigue, fever and unexpected weight change. Respiratory: Negative for cough. Cardiovascular: Negative for chest pain. Gastrointestinal: Negative for abdominal pain, blood in stool, constipation, diarrhea, nausea and vomiting. Genitourinary: Negative for dysuria, enuresis, frequency and hematuria. Musculoskeletal: Negative for back pain and joint swelling. Neurological: Negative for dizziness, tremors, syncope, facial asymmetry and speech difficulty. Psychiatric/Behavioral: Negative for agitation, behavioral problems, confusion and dysphoric mood. The patient is not nervous/anxious. List of current healthcare providers: Patient Care Team: Jessica Bergman MD as PCP - General (Family Medicine) Jessica Bergman MD as PCP - ACO [employer] Medicare Annual Visit Over the past 2 weeks, how often have you been bothered by any of the following problems? Little interest or pleasure in doing things: Not at all Feeling down, depressed, or hopeless: Not at all Patient Health Questionnaire-2 Score: 0 Crowder Fall Risk History of Falling, Immediate or Within 3 Months: No Health Risk Assessment Form Do you need help eating, bathing, using the toilet, dressing, or getting around your home?: No Can you prepare your own meals?: Yes Can you do your own housework without help?: Yes Can you shop for groceries or clothes without help?: Yes Do you exercise for about 20 minutes 3 or more days a week?: Yes How confident are you that you can control and manage most of your health problems?: Very confident Can you mange your money, credit cards and accounts, pay bills and taxes?: Yes Vision Screening: Yes, no gross abnormalities Hearing Screening: Yes, no gross abnormalities Cognitive Screening Self Assessment: No overt cognitive deficiency is apparent by direct observation Three Word Registration: Markel Curry Picture Clock Drawing: Normal Clock - 2 Three Word Recall: All 3 words correct - 3 Total Score (0-5 Points): 5 Pain Assessment Pain Score: 0 - No pain Advance Care Planning Do you have a living will?: Yes Do you have a medical power of litigation attorney?: Yes Objective : BP 122/72 Pulse 73 Ht 5' 4 Wt 112 lb SpO2 98% BMI 19.22 kg/m No results found. Physical Exam Constitutional: General: She is not in acute distress. Appearance: Normal appearance. HENT: Head: Normocephalic. Neck: Vascular: No carotid bruit. Cardiovascular: Rate and Rhythm: Normal rate and regular rhythm. Pulmonary: Effort: Pulmonary effort is normal. No respiratory distress. Breath sounds: Normal breath sounds. Skin: Comments: Varicose veins medium Some broken blood vessels Neurological: General: No focal deficit present. Mental Status: She is alert and oriented to person, place, and time. Psychiatric: Mood and Affect: Mood normal. Assessment/Plan : The following health maintenance schedule was reviewed with the patient and provided in printed form in the after visit summary: Health Maintenance Topic Date Due Influenza Vaccine (1) 12/28/2024 Pneumococcal Vaccine: 65+ Years Completed Advance Care Planning Patient willing to discuss ACP. If in place, renew periodically. If not in place, recommend obtaining ACP. Assessment/Plan Problem List Items Addressed This Visit Osteoporosis This is a chronic medical condition that is stable since last assessment. No changes in treatment are suggested at this time. Continue Current meds. Routine general medical examination at health care facility - Primary Colonoscopy every 10 years or Cologuard every [...] Ultrasound of Aorta to screen for Anuerysm Asymptomatic varicose veins of both lower extremities Consider Vein Sclerosing No orders of the defined types were placed in this encounter. Electronically signed by Jessica Bergman MD on January 04, 2025 documented in this encounterSaint Mary's Hospital of Blue SpringsPozslnljex58-19-3179 History of Present illness Narrative* Lisandro Villeda, DPM - 10/13/2024 2:00 PM EDT Images from the original note were not included. Subjective Patient ID: Berenice Chavira is a 89 y.o. female who presents for Foot Pain (Pain and swelling withBL feet ankles, frequent debra horses . Right leg seems to be worse with swelling. Has been ongoing for a while, but gradually has gotten worse. ). HPI Chief complaint: Presents with concerns relative to swelling of the lower extremities; typically worse on the right. This has been a chronic condition of multiple years duration; and showing no particular progression. She does note occasional night cramps; typically 1 or 2 episodes per month, which has remained stable multiple years; without progression. Patient is also concern with cosmesis of ugly veins ; which again have remained stable in appearance multiple years. Medications Current Outpatient Medications: alendronate (Fosamax) 70 MG tablet, Take 1 tablet by mouth every 7 (SEVEN) days Take in the morningwith a full glass OF water, on an empty stomach, and do not take anything else by mouth or lie downfor the next 30 MINUTES, Disp: 12 tablet, Rfl: 3 Calcium Carb-Cholecalciferol (CALCIUM 500 + D3 PO), Take by mouth, Disp: , Rfl: Clobetasol Propionate 0.05 % shampoo, Once a week lather on scalp, leave on 5 minutes before rinsing/30 day, Disp: 118 mL, Rfl: 11 cyanocobalamin (Vitamin B-12) 1000 MCG tablet, Take 1,000 mcg by mouth Daily, Disp: , Rfl: folic acid (Folvite) 800 MCG tablet, Take by mouth Daily, Disp: , Rfl: Allergies Aspirin Past Surgical History Past Surgical History: Procedure Laterality Date COLON SURGERY 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 No radiation. Cecum CYSTOSCOPY 2010 or hematuria ESOPHAGOGASTRODUODENOSCOPY 03/05/2024 Abnormal. See report TUBAL LIGATION Family History Family History Problem Relation Name Age of Onset Heart disease Mother Diabetes Mother Cancer Mother Heart disease Father No Known Problems Sister 2 Brain Aneurysm Daughter No Known Problems Son 1 Melanoma Neg Hx Objective General Examination: GENERAL EXAMINATION: Alert and oriented. Pleasant disposition. Vascular: DORSALIS PEDIS PULSE: 2/4, bilaterally . POSTERIOR TIBIAL PULSE: 1/4, bilaterally . TEMPERATURE GRADIENT: warm to warm. EDEMA: Stable, mild, non-pitting edema bilateral ankles; multiple telangiectasias and varicosities;more prominent on the right lower extremity; superficial varicosities over the pre-tibial area. HOMANNS SIGN: negative , bilateral. CALF: supple , nontender , bilateral. CAPILLARY FILLING TIME(sec): capillary fill intact bilateral digits less than 3 secs . Neurologic: MUSCLE POWER: Slight loss of active plantar flexion left ankle (4/5); no other focal deficits are noted. TINELS SIGN: Negative along the tarsal canal. SHARP SENSATION: Tactile and soft touch sensation intact. Dermatologic: SKIN FINDINGS: Intact. Skin turgor is good. HYPERTROPHIC LESION: No forefoot or digital keratotic pressure lesions are noted. NAIL PATHOLOGY: 2nd digits bilateral: DSO deformity. Bilateral great toes: Similar DSO/pincer toenail deformity; the distal margins are incurvated/cryptotic, keratotic, tender, non-inflamed, without drainage. INGROWN NAIL PATHOLOGY: digits 1, 2 bilateral as described. INTERDIGITAL MACERATION: Clean, dry, non-inflamed. DERMATOLOGY: Focused exam right ankle: Well-defined slightly raised pigmented lesion: Located on the anterior-medial joint line area. Uniform coloration; with smooth, well delineated well-defined margins. Measurements: 0.7 x 0.4 x 0.1 cm. No ulcerative changes are noted. Stable appearance multiple years without notable change. No other similar lesions are noted. SKIN PATHOLOGY: texture, turgor, hair growth, within normal limits . Orthopedic: GAIT ABNORMALITY: Mildly antalgic. FOOT MORPHOLOGY: Stance assessment: Symmetrical, rectus foot alignment. LIMB LENGTH DISCREPANCY: No apparent leg length discrepancy. JOINT RANGE OF MOTION: Demonstrates functional passive ankle, subtalar and MTP joint range of motion. Radiology: Assessment/Plan Longstanding varicosities, well-controlled with gradient compression sock therapy. Plan: Review of clinical findings relative to patient concerns, etiology and contributing/aggravating factors, treatment strategy, rationale and objectives. Encourage compliance with gradient compression sock therapy; patient remains well satisfied with true form stockings. Patient is receiving palliative nail care at a nail care clinic. Procedure: This note was created with the assistance of a speech recognition program. While intending to generate a timely document that accurately reflects the content of the visit, no guarantee can be provided that every grammatical or spelling mistake has been or will be identified or corrected. Thank you for your understanding. Lisandro Villeda DPM documented in this [facility]06-17-2025 Instructions* Patient Instructions* Lisandro Villeda DPM - 10/13/2024 2:00 PM EDT As noted documented in this [facility]06-03-2025 History of Present illness Narrative* Marlene Blas MD - 09/29/2024 1:00 PM EDT Skin Check Location: Patient requests a full body skin examination Dermatologic history: history of Actinic Keratosis, no history of skin cancer, no history of atypical moles Last visit: 1 year ago Follow up Diagnosis: Seborrheic Dermatitis Location: Face and scalp Last visit: 04/06/2024 Symptoms: red, flaky Status: terrible Current treatment: Ciclopirox 1% shampoo ordered, PA denied by insurance. Ketoconazole 2% shampoo ordered instead, patient did not get this filled Lesions: Location: nose Duration: 6 months Quality: scant bleeding at times Associated symptoms: redness Treatments: none Lesions: Location: Posterior shoulders Duration: months Quality: itchy Modifying factors: aggravated by picking Associated symptoms: red Treatments: none Other Problem: Bruising Location: Arms Duration: months Modifying Factor: aggravated by bumping skin Treatments tried/failed: none All pertinent medical history, medications, and allergies were reviewed. General Exam: alert, oriented to person, place, and time, normal affect, well appearing Unaccompanied Scalp, Examined , exam limited by hair Right leg Examined Head, Face Examined Left leg Examined Neck Examined Right foot Examined Chest Examined Left foot Examined Back Examined Buttocks Examined Abdomen Examined Digits,nails: Examined Right arm Examined Left arm Examined Lymphatics: Not examined Hands Examined Skin Exam 1. OTHER SEBORRHEIC DERMATITIS Head - Anterior (Face), Scalp Erythema and scale. Flaring today Discussed that seborrheic dermatitis is a chronic condition that can be controlled but not cured. Start clobetasol shampoo once weekly, leave on 5-10 min, then rinse. Notify office if flaring despitetreatment. Related Medications Clobetasol Propionate 0.05 % shampoo Once a week lather on scalp, leave on 5 minutes before rinsing/30 day 2. LENTIGINES (3) Head - Anterior (Face), Left Shoulder - Posterior, Right Shoulder - Posterior Scattered pettit macules in sun-exposed areas. The patient was informed that lentigines are benign pigmented lesions that occur on sun-exposed andsun-damaged skin. No treatment is necessary. Recommended regular use of broad spectrum sunscreen SPF 30 or higher 3. MELANOCYTIC NEVUS OF TRUNK Generalized Scattered benign appearing, regular brown to light brown melanocytic papules and macules with similar morphology Counseled regarding these benign growths. Rarely, a nevus can develop into malignant melanoma, so any changing nevi should be promptly re-evaluated. 4. SOLAR PURPURA (CMS/HCC) (2) Left Hand - Posterior, Right Hand - Posterior Scattered violaceous macules in sun exposed areas. Recommended regular sun protection. Can try OTC arnica cream if desired. 5. SEBORRHEIC KERATOSIS Right Hand - Posterior Stuck on verrucous, pettit-brown papules Patient was counseled regarding these benign growths. Removal is normally not necessary, but they may be removed if they are symptomatic or for cosmetic reasons. 6. SEBORRHEIC KERATOSIS, INFLAMED Neck - Posterior Brown stuck on verrucous scaly papule, symptomatic The patient was informed that symptomatic seborrheic keratoses are benign growths that become inflamed, itchy, tender, traumatized, caught on clothing, or bleed. Symptomatic lesions can be treated with cryotherapy or curretage. Thicker lesions treated with cryotherapy may require more than one treatment. The patient was instructed to notify the office if abnormal redness or tenderness develops atthe treatment site. Cryotherapy today, see procedure note. Diagnosis: Inflamed seborrheic keratosis Indication: Inflamed Consent: Verbal consent was obtained and risks were discussed, including, but not limited to risks of scarring, darker or plastics design engineer pigmentary changes, recurrence, incomplete removal and infection. Method: Liquid nitrogen was used to treat the lesion(s) with two 5-10 second freeze-thaw cycles Number of lesions treated: 1 Post-procedure instructions: Instructions were given verbally. The office will be contacted if the lesion fails to resolve despite treatment, or if a side effect develops such as abnormal crusting, scabbing, redness or tenderness Cryotherapy, skin lesion - Neck - Posterior Next Visit: 1 year [facility] [id number] History of Present illness Narrative* Jessica Bergman MD - 07/28/2024 1:58 PM EDTAssociated Problem(s): Constipation Does take Miralax and is effective * Jessica Bergman MD - 07/28/2024 1:57 PM EDTAssociated Problem(s): Right leg pain Restless Leg Syndrome Drink enough Electrolytes Could use Magnesium * Jessica Bergman MD - 07/28/2024 1:56 PM EDTAssociated Problem(s): Left hip pain On exam, looks like muscle * Jessica Bergman MD - 07/28/2024 1:30 PM EDT Images from the original note were not included. Subjective Patient ID: Berenice Chavira is a 88 y.o. female who presents for osteo/memory loss. Pt states sometimes her left hip will hurt her when getting up, this started within the last coupleof months Pt will have some leg pain in ;the middle of the night on her right leg Pt is not taking aricept, feels like doing ok and neurologist says test comes back ok When does exercises no issues Current Outpatient Medications on File Prior to Visit Medication Sig Dispense Refill alendronate (Fosamax) 70 MG tablet Take 1 tablet (70 mg) by mouth every 7 (seven) days Take in the morning with a full glass of water, on an empty stomach, and do not take anything else by mouth or lie down for the next 30 min. 12 tablet 3 Calcium Carb-Cholecalciferol (CALCIUM 500 + D3 PO) Take by mouth Ciclopirox 1 % shampoo Lather on wet hair, leave on 5 min, rinse 2-3 x week, 30 day supply 120 mL 11 cyanocobalamin (Vitamin B-12) 1000 MCG tablet Take 1,000 mcg by mouth Daily folic acid (Folvite) 800 MCG tablet Take by mouth Daily [DISCONTINUED] donepezil (Aricept) 10 MG tablet Take one at bedtime AFTER the 30 days of the 5 mg 30 tablet 3 [DISCONTINUED] donepezil (Aricept) 5 MG tablet Take 5 mg for 30 days at bedtime 30 tablet 0 No current facility-administered medications on file prior to visit. I have reviewed and reconciled the history and medication list with the patient today. Allergies Allergen Reactions Aspirin Other Reaction(s): hematuria Social History Tobacco Use Smoking status: Never Smokeless tobacco: Never Vaping Use Vaping status: Never Used Substance Use Topics Alcohol use: Yes Alcohol/week: 1.0 standard drink of alcohol Types: 1 Standard drinks or equivalent per week Comment: caffeine 3-4 cups/day Drug use: Never Family History Problem Relation Name Age of Onset Heart disease Mother Diabetes Mother Cancer Mother Heart disease Father No Known Problems Sister 2 Brain Aneurysm Daughter No Known Problems Son 1 Melanoma Neg Hx Past Medical History: Diagnosis Date Bilateral hearing loss Colon cancer (CMS/HCC) Does use hearing aid Heart palpitations Hematuria Hoarseness Impacted cerumen of both ears 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 No radiation. Cecum CYSTOSCOPY 2010 or hematuria ESOPHAGOGASTRODUODENOSCOPY 03/05/2024 Abnormal. See report TUBAL LIGATION Visit Vitals BP 134/80 Pulse 70 Ht 5' 4 Wt 114 lb SpO2 100% BMI 19.57 kg/m Smoking Status Never BSA 1.53 m Review of Systems Gastrointestinal: Positive for abdominal pain and constipation. Has IBS Neurological: Positive for headaches. Tension When quit working went away Objective Physical Exam Constitutional: General: She is not in acute distress. Appearance: Normal appearance. HENT: Head: Normocephalic. Neck: Vascular: No carotid bruit. Cardiovascular: Rate and Rhythm: Normal rate and regular rhythm. Pulmonary: Effort: Pulmonary effort is normal. No respiratory distress. Breath sounds: Normal breath sounds. Musculoskeletal: Back: Comments: Some pain Neurological: General: No focal deficit present. Mental Status: She is alert and oriented to person, place, and time. Psychiatric: Mood and Affect: Mood normal. Assessment/Plan Problem List Items Addressed This Visit Constipation Does take Miralax and is effective Left hip pain - Primary On exam, looks like muscle Right leg pain Restless Leg Syndrome Drink enough Electrolytes Could use Magnesium No follow-ups on file. documented in this encounterSaint [facility] [id number] History of Present illness Narrative* Marlene Blas MD - 04/06/2024 3:05 PM EST Lesions: Location: scalp Duration: months Quality: itchy Modifying factors: aggravated by picking Associated symptoms: rough, scaly- patient had EEG done in December, struggled to get the glue offher scalp. Hx of Juan. Derm. Intermittent itching continues to occur. Established patient All pertinent medical history, medications, and allergies were reviewed. General Exam: alert, oriented to person, place, and time, normal affect, well appearing Unaccompanied A focused exam completed based on patient reported problems, see below: 1. Other seborrheic dermatitis Head - Anterior (Face), Scalp Erythema and scale. Discussed that seborrheic dermatitis is a chronic condition that can be controlled but not cured. Start ciclopirox shampoo 2-3 times weekly, lather and leave on the scalp for 5-10 minutes before rinsing. Notify office if worsening and would like treatment. Related Medications Ciclopirox 1 % shampoo Lather on wet hair, leave on 5 min, rinse 2-3 x week, 30 day supply Next Visit: as scheduled documented in this encounterSaint [facility] [id number] Hospital Discharge instructions Patient Education 03/05/2024 12:48:30 Esophagitis Esophagitis Esophagitis is inflammation of the esophagus. The esophagus is the tube that carries food from the mouth to the stomach. Esophagitis can cause soreness or pain in the esophagus. This condition can make it difficult and painful to swallow. What are the causes? Most causes of esophagitis are not serious. Common causes of this condition include: Gastroesophageal reflux disease (GERD). This is when stomach contents move back up into the esophagus (reflux). Repeated vomiting. An allergic reaction, especially caused by food allergies (eosinophilic esophagitis). Injury to the esophagus by swallowing large pills with or without water, or swallowing certain types of medicines. Swallowing harmful chemicals, such as household cleaning products. Drinking a lot of alcohol. An infection of the esophagus. This most often occurs in people who have a weakened immune system. Radiation or chemotherapy treatment for cancer. Certain diseases such as sarcoidosis, Crohn's disease, and scleroderma. What are the signs or symptoms? Symptoms of this condition include: Difficult or painful swallowing. Pain with swallowing acidic liquids, such as citrus juices. You may also have pain when you burp. Chest pain and difficulty breathing. Nausea and vomiting. Pain in the abdomen. Weight loss. Ulcers in the mouth and white patches in the mouth (candidiasis). Fever. Coughing up blood or vomiting blood. Stool that is black, tarry, or bright red. How is this diagnosed? This condition may be diagnosed based on your medical history and a physical exam. You may also have other tests, including: A test to examine your esophagus and stomach with a small flexible tube with a camera (endoscopy). A test that measures the acidity level in your esophagus. A test that measures how much pressure is on your esophagus. A barium swallow or modified barium swallow to show the shape, size, and functioning of your esophagus. Allergy tests. How is this treated? Treatment for this condition depends on the cause of your esophagitis. In some cases, steroids or other medicines may be given to help relieve your symptoms or to treat the underlying cause of your condition. You may have to make some lifestyle changes, such as: Avoiding alcohol. Quitting any products that contain nicotine or tobacco. These products include cigarettes, chewing tobacco, and vaping devices, such as e-cigarettes. If you need help quitting, ask your health care provider. Changing your diet. Exercising. Changing your sleep habits and your sleep environment. Follow these instructions at home: Medicines Take nyht-gzl-[id number] and prescription medicines only as told by your health care provider. Do not take aspirin, ibuprofen, or other NSAIDs unless your health care provider told you to do so. If you have trouble taking pills: ?Use a pill splitter to decrease the size of the pill. This will decrease the chance of the pill getting stuck or injuring your esophagus. ?Drink water after you take a pill. Eating and drinking Avoid foods and drinks that seem to make your symptoms worse. Follow a diet as recommended by your health care provider. This may involve avoiding foods and drinks such as: ?Coffee and tea, with or without caffeine. ?Drinks that contain alcohol. ?Energy drinks and sports drinks. ?Carbonated drinks or sodas. ?Chocolate and cocoa. ?Peppermint and mint flavorings. ?Garlic and onions. ?Horseradish. ?Spicy and acidic foods, including peppers, chili powder, javier powder, vinegar, hot sauces, and barbecue sauce. ?Elbert fruit juices and citrus fruits, such as oranges, pippa, and limes. ?Tomato-based foods, such as red sauce, chili, salsa, and pizza with red sauce. ?Fried and fatty foods, such as donuts, vietnamese fries, potato chips, and high-fat dressings. ?High-fat meats, such as hot dogs and fatty cuts of red and white meats, such as rib eye steak, sausage, ham, and berg. ?High-fat dairy items, such as whole milk, butter, and cream cheese. Lifestyle Eat small, frequent meals instead of large meals. Avoid drinking large amounts of liquid with your meals. Avoid eating meals during the 2 3 hours before bedtime. Avoid lying down right after you eat. Do not exercise right after you eat. Do not use any products that contain nicotine or tobacco. These products include cigarettes, chewing tobacco, and vaping devices, such as e-cigarettes. If you need help quitting, ask your health careprovider. General instructions Pay attention to any changes in your symptoms. Let your health care provider know about them. Wear loose-fitting clothing. Do not wear anything tight around your waist that causes pressure on your abdomen. Raise (elevate) the head of your bed about 6 inches (15 cm). You may need to use a wedge to do this. Try relaxation strategies such as yoga, deep breathing, or meditation to manage stress. If you needhelp reducing stress, ask your health care provider. If you are overweight, reduce your weight to an amount that is healthy for you. Ask your health care provider for guidance about a safe weight loss goal. Keep all follow-up visits. This is important. Contact a health care provider if: You have new symptoms. You have unexplained weight loss. You have difficulty swallowing, or it hurts to swallow. You have wheezing or a cough that does not go away. Your symptoms do not improve with treatment. You have frequent heartburn for more than two weeks. Get help right away if: You have sudden severe pain in your arms, neck, jaw, teeth, or back. You suddenly feel sweaty, dizzy, or light-headed. You have chest pain or shortness of breath. You vomit and the vomit is green, yellow, or black, or it looks like blood or coffee grounds. Your stool is red, bloody, or black. You have a fever. You cannot swallow, drink, or eat. These symptoms may represent a serious problem that is an emergency. Do not wait to see if the symptoms will go away. Get medical help right away. Call your local emergency services (911 in the [place] Do not drive yourself to the hospital. Summary Esophagitis is inflammation of the esophagus. Most causes of esophagitis are not serious. Follow your health care provider's instructions about eating and drinking. Contact a health care provider if you have new symptoms, have weight loss, or coughing that does not stop. Get help right away if you have severe pain in the arms, neck, jaw, teeth, or back, or if you have chest pain, shortness of breath, or fever. This information is not intended to replace advice given to you by your health care provider. Make sure you discuss any questions you have with your health care provider. Document Revised: 10/24/2020 Document Reviewed: 10/24/2020 [employer] Patient Education 2023 [employer] 03/05/2024 12:48:28 Gastritis, Adult, [id number] Gastritis, Adult Gastritis is irritation and swelling (inflammation) of the stomach. There are two kinds of gastritis: Acute gastritis. This kind develops quickly. Chronic gastritis. This kind is much more common. It develops slowly and lasts for a long time. It is important to get help for this condition. If you do not get help, your stomach can bleed, andyou can get sores (ulcers) in your stomach. What are the causes? This condition may be caused by: Germs that get to your stomach and cause an infection. Drinking too much alcohol. Medicines you are taking. Having too much acid in the stomach. Having a disease of the stomach. Other causes may include: An allergic reaction. Some cancer treatments (radiation). Smoking cigarettes or using products that contain nicotine or tobacco. In some cases, the cause of this condition is not known. What increases the risk? Having a disease of the intestines. Having Crohn's disease. Using aspirin or ibuprofen and other NSAIDs to treat other conditions. Stress. What are the signs or symptoms? Pain in your stomach. A burning feeling in your stomach. Feeling like you may vomit (nauseous). Vomiting or vomiting blood. Feeling too full after you eat. Weight loss. Bad breath. Blood in your poop (stool). In some cases, there are no symptoms. How is this treated? This condition is treated with medicines. The medicines that are used depend on what caused the condition. You may be given: Antibiotic medicine, if your condition was caused by an infection from germs. H2 blockers and similar medicines, if your condition was caused by too much acid in the stomach. Treatment may also include stopping the use of certain medicines, such as aspirin or ibuprofen. Follow these instructions at home: Medicines Take scwb-efl-gqlserm and prescription medicines only as told by your doctor. If you were prescribed an antibiotic medicine, take it as told by your doctor. Do not stop taking it even if you start to feel better. Alcohol use Do not drink alcohol if: ?Your doctor tells you not to drink. ?You are , may be , or are planning to become . If you drink alcohol: ?Limit your use to: ?0 1 drink a day for women. ?0 2 drinks a day for men. ?Know how much alcohol is in your drink. In the [place] one drink equals one 12 oz bottle of beer (355 mL), one 5 oz glass of wine (148 mL), or one 1 oz glass of hard liquor (44 mL). General instructions Eat small meals often, instead of large meals. Avoid foods and drinks that make you feel worse. Drink enough fluid to keep your pee (urine) pale yellow. Talk with your doctor about ways to manage stress. You can exercise or do deep breathing, meditation, or yoga. Do not smoke or use any products that contain nicotine or tobacco. If you need help quitting, ask your doctor. Keep all follow-up visits. Contact a doctor if: Your symptoms get worse. Your stomach pain gets worse. Your symptoms go away and then come back. You have a fever. Get help right away if: You vomit blood or something that looks like coffee grounds. You have black or dark red poop. You throw up any time you try to drink fluids. These symptoms may be an emergency. Get help right away. Call your local emergency services (911 int [place] Do not wait to see if the symptoms will go away. Do not drive yourself to the hospital. Summary Gastritis is irritation and swelling (inflammation) of the stomach. You must get help for this condition. If you do not get help, your stomach can bleed, and you can get sores (ulcers) in your stomach. You can be treated with medicines for germs or medicines to block too much acid in your stomach. This information is not intended to replace advice given to you by your health care provider. Make sure you discuss any questions you have with your health care provider. Document Revised: 08/19/2021 Document Reviewed: 08/19/2021 [employer] Patient Education 2023 [employer] 03/05/2024 12:48:19 Endoscopy, Care After Procedure [facility] ([facility]) Endoscopy Care After Procedure Please read the instructions outlined below and refer to this sheet in the next few weeks. These discharge instructions provide you with general information on caring for yourself after you leave thespital. Your doctor may also give you specific instructions. While your treatment has been planned according to the most current medical practices available, unavoidable complications occasionally occur. If you have any problems or questions after discharge, please call your doctor. ACTIVITY You may resume your regular activity but move at a slower pace for the next 24 hours. Take frequent rest periods for the next 24 hours. Walking will help expel (get rid of) the air and reduce the bloated feeling in your abdomen. No driving for 24 hours (because of the anesthesia (medicine) used during the test). You may shower. Do not sign any important legal documents or operate any machinery for 24 hours (because of the anesthesia used during the test). NUTRITION Drink plenty of fluids. You may resume your normal diet. Begin with a light meal and progress to your normal diet. Avoid alcoholic beverages for 24 hours or as instructed by your caregiver. MEDICATIONS You may resume your normal medications unless your caregiver tells you otherwise. WHAT YOU CAN EXPECT TODAY You may experience abdominal discomfort such as a feeling of fullness or gas pains. FOLLOW-UP Your doctor will discuss the results of your test with you. SEEK IMMEDIATE MEDICAL ATTENTION IF ANY OF THE FOLLOWING OCCUR: Excessive nausea (feeling sick to your stomach) and/or vomiting. Severe abdominal pain and distention (swelling). Trouble swallowing. Temperature over 100 F (37.8 C). Rectal bleeding or vomiting of blood. Document Released: 11/27/2004 Document Re-Released: 10/07/2006 ExitCare Patient Information 2009 [employer]. Follow Up Care 02/12/2024 15:43:14 With:Nomi Vazquez Address: [address] [place] [address], [address] [place] [address]- [phone] Business (1) When: Unknown Comments:Call for any problems. [facility] 11-07-2024 Evaluation + Plan noteExtracted from:Title: ANES Post-operative Note - GeneralAuthor:Mickey Rivera Jr., DO GDate:03/05/24 Plan Transfer/Discharge: Transfer/Discharge Discharge when meets criteria ( From PACU to Ambulatory Surgery Unit, and To home ). Extracted from:Title:ANES Pre-operative Note - EndoAuthor:Mickey Rivera Jr., DO GDate:03/05/24 Plan [place] [employer] Anesthesiologists (ASA) physical status classification: Class II. Anesthetic Preoperative Plan: Anesthesia General, and -TIVA. Future Appointments Appointment Date:03/18/2024 01:15:00 PM Scheduled Provider:Nomi Vazquez MD Location:[facility] Appointment Type:[facility] Follow Up Future Scheduled Tests Laboratory* [facility] 02/12/24 [facility] 11-07-2024 NoteProgress Note-Physician Patient: BERENICE CHAVIRA Age: 88 years Sex: Female : 1935 Associated Diagnoses: None Author: Mickey Rivera Jr., DO Postoperative Information Postoperative disposition: Postoperative disposition: Home. Optimetrix number: Optimetrix number [id number]. Anesthetic utilized: General. Physical Examination Vital Signs 03/05/2024 13:05 EST Heart Rate Monitored 79 bpm Respiratory Rate Monitored 17 br/min Systolic Blood Pressure 108 mmHg Diastolic Blood Pressure 69 mmHg Blood Pressure Location Right arm Mean Arterial Pressure, Cuff 82 mmHg SpO2 99 % 03/05/2024 12:55 EST Heart Rate Monitored 86 bpm Respiratory Rate Monitored 26 br/min Systolic Blood Pressure 100 mmHg Diastolic Blood Pressure 58 mmHg LOW Blood Pressure Location Right arm Mean Arterial Pressure, Cuff 72 mmHg SpO2 98 % 03/05/2024 12:50 EST Heart Rate Monitored 81 bpm Respiratory Rate Monitored 14 br/min Systolic Blood Pressure 78 mmHg LOW Diastolic Blood Pressure 39 mmHg LOW Blood Pressure Location Right arm Mean Arterial Pressure, Cuff 52 mmHg SpO2 97 % 03/05/2024 12:45 EST Heart Rate Monitored 83 bpm Respiratory Rate Monitored 13 br/min Systolic Blood Pressure 77 mmHg LOW Diastolic Blood Pressure 32 mmHg LOW Blood Pressure Location Right arm Mean Arterial Pressure, Cuff 47 mmHg SpO2 97 % 03/05/2024 12:40 EST Temperature Temporal Artery 36.7 DegC Heart Rate Monitored 82 bpm Respiratory Rate Monitored 32 br/min Systolic Blood Pressure 78 mmHg LOW Diastolic Blood Pressure 32 mmHg LOW Blood Pressure Location Right arm Mean Arterial Pressure, Cuff 47 mmHg SpO2 98 % Pain Assessment: Controlled. General: Awake, Alert, Appropriate. Respiratory: Adequate air exchange, Non-labored. Cardiovascular: Stable, Normal peripheral perfusion. Neurological: Neurologic exam at baseline. No changes.. Assessment Anesthetic outcome No anesthetic complications noted. No nausea/vomiting. Review / Management Condition: Stable. Plan Transfer/Discharge: Transfer/Discharge Discharge when meets criteria ( From PACU to Ambulatory Surgery Unit, and To home ).[facility]Comment [facility]:Result Comment: Electronically Signed By: Mickey Rivera Jr., DO.yaw\Date and Time Signed: 03/05/24 13:35 [id number] NotePatient Education - Text Endoscopy Care After Procedure Please read the instructions outlined below and refer to this sheet in the next few weeks. These discharge instructions provide you with general information on [facility] Your doctor may also give you specific instructions. While your treatment has been planned according to the most current medical practices available, unavoidable complications occasionally occur. If you have any problems or questions after discharge, please call your doctor. ACTIVITY ??? You may resume your regular activity but move at a slower pace for the next 24 hours. ??? Take frequent rest periods for the next 24 hours. ??? Walking will help expel (get rid of) the air and reduce the bloated feeling in your abdomen. ??? No driving for 24 hours (because of the anesthesia (medicine) used during the test). ??? You may shower. ??? Do not sign any important legal documents or operate any machinery for 24 hours (because of theanesthesia used during the test). NUTRITION ??? Drink plenty of fluids. ??? You may resume your normal diet. ??? Begin with a light meal and progress to your normal diet. ??? Avoid alcoholic beverages for 24 hours or as instructed by your caregiver. MEDICATIONS ??? You may resume your normal medications unless your caregiver tells you otherwise. WHAT YOU CAN EXPECT TODAY ??? You may experience abdominal discomfort such as a feeling of fullness or ???gas??? pains. FOLLOW-UP ??? Your doctor will discuss the results of your test with you. seek immediate medical attention if any of the following occur: ??? Excessive nausea (feeling sick to your stomach) and/or vomiting. ??? Severe abdominal pain and distention (swelling). ??? Trouble swallowing. ??? Temperature over 100 F (37.8??? C). ??? Rectal bleeding or vomiting of blood. Document Released: 11/27/2004 Document Re-Released: 10/07/2006 ExitCare??? Patient Information ???2009 [employer]. Gastroenterology Esophagitis Esophagitis is inflammation of the esophagus. The esophagus is the tube that carries food from the mouth to the stomach. Esophagitis can cause soreness or pain in the esophagus. This condition can make it difficult and painful to swallow. What are the causes? Most causes of esophagitis are not serious. Common causes of this condition include: ??? Gastroesophageal reflux disease (GERD). This is when stomach contents move back up into the esophagus (reflux). ??? Repeated vomiting. ??? An allergic reaction, especially caused by food allergies (eosinophilic esophagitis). ??? Injury to the esophagus by swallowing large pills with or without water, or swallowing certain types of medicines. ??? Swallowing harmful chemicals, such as household cleaning products. ??? Drinking a lot of alcohol. ??? An infection of the esophagus. This most often occurs in people who have a weakened immune system. ??? Radiation or chemotherapy treatment for cancer. ??? Certain diseases such as sarcoidosis, Crohn's disease, and scleroderma. What are the signs or symptoms? Symptoms of this condition include: ??? Difficult or painful swallowing. ??? Pain with swallowing acidic liquids, such as citrus juices. You may also have pain when you burp. ??? Chest pain and difficulty breathing. ??? Nausea and vomiting. ??? Pain in the abdomen. ??? Weight loss. ??? Ulcers in the mouth and white patches in the mouth (candidiasis). ??? Fever. ??? Coughing up blood or vomiting blood. ??? Stool that is black, tarry, or bright red. How is this diagnosed? This condition may be diagnosed based on your medical history and a physical exam. You may also have other tests, including: ??? A test to examine your esophagus and stomach with a small flexible tube with a camera (endoscopy). ??? A test that measures the acidity level in your esophagus. ??? A test that measures how much pressure is on your esophagus. ??? A barium swallow or modified barium swallow to show the shape, size, and functioning of your esophagus. ??? Allergy tests. How is this treated? Treatment for this condition depends on the cause of your esophagitis. In some cases, steroids or other medicines may be given to help relieve your symptoms or to treat the underlying cause of your condition. You may have to make some lifestyle changes, such as: ??? Avoiding alcohol. ??? Quitting any products that contain nicotine or tobacco. These products include cigarettes, chewing tobacco, and vaping devices, such as e-cigarettes. If you need help quitting, ask your health care provider. ??? Changing your diet. ??? Exercising. ??? Changing your sleep habits and your sleep environment. Follow these instructions at home: Medicines ??? Take fvsd-krv-xgqjixs and prescription medicines only as told by your health care provider. ??? Do not take aspirin, ibuprofen, or other NSAIDs unless yo (more content not included)...[facility] NoteProgress Note-Physician Patient: BERENICE CHAVIRA Age: 88 years Sex: Female : 1935 Associated Diagnoses: None Author: Mickey Rivera Jr., DO Preoperative Information Anesthesia history: Patient history: No prior anesthetic problems. Informed consent: Signed by patient. Re-evaluation prior to induction: Initial evaluation reviewed: No significant change. Review of Systems Respiratory: Negative except as documented in history of present illness. Cardiovascular: Negative except as documented in history of present illness. Health Status Allergies: Nonallergic Reactions (Selected) Severity Not Documented Aspirin- Hematuria., Allergies (1) Active Severity Reaction aspirin Hematuria Current medications: (Selected) Inpatient Medications Ordered Lactated Ringers IV Bhavna 1000 mL 1,000 mL: 1,000 mL, IV, 100 mL/hr, Routine, Start date 03/05/24 11:19:00 EST, 10 hour(s), Total volume (mL): 1,000, 51 kg, 1.49, m2 Sodium Chloride 0.9% IV Bhavna 1000 mL 1,000 mL: 1,000 mL, IV, 20 mL/hr, Routine, Start date 03/05/24 7:03:00 EST, 50 hour(s), Total volume (mL): 1,000, 51 kg, 1.49, m2 Documented Medications Documented Fosamax 70 mg oral tablet: mg tab(s), Oral, Refills(s) 0 Vitamin B12: Refills(s) 0, Prophylaxis calcium-vitamin D: Refill(s) 0, Prophylaxis folic acid: Daily, Refills(s) 0, Prophylaxis, Home Medications (4) Active calcium-vitamin D folic acid , Daily Fosamax 70 mg oral tablet , Oral Vitamin B12 , Medications (2) Active Scheduled: (0) Continuous: (2) Lactated Ringers 1,000 mL 1,000 mL, IV, 100 mL/hr Sodium Chloride 0.9% 1,000 mL 1,000 mL, IV, 20 mL/hr PRN: (0) Problem list: All Problems Arthritis / SNOMED CT 1566251 / Confirmed Chronic constipation / SNOMED CT 293476214 / Confirmed Headache, common migraine / SNOMED CT 15673571 / Confirmed History of colon cancer / SNOMED CT 3798138750 / Confirmed Hyperlipidemia / SNOMED CT 39856643 / Confirmed Microscopic hematuria / SNOMED CT 935165036 / Confirmed Nocturia / SNOMED CT 990235526 / Confirmed Urinary frequency / SNOMED CT 097342540 / Confirmed Weight loss / SNOMED CT 412365540 / Confirmed Resolved: Appendectomy / SNOMED CT 047820848 Resolved: Cataract surgery / SNOMED CT 006691361 Resolved: Colonoscopy / SNOMED CT 368547572 Resolved: Hernia repair / SNOMED CT 08716017 Resolved: Tubal ligation / SNOMED CT 120776647 Histories Past Medical History: Resolved Appendectomy (520243719): Resolved. Cataract surgery (643767533): Resolved. Tubal ligation (893516921): Resolved. Hernia repair (23875110): Resolved. Colonoscopy (765938981): Resolved. Procedure history: Cystoscopy (78390756) on 10/01/2016 at 81 Years. Appendectomy (826939921). Tubal ligation (035947026). Colonoscopy (419913882). Social History Social & Psychosocial Habits Alcohol 02/12/2024 Type: Wine Frequency: 3-5 times per week Tobacco 02/12/2024 Tobacco Use: Never (less than 100 in l Smokeless tobacco use: Never 02/12/2024 Tobacco Use: Never (less than 100 in l . Physical Examination Vital Signs 03/05/2024 10:50 EST Temperature Temporal Artery 36 DegC LOW Heart Rate Monitored 93 bpm Respiratory Rate 18 br/min Systolic Blood Pressure 135 mmHg Diastolic Blood Pressure 62 mmHg Blood Pressure Location Left arm SpO2 98 % Measurements from flowsheet : Measurements 03/05/2024 10:51 EST Height/Length Measured 157 cm Height/Length Dosing 157.0 cm Weight Dosing 51.0 kg Weight Measured 51 kg Airway: Mallampati classification: II (soft palate, fauces, uvula visible). Respiratory: Lungs are clear to auscultation, Respirations are non-labored. Cardiovascular: Regular rhythm. Plan [place] Society of Anesthesiologists (ASA) physical status classification: Class II. Anesthetic Preoperative Plan: Anesthesia General, and -TIVA.[facility] SystemComment on above:Result Comment: Electronically Signed By: Mickey Rivera Jr., DO.yaw\Date and Time Signed: 03/05/24 12:26 [id number] History of Present illness Narrative* Geeta Gonzalez MD - 02/25/2024 2:30 PM EDT Images from the original note were not included. Subjective Patient ID: Berenice Chavira is a 88 y.o. female who presents for Ear Problem (Ear pain bilateral.) Pt states a couple weeks ago she was having severe ear pain that has since improved. Family History Problem Relation Name Age of Onset Heart disease Mother Diabetes Mother Cancer Mother Heart disease Father No Known Problems Sister 2 Brain Aneurysm Daughter No Known Problems Son 1 Melanoma Neg Hx Active Ambulatory Problems Diagnosis Date Noted Arthritis of hand 10/11/2022 Arthritis of knee, right 10/11/2022 Bilateral tinnitus 10/11/2022 Constipation 10/11/2022 Difficulty walking 10/11/2022 Estrogen deficiency 10/11/2022 Hypercholesteremia (CMS/HCC) 10/11/2022 Multiple falls 10/11/2022 Notalgia paresthetica 10/11/2022 Anterolisthesis 10/11/2022 Osteoporosis (CMS/HCC) 10/11/2022 Piriformis syndrome of left side 10/11/2022 Primary insomnia 10/11/2022 Primary osteoarthritis, right hand 10/11/2022 Seasonal affective disorder (CMS/HCC) 10/11/2022 Sensorineural hearing loss (SNHL), bilateral 10/11/2022 Simple hepatic cyst 10/11/2022 Venous insufficiency (chronic) (peripheral) 10/11/2022 Vitamin D deficiency 10/11/2022 Vocal cord paralysis 10/11/2022 H/O malignant neoplasm of colon 10/12/2022 History of partial colectomy 10/12/2022 Other fatigue 07/15/2023 Myalgia 07/15/2023 Memory loss 07/15/2023 Acute strain of neck muscle 11/04/2023 Tension headache 11/04/2023 New daily persistent headache 11/19/2023 Intracranial arachnoid cyst 12/05/2023 Medicare annual wellness visit, subsequent 01/27/2024 Dermatochalasis of both lower eyelids 01/27/2024 Resolved Ambulatory Problems Diagnosis Date Noted No Resolved Ambulatory Problems Past Medical History: Diagnosis Date Bilateral hearing loss Colon cancer (CMS/HCC) Does use hearing aid Heart palpitations Hematuria Hoarseness Impacted cerumen of both ears Mixed hyperlipidemia (CMS/HCC) Past Surgical History: Procedure Laterality Date COLON SURGERY 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 No radiation. Cecum CYSTOSCOPY 2010 or hematuria TUBAL LIGATION Allergies Allergen Reactions Aspirin Other Reaction(s): hematuria Current Outpatient Medications on File Prior to Visit Medication Sig Dispense Refill alendronate (Fosamax) 70 MG tablet Take 1 tablet (70 mg) by mouth every 7 (seven) days Take in the morning with a full glass of water, on an empty stomach, and do not take anything else by mouth or lie down for the next 30 min. 12 tablet 3 Calcium Carb-Cholecalciferol (CALCIUM 500 + D3 PO) Take by mouth cyanocobalamin (Vitamin B-12) 1000 MCG tablet Take 1,000 mcg by mouth Daily folic acid (Folvite) 800 MCG tablet Take by mouth Daily [DISCONTINUED] ferrous sulfate 325 (65 Fe) MG tablet Take 325 mg by mouth in the morning. Take withmeals. No current facility-administered medications on file prior to visit. Objective Last Recorded Vitals Vitals: 02/25/24 1430 BP: 124/76 ENT Physical Exam Ear Ear Canals: bilateral ear canals impacted cerumen observed; Tympanic Membranes: right tympanic membrane normal; left tympanic membrane normal; Patient ID: Berenice Chavira is a 88 y.o. female. Procedures Cerumen was removed from the ears using binocular microscopy under micro with suction, curette and/or foreceps Assessment/Plan Diagnoses and all orders for this visit: Acute otalgia, bilateral Bilateral impacted cerumen Ears debrided. Otalgia resolved. F/U if recurs documented in this encounterSaint [facility] [id number] Evaluation + Plan note Future Scheduled Tests Laboratory* [facility] 02/12/24 [facility] 09-30-2024 History of Present illness Narrative* Jessica Bergman MD - 01/27/2024 2:23 PM EDTAssociated Problem(s): Constipation Stool softener * Jessica Bergman MD - 01/27/2024 2:14 PM EDTAssociated Problem(s): Medicare annual wellness visit, subsequent Colonoscopy every 10 years or Cologuard every [...] Ultrasound of Aorta to screen for Anuerysm * Jessica Bergman MD - 01/27/2024 2:00 PM EDT Images from the original note were not included. Subjective : Chief Complaint: Berenice Chavira is an 88 y.o. female here for an annual wellness visit. Awaiting test results Eyelid is supposed to have surgery I have reviewed and reconciled the history and medication list with the patient today. Current Outpatient Medications Medication Sig Dispense Refill alendronate (Fosamax) 70 MG tablet Take 1 tablet (70 mg) by mouth every 7 (seven) days Take in the morning with a full glass of water, on an empty stomach, and do not take anything else by mouth or lie down for the next 30 min. 12 tablet 3 Calcium Carb-Cholecalciferol (CALCIUM 500 + D3 PO) Take by mouth cyanocobalamin (Vitamin B-12) 1000 MCG tablet Take 1,000 mcg by mouth Daily ferrous sulfate 325 (65 Fe) MG tablet Take 325 mg by mouth in the morning. Take with meals. folic acid (Folvite) 800 MCG tablet Take by mouth Daily No current facility-administered medications for this visit. Review of Systems Constitutional: Negative for chills, fatigue, fever and unexpected weight change. Respiratory: Negative for cough. Cardiovascular: Negative for chest pain. Gastrointestinal: Negative for abdominal pain, blood in stool, constipation, diarrhea, nausea and vomiting. Genitourinary: Negative for dysuria, enuresis, frequency and hematuria. Musculoskeletal: Positive for back pain. Left lower Neurological: Negative for dizziness, tremors, syncope, facial asymmetry and speech difficulty. Psychiatric/Behavioral: Negative for agitation, behavioral problems, confusion and dysphoric mood. The patient is not nervous/anxious. List of current healthcare providers: Patient Care Team: Jessica Bergman MD as PCP - General (Family Medicine) Jessica Bergman MD as PCP - ACO Re[employer] Medicare Annual Visit Over the past 2 weeks, how often have you been bothered by any of the following problems? Little interest or pleasure in doing things: Not at all Feeling down, depressed, or hopeless: Not at all Patient Health Questionnaire-2 Score: 0 Crowder Fall Risk History of Falling, Immediate or Within 3 Months: No Health Risk Assessment Form Do you need help eating, bathing, using the toilet, dressing, or getting around your home?: No Can you prepare your own meals?: Yes Can you do your own housework without help?: Yes Can you shop for groceries or clothes without help?: Yes Do you exercise for about 20 minutes 3 or more days a week?: Yes How confident are you that you can control and manage most of your health problems?: Very confident Can you mange your money, credit cards and accounts, pay bills and taxes?: Yes Vision Screening: Yes, no gross abnormalities Hearing Screening: Yes, no gross abnormalities Cognitive Screening Self Assessment: No overt cognitive deficiency is apparent by direct observation Three Word Registration: Fabricio Cali, Finger Clock Drawing: Normal Clock - 2 Three Word Recall: All 3 words correct - 3 Total Score (0-5 Points): 5 Pain Assessment Pain Score: 0 - No pain Advance Care Planning Do you have a living will?: Yes Do you have a medical power of litigation attorney?: Yes Objective : BP 132/72 Pulse 75 Ht 5' 4 Wt 112 lb SpO2 98% BMI 19.22 kg/m No results found. Physical Exam Constitutional: General: She is not in acute distress. Appearance: Normal appearance. HENT: Head: Normocephalic. Cardiovascular: Rate and Rhythm: Normal rate and regular rhythm. Pulmonary: Effort: Pulmonary effort is normal. No respiratory distress. Breath sounds: Normal breath sounds. Neurological: General: No focal deficit present. Mental Status: She is alert and oriented to person, place, and time. Psychiatric: Mood and Affect: Mood normal. Assessment/Plan : The following health maintenance schedule was reviewed with the patient and provided in printed form in the after visit summary: Health Maintenance Topic Date Due Medicare Annual Wellness (AWV) 01/15/2024 Influenza Vaccine (1) 12/29/2023 Pneumococcal Vaccine: 65+ Years Completed Advance Care Planning Patient willing to discuss ACP. If in place, renew periodically. If not in place, recommend obtaining ACP. Assessment/Plan Problem List Items Addressed This Visit Constipation Estrogen deficiency Relevant Orders DEXA bone density Medicare annual wellness visit, subsequent Colonoscopy every 10 years or Cologuard every [...] screen for Anuerysm Dermatochalasis of both lower eyelids Other Visit Diagnoses Routine general medical examination at health care facility - Primary Screening for lipid disorders Relevant Orders Lipid panel Orders Placed This Encounter Procedures DEXA bone density Standing Status: Future Standing Expiration Date: 01/26/2025 Order Specific Question: Reason for exam: Answer: screening Lipid panel Standing Status: Future Number of Occurrences: 1 Standing Expiration Date: 01/26/2025 Electronically signed by Jessica Bergman MD on January 27, 2024 documented in this encounterSaint Mary's Hospital of Blue [id number] History of Present illness Narrative* Carlo Corona, PhD - 01/22/2024 11:30 AM EDT Images from the original note were not included. Neuropsychology Carlo Corona, PhD NEUROPSYCHOLOGICAL EVALUATION Berenice Chavira is a 88 y.o. female referred for neuropsychological evaluation to assist with facilitating and informing medical differential diagnosis and clinical decision-making. The following information was obtained during an interview with the patient and aqtgythx-nq-uxe (DIL), as well as review of available records. PRESENTING PROBLEM: Decline in memory over the past six months such as occasionally forgetting conversations, repeatingself, and losing train of thought. Otherwise, remains independent in ADLs, housework, finances, medication, and driving. Regularly exercises and stretches. Remains socially engaged. Sleep quality described as terrible and disrupted. No snoring or gasping. Pain complaints include history of severe migraines that improved after care home. Prior neurological history includes concussion when she was younger. Also lost her sense of smell in 2016. Head CT identified an incidental left frontal convexity subarachnoid cyst deemed likely developmental. MMSE 25/30. Family neurologicalhistory includes daughter who from an aneurysm. Denied any psychiatric history. No history of alcohol/substance abuse or smoking. [place] language [place]. Completed high school education. 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 Has two children, unfortunately one has . MEDICAL HISTORY/MEDICATION: MEDICATIONS: Current Outpatient Medications Medication Instructions alendronate (FOSAMAX) 70 mg, Oral, Every 7 days, Take in the morning with a full glass of water, andrés empty stomach, and do not take anything else by mouth or lie down for the next 30 min. Calcium Carb-Cholecalciferol (CALCIUM 500 + D3 PO) Oral cyanocobalamin (VITAMIN B-12) 1,000 mcg, Oral, Daily docusate sodium (COLACE) 250 mg, Oral, Nightly PRN folic acid (Folvite) 800 MCG tablet Oral, Daily ASSESSMENT: Presented to appointment on time, alert, and Ox3. Rapport easily established. Good eye contact. Socially appropriate during conversation and testing. Hearing adequate for current purposes. Ambulated independently. Purpose for current evaluation explained and patient agreed to participate. Variable levels of engagement/attention are expected to have negatively impacted performance at times. Findings are therefore interpreted with caution. Vision/Visuoconstruction: Binocular near-point visual acuity 20/20. Visual elaine full to confrontation. Visuoconstruction 6th %ile. Nonverbal abstract reasoning 14th %ile. Copy of a complex geometric design <1st %ile. Motor/Speed of Processing: Right-handed. Campaign Coordinator strength 2nd %ile with right-hand, 18th %ile with left. Speeded graphomotor transcoding 54th %ile. Attention/Working Memory: Auditory attention/working memory 4th %ile (6 digits forward, 2 digits backward, 4 digits during sequencing). Speeded visual scanning/attention 31st %ile. Speeded visual divided attention 21st %ile. Speech/Language: Expressive speech fluent and absent of paraphasic errors. Comprehension adequate for current purposes. Single-word reading 63rd %ile. Generative naming to phonemic cues 98th %ile, 7th %ile to semantic cues. Confrontation naming 2nd %ile. Verbal abstract reasoning <1st %ile. Learning and Memory: Learning of a word list 4th %ile (4-4-4-5-7), delayed recall 7th %ile. Recognition discriminability 31st %ile. Forced-choice 16/16. Immediate recall for prose passages 2nd %ile, delayed 1st %ile. Recognition 17- 25th %ile. Immediate recall for a variety of geometric figures 62nd%ile, delayed 16th %ile. Recognition 26-50th %ile. Executive Functioning: Novel problem-solving and cognitive flexibility >16th %ile, 1/6 categories completed in 64 sorts. Responding absent of significant perseveration. Failed to maintain set x1. Emotional Functioning: Minimal depression. Denied any thoughts of self-harm. FINDINGS AND RECOMMENDATIONS: CONCLUSIONS: 1. Estimated low average to average pre-morbid intellectual functioning. 2. Preserved visual acuity without signs of visual field cut or neglect. 3. Poor right-hand gross motor function, preserved with left. 4. Minimal depression. OPINION: Current neuropsychological evaluation demonstrates variable levels of engagement/attentionare expected to have negatively impacted performance at times. Given her relatively functional status with ADL/IADLs, I do not feel this is applications sales representative of dementia. Low scores are likely artificially exacerbated due to the variable levels of engagement. Overall clinical presentation is most consistent with Mild Cognitive Impairment (MCI). Extremely poor sleep quality is likely contributing. Minimal psychiatric contribution. RECOMMENDATIONS: Results and recommendations forwarded to treating physician for review during their next appointment. Patient encouraged to contact this office with any additional questions. Treating physician may wish to consider initiating a memory agent in an attempt to temporarily slowcognitive decline. Improved sleep management. Memory strategies: Regularly and frequently review information that must be remembered. Link new information in as many ways as possible to already known information. This strategy creates several avenues for remembering the information later. Utilize external memory sources such as lists, date books, calendars, and pocket-size recorders forinformation that must be remembered. A smartphone is a useful tool in consolidating all this information into one source. Active listening, such as repeating and summarizing information back to presenter when learning important information for future recall may be beneficial as opposed to simply passive listening. Establish a consistent structured routine. Regular physical activity for stress relief, improved cognitive efficiency, and optimal sleep. Attempt new hobbies and skills, keep learning. Proper nutritional intake, such as Mediterranean-style diet, while paying close attention to food sourcing. No need for neuropsychological re-evaluation at this time. Results may be used as a baseline point of comparison should there be concern for future cognitive decline. Thank you for allowing me to participate in the care of this individual. Please contact me with Ostara at [phone]. documented in this [facility]09-16-2024 History of Present illness Narrative* Carlo Corona PhD - 01/13/2024 1:30 PM EDT Images from the original note were not included. Carlo Corona, PhD NEUROBEHAVIORAL STATUS EXAMINATION Berenice Chavira is a 88 y.o. female referred for neuropsychological evaluation to assist with facilitating and informing medical differential diagnosis and clinical decision-making. The following information was obtained during an interview with the patient and [id number] (DIL), as well as review of available records. PRESENTING PROBLEM AND HISTORY Decline in memory over the past six months such as occasionally forgetting conversations, repeatingself, and losing train of thought. Otherwise, remains independent in ADLs, housework, finances, medication, and driving. Regularly exercises and stretches. Remains socially engaged. Sleep quality described as terrible and disrupted. No snoring or gasping. Pain complaints include history of severe migraines that improved after care home. Prior neurological history includes concussion when she was younger. Also lost her sense of smell in 2016. Head CT identified an incidental left frontal convexity subarachnoid cyst deemed likely developmental. MMSE 25/30. No family neurological history. Denied any psychiatric history. No history of alcohol/substance abuse or smoking. [place] language [place]. Completed high school education. 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 Has two children, unfortunately one has . MEDICAL HISTORY/MEDICATION: Past Medical History: Diagnosis Date Bilateral hearing loss Colon cancer (CMS/HCC) Does use hearing aid Heart palpitations Hematuria Hoarseness Impacted cerumen of both ears Intracranial arachnoid cyst 12/05/2023 Mixed hyperlipidemia (CMS/HCC) Osteoporosis (CMS/HCC) Vitamin D deficiency Vocal cord paralysis MEDICATIONS: Current Outpatient Medications Medication Instructions alendronate (FOSAMAX) 70 mg, Oral, Every 7 days, Take in the morning with a full glass of water, andrés empty stomach, and do not take anything else by mouth or lie down for the next 30 min. Calcium Carb-Cholecalciferol (CALCIUM 500 + D3 PO) Oral cyanocobalamin (VITAMIN B-12) 1,000 mcg, Oral, Daily docusate sodium (COLACE) 250 mg, Oral, Nightly PRN folic acid (Folvite) 800 MCG tablet Oral, Daily INITIAL IMPRESSION AND PLAN: Mild cognitive impairment, memory loss, subarachnoid cyst, and poor sleep/insomnia: The patient will be scheduled for neuropsychological assessment, which will include tests for memory, reasoning, language, problem-solving, attention, and mood. Thank you for allowing me to participate in the care of this individual. Please contact me with Ostara at [phone]. documented in this encounterSaint [facility] [id number] History of Present illness Narrative* ALBERTO Maldonado - 01/09/2024 11:30 AM EDT Images from the original note were not included. HPI discuss lab results Additional comments: Labs were completed on 12/27/23. Last edited by Madyson Gaitan LPN on 01/09/2024 11:35 AM. Subjective Patient ID: Berenice Chavira is a 88 y.o. female who presents for constipation. [place] is present today for evaluation of constipation. Admits she has not had a BM since Saturday, complains of right lower quad pain. She did take Miralax on Saturday one time. States she did have colon cancer in the past. She is fasting if blood work is needed. Drinks about 4 of the 8 ounce glasses of water a day. Has cut back on coffee. Drinks 1-2 cups of tea a day. Does eat yogurt and cottage cheese. Also eats applesauce. Does have prunes, but has not been eatingthem. Current Outpatient Medications on File Prior to Visit Medication Sig Dispense Refill alendronate (Fosamax) 70 MG tablet Take 1 tablet (70 mg) by mouth every 7 (seven) days Take in the morning with a full glass of water, on an empty stomach, and do not take anything else by mouth or lie down for the next 30 min. 12 tablet 3 Calcium Carb-Cholecalciferol (CALCIUM 500 + D3 PO) Take by mouth cyanocobalamin (Vitamin B-12) 1000 MCG tablet Take 1,000 mcg by mouth Daily folic acid (Folvite) 800 MCG tablet Take by mouth Daily [DISCONTINUED] baclofen (Lioresal) 5 MG tablet Take 1 tablet (5 mg) by mouth in the morning and 1 tablet (5 mg) in the evening and 1 tablet (5 mg) before bedtime. 90 tablet 0 No current facility-administered medications on file prior to visit. I have reviewed and reconciled the history and medication list with the patient today. Allergies Allergen Reactions Aspirin Other Reaction(s): hematuria Social History Tobacco Use Smoking status: Never Smokeless tobacco: Never Vaping Use Vaping status: Never Used Substance Use Topics Alcohol use: Yes Alcohol/week: 1.0 standard drink of alcohol Types: 1 Standard drinks or equivalent per week Comment: caffeine 3-4 cups/day Drug use: Never Family History Problem Relation Name Age of Onset Heart disease Mother Diabetes Mother Cancer Mother Heart disease Father No Known Problems Sister 2 Brain Aneurysm Daughter No Known Problems Son 1 Melanoma Neg Hx Past Medical History: Diagnosis Date Bilateral hearing loss Colon cancer (CMS/HCC) Does use hearing aid Heart palpitations Hematuria Hoarseness Impacted cerumen of both ears 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 No radiation. Cecum CYSTOSCOPY 2010 or hematuria TUBAL LIGATION Visit Vitals BP 122/76 Pulse 93 Resp 16 Ht 5' 4 Wt 109 lb 6.4 oz SpO2 94% BMI 18.78 kg/m Smoking Status Never BSA 1.5 m Review of Systems Constitutional: Negative for chills, fatigue and fever. Respiratory: Negative for cough, shortness of breath and wheezing. Cardiovascular: Negative for chest pain, palpitations and leg swelling. Gastrointestinal: Positive for abdominal pain and constipation. Negative for diarrhea, nausea and vomiting. Musculoskeletal: Positive for back pain. Skin: Negative for rash. Objective Physical Exam Constitutional: General: She is not in acute distress. Appearance: Normal appearance. She is well-developed. HENT: Head: Normocephalic and atraumatic. Eyes: General: No scleral icterus. Conjunctiva/sclera: Conjunctivae normal. Cardiovascular: Rate and Rhythm: Normal rate and regular rhythm. Heart sounds: Normal heart sounds. No murmur heard. Pulmonary: Effort: Pulmonary effort is normal. No respiratory distress. Breath sounds: Normal breath sounds. No wheezing, rhonchi or rales. Skin: General: Skin is warm and dry. Neurological: General: No focal deficit present. Mental Status: She is alert and oriented to person, place, and time. Psychiatric: Mood and Affect: Mood normal. Behavior: Behavior normal. Assessment/Plan Diagnoses and all orders for this visit: Alternating constipation and diarrhea - Ambulatory referral to Gastroenterology; Future Provided pt with referral to GI for further evaluation due to fluctuating bowel issues and history of colon cancer. Encouraged her to continue to eat yogurt for probiotics. Continue to stay hydrated. Chronic idiopathic constipation - docusate sodium (Colace) 250 MG capsule; Take 1 capsule (250 mg) by mouth as needed at bedtime for constipation Pt can try the above as needed for constipation. She also has Miralax on hand in case she needs it. Follow up in about 2 weeks (around 01/23/2024) for Medicare Wellness Visit. documented in this encounterSaint Mary's Hospital of Blue [id number] History of Present illness Narrative* Joshua Lovell DO - 12/26/2023 12:30 PM EDT Images from the original note were not included. Chief Complaint Patient presents with Neck Pain Memory Loss Subjective Berenice Chavira, 88 y.o., female that was referred from Dr. Jessica Bergman MD for memory changes and neck pain. She is here with her DIL. Patient stated that she was discharged from physical therapy 2 weeks ago, which she was going for her neck pain, patient admits to her neck pain does not bother heranymore. She is doing her HEP at least 5 days a week. She started to have neck pain around November 02. It started to feel weird. She is now better. Patient states that her memory is getting worse and typically only forgets stuff here and there . She started to have some memory issues in the last year. She is forgetting names or events. She remembers appointments. She lives in a senior community. She will forget that she will have an inspection coming up or thatthey were having a group activity. She does drive. She has not had any issues getting lost or MVA. She has not driven in the last month due to her MRI findings. She manage her own medications. She does the cooking and cleaning of the apartment. NO unsafe behaviors. No hygiene concerns. Patient says that she sleeps good, gets between 6-8 hours of sleep a night. She states more often 6. She does not go to bed early enough. She does occasionally take naps and can last 1.5-2 hours. Patient admits she does take naps during the day sometimes. Patient states she does wake up around 3 times a night to use the restroom, and can typically go to bed shortly after. Patient admits that she has been getting small headaches that come and go. That is more of a sensation than a pain. This is new. That has improved with the PT. She does have a hx of severe migraines years ago. Patient currently has no smell, barely eating which is leading to weight loss. She lost her sense of smell about 8 years ago for no known reason. She has not been eating correctly since the diarrhea started. She does not do protein shakes or other. Patient states that she is currently having bowels issues and is making her rectum sore. She has diarrhea. She stopped the immodium. She has hit her head multiple. No family hx of dementia. 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 No radiation. Cecum CYSTOSCOPY 2010 or hematuria TUBAL LIGATION Family History Problem Relation Name Age of Onset Heart disease Mother Diabetes Mother Cancer Mother Heart disease Father No Known Problems Sister 2 Brain Aneurysm Daughter No Known Problems Son 1 Melanoma Neg Hx Social History Tobacco Use Smoking status: Never Smokeless tobacco: Never Substance Use Topics Alcohol use: Yes Alcohol/week: 1.0 standard drink of alcohol Types: 1 Standard drinks or equivalent per week Comment: caffeine 3-4 cups/day Allergies: Aspirin General: No fever or chills HEENT: No nasal congestion or runny nose Pulmonary: No shortness of breath or cough Cardiovascular: No chest pain or palpitations GI: No nausea or vomiting : No dysuria or hematuria Musculoskeletal: No new aches or pains or muscle weakness Infectious: no recurrent fevers or infections Dermatologic: No rashes or skin lesions Neurologic: No new headaches or dizziness Vitals: 12/26/23 1210 BP: 131/71 Pulse: 87 Body mass index is 19.4 kg/m . weight: 113 lb Neurologic exam: General: Normal body habitus, cooperative, pleasant Mental status: Awake, alert to person, place and time. Recent and remote memory are intact. Attention and concentration are normal. Fund of knowledge is appropriate for level of education. HEENT: NC/AT Cranial nerves: CN II: Visual elaine full to confrontation. No loss of vision CN III, IV, : pupils equal round and reactive to light. Extraocular movements intact. No ptosis present. CN V: Facial sensation is normal. CN VII: Full and symmetric facial movement. CN VIII: Hearing is normal CN IX and X: Palate elevates symmetrically. CN XI: Shoulder shrug is normal bilaterally. CN XII: Tongue is midline without atrophy or fasciculation. Speech: Clear and fluent no aphasia or dysarthria Pronator drift: Negative bilateral upper extremity Coordination: Intact, no signs of dysmetria Good finger to nose and rapid alternating movements Sensory: Sensation is intact to light, temperature and vibratory touch throughout four extremities. Pinprick intact in all four extremities. Motor: LUE 5/5 RUE 5/5 LLE 5/5 RLE 5/5 Tone: Physiologic, no tremor, bradykinesia or rigidity DTR: Bilateral Biceps 2/4 Bilateral BR 2/4 Bilateral Patellar 2/4 No spasticity Gait: Normal to casual gait Romberg's Negative Review and summary of old records: Assessment/Plan Diagnoses and all orders for this visit: Memory loss - Vitamin B12; Future - TSH; Future - Folate; Future - EEG awake or drowsy; Future - Ambulatory referral to Neuropsychology; Future MCI (mild cognitive impairment) with memory loss - Vitamin B12; Future - TSH; Future - Folate; Future - EEG awake or drowsy; Future - Ambulatory referral to Neuropsychology; Future Subarachnoid cyst Neck pain Tension headache 88 year old female with memory loss that appears to be most consistent with a mild cognitive impairment versus early Alzheimer's type of dementia. With her age she definitely needs a dementia workup however she is doing fairly well with her history and her questions. She did have a head CT that showed a left frontal convexity subarachnoid cyst which is likely just a an incidental finding. Typically patients are born with these. We will go ahead and monitor this over time but likely has no bearing on her current situation. She was having some neck pain but she was sent to physical therapy and it has now resolved. I suspect this was more muscle skeletal in nature. She needs to keep up with her home exercises. She also was having some tension type headaches which also improved with the neck exercises and physical therapy. Plan: EEG to assess brain waves. CT brain shows left frontal convexity subarachnoid cyst, likelky incidental finding, Repeat CT in 6 months to look for interval change Labwork to assess for reversible causes of memory loss. Brain exercises. Cardiovascular exercise. Mediterranean diet. 8 hours of sleep. 12 hour fasting through the night if able. MMSE 25/30 Neuropsych The diagnosis was all discussed with the patient. All questions were answered and they agreed with the treatment plan. Patient will call if there are any new issues or questions. Pt has been fully educated on their diagnosis and treatment options Return to clinic: 2 months documented in this encounterSaint [facility] SpringsEvaluation + Plan note Future Appointments Appointment Date:03/05/2024 12:00:00 PM Scheduled Provider: Location:[facility] Appointment Type:Surgery FT Appointment Date:03/18/2024 01:15:00 PM Scheduled Provider:Nomi Vazquez MD Location:[facility] Appointment Type:BAD Follow Up Future Scheduled Tests Laboratory* [facility] 02/12/24 Radiology* CT Abdomen/Pelvis w/ Contrast 02/12/24 [facility] Evaluation + Plan note Future Appointments Appointment Date:02/27/2024 01:00:00 PM Scheduled Provider: Location[facility] Appointment Type:CT Abdomen/Pelvis Combo () Appointment Date:03/05/2024 12:00:00 PM Scheduled Provider: Location:[facility] Appointment Type:Surgery FT Appointment Date:03/18/2024 01:15:00 PM Scheduled Provider:Nomi Vazquez MD Location:[facility] Appointment Type:[facility] Follow Up Future Scheduled Tests Laboratory* [facility] 02/12/24 Radiology* CT Abdomen/Pelvis w/ Contrast 02/27/24 [facility] evaluation + Plan note Future Appointments Appointment Date:03/05/2024 12:00:00 PM Scheduled Provider: Location:[facility] Appointment Type:Surgery FT Appointment Date:03/18/2024 01:15:00 PM Scheduled Provider:Nomi Vazquez MD Location:[facility] Appointment Type:[facility] Follow Up Future Scheduled Tests Laboratory* [facility] 02/12/24 [facility] evaluation note* Diagnosis Slow transit constipation- Primary Osteoporosis, unspecified osteoporosis type, unspecified pathological fracture presence (CMS/HCC) H/O malignant neoplasm of colon Routine general medical examination at health care facility- Primary Routine general medical examination at a health care facility Age-related osteoporosis without current pathological fracture (CMS/HCC) Other fatigue- Primary Osteoporosis, unspecified osteoporosis type, unspecified pathological fracture presence (CMS/HCC) Myalgia Unspecified myalgia and myositis Memory loss Acute strain of neck muscle, initial encounter- Primary Osteoporosis, unspecified osteoporosis type, unspecified pathological fracture presence (CMS/HCC) Memory loss Tension headache Acute strain of neck muscle, initial encounter- Primary New daily persistent headache Routine general medical examination at health care facility- Primary Routine general medical examination at a [facility] care facility Estrogen deficiency Other ovarian failure Screening for lipid disorders Medicare annual wellness visit, subsequent Dermatochalasis of both lower eyelids Chronic idiopathic constipation Unspecified constipation Acute otalgia, bilateral- Primary Bilateral impacted cerumen Impacted cerumen [facility] Diagnosis Slow transit constipation- Primary Osteoporosis, unspecified osteoporosis type, unspecified pathological fracture presence (CMS/HCC) H/O malignant neoplasm of colon Routine general medical examination at health care facility- Primary Routine general medical examination at a [facility] care [facility] Age-related osteoporosis without current pathological fracture (CMS/HCC) Other fatigue- Primary Osteoporosis, unspecified osteoporosis type, unspecified pathological fracture presence (CMS/HCC) Myalgia Unspecified myalgia and myositis Memory loss Acute strain of neck muscle, initial encounter- Primary Osteoporosis, unspecified osteoporosis type, unspecified pathological fracture presence (CMS/HCC) Memory loss Tension headache Acute strain of neck muscle, initial encounter- Primary New daily persistent headache Routine general medical examination at health care facility- Primary Routine general medical examination at a [facility] Estrogen deficiency Other ovarian failure Screening for lipid disorders Medicare annual wellness visit, subsequent Dermatochalasis of both lower eyelids Chronic idiopathic constipation Unspecified constipation MCI (mild cognitive impairment) with memory loss- Primary Mild cognitive impairment, so stated Subarachnoid cyst Cerebral cysts Neck pain Cervicalgia Poor sleep hygiene 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 [facility]* Diagnosis Alternating constipation and diarrhea- Primary Chronic idiopathic constipation Unspecified constipation [facility]* Diagnosis MCI (mild cognitive impairment) with memory loss- Primary Mild cognitive impairment, so stated Memory loss Subarachnoid cyst Cerebral cysts Chronic insomnia Insomnia, unspecified [facility]* Diagnosis Slow transit constipation- Primary Osteoporosis, unspecified osteoporosis type, unspecified pathological fracture presence (CMS/HCC) H/O malignant neoplasm of colon Routine general medical examination at health care facility- Primary Routine general medical examination at a [facility] care facility Age-related osteoporosis without current pathological fracture (CMS/HCC) Other fatigue- Primary Osteoporosis, unspecified osteoporosis type, unspecified pathological fracture presence (CMS/HCC) Myalgia Unspecified myalgia and myositis Memory loss Acute strain of neck muscle, initial encounter- Primary Osteoporosis, unspecified osteoporosis type, unspecified pathological fracture presence (CMS/HCC) Memory loss Tension headache Acute strain of neck muscle, initial encounter- Primary New daily persistent headache Routine general medical examination at health care facility- Primary Routine general medical examination at a [facility] care facility Estrogen deficiency Other ovarian failure Screening for lipid disorders Medicare annual wellness visit, subsequent Dermatochalasis of both lower eyelids Chronic idiopathic constipation Unspecified constipation Other seborrheic dermatitis- Primary [facility]* Diagnosis Memory loss MCI (mild cognitive impairment) with memory loss Mild cognitive impairment, so stated Subarachnoid cyst Cerebral cysts Neck pain Cervicalgia Tension headache documented [facility]* Diagnosis Routine general medical examination at [facility] care facility- Primary Routine general medical examination at a [facility] care facility Estrogen deficiency Other ovarian failure Screening for lipid disorders Medicare annual wellness visit, subsequent Dermatochalasis of both lower eyelids Chronic idiopathic constipation Unspecified constipation documented [facility]* Diagnosis Memory loss- Primary Subarachnoid cyst Cerebral cysts Chronic insomnia Insomnia, unspecified documented [facility]* Diagnosis Slow transit constipation- Primary Osteoporosis, unspecified osteoporosis type, unspecified pathological fracture presence (CMS/HCC) H/O malignant neoplasm of colon Routine general medical examination at health care facility- Primary Routine general medical examination at a [facility] care facility Age-related osteoporosis without current pathological fracture (CMS/HCC) Other fatigue- Primary Osteoporosis, unspecified osteoporosis type, unspecified pathological fracture presence (CMS/HCC) Myalgia Unspecified myalgia and myositis Memory loss Acute strain of neck muscle, initial encounter- Primary Osteoporosis, unspecified osteoporosis type, unspecified pathological fracture presence (CMS/HCC) Memory loss Tension headache Acute strain of neck muscle, initial encounter- Primary New daily persistent headache Routine general medical examination at health care facility- Primary Routine general medical examination at a [facility] care facility Estrogen deficiency Other ovarian failure Screening for lipid disorders Medicare annual wellness visit, subsequent Dermatochalasis of both lower eyelids Chronic idiopathic constipation Unspecified constipation Left hip pain- Primary Pain in joint, pelvic region and thigh Right leg pain Pain in soft tissues of limb Slow transit constipation documented [facility]* Diagnosis Slow transit constipation- Primary Osteoporosis, unspecified osteoporosis type, unspecified pathological fracture presence (CMS/HCC) H/O malignant neoplasm of colon Routine general medical examination at health care facility- Primary Routine general medical examination at a [facility] Age-related osteoporosis without current pathological fracture (CMS/HCC) Other fatigue- Primary Osteoporosis, unspecified osteoporosis type, unspecified pathological fracture presence (CMS/HCC) Myalgia Unspecified myalgia and myositis Memory loss Acute strain of neck muscle, initial encounter- Primary Osteoporosis, unspecified osteoporosis type, unspecified pathological fracture presence (CMS/HCC) Memory loss Tension headache Acute strain of neck muscle, initial encounter- Primary New daily persistent headache Routine general medical examination at health care facility- Primary Routine general medical examination at a [facility] Estrogen deficiency Other ovarian failure Screening for lipid disorders Medicare annual wellness visit, subsequent Dermatochalasis of both lower eyelids Chronic idiopathic constipation Unspecified constipation Left hip pain- Primary Pain in joint, pelvic region and thigh Right leg pain Pain in soft tissues of limb Slow transit constipation Other seborrheic dermatitis- Primary Lentigines Melanocytic nevus of trunk Benign neoplasm of skin of trunk, except scrotum Solar purpura (CMS/HCC) Seborrheic keratosis Seborrheic keratosis, inflamed documented in this [facility]* Diagnosis Slow transit constipation- Primary Osteoporosis, unspecified osteoporosis type, unspecified pathological fracture presence H/O malignant neoplasm of colon Routine general medical examination at [facility] care facility- Primary Routine general medical examination at a [facility] Age-related osteoporosis without current pathological fracture Other fatigue- Primary Osteoporosis, unspecified osteoporosis type, unspecified pathological fracture presence Myalgia Unspecified myalgia and myositis Memory loss Acute strain of neck muscle, initial encounter- Primary Osteoporosis, unspecified osteoporosis type, unspecified pathological fracture presence Memory loss Tension headache Acute strain of neck muscle, initial encounter- Primary New daily persistent headache Routine general medical examination at [facility] care facility- Primary Routine general medical examination at a [facility] Estrogen deficiency Other ovarian failure Screening for lipid disorders Medicare annual wellness visit, subsequent Dermatochalasis of both lower eyelids Chronic idiopathic constipation Unspecified constipation Left hip pain- Primary Pain in joint, pelvic region and thigh Right leg pain Pain in soft tissues of limb Slow transit constipation Venous insufficiency (chronic) (peripheral)- Primary Unspecified venous (peripheral) insufficiency Swelling of right lower extremity Swelling of left lower extremity Nocturnal leg cramps documented in this encounter [facility]* Diagnosis Slow transit constipation- Primary Osteoporosis, unspecified osteoporosis type, unspecified pathological fracture presence H/O malignant neoplasm of colon Routine general medical examination at health care facility- Primary Routine general medical examination at a [facility] Age-related osteoporosis without current pathological fracture Other fatigue- Primary Osteoporosis, unspecified osteoporosis type, unspecified pathological fracture presence Myalgia Unspecified myalgia and myositis Memory loss Acute strain of neck muscle, initial encounter- Primary Osteoporosis, unspecified osteoporosis type, unspecified pathological fracture presence Memory loss Tension headache Acute strain of neck muscle, initial encounter- Primary New daily persistent headache Routine general medical examination at health care facility- Primary Routine general medical examination at a [facility] Estrogen deficiency Other ovarian failure Screening for lipid disorders Medicare annual wellness visit, subsequent Dermatochalasis of both lower eyelids Chronic idiopathic constipation Unspecified constipation Left hip pain- Primary Pain in joint, pelvic region and thigh Right leg pain Pain in soft tissues of limb Slow transit constipation Routine general medical examination at [facility] care [facility]- Primary Routine general medical examination at a [facility] Age-related osteoporosis without current pathological fracture Asymptomatic varicose veins of both lower extremities [facility] Narrative No data available for this section [facility] Discharge instructions No data available for this section [facility] Progress note No data available for this section [facility] Reason for referral (narrative)* Consultation (Routine) - AuthorizedSpecialtyDiagnoses / ProceduresReferred By ContactReferred To ContactGastroenterology Diagnoses Alternating constipation and diarrhea Procedures [place] OFFICE/OUTPATIENT NEW HIGH MDM 60 MINUTES Cary Duran PA [address] [facility] [address] [place] [address] Nomi Vazquez MD [address] [facility] [address] [address] Referral IDStatusReasonStart DateExpiration DateVisits RequestedVisits [id number] Specialty Services Required [facility] (narrative)* Consultation (Routine) - Pending ReviewSpecialtyDiagnoses / ProceduresReferred By ContactReferred To Contact Psychology Diagnoses Memory loss MCI (mild cognitive impairment) with memory loss Procedures [place] OFFICE/OUTPATIENT NEW HIGH MDM 60 MINUTES Joshua Lovell DO [address] [place] [address] Referral IDStatusReasonStart DateExpiration DateVisits RequestedVisits [id number] Review Specialty Services Required / [facility] Summary Purpose Family History No Family History Records FoundNo Family History Records Found No data available for this section No data available for this section No Family History Records Found No data available for this section No data available for this section No Family History Records FoundNo Family History Records FoundNo Family History Records Found No data available for this section No Family History Records FoundNo Family History Records Found Advance Directives No Advanced Directives Records FoundNo Advanced Directives Records FoundNo Advanced Directives Records FoundNo Advanced Directives Records FoundNo Advanced Directives Records FoundNo Advanced Directives Records FoundNo Advanced Directives Records FoundNo Advanced Directives Records Found Additional Source Comments INFORMATION SOURCE (unrecogn ized section and content) DATE CREATED AUTHOR 03/02/2022 [facility] DATE CREATED AUTHOR AUTHOR'S ORGANIZ ATION 05/25/2023 [facility] DATE CREATED AUTHOR AUTHOR'S ORGANIZ ATION 02/25/2024 [facility] DATE CREATED AUTHOR AUTHOR'S ORGANIZ ATION 03/07/2024 [facility] DATE CREATED AUTHOR AUTHOR'S ORGANIZ ATION 03/14/2024 [facility] DATE CREATED AUTHOR AUTHOR'S ORGANIZ ATION 03/15/2024 [facility] DATE CREATED AUTHOR AUTHOR'S ORGANIZ ATION 03/21/2024 [facility] DATE CREATED AUTHOR AUTHOR'S ORGANIZ ATION 01/06/2025 [facility] EPIC Patient Care team informatio n (unrecognized section and content) Team MemberRelationshipSpecialtyStart DateEnd Date Jessica Bergman MD [address] [place] [address] PCP - [facility]09/20/22 Jessica Bergman MD [address] [place] [address] PCP - [facility]11/26/22Te MemberRelationshipSpecialtyStart DateEnd Date Jessica Bergman MD [address] [place] [address] [facility] Jessica Bergman MD [address] [place] [address] PCP - [facility]11/26/22Te MemberRelationshipSpecialtyStart DateEnd Date Jessica Bergman MD [address] [place] [address] PCP - [facility]09/20/22 Jessica Bergman MD [address] [place] [address] PCP - [facility]11/26/22Te MemberRelationshipSpecialtyStart DateEnd Date Jessica Bergman MD [address] [place] [address] [facility] Jessica Bergman MD [address] [place] [address] PCP - [facility]11/26/22Te MemberRelationshipSpecialtyStart DateEnd Date Jessica Bergman MD [address] [place] [address] PCP - [facility]09/20/22 Jessica Bergman MD [address] [place] [address] PCP - [facility]11/26/22Te MemberRelationshipSpecialtyStart DateEnd Date Jessica Bergman MD [address] [place] [address] [facility]09/20/22 Jessica Bergman MD [address] [place] [address] [facility] - [facility]11/26/22Te MemberRelationshipSpecialtyStart DateEnd Date Jessica Bergman MD [address] [place] [address] [facility] - [facility]09/20/22 Jessica Bergman MD [address] [place] [address] [facility]11/26/22Te MemberRelationshipSpecialtyStart DateEnd Date Jessica Bergman MD [address] [place] [address] PCP - [facility]09/20/22 Jessica Bergman MD [address] [place] [address] [facility]11/26/22Team MemberRelationshipSpecialtyStart DateEnd Date Jessica Bergman MD [address] [place] [address] [facility] - [facility]09/20/22 Jessica Bergman MD [address] [place] [address] [facility] - [facility]11/26/22Te MemberRelationshipSpecialtyStart DateEnd Date Jessica Bergman MD [address] [place] [address] [facility] - [facility]09/20/22 Jessica Bergman MD [address] [facility] [address] [place] [address] [facility] - [facility]11/26/22Te MemberRelationshipSpecialtyStart DateEnd Date Jessica Bergman MD [address] [facility] [address] [place] [address] [facility] - [facility]09/20/22 Jessica Bergman MD [address] [facility] [address] [place] [address] [facility]11/26/22Te MemberRelationshipSpecialtyStart DateEnd Date Jessica Bergman MD [address] [place] [address] [facility] - [facility]09/20/22 Jessica Bergman MD [address] [place] [address] [facility]11/26/22Team MemberRelationshipSpecialtyStart DateEnd Date Jessica Bergman MD [address] [place] [address] PCP - [facility]09/20/22 Jessica Bergman MD [address] [place] [address] PCP - [facility]11/26/22Team MemberRelationshipSpecialtyStart DateEnd Date Jessica Bergman MD [address] [place] [address] PCP - [facility]09/20/22 Jessica Bergman MD [address] [place] [address] PCP - [facility]11/26/22Team MemberRelationshipSpecialtyStart DateEnd Date Jessica Bergman MD [address] [place] [address] PCP - [facility]09/20/22 Jessica Bergman MD [address] [place] [address] PCP - [facility]11/26/22Team MemberRelationshipSpecialtyStart DateEnd Date Jessica Bergman MD [address] [place] [address] PCP - [facility]09/20/22 Jessica Bergman MD [address] [place] [address] PCP - [facility]11/26/22Team MemberRelationshipSpecialtyStart DateEnd Date Jessica Bergman MD [address] [place] [address] PCP - [facility]09/20/22 Jessica Bergman MD [address] [place] [address] PCP - [facility]11/26/22Team MemberRelationshipSpecialtyStart DateEnd Date Jessica Bergman MD [address] [place] [address] PCP - [facility]09/20/22 Jessica Bergman MD [address] [place] [address] PCP - [facility]11/26/22Team MemberRelationshipSpecialtyStart DateEnd Date Jessica Bergman MD [address] [place] [address] PCP - [facility]09/20/22 Jessica Bergman MD [address] [place] [address] PCP - [facility]11/26/22Team MemberRelationshipSpecialtyStart DateEnd Date Jessica Bergman MD [address] [place] [address] PCP - [facility]09/20/22 Jessica Bergman MD [address] [place] [address] PCP - [facility]11/26/22 Reason for Visit (unrecogniz ed section and content) ReasonCommentsEar ProblemEar pain bilateral.ReasonCommentsdiscuss lab results Labs were completed on 12/27/23.ReasonCommentsSuspicious Skin LesionReason CommentsNeck PainMemory LossReasonCommentsMedicare Annual Wellness Visit SubsequentPt has added iron again, she still has some meds How fast does it take for your food to be expelledQuestions on eye surgeryReasonCommentsosteo/memory lossReasonCommentsSkin CheckSuspicious Skin LesionReasonCommentsFoot PainPain and swelling with BL feet ankles, frequent debra horses . Right leg seems to be worse with swelling. Has been ongoing for a while, but gradually has gotten worse.ReasonCommentsMedicare Annual Wellness Visit SubsequentOff n on hips will hurt FOR RECORDS PERTAINING TO PATIENTS WHO ARE [...] BE BASED ON THE PRIMARY CLINICAL RECORDS. [employer] provides no warranty or guarantee of the accuracy or completeness of information in this document.
--- NOTE | 2025-03-03 13:16 | MM_ITS ---
Patient Name: SCOTTIE CHAVIRA MR#: [id number] : 1935 Exam Date: 03/03/2025 Ordering Doctor: DR JESSICA BERGMAN M.D. RADIOLOGY REPORT PROCEDURE: MM TOMOSYNTHESIS SCREENING BI COMPARISON: MM TOMOSYNTHESIS SCREENING BI, 03/02/2024. MM TOMOSYNTHESIS SCREENING BI, 02/28/2023. MG MAMM SCREEN 3D ALAYNA CAD, 02/26/2022. MG MAMM SCREEN ALAYNA W CAD, 12/31/2014. INDICATIONS: Screening Calculator Name NCI Breast Cancer Risk Assessment Tool 5 Year Breast Cancer Risk Not Applicable. Lifetime Breast Cancer Risk Not Applicable. Personal Breast Cancer No Personal Ovarian Cancer No Treatments Bowl resection Family Cancers Mother with breast cancer at age 87; Sister with breast cancer at age 80; Sister with breast cancer at age 78. LOCATION: [facility] BREAST COMPOSITION: The breasts are heterogeneously dense, which may obscure small masses. FINDINGS: DIAGNOSTIC CATEGORY 1--NEGATIVE. RIGHT BREAST: No significant suspicious finding. LEFT BREAST: No significant suspicious finding. RECOMMENDATIONS: ROUTINE MAMMOGRAM AND CLINICAL EVALUATION IN 12 MONTHS. Dictated by: Gumaro Contreras MD on 03/03/2025 at 16:59 Approved by: Gumaro Contreras MD on 03/03/2025 at 17:00
== END 2025-03-03 13:11 | disposition home or self-care (01) ==
LOC: MAMMO 13:10
PROVIDERS: PCP Family Medicine; Visit Provider Family Medicine
DX: Z12.31 Encounter for screening mammogram for malignant neoplasm of breast (principal); Z80.3 Family history of malignant neoplasm of breast
CPT/HCPCS: 77063; 77067